=== PATIENT | female | born 1945 | race Caucasian/White ===

== ENCOUNTER → 2017-10-04 20:20 | Outpatient (REF) | payer MEDICARE, BC, SELFPAY ==
[2017-10-04 21:02] LABS: NT-proBNP 158 pg/mL
== END ==
LOC: NCHCN 20:20
PROVIDERS: PCP Family Medicine; Visit Provider Family Medicine
DX: I50.9 Heart failure, unspecified (principal); R82.99 Other abnormal findings in urine; E11.65 Type 2 diabetes mellitus with hyperglycemia; R53.83 Other fatigue
CPT/HCPCS: 83880; 84550

== ENCOUNTER → 2017-10-16 12:44 | Outpatient (REF) | payer MEDICARE, BC, SELFPAY | LOC: NCHCN 12:44 | PROVIDERS: PCP Family Medicine; Visit Provider Family Medicine | DX: R30.0 Dysuria (principal) | CPT/HCPCS: 87077; 87086; 87186 ==

== ENCOUNTER → 2017-11-21 10:39 | Outpatient (BNVA) | payer MEDICARE, BC, SELFPAY | PROVIDERS: PCP Family Medicine; Visit Provider Internal Medicine Cardiovascular Disease | DX: I42.0 Dilated cardiomyopathy (principal); E66.01 Morbid (severe) obesity due to excess calories; I48.0 Paroxysmal atrial fibrillation; E11.9 Type 2 diabetes mellitus without complications; Z79.4 Long term (current) use of insulin; Z95.0 Presence of cardiac pacemaker; G47.33 Obstructive sleep apnea (adult) (pediatric); Z79.01 Long term (current) use of anticoagulants | CPT/HCPCS: 99214 ==

== ENCOUNTER 2017-12-20 07:26 | Day surgery (SDC) | payer MEDICARE, BC, SELFPAY ==
--- NOTE | 2017-12-19 11:46 | W.PIPPEYE ---
History of Present Illness Chief Complaint: Progressive decreased vision, right eye Narrative: The patient is a 71-year-old female who presented with complaints of progressive decreased vision in her right eye. She notes halos and starbursts around lights and can no longer drives at night. On examination she was noted to have moderate nuclear cataract with visual acuity of 20/100 in the right eye. The option of cataract surgery was offered to the patient and she wished to proceed. NOTE: The Chief Complaint, HPI, Past Medical History, Past Surgical History, Family History, Social History, Medications, and complete Ophthalmic Exam with detailed Assessment and Plan have already been documented in the patient's outpatient ophthalmic record and are not covered again in detail here. 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 [employer] Smoking/Tobacco Use Status: Never Surgical History section Meds Home Medications Medication Instructions Recorded Confirmed Type fluoxetine 40 mg PO DAILY AM 04/15/13 12/17/17 History Bi Pap 12/28/14 History acetaminophen 325 mg PO PRN tab-cap 12/28/14 03/19/17 History carvedilol [Coreg] 25 mg PO BID tab-cap 12/28/14 12/17/17 History cholecalciferol (vitamin D3) 5,000 unit PO WEEKLY 12/28/14 12/17/17 History lorazepam 0.5 mg PO Q 6-8 HR PRN tab-cap 12/28/14 03/19/17 History nitroglycerin [Nitrostat] 0.4 mg SUBLINGUAL ONCE tab-cap 12/28/14 03/19/17 History omega-3 fatty acids 1,000 mg PO BID 12/28/14 12/17/17 History cyanocobalamin (vitamin B-12) 5,000 mcg PO DAILY 05/28/16 03/19/17 History [Vitamin B-12] magnesium oxide 400 mg PO BID 05/28/16 12/17/17 History insulin aspart U-100 [Novolog 0 units SUB-Q 0800,1200,1700 pen 05/31/16 03/19/17 Rx Flexpen U-100 Insulin] insulin aspart U-100 [Novolog 10 units SUB-Q 0800,1200,1700 pen 05/31/16 03/19/17 Rx Flexpen U-100 Insulin] nystatin 1 applic TOPICAL TID PRN #0 jar 05/31/16 03/19/17 Rx warfarin [Coumadin] mg PO DIRECTED 02/13/17 History insulin NPH and regular human 50 unit SUB-Q BID 03/06/17 12/17/17 History [Novolin 70/30 U-100 Insulin] buspirone 7.5 mg PO QAM tab 03/21/17 12/17/17 Rx colchicine [Colcrys] 0.6 mg PO BID tab 03/21/17 12/17/17 Rx spironolactone 25 mg PO DAILY tab-cap 05/15/17 History thiamine HCl (vitamin B1) 100 mg PO DAILY 05/15/17 12/17/17 History torsemide 40 mg PO DAILY tab-cap 05/15/17 12/17/17 History C,E,zinc,copper [id number] 1 cap PO DAILY 12/17/17 12/17/17 History [Ocuvite Adult 50 Plus] gabapentin 300 mg PO BID 12/17/17 12/17/17 History nzxikdat-acw-ccjm-FA-lutein 1 tab PO DAILY 12/17/17 12/17/17 History [Centrum Silver Women] Allergies Allergy/AdvReac Type Severity Reaction Status Date / Time No Known Allergies Allergy Unverified 12/18/17 11:37 Exam OCULAR EXAM:: Visual acuity at distance: Corrected to 20/100 OD, 20/50 OS Pupils: Pupils equal, round, and reactive without afferent pupillary defect IOP: 17 OD 15 OS Extraocular Motility: Normal Pertinent Slit Lamp Findings: Significant for pupils dilating to 6 mm OU. 2+ nuclear cataract OU. Dilated Funduscopic Examination: Disc cupping is 0.6 OU with good color. BRIGHTNESS ACUITY TESTING (BAT):: Off right eye 20/100 Low: 20/100 Medium: 20/200 High: 20/400 Assessment and Plan (1) Nuclear sclerotic cataract of right eye: Current visit: No Status: Acute Assessment: Visually significant cataract, right eye. Plan: Cataract extraction with intraocular lens implantation, right eye Note: NOTE:: The details of the planned surgery, including the risks, indications,limitations,expectations,outcome and possible complications were explained to the patient. The patient understands the complications including, but not limited to: infection, hemorrhage, posterior dislocation of the lens or nuclear fragments which may require the intervention of a vitreoretinal surgeon, possible loss of the eye, or from anesthetic complications. The patient has been made aware of the option of not having surgery, that vision following surgery may not be equal to that prior to surgery, and that the planned surgery may not achieve the intended results. Following this discussion, which the patient appeared to understand, the patient wishes to proceed with cataract surgery with lens implantation of the affected eye to improve and maximize vision.
--- NOTE | 2017-12-19 11:51 | POEE_ITS ---
History of Present Illness Chief Complaint: Progressive decreased vision, right eye Narrative: The patient is a 71-year-old female who presented with complaints of progressive decreased vision in her right eye. She notes halos and starbursts around lights and can no longer drives at night. On examination she was noted to have moderate nuclear cataract with visual acuity of 20/100 in the right eye. The option of cataract surgery was offered to the patient and she wished to proceed. NOTE: The Chief Complaint, HPI, Past Medical History, Past Surgical History, Family History, Social History, Medications, and complete Ophthalmic Exam with detailed Assessment and Plan have already been documented in the patient's outpatient ophthalmic record and are not covered again in detail here. 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[employer] Smoking/Tobacco Use Status: Never Surgical History section Meds Home Medications Medication Instructions Recorded Confirmed Type fluoxetine 40 mg PO DAILY AM 04/15/13 12/17/17 History Bi Pap 12/28/14 History acetaminophen 325 mg PO PRN tab-cap 12/28/14 03/19/17 History carvedilol [Coreg] 25 mg PO BID tab-cap 12/28/14 12/17/17 History cholecalciferol (vitamin D3) 5,000 unit PO WEEKLY 12/28/14 12/17/17 History lorazepam 0.5 mg PO Q 6-8 HR PRN tab-cap 12/28/14 03/19/17 History nitroglycerin [Nitrostat] 0.4 mg SUBLINGUAL ONCE tab-cap 12/28/14 03/19/17 History omega-3 fatty acids 1,000 mg PO BID 12/28/14 12/17/17 History cyanocobalamin (vitamin B-12) 5,000 mcg PO DAILY 05/28/16 03/19/17 History [Vitamin B-12] magnesium oxide 400 mg PO BID 05/28/16 12/17/17 History insulin aspart U-100 [Novolog 0 units SUB-Q 0800,1200,1700 pen 05/31/16 Rx Flexpen U-100 Insulin] insulin aspart U-100 [Novolog 10 units SUB-Q 0800,1200,1700 pen 05/31/16 Rx Flexpen U-100 Insulin] nystatin 1 applic TOPICAL TID PRN #0 jar 05/31/16 03/19/17 Rx warfarin [Coumadin] mg PO DIRECTED 02/13/17 History insulin NPH and regular human 50 unit SUB-Q BID 03/06/17 12/17/17 History [Novolin 70/30 U-100 Insulin] buspirone 7.5 mg PO QAM tab 03/21/17 12/17/17 Rx colchicine [Colcrys] 0.6 mg PO BID tab 03/21/17 12/17/17 Rx spironolactone 25 mg PO DAILY tab-cap 05/15/17 History thiamine HCl (vitamin B1) 100 mg PO DAILY 05/15/17 12/17/17 History torsemide 40 mg PO DAILY tab-cap 05/15/17 12/17/17 History C,E,zinc,copper [id number] 1 cap PO DAILY 12/17/17 12/17/17 History [Ocuvite Adult 50 Plus] gabapentin 300 mg PO BID 12/17/17 12/17/17 History ptwceqcj-xkj-mlwl-FA-lutein 1 tab PO DAILY 12/17/17 12/17/17 History [Centrum Silver Women] Allergies Allergy/AdvReac Type Severity Reaction Status Date / Time No Known Allergies Allergy Unverified 12/18/17 11:37 Exam OCULAR EXAM:: Visual acuity at distance: Corrected to 20/100 OD, 20/50 OS Pupils: Pupils equal, round, and reactive without afferent pupillary defect IOP: 17 OD 15 OS Extraocular Motility: Normal Pertinent Slit Lamp Findings: Significant for pupils dilating to 6 mm OU. 2+ nuclear cataract OU. Dilated Funduscopic Examination: Disc cupping is 0.6 OU with good color. BRIGHTNESS ACUITY TESTING (BAT):: Off right eye 20/100 Low: 20/100 Medium: 20/200 High: 20/400 Assessment and Plan (1) Nuclear sclerotic cataract of right eye: Current visit: No Status: Acute Assessment: Visually significant cataract, right eye. Plan: Cataract extraction with intraocular lens implantation, right eye Note: NOTE:: The details of the planned surgery, including the risks, indications, limitations,expectations,outcome and possible complications were explained to the patient. The patient understands the complications including, but not limited to: infection, hemorrhage, posterior dislocation of the lens or nuclear fragments which may require the intervention of a vitreoretinal surgeon, possible loss of the eye, or from anesthetic complications. The patient has been made aware of the option of not having surgery, that vision following surgery may not be equal to that prior to surgery, and that the planned surgery may not achieve the intended results. Following this discussion, which the patient appeared to understand, the patient wishes to proceed with cataract surgery with lens implantation of the affected eye to improve and maximize vision.
--- NOTE | 2017-12-20 07:20 | W.PM.DSUDISC ---
Discharge Plan Discharge Details Reason For Visit: CATARACT OD Attending Provider: Hunter Mathis Primary Care Provider: Alyssa Turcios Home Meds and New Rx's Prescriptions: No Action acetaminophen 325 MG tablet 325 mg PO PRN RF: 0 carvedilol [Coreg] 6.25 MG tablet 25 mg PO BID RF: 0 omega-3 fatty acids 1,000 MG capsule 1,000 mg PO BID RF: 0 lorazepam 0.5 MG tablet 0.5 mg PO Q 6-8 HR PRN RF: 0 nitroglycerin [Nitrostat] 0.4 MG tablet, sublingual 0.4 mg Sublingual ONCE RF: 0 cholecalciferol (vitamin D3) 5,000 UNIT tablet 5,000 unit PO WEEKLY RF: 0 BI PAP RF: 0 torsemide 20 MG tablet 40 mg PO DAILY RF: 0 thiamine HCl (vitamin B1) 100 MG tablet 100 mg PO DAILY RF: 0 spironolactone 25 MG tablet 25 mg PO DAILY RF: 0 fluoxetine 40 MG capsule 40 mg PO DAILY AM RF: 0 warfarin [Coumadin] 1 MG tablet PO DIRECTED RF: 0 taavykzy-tsr-ryps-FA-lutein [Centrum Silver Women] 8 mg iron-400 mcg-300 mcg Tablet 1 tab PO DAILY RF: 0 C,E,zinc,copper [id number] [Ocuvite Adult 50 Plus] 250-5-1 mg Capsule 1 cap PO DAILY RF: 0 gabapentin 300 mg Capsule 300 mg PO BID RF: 0 magnesium oxide 400 MG capsule 400 mg PO BID RF: 0 cyanocobalamin (vitamin B-12) [Vitamin B-12] 5,000 MCG tablet, sublingual 5,000 mcg PO DAILY RF: 0 nystatin 60 GM powder 1 applic Topical TID PRNQty: 0 RF: 0 insulin aspart U-100 [Novolog Flexpen U-100 Insulin] 300 UNITS/3 ML insulin pen 10 units Sub-Q 0800,1200,1700 RF: 0 insulin aspart U-100 [Novolog Flexpen U-100 Insulin] 300 UNITS/3 ML insulin pen Sub-Q 0800,1200,1700 RF: 0 insulin NPH and regular human [Novolin 70/30 U-100 Insulin] 100 UNIT/ML suspension 50 unit Sub-Q BID RF: 0 colchicine [Colcrys] 0.6 MG tablet 0.6 mg PO BID RF: 0 buspirone 15 MG tablet 7.5 mg PO QAM RF: 0 Discharge Instructions Stand Alone Forms: Post-op Topical Cataract, Corinne Velasquez (DSU) DS: Diagnosis Discharge Diagnosis (1) Nuclear sclerotic cataract of right eye: Status: Resolved (2) Status post cataract extraction and insertion of intraocular lens of right eye: Status: Chronic
--- NOTE | 2017-12-20 07:32 | W.PM.OP ---
Date of service: 12/20/17 Operative Note DATE OF PROCEDURE: 12/20/17 PRE-OP DIAGNOSIS: Cataract, right eye POST-OP DIAGNOSIS: same SURGEON: Hunter Mathis ANESTHESIA: MAC and local (sub-tenon's anesthetic infiltration) PATHOLOGY: none sent COMPLICATIONS: None Patient was transported to: same day Patient's condition: stable Implants: [employer] / [employer] Tecnis ZCB00 Indications: Progressive decreased vision due to cataract, right eye Procedure Description: CATARACT SURGERY OPERATIVE REPORT PREOPERATIVE DIAGNOSIS: Nuclear cataract, right eye POSTOPERATIVE DIAGNOSIS: Same OPERATION: Cataract extraction using phacoemulsification with posterior chamber intraocular lens implant, right eye. IOL: IOL Instructional Technology Facilitator/Model: [employer] / DANILO [employer]ecnis ZCB00 IOL Power: +16.00 diopters IOL Serial Number: [id number] Optic Diameter: 6.0mm Haptic/Overall Diameter: 13.0mm PHACO INFO: Huy Captalisurion Vision System with OZil and Active Fluidics Cumulative Dispersed Energy (CDE): 8.53 seconds SURGEON: Hunter Mathis MD, [facility] ANESTHESIA: Monitored Anesthesia Care (MAC), with local sub-tenon's anesthetic infiltration COMPLICATIONS: None SPECIMENS: None INDICATIONS FOR PROCEDURE: The patient is a 71-year-old lady who presented with complaints of progressive decreased vision in her right eye. She was noted to have moderate nuclear cataract in the right eye. The option of cataract surgery was offered to the patient and she wished to proceed. PROCEDURE: The correct surgical eye was identified and marked as the right eye and the pupil was dilated in the preoperative area using mydriatics, cycloplegics, and NSAIDS (except in aspirin allergic patients). The dilated pupil size was 7.0mm. The patient elected to proceed without oral sedation. The patient was brought to the operating room where cardiopulmonary monitoring was instituted and surgical time-out was performed, confirming the correct operative eye and IOL power. Topical anesthesia was administered and ophthalmic povidone-iodine 5% was instilled into the conjunctival fornices. Lidocaine gel was applied to the cornea and the enma-ocular area was prepped with Betadine 10% solution and draped in the usual sterile fashion for intraocular surgery. Steri-strips were used to cover the lashes and lid margins and an adhesive eye drape was placed. Care was taken to isolate the lashes and lid margins under the Steri-strips and adhesive eye drape. A lid speculum was placed between the lids of the operative eye and the Marlon-Manuel operating microscope was maneuvered into position. Janene scissors were then used to make a conjunctival buttonhole approximately 6mm posterior to the limbus in the inferonasal quadrant. Blunt dissection was carried out to expose bare sclera, and a blunt-tipped sub-tenon?s anesthesia cannula was introduced and passed posteriorly along the globe where non-preserved plain lidocaine was injected into posterior sub-Tenon?s space. A sideport knife was used to make a paracentesis port at the 7:00 postion and the anterior chamber was filled with Healon GV. A 2.4mm keratome knife was used to create a half-thickness groove at the limbus and then to construct a three-plane near-clear corneal tunnel extending 2.0mm into clear cornea at the 10:00 position. A flap was raised on the anterior capsule and capsulorhexis forceps were used to complete a continuous curvilinear capsulorhexis of 5.0 mm. Balanced salt solution was then used to perform cortical cleaving hydrodissection and nuclear hydrodelineation until the lens could be freely rotated within the capsular bag. The lens nucleus was then disassembled and removed within the capsular bag and iris plane using phacoemulsification. Residual cortical material was removed using the 45-degree angled silicone I/A tip with 0.3mm port. The posterior capsule was carefully polished to remove as much residual lens epithelial cells as safely possible. The capsular bag was then inflated and the anterior chamber deepened with viscoelastic. The lens implant described above was inserted into the capsular bag using the DANILO [employer] [place] [employer] [place] Injector. A Kuglen hook was used to dial the IOL into position. Residual viscoelastic was then removed first from posterior to the IOL, then from the anterior chamber using the I/A handpiece. The lens implant was noted to center nicely within the capsular bag. The incisions were stromally hydrated, and the anterior chamber was reformed using BSS. Then 0.4cc of moxifloxacin 1.5mg/ml were injected into the capsular bag and anterior chamber. The incisions were checked with a Weck spear and found to be secure. Several drops of ophthalmic povidone-iodine 5% were then applied to the eye followed by two drops of Imprimis combination moxifloxacin/dexamethasone solution. The drapes were removed and a clear plastic protective eye shield was placed over the eye. The patient was then returned to [facility] in stable condition.
[2017-12-20 07:42] VITALS: BP 104/59; PULSE 86; RESP 19; TEMP 36.6; O2SAT 95
[2017-12-20] MEDS: Lidocaine 2% Jelly 6 ML SYR (10:17)
[2017-12-20] MEDS: Lidocaine 1% Pres-Free 5 ML VIAL (10:23)
[2017-12-20] MEDS: Balanced Salt Soln.-PLUS 500 ML BAG (10:23)
[2017-12-20] MEDS: Povidone-Iodine Ophth 30 ML BTL (10:40)
== END 2017-12-20 11:31 | disposition home or self-care (01) ==
LOC: SUR 07:26
PROVIDERS: PCP Family Medicine; Visit Provider Ophthalmology
PROC: (CPT 66984; principal; 2017-12-20 09:00)
DX: H25.11 Age-related nuclear cataract, right eye (principal); E11.9 Type 2 diabetes mellitus without complications; Z79.4 Long term (current) use of insulin; G47.33 Obstructive sleep apnea (adult) (pediatric)
CPT/HCPCS: 66984; V2632

== ENCOUNTER 2017-12-24 01:07 | Emergency (ER) | payer MEDICARE, BC, SELFPAY ==
[2017-12-24 00:53] VITALS: PULSE 70; RESP 18; TEMP 36.7; O2SAT 97
--- NOTE | 2017-12-24 01:09 | W.ED.GENAD ---
Discharge Plan Disposition Patient Disposition: HOME Condition: Stable Discharge Details Chief Complaint: Dizzy/Sync Clinical Impression: Acute UTI, Hyperglycemia Reason For Visit: HALLE Primary Care Provider: Alyssa Turcios ED Provider: Karlos Miranda Home Meds and New Rx's Prescriptions: New levofloxacin 750 mg tablet 750 mg PO DAILY Qty: 6 RF: 0 Continue acetaminophen 325 MG tablet 325 mg PO PRN RF: 0 carvedilol [Coreg] 6.25 MG tablet 25 mg PO BID RF: 0 omega-3 fatty acids 1,000 MG capsule 1,000 mg PO BID RF: 0 lorazepam 0.5 MG tablet 0.5 mg PO Q 6-8 HR PRN RF: 0 nitroglycerin [Nitrostat] 0.4 MG tablet, sublingual 0.4 mg Sublingual ONCE RF: 0 cholecalciferol (vitamin D3) 5,000 UNIT tablet 5,000 unit PO WEEKLY RF: 0 BI PAP RF: 0 torsemide 20 MG tablet 40 mg PO DAILY RF: 0 thiamine HCl (vitamin B1) 100 MG tablet 100 mg PO DAILY RF: 0 spironolactone 25 MG tablet 25 mg PO DAILY RF: 0 fluoxetine 40 MG capsule 40 mg PO DAILY AM RF: 0 warfarin [Coumadin] 1 MG tablet PO DIRECTED RF: 0 pqyuozos-cxg-evom-FA-lutein [Centrum Silver Women] 8 mg iron-400 mcg-300 mcg Tablet 1 tab PO DAILY RF: 0 C,E,zinc,copper [id number] [Ocuvite Adult 50 Plus] 250-5-1 mg Capsule 1 cap PO DAILY RF: 0 gabapentin 300 mg Capsule 300 mg PO BID RF: 0 magnesium oxide 400 MG capsule 400 mg PO BID RF: 0 cyanocobalamin (vitamin B-12) [Vitamin B-12] 5,000 MCG tablet, sublingual 5,000 mcg PO DAILY RF: 0 insulin aspart U-100 [Novolog Flexpen U-100 Insulin] 300 UNITS/3 ML insulin pen 10 units Sub-Q 0800,1200,1700 RF: 0 insulin aspart U-100 [Novolog Flexpen U-100 Insulin] 300 UNITS/3 ML insulin pen Sub-Q 0800,1200,1700 RF: 0 insulin NPH and regular human [Novolin 70/30 U-100 Insulin] 100 UNIT/ML suspension 50 unit Sub-Q BID RF: 0 colchicine [Colcrys] 0.6 MG tablet 0.6 mg PO BID RF: 0 buspirone 15 MG tablet 7.5 mg PO QAM RF: 0 Discharge Instructions Additional Instructions: Your blood work was unremarkable other than your blood sugar being high and you also have a urinary tract infection Follow up with your primary care provider within a week to discuss further management of your diabetes IF you have have severe abdominal pain, persistent vomit or difficulty breathing return to the emergency department Medical Decision Making 72 yo female with hx of HFrEF, ischemic cardiomyopathy s/p aicd, afib, obesity, who comes in with complaints of general weakness for about 3 days. Tonight she couldn't get off the toilet so ems was called. She states she hasn't been right since having influenza last year but has had increased general weakness the past 3 days. Denies cough, sob, chest pain/pressure, abd pain, rashes. She did have right cataract surgery last week and has subconjunctival hemorrhage of the eye but denies pain or vision changes. Unclear what is causing her general weakness, will evaluate for anemia, electrolyte abnormalities and UTI. She has no shortness of breath or chest pain/pressure without hypoxia or tachycardia so doubt significant chf, acs or PE. She does have pitting edema of both legs without calf pain, and states this is swelling is chronic and unchanged. NIH of 0, nonfocal exam so doubt CVA. Has no headache or falls so doubt sdh. pt remains hd stable, tele showing nsr rates in the 60's. Lab work shows no significant abnormalities other than UTI and she has had increased urinary frequency and also hyperglycemia without evidence of dka. She feels well enough to go home and I do not feel she requires hospitalization at this time. Advised f/u with her pcp and return precautions given Differential Diagnosis uti, anemia, electrolyte abnormality Lab Data Lab results reviewed: Yes I reviewed the patient's lab results. HPI General Mode of arrival: EMS. Date/Time Provider Initiated Documentation: 12/24/17 01:44. Limitations to Documentation: no limitations. Information obtained by: patient. History of Present Illness 72 year old F presents to the emergency department with the chief complaint of general weakness, described as moderate, with intensity rated at 4. Patient reports no radiation. Patient started experiencing this day(s) (3) and it has been constant. No relieving factors improve symptom(s), No exacerbating factors reported . Patient notes no other symptoms.. Patient did receive the following treatments prior to arrival, none Related Data Home Medications Medication Instructions Recorded Confirmed fluoxetine 40 mg PO DAILY AM 04/15/13 12/24/17 Bi Pap 12/28/14 acetaminophen 325 mg PO PRN tab-cap 12/28/14 12/24/17 carvedilol [Coreg] 25 mg PO BID tab-cap 12/28/14 12/24/17 cholecalciferol (vitamin D3) 5,000 unit PO WEEKLY 12/28/14 12/24/17 lorazepam 0.5 mg PO Q 6-8 HR PRN tab-cap 12/28/14 12/24/17 nitroglycerin [Nitrostat] 0.4 mg SUBLINGUAL ONCE tab-cap 12/28/14 12/24/17 omega-3 fatty acids 1,000 mg PO BID 12/28/14 12/24/17 cyanocobalamin (vitamin B-12) 5,000 mcg PO DAILY 05/28/16 12/24/17 [Vitamin B-12] magnesium oxide 400 mg PO BID 05/28/16 12/24/17 insulin aspart U-100 [Novolog 0 units SUB-Q 0800,1200,1700 pen 05/31/16 12/24/17 Flexpen U-100 Insulin] insulin aspart U-100 [Novolog 10 units SUB-Q 0800,1200,1700 pen 05/31/16 12/24/17 Flexpen U-100 Insulin] warfarin [Coumadin] mg PO DIRECTED 02/13/17 insulin NPH and regular human 50 unit SUB-Q BID 03/06/17 12/24/17 [Novolin 70/30 U-100 Insulin] buspirone 7.5 mg PO QAM tab 03/21/17 12/24/17 colchicine [Colcrys] 0.6 mg PO BID tab 03/21/17 12/24/17 spironolactone 25 mg PO DAILY tab-cap 05/15/17 12/24/17 thiamine HCl (vitamin B1) 100 mg PO DAILY 05/15/17 12/24/17 torsemide 40 mg PO DAILY tab-cap 05/15/17 12/24/17 C,E,zinc,copper [id number]-ame 1 cap PO DAILY 12/17/17 12/24/17 [Ocuvite Adult 50 Plus] gabapentin 300 mg PO BID 12/17/17 12/24/17 aquszbpw-qcy-wdey-FA-lutein 1 tab PO DAILY 12/17/17 12/24/17 [Centrum Silver Women] levofloxacin 750 mg PO DAILY #6 tab 12/24/17 Previous Rx's Medication Instructions Recorded insulin aspart U-100 [Novolog 0 units SUB-Q 0800,1200,1700 pen 05/31/16 Flexpen U-100 Insulin] insulin aspart U-100 [Novolog 10 units SUB-Q 0800,1200,1700 pen 05/31/16 Flexpen U-100 Insulin] buspirone 7.5 mg PO QAM tab 03/21/17 colchicine [Colcrys] 0.6 mg PO BID tab 03/21/17 levofloxacin 750 mg PO DAILY #6 tab 12/24/17 Allergies Allergy/AdvReac Type Severity Reaction Status Date / Time No Known Allergies Allergy Unverified 12/24/17 01:01 General Stated Complaint: Dizzy/Sync ISABELLE: 3 Review of Systems Review of Systems All systems reviewed & are unremarkable except as noted in HPI and below Constitutional Denies chills and Denies fever(s) Eyes Denies loss of vision ENT Denies change in voice Cardiovascular Denies chest pain and Denies dyspnea Respiratory Denies dyspnea Gastrointestinal Denies abdominal pain, Denies nausea and Denies vomiting Genitourinary Denies dysuria Musculoskeletal Denies joint swelling Integumentary/Breasts Denies rash Neurologic Denies loss of vision Psychiatric Denies depression Endocrine Denies cold intolerance and Denies heat intolerance Allergic/Immunologic Denies urticaria PFS Family History Father Heart disease Medical History Dilated cardiomyopathy (Chronic) Morbid obesity due to excess calories (Chronic) Paroxysmal atrial flutter (Chronic) Nuclear sclerotic cataract of right eye (Resolved) Atrial fibrillation CHF (congestive heart failure) DM (diabetes mellitus) CALDERON (obstructive sleep apnea) Obesity Social History household members: spouse housing: house lives independently: Yes current occupational status: other 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 [employer] Smoking/Tobacco Use Status: Never Surgical History Status post cataract extraction and insertion of intraocular lens of right eye (Chronic 12/20/17) section Exam Const General: no acute distress Orientation: alert HENMT Head: normal to inspection Ears: external ears normal General nose exam: external nose normal Mouth: moist mucous membranes Eyes General: appearance normal, both eyes and all related structures Neck Neck: normal visual inspection Resp Effort & Inspection: normal respiratory effort and able to speak in complete sentences Cardio Rate: regular rate Skin General skin exam: no rashes or lesions noted Neuro General: alert and oriented x3 Extrem General: normal to inspection Psych Mental Status: mental status grossly normal Course Vital Signs Temperature 36.7 C 12/24/17 00:53 Pulse 70 12/24/17 00:53 Respiratory Rate 18 12/24/17 00:53 Pulse Oximetry 97 12/24/17 00:53 Temperature 36.7 C 12/24/17 00:53 Pulse 70 12/24/17 00:53 Respiratory Rate 18 12/24/17 00:53 Respiratory Effort 12/24/17 00:53 Blood Pressure Position Sitting 12/24/17 00:53 Pulse Oximetry 97 12/24/17 00:53 Oxygen Delivery Method Room Air 12/24/17 00:53 Oxygen Flow Rate 0 12/24/17 00:53 Pain Level 0 12/24/17 00:53
[2017-12-24 01:17] LABS: BE (Venous) 6.1 mmol/L (-3-3); HCO3 (Venous) 29 mmol/L (22-28); O2 Sat (Venous) 56 % (70-80); TCO2 (Venous) 26 mmol/L (22-29); pCO2 (Venous) 38 mm/Hg (34-47); pH (Venous) 7.49 (7.32-7.43); pO2 (Venous) 28 mm/Hg (28-44)
[2017-12-24 01:23] LABS: Abs Immature Grans 0.01 k/cumm (0.0-0.09); Absolute Basophil Count 0.01 k/cumm (0.0-0.2); Absolute Eosinophil Count 0.06 k/cumm (0.0-0.7); Absolute Lymphocyte Count 0.97 k/cumm (1.2-3.4); Absolute Monocyte Count 0.51 k/cumm (0.11-0.7); Absolute Neutrophil Count 7.38 k/cumm (1.2-6.7); Basophils % 0.1; Eosinophils % 0.7; HCT 42.8 % (36.0-46.0); HGB 14.6 g/dL (12.0-15.5); Immature Grans % 0.1; Lymphocytes % 10.9; Mean Corp. HGB Concentration 34.1 g/dL (32.0-36.0); Mean Corpuscular Hemoglobin 29.4 pg (27.0-33.0); Mean Corpuscular Volume 86.3 fL (80-95); Mean Platelet Volume 12.4 fL (8.0-11.0); Monocytes % 5.7; Neutrophils % 82.5; Platelet Count 158 x1000/uL (130-400); RBC 4.96 m/cumm (4.00-5.20); RBC Distribution Width 14.3 % (11.7-14.6); White Blood Cell Count 8.94 k/cumm (4.4-10.8)
[2017-12-24 01:27] LABS: Bilirubin Negative (Negative); Blood Trace-intact (Negative); Clarity Clear; Glucose 500 mg/dL (Negative); Ketones 15 mg/dL (Negative); Leukocyte Esterase Trace (Negative); Nitrite Positive (Negative); Urobilinogen 0.2 EU/dL (Up TO 0.2); pH 5.5 (5-8)
[2017-12-24 01:38] LABS: Bacteria Few HPF (Negative); C & S Indicated? Yes; Casts Negative LPF (Negative); Crystals Negative HPF (Negative); Epithelial Cells Rare HPF (Negative); Mucus Negative (Negative); RBC Negative (0-2)
--- NOTE | 2017-12-24 01:40 | DI.RAD_ITS ---
SYMPTOM/DIAGNOSIS: CHF AP CHEST: Comparison is made with 03/19/17. Heart size and pulmonary vasculature are within normal limits. The lungs are clear. No effusions or pneumothoraces are identified. The pacing wires are in stable position. The bones appear unremarkable. IMPRESSION: No acute pulmonary process.
--- NOTE | 2017-12-24 01:50 | DI.VRAD_ITS ---
EXAM: XR Chest, 1 View CLINICAL HISTORY: 72 years old, female; Signs and symptoms; Other: Orthostatic hypotension, HX of paf/psvt , mild lvh; Prior surgery; Surgery date: 6+ months; Surgery type: Pacemaker TECHNIQUE: Frontal view of the chest. COMPARISON: CR CHEST 2 VIEWS PA,LAT 03/19/2017 2:28 PM FINDINGS: Lungs: Unremarkable. No consolidation. Pleural space: Unremarkable. No pneumothorax. Heart: Unremarkable. No cardiomegaly. Mediastinum: Unremarkable. Bones/joints: Unremarkable. Tubes, lines and devices: Left chest wall pacing device. IMPRESSION: No acute findings. Dictated and Authenticated by: Karlos Tierney MD. Ordering:JEAN CLAUDE TEIXEIRA MD
[2017-12-24 01:55] LABS: INR 1.1 (1.0-3.5); PTT Activated 23.9 sec (21.0-31.4); Prothrombin Time 11.1 sec (9.3-10.8)
[2017-12-24] MEDS: LEVOFLOXACIN 500 MG, LEVOFLOXACIN 250 MG 750 MG PO (01:55)
[2017-12-24 02:01] LABS: ALT 39 U/L (12-78); AST 27 U/L (15-37); Albumin 3.2 g/dL (3.4-5.0); Alkaline Phosphatase 111 U/L (46-116); Anion Gap 9.7 mmol/L (3-11); BUN 34 mg/dL (7-18); Bilirubin, Direct 0.41 mg/dL (0.00-0.20); Bilirubin, Total 1.8 mg/dL (0.2-1.0); CO2 28.3 mmol/L (21.0-32.0); CREATININE 1.39 mg/dL (0.55-1.02); Calcium 9.1 mg/dL (8.5-10.1); Chloride 96 mmol/L (98-107); Estimated GFR 37.48 (mL/min/1.73m2); Glucose 424 mg/dL (70-100); Magnesium 1.6 mg/dL (1.8-2.4); NT-proBNP 188 pg/mL; Potassium 3.6 mmol/L (3.5-5.1); Sodium 134 mmol/L (136-145); Total Protein 7.1 g/dL (6.4-8.2)
[2017-12-24 04:44] VITALS: BP 129/65; PULSE 63; RESP 18; TEMP 36.6; O2SAT 98
== END 2017-12-24 05:23 | disposition home or self-care (01) ==
LOC: ER 04:30
PROVIDERS: Emergency Provider Emergency Medicine; PCP Family Medicine
DX: N39.0 Urinary tract infection, site not specified (principal); B96.20 Unspecified Escherichia coli [E. coli] as the cause of diseases classified elsewhere; E11.65 Type 2 diabetes mellitus with hyperglycemia; I48.91 Unspecified atrial fibrillation; Z79.01 Long term (current) use of anticoagulants; Z79.4 Long term (current) use of insulin
CPT/HCPCS: 36415; 80053; 80076; 82805; 87077; 87449; 99284; 71045; 81003; 81015; 83735; 83880; 85025; 85610; 85730; 87086; 87186

== ENCOUNTER 2017-12-25 12:42 | Emergency (ER) | payer MEDICARE, BC, SELFPAY ==
[2017-12-25] VITALS (26 sets, daily range): BP systolic 101–130; BP diastolic 44–78; PULSE 67–96; RESP 12–23; TEMP 36.3; O2SAT 89–98
--- NOTE | 2017-12-25 14:25 | W.ED.GENAD ---
Discharge Plan Discharge Details Chief Complaint: GenMedical Reason For Visit: mobility / UTI Primary Care Provider: lAyssa Turcios ED Provider: Margarita Low Home Meds and New Rx's Prescriptions: No Action acetaminophen 325 MG tablet 325 mg PO PRN RF: 0 carvedilol [Coreg] 6.25 MG tablet 25 mg PO BID RF: 0 omega-3 fatty acids 1,000 MG capsule 1,000 mg PO BID RF: 0 nitroglycerin [Nitrostat] 0.4 MG tablet, sublingual 0.4 mg Sublingual ONCE RF: 0 cholecalciferol (vitamin D3) 5,000 UNIT tablet 5,000 unit PO WEEKLY RF: 0 BI PAP RF: 0 torsemide 20 MG tablet 40 mg PO DAILY RF: 0 thiamine HCl (vitamin B1) 100 MG tablet 100 mg PO DAILY RF: 0 fluoxetine 40 MG capsule 40 mg PO DAILY AM RF: 0 warfarin [Coumadin] 1 MG tablet PO DIRECTED RF: 0 lyejwdya-hgt-yvli-FA-lutein [Centrum Silver Women] 8 mg iron-400 mcg-300 mcg Tablet 1 tab PO DAILY RF: 0 C,E,zinc,copper [id number]-akx [Ocuvite Adult 50 Plus] 250-5-1 mg Capsule 1 cap PO DAILY RF: 0 gabapentin 300 mg Capsule 300 mg PO HS RF: 0 magnesium oxide 400 MG capsule 400 mg PO BID RF: 0 insulin aspart U-100 [Novolog Flexpen U-100 Insulin] 300 UNITS/3 ML insulin pen 10 units Sub-Q 0800,1200,1700 RF: 0 insulin aspart U-100 [Novolog Flexpen U-100 Insulin] 300 UNITS/3 ML insulin pen Sub-Q 0800,1200,1700 RF: 0 insulin NPH and regular human [Novolin 70/30 U-100 Insulin] 100 UNIT/ML suspension 50 unit Sub-Q BID RF: 0 levofloxacin 750 mg tablet 750 mg PO DAILY Qty: 6 RF: 0 Discharge Data Discharge Date/Time-TO BE ENTERED AT DEPARTURE: 12/25/17 16:50 Medical Decision Making 72-year-old female with a history of diabetes, obstructive sleep apnea, CHF, atrial fibrillation who presents for bilateral leg swelling for 2 days, chronic abdominal rash for months which pt states is improving, and generalized weakness for the past few days. Patient was seen here yesterday for similar symptoms after too weak to get up from toilet yesterday and was diagnosed with UTI and sent home with Levaquin. Vitals within normal limits. Afebrile. Patient appears nontoxic and in no acute distress. 1415 --EKG notes a rate of 85, A. fib, PVCs. Nonspecific QRS widening and anterior fascicular block. QTc 502. QRS 124. No acute ST elevation or depression. 1530 --labs reviewed. Glucose 399. Magnesium 1.6. Normal white blood cell count, hemoglobin, anion gap, bicarb. Troponin negative. Urinalysis notes glucose but otherwise negative likely due to Levaquin. Chest x-ray negative. I was able to stand patient in room with some assistance and she was able to ambulate with me on her side but without assistance. I discussed with daughter at bedside that with an essentially negative workup for any acute process, no acute rash, no lower extremity edema, no focal deficits, and patient able to ambulate in room, I do not see an acute indication for admission. Patient lives at home with her who is limited help due to upper extremity weakness. Daughter states she cannot help patient at home because I want to sleep and I need to work . Care management evaluated at bedside and offered suggestion for services for home health but daughter began screaming and demanding to leave. Daughter told Lorena from care management that I did not evaluate her mother properly. I discussed with daughter that I did a full examination including a full neurological examination and had planned on examining her rash at a later time from her initial evaluation as there was no blanket in the room for pt privacy and I wanted to call care management in the mean time for recommendations. I discussed with daughter that I came back in room with a blanket to then evaluate her rash which is near resolved and only very faint erythema w/o acute infection. Patient had also dismissed her rash initially stating it was improving. Daughter became irritated and demanding that staff take her IV out, get her chucks and a wheelchair and demanding that the patient stand up and walk to the wheelchair. Patient was then able to walk without assistance and turn and pivot into the wheelchair. I asked daughter if she wanted to wait for her discharge instructions and she stated we did not get them yesterday, why would we get them today. HPI General Mode of arrival: wheelchair. Date/Time Provider Initiated Documentation: 12/25/17 13:30. Limitations to Documentation: no limitations. Information obtained by: patient. HPI Narrative: Patient is a 72-year-old female with a history of diabetes, CHF, atrial fibrillation who presents for multiple complaints, specifically worsening generalized weakness. Patient was seen here yesterday for the same complaint in addition to bilateral leg swelling, chronic abdominal rash. Patient was sent here by ambulance yesterday due to inability to get up from the toilet. She had workup which noted UTI and she was sent home with Levaquin of which she has been taking. Denies fever, vomiting, diarrhea, abdominal pain, chest pain, shortness of breath. States she has been eating and drinking normally. Past medical history: CALDERON, diabetes, CHF, atrial fibrillation Surgical history: Cataract surgery 1 week ago, x2, pacemaker 2014 Social history: Denies tobacco, alcohol or drugs Medications: See list, Coumadin held since December 15 for cataract surgery, to resume January 08. Allergies: None PCP: Dr. Turcios Related Data Home Medications Medication Instructions Recorded Confirmed fluoxetine 40 mg PO DAILY AM 04/15/13 12/25/17 Bi Pap 12/28/14 acetaminophen 325 mg PO PRN tab-cap 12/28/14 12/25/17 carvedilol [Coreg] 25 mg PO BID tab-cap 12/28/14 12/25/17 cholecalciferol (vitamin D3) 5,000 unit PO WEEKLY 12/28/14 12/25/17 nitroglycerin [Nitrostat] 0.4 mg SUBLINGUAL ONCE tab-cap 12/28/14 12/25/17 omega-3 fatty acids 1,000 mg PO BID 12/28/14 12/25/17 magnesium oxide 400 mg PO BID 05/28/16 12/25/17 insulin aspart U-100 [Novolog 0 units SUB-Q 0800,1200,1700 pen 05/31/16 12/25/17 Flexpen U-100 Insulin] insulin aspart U-100 [Novolog 10 units SUB-Q 0800,1200,1700 pen 05/31/16 12/25/17 Flexpen U-100 Insulin] warfarin [Coumadin] mg PO DIRECTED 02/13/17 insulin NPH and regular human 50 unit SUB-Q BID 03/06/17 12/25/17 [Novolin 70/30 U-100 Insulin] thiamine HCl (vitamin B1) 100 mg PO DAILY 05/15/17 12/25/17 torsemide 40 mg PO DAILY tab-cap 05/15/17 12/25/17 C,E,zinc,copper [id number]-mxh 1 cap PO DAILY 12/17/17 12/25/17 [Ocuvite Adult 50 Plus] gabapentin 300 mg PO HS 12/17/17 12/25/17 swuqlzie-geo-jxbp-FA-lutein 1 tab PO DAILY 12/17/17 12/25/17 [Centrum Silver Women] levofloxacin 750 mg PO DAILY #6 tab 12/24/17 12/25/17 Previous Rx's Medication Instructions Recorded insulin aspart U-100 [Novolog 0 units SUB-Q 0800,1200,1700 pen 05/31/16 Flexpen U-100 Insulin] insulin aspart U-100 [Novolog 10 units SUB-Q 0800,1200,1700 pen 05/31/16 Flexpen U-100 Insulin] levofloxacin 750 mg PO DAILY #6 tab 12/24/17 Allergies Allergy/AdvReac Type Severity Reaction Status Date / Time No Known Allergies Allergy Unverified 12/24/17 01:01 General Stated Complaint: GenMedical ISABELLE: 3 Review of Systems Review of Systems All systems reviewed & are unremarkable except as noted in HPI and below Constitutional Denies chills, Denies excessive sweating, Denies fatigue, Denies fever(s), Reports weakness and Denies weight loss Eyes Reports system reviewed and no additional complaints, except as docu and Denies blurry vision ENT Denies vertigo, Denies dizziness, Denies otalgia, Denies nasal congestion, Denies sore throat and Denies throat swelling Cardiovascular Denies chest pain, Denies syncope, Denies rapid heart rate, Reports leg edema and Denies dyspnea Respiratory Denies dyspnea Gastrointestinal Denies abdominal pain, Denies diarrhea and Denies vomiting Genitourinary Denies hematuria, Denies dysuria and Denies flank pain Musculoskeletal Denies back pain and Denies joint swelling Integumentary/Breasts Denies lesions and Reports rash Neurologic Denies behavioral changes, Denies confusion, Denies vertigo, Denies dizziness, Denies syncope and Reports weakness Psychiatric Denies behavioral changes, Denies confusion and Denies depression Endocrine Denies excessive sweating and Denies fatigue Hematologic/Lymphatic Denies easy bruising and Denies lymphadenopathy Allergic/Immunologic Denies throat swelling PFSH Family History Father Heart disease Medical History Dilated cardiomyopathy (Chronic) Morbid obesity due to excess calories (Chronic) Paroxysmal atrial flutter (Chronic) Nuclear sclerotic cataract of right eye (Resolved) Atrial fibrillation CHF (congestive heart failure) DM (diabetes mellitus) CALDERON (obstructive sleep apnea) Obesity Social History household members: spouse housing: house lives independently: Yes current occupational status: other 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[employer] Smoking/Tobacco Use Status: Never Surgical History Status post cataract extraction and insertion of intraocular lens of right eye (Chronic 12/20/17) section Exam Const General: cooperative and no acute distress Orientation: alert, awake and oriented x3 HENMT Head: normal to inspection Ears: hearing grossly normal bilaterally and external ears normal General nose exam: external nose normal Face and sinus: normal facial exam Mouth: oral mucosae normal Eyes General: appearance normal, both eyes and all related structures Eyelids: eyelids normal Sclera: scleral abnormality (Right eye subconjunctival hemorrhage, status post cataract surgery) Pupils: PERRL EOM: EOM intact bilaterally Neck Neck: normal visual inspection Lymphatic: no lymphadenopathy noted Chest Chest: normal inspection of the chest Resp Effort & Inspection: normal respiratory effort and able to speak in complete sentences Auscultation: clear to auscultation bilaterally Cardio Rate: regular rate Rhythm: regular rhythm GI Inspection: normal to inspection Palpation: soft, not firm, no guarding, no hepatosplenomegaly, no masses and nontender Auscultation: normal bowel sounds Skin Rashes: rashes noted (Very minimal faint erythema noted under pannus and in the groin bilaterally without lesions/papules/discharge/fluctuance/induration) Neuro General: alert, awake and oriented x3 Cranial Nerves: CN's II-XI intact bilaterally Cognition: normal cognition Speech: speech normal Gait: normal gait Motor: muscle tone normal throughout and strength 5/5 throughout Sensory Exam: no sensory deficits noted Extrem General: normal to inspection, full ROM, normal capillary refill and edema (no pitting edema) Psych Appearance: grossly normal Mental Status: mental status grossly normal Speech and Movement: speech and movement normal Affect: normal affect Thought Process: normal Course Laboratory Tests Range/Units 12/25/17 12/25/17 12/25/17 14:25 14:25 14:59 WBC (4.4-10.8) k/cumm 6.39 RBC (4.00-5.20) m/cumm 4.62 Hgb (12.0-15.5) g/dL 13.6 Hct (36.0-46.0) % 39.8 MCV (80-95) fL 86.1 MCH (27.0-33.0) pg 29.4 MCHC (32.0-36.0) g/dL 34.2 RDW (11.7-14.6) % 13.9 Plt Count (130-400) x1000/uL 150 MPV (8.0-11.0) fL 11.9 H Immature Gran % 0.2 Neutrophils % 69.6 Lymphocytes % 20.8 Monocytes % 7.0 Eosinophils % 2.2 Basophils % 0.2 Absolute Neutrophils (1.2-6.7) k/cumm 4.45 Absolute Lymphocytes (1.2-3.4) k/cumm 1.33 Absolute Monocytes (0.11-0.7) k/cumm 0.45 Absolute Eosinophils (0.0-0.7) k/cumm 0.14 Absolute Basophils (0.0-0.2) k/cumm 0.01 Sodium (136-145) mmol/L 136 Potassium (3.5-5.1) mmol/L 3.6 Chloride (98-107) mmol/L 97 L Carbon Dioxide (21.0-32.0) mmol/L 31.7 Anion Gap (3-11) mmol/L 7.3 BUN (7-18) mg/dL 38 H Creatinine (0.55-1.02) mg/dL 1.57 H Estimated GFR/1.73 m2 (mL/min/1.73m2) 32.57 Glucose (70-100) mg/dL 399 H Calcium (8.5-10.1) mg/dL 8.7 Magnesium (1.8-2.4) mg/dL 1.6 L Total Bilirubin (0.2-1.0) mg/dL 0.8 AST (15-37) U/L 30 ALT (12-78) U/L 33 Alkaline Phosphatase (46-116) U/L 122 H Troponin I (0.00-0.06) ng/mL < 0.02 Total Protein (6.4-8.2) g/dL 6.5 Albumin (3.4-5.0) g/dL 2.8 L Urine Color (Yellow) Yellow Urine Clarity Clear Urine pH (5-8) 5.5 Ur Specific Ava (1.005-1.025) 1.015 Urine Protein (Negative) mg/dL Negative Urine Ketones (Negative) mg/dL Negative Urine Blood (Negative) Negative Urine Nitrite (Negative) Negative Urine Bilirubin (Negative) Negative Urine Urobilinogen (Up TO 0.2) EU/dL 0.2 Ur Leukocyte Esterase (Negative) Negative Urine Glucose (Negative) mg/dL 500 H Vital Signs Temperature 97.3 F L 12/25/17 12:51 Pulse 72 12/25/17 12:51 Respiratory Rate 16 12/25/17 12:51 Blood Pressure 112/63 12/25/17 12:51 Pulse Oximetry 95 12/25/17 12:51 Temperature 97.3 F L 12/25/17 12:51 Temperature Source Temporal Artery Scan 12/25/17 12:51 Pulse 72 12/25/17 12:51 Pulse 71 12/25/17 14:03 Respiratory Rate 18 12/25/17 14:03 Blood Pressure 112/63 12/25/17 12:51 Blood Pressure Position Sitting 12/25/17 12:51 Pulse Oximetry 97 12/25/17 14:03 Oxygen Delivery Method Room Air 12/25/17 12:51 Oxygen Flow Rate 0 12/25/17 12:51
[2017-12-25 14:41] LABS: Abs Immature Grans 0.01 k/cumm (0.0-0.09); Absolute Basophil Count 0.01 k/cumm (0.0-0.2); Absolute Eosinophil Count 0.14 k/cumm (0.0-0.7); Absolute Lymphocyte Count 1.33 k/cumm (1.2-3.4); Absolute Monocyte Count 0.45 k/cumm (0.11-0.7); Absolute Neutrophil Count 4.45 k/cumm (1.2-6.7); Basophils % 0.2; Eosinophils % 2.2; HCT 39.8 % (36.0-46.0); HGB 13.6 g/dL (12.0-15.5); Immature Grans % 0.2; Lymphocytes % 20.8; Mean Corp. HGB Concentration 34.2 g/dL (32.0-36.0); Mean Corpuscular Hemoglobin 29.4 pg (27.0-33.0); Mean Corpuscular Volume 86.1 fL (80-95); Mean Platelet Volume 11.9 fL (8.0-11.0); Neutrophils % 69.6; Platelet Count 150 x1000/uL (130-400); RBC 4.62 m/cumm (4.00-5.20); RBC Distribution Width 13.9 % (11.7-14.6); White Blood Cell Count 6.39 k/cumm (4.4-10.8)
[2017-12-25 15:01] LABS: ALT 33 U/L (12-78); AST 30 U/L (15-37); Albumin 2.8 g/dL (3.4-5.0); Alkaline Phosphatase 122 U/L (46-116); Anion Gap 7.3 mmol/L (3-11); BUN 38 mg/dL (7-18); Bilirubin, Total 0.8 mg/dL (0.2-1.0); CO2 31.7 mmol/L (21.0-32.0); CREATININE 1.57 mg/dL (0.55-1.02); Calcium 8.7 mg/dL (8.5-10.1); Chloride 97 mmol/L (98-107); Estimated GFR 32.57 (mL/min/1.73m2); Glucose 399 mg/dL (70-100); Magnesium 1.6 mg/dL (1.8-2.4); Potassium 3.6 mmol/L (3.5-5.1); Sodium 136 mmol/L (136-145); Total Protein 6.5 g/dL (6.4-8.2)
[2017-12-25 15:02] LABS: Troponin I < 0.02 ng/mL (0.00-0.06)
[2017-12-25 15:09] LABS: Bilirubin Negative (Negative); Blood Negative (Negative); Clarity Clear; Glucose 500 mg/dL (Negative); Ketones Negative (Negative); Leukocyte Esterase Negative (Negative); Nitrite Negative (Negative); Specific Gravity 1.015 (1.005-1.025); Urobilinogen 0.2 EU/dL (Up TO 0.2); pH 5.5 (5-8)
--- NOTE | 2017-12-25 15:43 | DI.RAD_ITS ---
SYMPTOMS/DIAGNOSIS: WEAKNESS, ? ACUTE DISEASE PA AND LATERAL CHEST: The lungs are well expanded and free of infiltrate. There is no pleural effusion. The heart is not enlarged. The hilar structures, mediastinum and tracheal air column are intact. Pacing wires are in stable position. SUMMARY: No interval change when compared with the prior study of 12/24. No evidence of acute cardiopulmonary disease.
--- NOTE | 2017-12-25 17:04 | PDOC.ERCMPRO ---
Care Management Progress Note CM met with Brunilda's daughter Alice to discuss current needs. Alice reported her family is struggling with her mother's care needs in the home setting. Alice shared that Brunilda is non compliant with insulin, incontinent of urine, with generalized weakness. CM explained medical necessity and admission criteria. Alice became dis-regulated and shared her concerns around [facility] practices; CM encouraged Alice to share her experience with : Galina and notified Jomar Peguero and Margarita Low of the interaction. Alice did share that Brunilda has private paid caregiver's checking on her every few hours and her is home with her but unable to provide care. 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 Alice reported feeling done. She shared that Keya Abernathy; [facility] CCC was working with the family on applying for LTC Medicaid and having Brunilda attend [facility]. Alice was hoping Brunilda would meet criteria for insurance to cover a SNF. She reported speaking to [facility] and being told that rehab could be covered with a prescription referral from Brunilda's PCP-CM encouraged Alice to follow up with [facility] and Keya regarding this coordination. CM offered follow up information and support coordination; Alice exited the office using loud verbal expletives and was unwilling to further engage with this health technical writer.
--- NOTE | 2017-12-25 17:23 | CMPROGNOTE_ITS ---
Care Management Progress Note CM met with Brunilda's daughter Alice to discuss current needs. Alice reported her family is struggling with her mother's care needs in the home setting. Alice shared that Brunilda is non compliant with insulin, incontinent of urine, with generalized weakness. CM explained medical necessity and admission criteria. Alice became dis-regulated and shared her concerns around [facility] practices; CM encouraged Alice to share her experience with : Galina and notified Jomar Peguero and Margarita Low of the interaction. Alice did share that Brunilda has private paid caregiver's checking on her every few hours and her is home with her but unable to provide care. 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 Alice reported feeling done. She shared that Keya Abernathy; [facility] CCC was working with the family on applying for LTC Medicaid and having Brunilda attend [facility]. Alice was hoping Brunilda would meet criteria for insurance to cover a SNF. She reported speaking to [facility] and being told that rehab could be covered with a prescription referral from Brunilda's PCP-CM encouraged Alice to follow up with [facility] and Keya regarding this coordination. CM offered follow up information and support coordination; Alice exited the office using loud verbal expletives and was unwilling to further engage with this play writer.
== END 2017-12-25 16:50 ==
PROVIDERS: Emergency Provider Physician Assistant; PCP Family Medicine
DX: N39.0 Urinary tract infection, site not specified (principal); I50.9 Heart failure, unspecified; I48.91 Unspecified atrial fibrillation; E11.9 Type 2 diabetes mellitus without complications; Z79.4 Long term (current) use of insulin; Z79.01 Long term (current) use of anticoagulants
CPT/HCPCS: 36415; 80053; 93005; 99285; 71046; 81003; 83735; 84484; 85025; 93010

== ENCOUNTER 2018-01-03 06:10 | Day surgery (SDC) | payer MEDICARE, BC, SELFPAY ==
--- NOTE | 2018-01-02 07:36 | W.PIPPEYE ---
History of Present Illness Chief Complaint: Progressive decreased vision, left eye Narrative: The patient is a 72-year-old female with history of progressive decreased vision in both eyes at both distance and near. She noted significant difficulty with glare at night as well. On examination she was noted to have moderate bilateral nuclear cataracts. The option of cataract surgery was offered to the patient and she wished to proceed. She underwent cataract surgery in the right eye on 01-05. Postoperatively she has regained best corrected vision of 20/25 in the right eye. She now presents for cataract surgery in the left eye. NOTE: The Chief Complaint, HPI, Past Medical History, Past Surgical History, Family History, Social History, Medications, and complete Ophthalmic Exam with detailed Assessment and Plan have already been documented in the patient's outpatient ophthalmic record and are not covered again in detail here. Meds Home Medications Medication Instructions Recorded Confirmed Type fluoxetine 40 mg PO DAILY AM 04/15/13 12/25/17 History Bi Pap 12/28/14 History acetaminophen 325 mg PO PRN tab-cap 12/28/14 12/25/17 History carvedilol [Coreg] 25 mg PO BID tab-cap 12/28/14 12/25/17 History cholecalciferol (vitamin D3) 5,000 unit PO WEEKLY 12/28/14 12/25/17 History nitroglycerin [Nitrostat] 0.4 mg SUBLINGUAL ONCE tab-cap 12/28/14 12/25/17 History omega-3 fatty acids 1,000 mg PO BID 12/28/14 12/25/17 History magnesium oxide 400 mg PO BID 05/28/16 12/25/17 History insulin aspart U-100 [Novolog 0 units SUB-Q 0800,1200,1700 pen 05/31/16 12/25/17 Rx Flexpen U-100 Insulin] insulin aspart U-100 [Novolog 10 units SUB-Q 0800,1200,1700 pen 05/31/16 12/25/17 Rx Flexpen U-100 Insulin] warfarin [Coumadin] mg PO DIRECTED 02/13/17 History insulin NPH and regular human 50 unit SUB-Q BID 03/06/17 12/25/17 History [Novolin 70/30 U-100 Insulin] thiamine HCl (vitamin B1) 100 mg PO DAILY 05/15/17 12/25/17 History torsemide 40 mg PO DAILY tab-cap 05/15/17 12/25/17 History C,E,zinc,copper [id number] 1 cap PO DAILY 12/17/17 12/25/17 History [Ocuvite Adult 50 Plus] gabapentin 300 mg PO HS 12/17/17 12/25/17 History jemancnl-jjo-ccqu-FA-lutein 1 tab PO DAILY 12/17/17 12/25/17 History [Centrum Silver Women] levofloxacin 750 mg PO DAILY #6 tab 12/24/17 12/25/17 Rx Allergies Allergy/AdvReac Type Severity Reaction Status Date / Time No Known Allergies Allergy Unverified 12/24/17 01:01 Exam OCULAR EXAM:: Visual acuity at distance: Best corrected 20/25 right eye, 20/400 left eye Pupils: Pupils equal, round, and reactive without afferent pupillary defect IOP: 17 OD 15 OS Extraocular Motility: Normal Pertinent Slit Lamp Findings: Significant for pupils dilating to 6 mm OU. Well-positioned PCIOL OD with clear posterior capsule. 2+ nuclear cataract OS. Dilated Funduscopic Examination: Disc cupping is 0.6 OU with normal vessels. Both macula does show evidence of mild background diabetic retinopathy OU. Peripheral retina and vitreous is normal. BRIGHTNESS ACUITY TESTING (BAT):: Off left eye 20/400 Low: 20/50 Medium: 20/60 High: 20/80 Assessment and Plan (1) Nuclear sclerotic cataract of left eye: Current visit: No Status: Acute Assessment: Visually significant cataract, left eye. Plan: Cataract extraction with intraocular lens implantation, left eye Note: NOTE:: The details of the planned surgery, including the risks, indications,limitations,expectations,outcome and possible complications were explained to the patient. The patient understands the complications including, but not limited to: infection, hemorrhage, posterior dislocation of the lens or nuclear fragments which may require the intervention of a vitreoretinal surgeon, possible loss of the eye, or from anesthetic complications. The patient has been made aware of the option of not having surgery, that vision following surgery may not be equal to that prior to surgery, and that the planned surgery may not achieve the intended results. Following this discussion, which the patient appeared to understand, the patient wishes to proceed with cataract surgery with lens implantation of the affected eye to improve and maximize vision.
--- NOTE | 2018-01-02 07:39 | POEE_ITS ---
History of Present Illness Chief Complaint: Progressive decreased vision, left eye Narrative: The patient is a 72-year-old female with history of progressive decreased vision in both eyes at both distance and near. She noted significant difficulty with glare at night as well. On examination she was noted to have moderate bilateral nuclear cataracts. The option of cataract surgery was offered to the patient and she wished to proceed. She underwent cataract surgery in the right eye on 01-05. Postoperatively she has regained best corrected vision of 20/25 in the right eye. She now presents for cataract surgery in the left eye. NOTE: The Chief Complaint, HPI, Past Medical History, Past Surgical History, Family History, Social History, Medications, and complete Ophthalmic Exam with detailed Assessment and Plan have already been documented in the patient's outpatient ophthalmic record and are not covered again in detail here. Meds Home Medications Medication Instructions Recorded Confirmed Type fluoxetine 40 mg PO DAILY AM 04/15/13 12/25/17 History Bi Pap 12/28/14 History acetaminophen 325 mg PO PRN tab-cap 12/28/14 12/25/17 History carvedilol [Coreg] 25 mg PO BID tab-cap 12/28/14 12/25/17 History cholecalciferol (vitamin D3) 5,000 unit PO WEEKLY 12/28/14 12/25/17 History nitroglycerin [Nitrostat] 0.4 mg SUBLINGUAL ONCE tab-cap 12/28/14 12/25/17 History omega-3 fatty acids 1,000 mg PO BID 12/28/14 12/25/17 History magnesium oxide 400 mg PO BID 05/28/16 12/25/17 History insulin aspart U-100 [Novolog 0 units SUB-Q 0800,1200,1700 pen 05/31/16 Rx Flexpen U-100 Insulin] insulin aspart U-100 [Novolog 10 units SUB-Q 0800,1200,1700 pen 05/31/16 Rx Flexpen U-100 Insulin] warfarin [Coumadin] mg PO DIRECTED 02/13/17 History insulin NPH and regular human 50 unit SUB-Q BID 03/06/17 12/25/17 History [Novolin 70/30 U-100 Insulin] thiamine HCl (vitamin B1) 100 mg PO DAILY 05/15/17 12/25/17 History torsemide 40 mg PO DAILY tab-cap 05/15/17 12/25/17 History C,E,zinc,copper [id number]-[id number] 1 cap PO DAILY 12/17/17 12/25/17 History [Ocuvite Adult 50 Plus] gabapentin 300 mg PO HS 12/17/17 12/25/17 History pfovozrp-viy-vzgo-FA-lutein 1 tab PO DAILY 12/17/17 12/25/17 History [Centrum Silver Women] levofloxacin 750 mg PO DAILY #6 tab 12/24/17 12/25/17 Rx Allergies Allergy/AdvReac Type Severity Reaction Status Date / Time No Known Allergies Allergy Unverified 12/24/17 01:01 Exam OCULAR EXAM:: Visual acuity at distance: Best corrected 20/25 right eye, 20/400 left eye Pupils: Pupils equal, round, and reactive without afferent pupillary defect IOP: 17 OD 15 OS Extraocular Motility: Normal Pertinent Slit Lamp Findings: Significant for pupils dilating to 6 mm OU. Well- positioned PCIOL OD with clear posterior capsule. 2+ nuclear cataract OS. Dilated Funduscopic Examination: Disc cupping is 0.6 OU with normal vessels. Both macula does show evidence of mild background diabetic retinopathy OU. Peripheral retina and vitreous is normal. BRIGHTNESS ACUITY TESTING (BAT):: Off left eye 20/400 Low: 20/50 Medium: 20/60 High: 20/80 Assessment and Plan (1) Nuclear sclerotic cataract of left eye: Current visit: No Status: Acute Assessment: Visually significant cataract, left eye. Plan: Cataract extraction with intraocular lens implantation, left eye Note: NOTE:: The details of the planned surgery, including the risks, indications, limitations,expectations,outcome and possible complications were explained to the patient. The patient understands the complications including, but not limited to: infection, hemorrhage, posterior dislocation of the lens or nuclear fragments which may require the intervention of a vitreoretinal surgeon, possible loss of the eye, or from anesthetic complications. The patient has been made aware of the option of not having surgery, that vision following surgery may not be equal to that prior to surgery, and that the planned surgery may not achieve the intended results. Following this discussion, which the patient appeared to understand, the patient wishes to proceed with cataract surgery with lens implantation of the affected eye to improve and maximize vision.
[2018-01-03 06:26] VITALS: BP 119/59; PULSE 88; RESP 18; TEMP 36.6; O2SAT 97
[2018-01-03] MEDS: Tropicam./Phenyleph. (1/2.5%) 5 ML BTL ×3 (06:40→06:51)
[2018-01-03] MEDS: Tetracaine 0.5% 4 ML BTL ×2 (06:40→07:33)
[2018-01-03] MEDS: Lidocaine 2% Jelly 6 ML SYR (07:33)
[2018-01-03] MEDS: Balanced Salt Soln.-PLUS 500 ML BAG (07:39)
[2018-01-03] MEDS: Lidocaine 1% Pres-Free 5 ML VIAL (07:39)
[2018-01-03] MEDS: Povidone-Iodine Ophth 30 ML BTL (08:10)
--- NOTE | 2018-01-03 08:18 | W.PM.DSUDISC ---
Discharge Plan Discharge Details Reason For Visit: CATARACT OS Attending Provider: Hunter Mathis Primary Care Provider: Alyssa Turcios Home Meds and New Rx's Prescriptions: No Action acetaminophen 325 MG tablet 325 mg PO PRN RF: 0 carvedilol [Coreg] 6.25 MG tablet 25 mg PO BID RF: 0 omega-3 fatty acids 1,000 MG capsule 1,000 mg PO BID RF: 0 nitroglycerin [Nitrostat] 0.4 MG tablet, sublingual 0.4 mg Sublingual ONCE RF: 0 cholecalciferol (vitamin D3) 5,000 UNIT tablet 5,000 unit PO WEEKLY RF: 0 BI PAP RF: 0 torsemide 20 MG tablet 40 mg PO DAILY RF: 0 thiamine HCl (vitamin B1) 100 MG tablet 100 mg PO DAILY RF: 0 fluoxetine 40 MG capsule 40 mg PO DAILY AM RF: 0 warfarin [Coumadin] 1 MG tablet PO DIRECTED RF: 0 zjdvbaez-jfu-hwsf-FA-lutein [Centrum Silver Women] 8 mg iron-400 mcg-300 mcg Tablet 1 tab PO DAILY RF: 0 C,E,zinc,copper [id number] [Ocuvite Adult 50 Plus] 250-5-1 mg Capsule 1 cap PO DAILY RF: 0 gabapentin 300 mg Capsule 300 mg PO HS RF: 0 magnesium oxide 400 MG capsule 400 mg PO BID RF: 0 insulin aspart U-100 [Novolog Flexpen U-100 Insulin] 300 UNITS/3 ML insulin pen 10 units Sub-Q 0800,1200,1700 RF: 0 insulin aspart U-100 [Novolog Flexpen U-100 Insulin] 300 UNITS/3 ML insulin pen Sub-Q 0800,1200,1700 RF: 0 insulin NPH and regular human [Novolin 70/30 U-100 Insulin] 100 UNIT/ML suspension 50 unit Sub-Q BID RF: 0 levofloxacin 750 mg tablet 750 mg PO DAILY Qty: 6 RF: 0 Discharge Instructions Stand Alone Forms: Post-op Topical Cataract, Corinne Velasquez (DSU) DS: Diagnosis Discharge Diagnosis (1) Nuclear sclerotic cataract of left eye: Status: Resolved (2) Status post cataract extraction and insertion of intraocular lens of left eye: Status: Chronic
--- NOTE | 2018-01-03 08:19 | W.PM.OP ---
Date of service: 01/03/18 Time of Service: 08:19 Operative Note DATE OF PROCEDURE: 01/03/18 PRE-OP DIAGNOSIS: Cataract, left eye POST-OP DIAGNOSIS: same PROCEDURE: Cataract extraction using phacoemulsification with intraocular lens implant, left eye SURGEON: Hunter aMthis ANESTHESIA: MAC and local (sub-tenon's anesthetic infiltration) PATHOLOGY: none sent COMPLICATIONS: None Patient was transported to: same day Patient's condition: stable Implants: Teja and Teja Vision / [employer] Tecnis ZCB00 Indications: Progressive decreased vision due to cataract, left eye Procedure Description: CATARACT SURGERY OPERATIVE REPORT PREOPERATIVE DIAGNOSIS: Nuclear cataract, left eye POSTOPERATIVE DIAGNOSIS: Same OPERATION: Cataract extraction using phacoemulsification with posterior chamber intraocular lens implant, left eye. IOL: IOL Pad Making Machine Operator/Model: J&J Vision / DANILO Tecnis ZCB00 IOL Power: + 12.0 diopters IOL Serial Number: [id number] Optic Diameter: 6.0mm Haptic/Overall Diameter: 13.0mm PHACO INFO: Huy eMeteron Vision System with OZil and Active Fluidics Cumulative Dispersed Energy (CDE): 7.08 seconds SURGEON: Hunter Mathis MD, CARSON ANESTHESIA: Monitored Anesthesia Care (MAC), with local sub-tenon's anesthetic infiltration COMPLICATIONS: None SPECIMENS: None INDICATIONS FOR PROCEDURE: The patient is a 72-year old female with history of myopia who developed significant bilateral nuclear cataracts. She has already undergone cataract surgery in her right eye and is doing well postoperatively. She now presents for cataract surgery of the left eye. PROCEDURE: The correct surgical eye was identified and marked as the left eye and the pupil was dilated in the preoperative area using mydriatics, cycloplegics, and NSAIDS (except in aspirin allergic patients). The dilated pupil size was 7.0 mm. Oral sedation was administered in the form of an Imprimis MKO Melt (midazolam 3mg/ketamine 25mg/ondansetron 2mg). The patient was brought to the operating room where cardiopulmonary monitoring was instituted and surgical time-out was performed, confirming the correct operative eye and IOL power. Topical anesthesia was administered and ophthalmic povidone-iodine 5% was instilled into the conjunctival fornices. Lidocaine gel was applied to the cornea and the enma-ocular area was prepped with Betadine 10% solution and draped in the usual sterile fashion for intraocular surgery. Steri-strips were used to cover the lashes and lid margins and an adhesive eye drape was placed. Care was taken to isolate the lashes and lid margins under the Steri-strips and adhesive eye drape. A lid speculum was placed between the lids of the operative eye and the Marlon-Maneul operating microscope was maneuvered into position. Janene scissors were then used to make a conjunctival buttonhole approximately 6mm posterior to the limbus in the inferonasal quadrant. Blunt dissection was carried out to expose bare sclera, and a blunt-tipped sub-tenon?s anesthesia cannula was introduced and passed posteriorly along the globe where non-preserved plain lidocaine was injected into posterior sub-Tenon?s space. A sideport knife was used to make a paracentesis port at the 12:00 postion and the anterior chamber was filled with Healon GV. A 2.4mm keratome knife was used to create a half-thickness groove at the limbus and then to construct a three-plane near-clear corneal tunnel extending 2.0mm into clear cornea at the 3:00 position. A flap was raised on the anterior capsule and capsulorhexis forceps were used to complete a continuous curvilinear capsulorhexis of 5.0 mm. The anterior chamber was noted to be quite deep. The capsule was very thin and tended to extend peripherally, especially in the superior nasal quadrant. Balanced salt solution was then used to perform cortical cleaving hydrodissection and nuclear hydrodelineation until the lens could be freely rotated within the capsular bag. The lens nucleus was then disassembled and removed within the capsular bag and iris plane using phacoemulsification. Residual cortical material was removed using the 45-degree angled silicone I/A tip with 0.3mm port. The posterior capsule was carefully polished to remove as much residual lens epithelial cells as safely possible. The capsular bag was then inflated and the anterior chamber deepened with viscoelastic. The lens implant described above was inserted into the capsular bag using the DANILO [place] Injector. A Kuglen hook was used to dial the IOL into position. Residual viscoelastic was then removed first from posterior to the IOL, then from the anterior chamber using the I/A handpiece. The lens implant was noted to center nicely within the capsular bag. The incisions were stromally hydrated, and the anterior chamber was reformed using BSS. Then 0.4cc of moxifloxacin 1.5mg/ml were injected into the capsular bag and anterior chamber. The incisions were checked with a Weck spear and found to be secure. Several drops of ophthalmic povidone-iodine 5% were then applied to the eye followed by two drops of Imprimis combination moxifloxacin/dexamethasone solution. The drapes were removed and a clear plastic protective eye shield was placed over the eye. The patient was then returned to Same Day Surgery in stable condition.
--- NOTE | 2018-01-03 08:23 | ROE_ITS ---
Date of service: 01/03/18 Time of Service: 08:19 Operative Note DATE OF PROCEDURE: 01/03/18 PRE-OP DIAGNOSIS: Cataract, left eye POST-OP DIAGNOSIS: same PROCEDURE: Cataract extraction using phacoemulsification with intraocular lens implant, left eye SURGEON: Hunter Mathis ANESTHESIA: MAC and local (sub-tenon's anesthetic infiltration) PATHOLOGY: none sent COMPLICATIONS: None Patient was transported to: same day Patient's condition: stable Implants: Teja and Teja Vision / [employer] Tecnis ZCB00 Indications: Progressive decreased vision due to cataract, left eye Procedure Description: CATARACT SURGERY OPERATIVE REPORT PREOPERATIVE DIAGNOSIS: Nuclear cataract, left eye POSTOPERATIVE DIAGNOSIS: Same OPERATION: Cataract extraction using phacoemulsification with posterior chamber intraocular lens implant, left eye. IOL: IOL Hearing Healthcare Practitioner/Model: J&J Vision / DANILO Tecnis ZCB00 IOL Power: + 12.0 diopters IOL Serial Number: [id number] Optic Diameter: 6.0mm Haptic/Overall Diameter: 13.0mm PHACO INFO: Huy [employer] Technologyon Vision System with OZil and Active Fluidics Cumulative Dispersed Energy (CDE): 7.08 seconds SURGEON: Hunter Mathis MD, CARSON ANESTHESIA: Monitored Anesthesia Care (MAC), with local sub-tenon's anesthetic infiltration COMPLICATIONS: None SPECIMENS: None INDICATIONS FOR PROCEDURE: The patient is a 72-year old female with history of myopia who developed significant bilateral nuclear cataracts. She has already undergone cataract surgery in her right eye and is doing well postoperatively. She now presents for cataract surgery of the left eye. PROCEDURE: The correct surgical eye was identified and marked as the left eye and the pupil was dilated in the preoperative area using mydriatics, cycloplegics, and NSAIDS (except in aspirin allergic patients). The dilated pupil size was 7.0 mm. Oral sedation was administered in the form of an Imprimis MKO Melt (midazolam 3mg/ketamine 25mg/ondansetron 2mg). The patient was brought to the operating room where cardiopulmonary monitoring was instituted and surgical time-out was performed, confirming the correct operative eye and IOL power. Topical anesthesia was administered and ophthalmic povidone-iodine 5% was instilled into the conjunctival fornices. Lidocaine gel was applied to the cornea and the enma-ocular area was prepped with Betadine 10% solution and draped in the usual sterile fashion for intraocular surgery. Steri-strips were used to cover the lashes and lid margins and an adhesive eye drape was placed. Care was taken to isolate the lashes and lid margins under the Steri-strips and adhesive eye drape. A lid speculum was placed between the lids of the operative eye and the Marlon-Manuel operating microscope was maneuvered into position. Janene scissors were then used to make a conjunctival buttonhole approximately 6mm posterior to the limbus in the inferonasal quadrant. Blunt dissection was carried out to expose bare sclera, and a blunt-tipped sub-tenon? s anesthesia cannula was introduced and passed posteriorly along the globe where non-preserved plain lidocaine was injected into posterior sub-Tenon?s space. A sideport knife was used to make a paracentesis port at the 12:00 postion and the anterior chamber was filled with Healon GV. A 2.4mm keratome knife was used to create a half-thickness groove at the limbus and then to construct a three-plane near-clear corneal tunnel extending 2.0mm into clear cornea at the 3:00 position. A flap was raised on the anterior capsule and capsulorhexis forceps were used to complete a continuous curvilinear capsulorhexis of 5.0 mm. The anterior chamber was noted to be quite deep. The capsule was very thin and tended to extend peripherally, especially in the superior nasal quadrant. Balanced salt solution was then used to perform cortical cleaving hydrodissection and nuclear hydrodelineation until the lens could be freely rotated within the capsular bag. The lens nucleus was then disassembled and removed within the capsular bag and iris plane using phacoemulsification. Residual cortical material was removed using the 45-degree angled silicone I/A tip with 0.3mm port. The posterior capsule was carefully polished to remove as much residual lens epithelial cells as safely possible. The capsular bag was then inflated and the anterior chamber deepened with viscoelastic. The lens implant described above was inserted into the capsular bag using the DANILO [place] Injector. A Kuglen hook was used to dial the IOL into position. Residual viscoelastic was then removed first from posterior to the IOL, then from the anterior chamber using the I/A handpiece. The lens implant was noted to center nicely within the capsular bag. The incisions were stromally hydrated , and the anterior chamber was reformed using BSS. Then 0.4cc of moxifloxacin 1.5mg/ml were injected into the capsular bag and anterior chamber. The incisions were checked with a Weck spear and found to be secure. Several drops of ophthalmic povidone-iodine 5% were then applied to the eye followed by two drops of Imprimis combination moxifloxacin/dexamethasone solution. The drapes were removed and a clear plastic protective eye shield was placed over the eye. The patient was then returned to Same Day Surgery in stable condition.
[2018-01-03 08:45] VITALS: BP 110/61; PULSE 60; RESP 16; TEMP 36; O2SAT 94
[2018-01-03 09:15] VITALS: BP 108/60; PULSE 58; RESP 16; TEMP 36; O2SAT 94
== END 2018-01-03 09:45 | disposition home or self-care (01) ==
PROVIDERS: PCP Family Medicine; Visit Provider Ophthalmology
PROC: (CPT 66984; principal; 2018-01-03 07:30)
DX: H25.12 Age-related nuclear cataract, left eye (principal); Z98.41 Cataract extraction status, right eye; Z96.1 Presence of intraocular lens; G47.33 Obstructive sleep apnea (adult) (pediatric)
CPT/HCPCS: 66984; V2632; J3490

== ENCOUNTER → 2018-04-17 13:02 | Outpatient (BNVA) | payer MEDICARE, BC, SELFPAY | PROVIDERS: PCP Family Medicine; Visit Provider Nurse Practitioner Family | DX: Z45.02 Encounter for adjustment and management of automatic implantable cardiac defibrillator (principal); I42.0 Dilated cardiomyopathy; E11.9 Type 2 diabetes mellitus without complications; Z79.4 Long term (current) use of insulin | CPT/HCPCS: 93283; 99213 ==

== ENCOUNTER 2018-04-18 15:16 | Outpatient (REF) | payer MEDICARE, BC, SELFPAY ==
[2018-04-18 20:50] LABS: ALT 43 U/L (12-78); AST 30 U/L (15-37); Alkaline Phosphatase 130 U/L (46-116); Anion Gap 6.8 mmol/L (3-11); BUN 18 mg/dL (7-18); Bilirubin, Total 0.7 mg/dL (0.2-1.0); C-Reactive Protein 0.41 mg/dL (0.0-0.3); CO2 32.2 mmol/L (21.0-32.0); CREATININE 1.12 mg/dL (0.55-1.02); Calcium 8.8 mg/dL (8.5-10.1); Chloride 103 mmol/L (98-107); Estimated GFR 48.09 (mL/min/1.73m2); Glucose 362 mg/dL (70-100); Potassium 4.4 mmol/L (3.5-5.1); Sodium 142 mmol/L (136-145); Total Protein 6.3 g/dL (6.4-8.2)
[2018-04-18 20:54] LABS: Hemoglobin A1C 7.1 % (4.5-6.2)
[2018-04-18 22:24] LABS: ESR 15 MM/HR (0-30)
[2018-04-21 11:30] LABS: Rheumatoid Factor 18 IU/mL (<12.5)
[2018-04-21 11:33] LABS: ANA Interpretation Negative (NEGAT)
== END 2018-04-18 15:36 ==
LOC: NCHCN 15:16
PROVIDERS: PCP Family Medicine; Visit Provider Family Medicine
DX: M25.50 Pain in unspecified joint (principal); E11.9 Type 2 diabetes mellitus without complications
CPT/HCPCS: 80053; 85652; 83036; 86038; 86140; 86431

== ENCOUNTER 2018-05-01 18:55 | Outpatient (REF) | payer MEDICARE, BC, SELFPAY ==
[2018-05-01 21:58] LABS: FREE T4 1.29 ng/dL (0.76-1.46); TSH 2.08 uIU/mL (0.358-3.74)
== END 2018-05-01 19:15 ==
LOC: NCHCN 18:55
PROVIDERS: PCP Family Medicine; Visit Provider Family Medicine
DX: E11.9 Type 2 diabetes mellitus without complications (principal); E66.01 Morbid (severe) obesity due to excess calories
CPT/HCPCS: 84439; 84443

== ENCOUNTER 2018-08-19 00:44 | Outpatient (CLI) | payer MEDICARE, BC, SELFPAY ==
--- NOTE | 2018-08-19 13:27 | DI.DEXA_ITS ---
SYMPTOMS/DIAGNOSIS: SCREENING FOR OSTEOPOROSIS IN POSTMENOPAUSAL WOMAN, Z78.0 DEXA SCAN WITH IV: The IV image shows no evidence of compression fractures. The bone mineral density measurements of the lumbar spine correspond to a total T score of 1.4, in the normal range. This is a 2.8% increase when compared with 2011. The bone mineral density measurements of the left hip correspond to a total T score of 0.5 and femoral neck T score of -2.9, in the osteoporotic range. This is a 20.0 % decreased when compared with 2011. The left forearm bone mineral density measurements correspond to a T score of the distal third of 1.4, in the normal range. IMPRESSION: Osteoporosis of the left femoral neck with 20% decrease in bone density when compared with 2011. Normal bone mineral density of the left hip and left forearm.
== END 2018-08-19 01:04 ==
PROVIDERS: PCP Family Medicine; Visit Provider Family Medicine
DX: M81.0 Age-related osteoporosis without current pathological fracture (principal); Z78.0 Asymptomatic menopausal state
CPT/HCPCS: 77080

== ENCOUNTER 2018-10-27 14:12 | Inpatient (IN) | payer MEDICARE, BC, SELFPAY ==
[2018-10-27 14:13] VITALS: BP 152/50; PULSE 60; RESP 20; TEMP 36.1; O2SAT 98
--- NOTE | 2018-10-27 14:34 | DI.RAD_ITS ---
SYMPTOMS/DIAGNOSIS: DIZZINESS, WEAKNESS, ? ACUTE DISEASE PA AND LATERAL CHEST: Cardiac size is within normal limits. There is a transvenous cardiac pacemaker in position. The lungs are clear. No pleural effusions seen. CONCLUSION: No evidence of acute process.
--- NOTE | 2018-10-27 14:37 | ED.GENADUL_ITS ---
Discharge Plan Disposition Patient Disposition: [facility] INPATIENT Condition: Stable Discharge Details Chief Complaint: GenMedical Clinical Impression: Dizziness, Fatigue, Joint pain Primary Care Provider: Alyssa Turcios ED Provider: Margarita Low Home Meds and New Rx's Prescriptions: No Action colchicine 0.6 mg tablet 0.6 mg PO BID RF: 0 acetaminophen 325 MG tablet 325 mg PO PRN RF: 0 omega-3 fatty acids 1,000 MG capsule 1,000 mg PO BID RF: 0 nitroglycerin [Nitrostat] 0.4 MG tablet, sublingual 0.4 mg Sublingual ONCE RF: 0 cholecalciferol (vitamin D3) 5,000 UNIT tablet 5,000 unit PO WEEKLY RF: 0 BI PAP RF: 0 torsemide 20 MG tablet 40 mg PO DAILY RF: 0 thiamine HCl (vitamin B1) 100 MG tablet 100 mg PO DAILY RF: 0 carvedilol 25 mg tablet 25 mg PO BID Qty: 180 RF: 4 fluoxetine 40 MG capsule 40 mg PO DAILY AM RF: 0 warfarin [Coumadin] 1 mg tablet PO DIRECTED RF: 0 Centrum Silver Women 8 mg iron-400 mcg-300 mcg Tablet 1 tab PO DAILY RF: 0 Ocuvite Adult 50 Plus 250-5-1 mg Capsule 1 cap PO DAILY RF: 0 gabapentin 300 mg Capsule 300 mg PO HS RF: 0 magnesium oxide 400 MG capsule 400 mg PO BID RF: 0 Novolog Flexpen U-100 Insulin 300 UNITS/3 ML insulin pen 10 units Sub-Q 0800,1200,1700 RF: 0 Novolog Flexpen U-100 Insulin 300 UNITS/3 ML insulin pen 0 units Sub-Q 0800,1200,1700 RF: 0 Novolin 70/30 U-100 Insulin 100 UNIT/ML suspension 50 unit Sub-Q BID RF: 0 levofloxacin 750 mg tablet 750 mg PO DAILY Qty: 6 RF: 0 Medical Decision Making 1430 -- 73-year-old female with a history of CHF, atrial fibrillation, diabetes, dilated cardiomyopathy, morbid obesity, obstructive sleep apnea who presents with dizziness, weakness, urinary incontinence, fatigue and poor appetite over the past 4 days. No focal deficits on exam. Moving all extremities. Abdomen soft nontender. Lungs clear. Differential diagnosis includes UTI, electrolyte abnormality, dehydration, pneumonia, ACS, acute CHF. Will check screening labs, urinalysis, chest x-ray and give small bolus IV fluids. Labs and imaging reviewed and unremarkable. Normal white blood cell count. Normal electrolytes. Glucose 255. Troponin negative. BNP 305. Urinalysis negative. Chest x-ray negative. 1625 -- Patient is complaining of dizziness when she attempted to stand to walk to the bathroom. She states it is a spinning sensation. With her history of incontinence and vertigo, will obtain a CT head to rule out normal pressure hydrocephalus. She is also complaining of pain in her hands and bottom of her feet. This may be peripheral neuropathy. Will give a dose of meclizine and oxycodone for her pain. 1745 --patient admits to some improvement after meds when sitting up. She states she does not feel comfortable going home as she does not have help at home and her is unable to care for her as he has medical issues himself. Patient states she would rather stay overnight for help with her dizziness and joint pain when walking. CT head negative Case discussed with hospitalist to accept patient for admission. Medical Records Medical records reviewed: Yes I reviewed the patient's medical records. Imaging Data Radiologic Study: Radiologist's impression: PA AND LATERAL CHEST: Cardiac size is within normal limits. There is a transvenous cardiac pacemaker in position. The lungs are clear. No pleural effusions seen. CONCLUSION: No evidence of acute process. Lab Data Lab results reviewed: Yes I reviewed the patient's lab results. Laboratory Tests Range/Units 10/27/18 10/27/18 10/27/18 14:45 15:10 15:10 WBC (4.4-10.8) k/cumm 7.97 RBC (4.00-5.20) m/cumm 4.88 Hgb (12.0-15.5) g/dL 14.3 Hct (36.0-46.0) % 42.7 MCV (80-95) fL 87.5 MCH (27.0-33.0) pg 29.3 MCHC (32.0-36.0) g/dL 33.5 RDW (11.7-14.6) % 13.5 Plt Count (130-400) x1000/uL 164 MPV (8.0-11.0) fL 11.3 H Immature Gran % 0.3 Neutrophils % 73.7 Lymphocytes % 16.3 Monocytes % 6.6 Eosinophils % 2.8 Basophils % 0.3 Absolute Neutrophils (1.2-6.7) k/cumm 5.88 Absolute Lymphocytes (1.2-3.4) k/cumm 1.30 Absolute Monocytes (0.11-0.7) k/cumm 0.53 Absolute Eosinophils (0.0-0.7) k/cumm 0.22 Absolute Basophils (0.0-0.2) k/cumm 0.02 PT (9.3-11.0) sec INR (0.9-1.1) APTT (21.0-31.4) sec Sodium (136-145) mmol/L 140 Potassium (3.5-5.1) mmol/L 3.5 Chloride (98-107) mmol/L 101 Carbon Dioxide (21.0-32.0) mmol/L 28.7 Anion Gap (3-11) mmol/L 10.3 BUN (7-18) mg/dL 21 H Creatinine (0.55-1.02) mg/dL 1.38 H Estimated GFR/1.73 m2 (mL/min/1.73m2) 37.69 Glucose (70-100) mg/dL 255 H Calcium (8.5-10.1) mg/dL 8.8 Magnesium (1.8-2.4) mg/dL 1.6 L Total Bilirubin (0.2-1.0) mg/dL 1.2 H AST (15-37) U/L 24 ALT (14-59) U/L 28 Alkaline Phosphatase (46-116) U/L 97 Troponin I (0.00-0.06) ng/mL < 0.05 NT-Pro-B Natriuret Pep ( - 299) pg/mL 305 H Total Protein (6.4-8.2) g/dL 7.4 Albumin (3.4-5.0) g/dL 2.8 L Urine Color (Yellow) Yellow Urine Clarity (Clear) Sl cloudy Urine pH (5-8) 7.5 Ur Specific [place] (1.005-1.025) 1.020 Urine Protein (Negative) mg/dL Negative Urine Ketones (Negative) mg/dL Negative Urine Blood (Negative) Negative Urine Nitrite (Negative) Negative Urine Bilirubin (Negative) Negative Urine Urobilinogen (Up TO 0.2) EU/dL 0.2 Ur Leukocyte Esterase (Negative) Trace H Urine RBC Not Applicable Urine WBC (0-5) HPF 0-2 Ur Epithelial Cells (Negative) HPF Moderate Urine Crystals Not Applicable Urine Bacteria (Negative) HPF Many Urine Mucus (Negative) Moderate Ur Culture Indicated? No/sq. contamination Urine Glucose (Negative) mg/dL Negative Range/Units 10/27/18 15:10 WBC (4.4-10.8) k/cumm RBC (4.00-5.20) m/cumm Hgb (12.0-15.5) g/dL Hct (36.0-46.0) % MCV (80-95) fL MCH (27.0-33.0) pg MCHC (32.0-36.0) g/dL RDW (11.7-14.6) % Plt Count (130-400) x1000/uL MPV (8.0-11.0) fL Immature Gran % Neutrophils % Lymphocytes % Monocytes % Eosinophils % Basophils % Absolute Neutrophils (1.2-6.7) k/cumm Absolute Lymphocytes (1.2-3.4) k/cumm Absolute Monocytes (0.11-0.7) k/cumm Absolute Eosinophils (0.0-0.7) k/cumm Absolute Basophils (0.0-0.2) k/cumm PT (9.3-11.0) sec 19.1 H INR (0.9-1.1) 1.9 H APTT (21.0-31.4) sec 30.5 Sodium (136-145) mmol/L Potassium (3.5-5.1) mmol/L Chloride (98-107) mmol/L Carbon Dioxide (21.0-32.0) mmol/L Anion Gap (3-11) mmol/L BUN (7-18) mg/dL Creatinine (0.55-1.02) mg/dL Estimated GFR/1.73 m2 (mL/min/1.73m2) Glucose (70-100) mg/dL Calcium (8.5-10.1) mg/dL Magnesium (1.8-2.4) mg/dL Total Bilirubin (0.2-1.0) mg/dL AST (15-37) U/L ALT (14-59) U/L Alkaline Phosphatase (46-116) U/L Troponin I (0.00-0.06) ng/mL NT-Pro-B Natriuret Pep ( - 299) pg/mL Total Protein (6.4-8.2) g/dL Albumin (3.4-5.0) g/dL Urine Color (Yellow) Urine Clarity (Clear) Urine pH (5-8) Ur Specific [place] (1.005-1.025) Urine Protein (Negative) mg/dL Urine Ketones (Negative) mg/dL Urine Blood (Negative) Urine Nitrite (Negative) Urine Bilirubin (Negative) Urine Urobilinogen (Up TO 0.2) EU/dL Ur Leukocyte Esterase (Negative) Urine RBC Urine WBC (0-5) HPF Ur Epithelial Cells (Negative) HPF Urine Crystals Urine Bacteria (Negative) HPF Urine Mucus (Negative) Ur Culture Indicated? Urine Glucose (Negative) mg/dL ECG Data Attestation: I personally reviewed and interpreted this ECG (s) as follows: Interpretation: Rate of 63, sinus, left anterior fascicular block. NM 142. QTc 469. No acute change from previous EKG. HPI General Mode of arrival: ambulatory . Date/Time Provider Initiated Documentation: 10/27/18 14:19 . Limitations to Documentation: no limitations . Information obtained by: patient . HPI Narrative: Patient is a 73-year-old female with a history of CHF, atrial fibrillation, diabetes, dilated cardiomyopathy, morbid obesity, obstructive sleep apnea who presents with dizziness, weakness, urinary incontinence, fatigue and poor appetite over the past 4 days. Patient states she feels weak when she stands up to the point that she is going to fall. She denies any headache, nausea, vomiting, chest pain, shortness of breath, abdominal pain. She does admit to urinary frequency but denies any dysuria or hematuria. Related Data Home Medications Medication Instructions Recorded Confirmed fluoxetine 40 mg PO DAILY AM 04/15/13 04/17/18 Bi Pap 12/28/14 04/17/18 acetaminophen 325 mg PO PRN tab-cap 12/28/14 04/17/18 cholecalciferol (vitamin D3) 5,000 unit PO WEEKLY 12/28/14 04/17/18 nitroglycerin [Nitrostat] 0.4 mg SUBLINGUAL ONCE tab-cap 12/28/14 04/17/18 omega-3 fatty acids 1,000 mg PO BID 12/28/14 04/17/18 magnesium oxide 400 mg PO BID 05/28/16 04/17/18 Novolog Flexpen U-100 Insulin 0 units SUB-Q 0800,1200,1700 pen 05/31/16 04/17/18 Novolog Flexpen U-100 Insulin 10 units SUB-Q 0800,1200,1700 pen 05/31/16 04/17/18 Novolin 70/30 U-100 Insulin 50 unit SUB-Q BID 03/06/17 04/17/18 thiamine HCl (vitamin B1) 100 mg PO DAILY 05/15/17 04/17/18 torsemide 40 mg PO DAILY tab-cap 05/15/17 04/17/18 Centrum Silver Women 1 tab PO DAILY 12/17/17 04/17/18 Ocuvite Adult 50 Plus 1 cap PO DAILY 12/17/17 04/17/18 gabapentin 300 mg PO HS 12/17/17 04/17/18 levofloxacin 750 mg PO DAILY #6 tab 12/24/17 04/17/18 carvedilol 25 mg tablet 25 mg PO BID #180 tab 01/23/18 04/17/18 colchicine 0.6 mg tablet 0.6 mg PO BID 04/17/18 04/17/18 warfarin 1 mg tablet mg PO DIRECTED 04/17/18 04/17/18 Previous Rx's Medication Instructions Recorded Novolog Flexpen U-100 Insulin 0 units SUB-Q 0800,1200,1700 pen 05/31/16 Novolog Flexpen U-100 Insulin 10 units SUB-Q 0800,1200,1700 pen 05/31/16 levofloxacin 750 mg PO DAILY #6 tab 12/24/17 carvedilol 25 mg tablet 25 mg PO BID #180 tab 01/23/18 Allergies Allergy/AdvReac Type Severity Reaction Status Date / Time No Known Allergies Allergy Unverified 04/17/18 13:15 General Stated Complaint: GenMedical ISABELLE: 3 Review of Systems Review of Systems All systems reviewed & are unremarkable except as noted in HPI and below Constitutional Reports as per HPI, Denies chills, Reports fatigue, Denies fever(s), Reports poor appetite and Reports weakness Eyes Denies blurry vision ENT Reports dizziness, Denies sore throat and Denies throat swelling Cardiovascular Denies chest pain and Denies dyspnea Respiratory Denies cough and Denies dyspnea Gastrointestinal Denies abdominal pain, Denies diarrhea and Denies vomiting Genitourinary Denies hematuria and Denies dysuria Musculoskeletal Denies back pain and Denies numbness Integumentary/Breasts Denies lesions and Denies rash Neurologic Reports dizziness, Denies focal weakness, Denies numbness and Reports weakness Endocrine Reports fatigue Allergic/Immunologic Denies throat swelling [facility] Medical History Atrial fibrillation CHF (congestive heart failure) Dilated cardiomyopathy (Chronic) DM (diabetes mellitus) Morbid obesity due to excess calories (Chronic) Nuclear sclerotic cataract of left eye (Resolved) Nuclear sclerotic cataract of right eye (Resolved) Obesity CALDERON (obstructive sleep apnea) Paroxysmal atrial flutter (Chronic) Surgical History section Status post cataract extraction and insertion of intraocular lens of left eye (Chronic 01/03/18) Status post cataract extraction and insertion of intraocular lens of right eye (Chronic 12/20/17) Family History Father Heart disease Social History Smoking/Tobacco Use Status: Never Drug use: Never Household members: spouse Housing: house 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 [employer] Do you feel safe in your relationship?: Yes Exam Const General: cooperative, healthy appearing and no acute distress HENMT Head: normal to inspection Face and sinus: normal facial exam Eyes General: appearance normal, both eyes and all related structures EOM: EOM intact bilaterally Neck Neck: normal visual inspection and No submandibular swelling Lymphatic: no lymphadenopathy noted Chest Chest: normal inspection of the chest and no tenderness Resp Effort & Inspection: normal respiratory effort and able to speak in complete sentences Auscultation: clear to auscultation bilaterally Cardio Rate: regular rate Rhythm: regular rhythm GI Inspection: normal to inspection Palpation: soft, not firm, not rigid and nontender Auscultation: normal bowel sounds Back/Spine/Pelvis Thoracic/Lumbar Spine: thoracic and lumbar spine normal to inspection Pelvis: no pain with anterior-posterior compression Skin General skin exam: no rashes or lesions noted Neuro General: alert, awake and oriented x3 Cognition: normal cognition Speech: speech normal Motor: muscle tone normal throughout Sensory Exam: no sensory deficits noted Extrem General: normal to inspection, full ROM, normal capillary refill, no calf tenderness bilaterally and no edema Psych Appearance: grossly normal Mental Status: mental status grossly normal Speech and Movement: speech and movement normal Affect: normal affect Course Vital Signs Temperature 97.0 F L 10/27/18 14:13 Pulse 60 10/27/18 14:13 Respiratory Rate 10/27/18 14:13 Blood Pressure 152/50 H 10/27/18 14:13 Pulse Oximetry 98 10/27/18 14:13 Temperature 97.0 F L 10/27/18 14:13 Temperature Source Temporal Artery Scan 10/27/18 14:13 Pulse 60 10/27/18 14:13 Respiratory Rate 20 10/27/18 14:13 Blood Pressure 152/50 H 10/27/18 14:13 Blood Pressure Position Supine 10/27/18 14:13 Pulse Oximetry 98 10/27/18 14:13 Oxygen Delivery Method Room Air 10/27/18 14:13 Oxygen Flow Rate 0 10/27/18 14:13 Pain Level 0 10/27/18 14:13
[2018-10-27 15:03] LABS: Bilirubin Negative (Negative); Blood Negative (Negative); Clarity Sl Cloudy (Clear); Glucose Negative (Negative); Ketones Negative (Negative); Leukocyte Esterase Trace (Negative); Nitrite Negative (Negative); Urobilinogen 0.2 EU/dL (Up TO 0.2); pH 7.5 (5-8)
[2018-10-27 15:14] LABS: Abs Immature Grans 0.02 k/cumm (0.0-0.09); Absolute Basophil Count 0.02 k/cumm (0.0-0.2); Absolute Eosinophil Count 0.22 k/cumm (0.0-0.7); Absolute Monocyte Count 0.53 k/cumm (0.11-0.7); Absolute Neutrophil Count 5.88 k/cumm (1.2-6.7); Basophils % 0.3; Eosinophils % 2.8; HCT 42.7 % (36.0-46.0); HGB 14.3 g/dL (12.0-15.5); Immature Grans % 0.3; Lymphocytes % 16.3; Mean Corp. HGB Concentration 33.5 g/dL (32.0-36.0); Mean Corpuscular Hemoglobin 29.3 pg (27.0-33.0); Mean Corpuscular Volume 87.5 fL (80-95); Mean Platelet Volume 11.3 fL (8.0-11.0); Monocytes % 6.6; Neutrophils % 73.7; Platelet Count 164 x1000/uL (130-400); RBC 4.88 m/cumm (4.00-5.20); RBC Distribution Width 13.5 % (11.7-14.6); White Blood Cell Count 7.97 k/cumm (4.4-10.8)
[2018-10-27 15:24] LABS: Bacteria Many HPF (Negative); Epithelial Cells Moderate HPF (Negative); WBC 0-2 HPF (0-5)
[2018-10-27 15:25] LABS: C & S Indicated? No/Sq. Contamination; Mucus Moderate (Negative)
[2018-10-27 15:33] LABS: ALT 28 U/L (14-59); AST 24 U/L (15-37); Albumin 2.8 g/dL (3.4-5.0); Alkaline Phosphatase 97 U/L (46-116); Anion Gap 10.3 mmol/L (3-11); BUN 21 mg/dL (7-18); Bilirubin, Total 1.2 mg/dL (0.2-1.0); CO2 28.7 mmol/L (21.0-32.0); CREATININE 1.38 mg/dL (0.55-1.02); Calcium 8.8 mg/dL (8.5-10.1); Chloride 101 mmol/L (98-107); Estimated GFR 37.69 (mL/min/1.73m2); Glucose 255 mg/dL (70-100); Magnesium 1.6 mg/dL (1.8-2.4); NT-proBNP 305 pg/mL; Potassium 3.5 mmol/L (3.5-5.1); Sodium 140 mmol/L (136-145); Total Protein 7.4 g/dL (6.4-8.2)
[2018-10-27 15:34] LABS: Troponin I < 0.05 ng/mL (0.00-0.06)
[2018-10-27] MEDS: Normal Saline 250 ML IV ×2 (15:40→17:07)
[2018-10-27 16:23] VITALS: BP 118/50; PULSE 80; TEMP 36.4; O2SAT 99
--- NOTE | 2018-10-27 16:37 | DI.CT_ITS ---
SYMPTOM/DIAGNOSIS: DIZZINESS, URINARY INCONTINENCE, R/O ACUTE DISEASE CRANIAL CT: 10/[address] was performed. There is marked generalized cerebral atrophy. No evidence of acute intracranial hemorrhage, mass effect or midline shift. Orbital and temporal bone structures appear intact. Mastoid air cells and paranasal sinuses are generally clear with minimal right maxillary and ethmoid mucoperiosteal thickening. CONCLUSION: No evidence of acute intracranial process.
[2018-10-27] MEDS: oxyCODONE 5 MG TAB PO (17:06)
[2018-10-27] MEDS: Meclizine 25 MG TAB PO (17:06)
[2018-10-27 17:34] LABS: INR 1.9 (0.9-1.1); PTT Activated 30.5 sec (21.0-31.4); Prothrombin Time 19.1 sec (9.3-11.0)
--- NOTE | 2018-10-27 18:14 | DI.VRAD_ITS ---
EXAM: CT Head Without Contrast EXAM DATE/TIME: 10/27/2018 4:40 PM CLINICAL HISTORY: 73 years old, female; Patient HX: Dizziness, urinary incontinence; Additional info: R/O acute disease TECHNIQUE: Imaging protocol: Computed tomography of the head without contrast. COMPARISON: No relevant prior studies available. FINDINGS: Brain: There is no acute intracranial hemorrhage, mass effect or midline shift. No large acute territorial infarct identified. There are patchy regions of hypodensity in the periventricular and subcortical white matter, likely on the basis of chronic microvascular ischemic disease. Ventricles: The ventricles and sulci are prominent in size, which is likely related to global cerebral volume loss. Bones/joints: Unremarkable. No acute fracture. Sinuses: Visualized sinuses are grossly unremarkable. No fluid levels. Mastoid air cells: Visualized mastoid air cells are well aerated. Soft tissues: Unremarkable. IMPRESSION: No acute intracranial abnormality. Dictated and Authenticated by: Giovanna Coronel MD. Ordering:JOHNNIE Avila MD
[2018-10-27 19:28] VITALS: BP 133/84; PULSE 60; RESP 18; O2SAT 98
[2018-10-27 19:30] VITALS: PULSE 60
[2018-10-27 20:24] VITALS: BP 109/68; PULSE 60; RESP 20; TEMP 36.3; O2SAT 97
--- NOTE | 2018-10-27 20:42 | W.PM.HP.N ---
Date of service: 10/27/18 Time of Service: 20:41 Assessment and Plan (1) Weakness: Current visit: Yes Status: Acute She overall describes a vague feeling of weakness. She does not feel herself. Her daughter encouraged her to get checked out. Thus far we have little objective evidence to explain her global weakness. She is very concerned about the health of her and that he tries to do too much. Given her multiple somatic symptoms and lack of objective findings I am led to conclude that she may be somewhat volume depleted. Potassium is slightly low, magnesium is slightly low. We will have her on low-dose IV fluids overnight. We will ask physical therapy to see her. Reassess in the a.m. (2) Dilated cardiomyopathy: Current visit: No Status: Chronic She has an ICD pacer in place. She has a history of CHF. This appears to be well controlled on current medications. There is no evidence that she is at all poorly compensated at this time. Given her relative dehydration we will cut back her torsemide to 20 mg daily for now. (3) Diabetes mellitus: Current visit: No Status: Acute Blood sugar is high at 255. We will continue her on her usual basal insulin. Check fingerstick blood sugar before meals and will use moderate sliding scale correction. Ordered a diabetic diet. Qualifiers: Diabetes mellitus type: type 2 Diabetes mellitus penitentiary insulin use: with intermediate designer use Diabetes mellitus complication detail: with cataract (4) Dizziness: Current visit: Yes Status: Acute Subjective signs of dizziness. She does not appear to have symptoms of dizziness laying flat on the gurney, only when she goes to sit up or try to walk. There may be an element of benign positional vertigo. The head CT is negative. (5) CALDERON (obstructive sleep apnea): Current visit: No Status: Chronic Will continue on BiPAP therapy at at bedtime. Mimic her usual settings. (6) Gout: Current visit: No Status: Acute No areas of active gout on exam. Given her poor renal function and multiple somatic complaints we will hold on colchicine therapy for now. (7) Discharge planning issues: Current visit: Yes Status: Acute She is a full code admitted to observation status. History of Present Illness Chief Complaint: Dizziness/weakness Narrative: This is a 73-year-old woman that presents to the emergency room this evening with dizziness and weakness since 10/24/2018. She describes increased urinary incontinence, pain in her feet, joint aches, hand aches, fever of falling. She denies having any falls. She has ongoing concerns about caring for her who is not well. Her daughter encouraged her to seek medical treatment today. In the emergency room her work-up was largely negative, normal chest x-ray, normal head CT, normal labs. When they try to get her up she stated she was dizzy and weak. She was given IV fluids in 250 cc boluses x2 but still did not feel better. She is admitted for observation. Review of Systems Review of Systems As per HPI. Multiple somatic complaints. Denies any chest pain or shortness of breath. She has not had any upper respiratory symptoms. She was complaining of chills but no fevers. She does note her incontinence has been worse lately. [facility] Medical History (Updated 10/27/18 @ 20:57 by Karlos Barros MD) Atrial fibrillation CHF (congestive heart failure) Dilated cardiomyopathy (Chronic) DM (diabetes mellitus) Morbid obesity due to excess calories (Chronic) Nuclear sclerotic cataract of left eye (Resolved) Nuclear sclerotic cataract of right eye (Resolved) Obesity CALDERON (obstructive sleep apnea) (Chronic) Paroxysmal atrial flutter (Chronic) Surgical History section Status post cataract extraction and insertion of intraocular lens of left eye (Chronic 01/03/18) Status post cataract extraction and insertion of intraocular lens of right eye (Chronic 12/20/17) Family History Father Heart disease Social History Smoking/Tobacco Use Status: Never Drug use: Never Household members: spouse Housing: house 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 [employer] Do you feel safe in your relationship?: Yes Meds Home Medications Medication Instructions Recorded Confirmed Type fluoxetine 40 mg PO DAILY AM 04/15/13 04/17/18 History Bi Pap 12/28/14 04/17/18 History acetaminophen 325 mg PO PRN tab-cap 12/28/14 04/17/18 History cholecalciferol (vitamin D3) 5,000 unit PO WEEKLY 12/28/14 04/17/18 History nitroglycerin [Nitrostat] 0.4 mg SUBLINGUAL ONCE tab-cap 12/28/14 04/17/18 History omega-3 fatty acids 1,000 mg PO BID 12/28/14 04/17/18 History magnesium oxide 400 mg PO BID 05/28/16 04/17/18 History Novolog Flexpen U-100 Insulin 0 units SUB-Q 0800,1200,1700 pen 05/31/16 04/17/18 Rx Novolog Flexpen U-100 Insulin 10 units SUB-Q 0800,1200,1700 pen 05/31/16 04/17/18 Rx Novolin 70/30 U-100 Insulin 50 unit SUB-Q BID 03/06/17 04/17/18 History thiamine HCl (vitamin B1) 100 mg PO DAILY 05/15/17 04/17/18 History torsemide 40 mg PO DAILY tab-cap 05/15/17 04/17/18 History Centrum Silver Women 1 tab PO DAILY 12/17/17 04/17/18 History Ocuvite Adult 50 Plus 1 cap PO DAILY 12/17/17 04/17/18 History gabapentin 300 mg PO HS 12/17/17 04/17/18 History levofloxacin 750 mg PO DAILY #6 tab 12/24/17 04/17/18 Rx carvedilol 25 mg tablet 25 mg PO BID #180 tab 01/23/18 04/17/18 Rx colchicine 0.6 mg tablet 0.6 mg PO BID 04/17/18 04/17/18 History warfarin 1 mg tablet mg PO DIRECTED 04/17/18 04/17/18 History Allergies Allergy/AdvReac Type Severity Reaction Status Date / Time No Known Allergies Allergy Unverified 10/27/18 19:21 Exam Narrative Exam Narrative: On exam she does not appear in any distress. She is lucid and able to give a good history. She is lying nearly flat on the gurney. She displayed no respiratory difficulties. Her lung sounds by auscultation sounded clear and dry bilaterally. Her heart sounds were regular and there was no significant murmur. Her abdomen was quite markedly obese but overall soft and nontender. Her lower extremities showed some overlying adipose tissue but no edema, no pitting edema. The distal extremities appear to be well perfused. Neurologically she could move all extremities without apparent decrement of function. She had no pain in her extremities. I did not test her gait. Results Labs : 10/27/18 15:10 10/27/18 15:10 Laboratory Results - last 24 hr 10/27/18 10/27/18 10/27/18 14:45 15:10 15:10 WBC 7.97 RBC 4.88 Hgb 14.3 Hct 42.7 MCV 87.5 MCH 29.3 MCHC 33.5 RDW 13.5 Plt Count 164 MPV 11.3 H Immature Gran % 0.3 Neutrophils % 73.7 Lymphocytes % 16.3 Monocytes % 6.6 Eosinophils % 2.8 Basophils % 0.3 Absolute Neutrophils 5.88 Absolute Lymphocytes 1.30 Absolute Monocytes 0.53 Absolute Eosinophils 0.22 Absolute Basophils 0.02 PT INR APTT Sodium 140 Potassium 3.5 Chloride 101 Carbon Dioxide 28.7 Anion Gap 10.3 BUN 21 H Creatinine 1.38 H Estimated GFR/1.73 m2 37.69 Glucose 255 H Calcium 8.8 Magnesium 1.6 L Total Bilirubin 1.2 H AST 24 ALT 28 Alkaline Phosphatase 97 Troponin I < 0.05 NT-Pro-B Natriuret Pep 305 H Total Protein 7.4 Albumin 2.8 L Urine Color Yellow Urine Clarity Sl cloudy Urine pH 7.5 Ur Specific [place] 1.020 Urine Protein Negative Urine Ketones Negative Urine Blood Negative Urine Nitrite Negative Urine Bilirubin Negative Urine Urobilinogen 0.2 Ur Leukocyte Esterase Trace H Urine RBC Not Applicable Urine WBC 0-2 Ur Epithelial Cells Moderate Urine Crystals Not Applicable Urine Bacteria Many Urine Mucus Moderate Ur Culture Indicated? No/sq. contamination Urine Glucose Negative 10/27/18 15:10 WBC RBC Hgb Hct MCV MCH MCHC RDW Plt Count MPV Immature Gran % Neutrophils % Lymphocytes % Monocytes % Eosinophils % Basophils % Absolute Neutrophils Absolute Lymphocytes Absolute Monocytes Absolute Eosinophils Absolute Basophils PT 19.1 H INR 1.9 H APTT 30.5 Sodium Potassium Chloride Carbon Dioxide Anion Gap BUN Creatinine Estimated GFR/1.73 m2 Glucose Calcium Magnesium Total Bilirubin AST ALT Alkaline Phosphatase Troponin I NT-Pro-B Natriuret Pep Total Protein Albumin Urine Color Urine Clarity Urine pH Ur Specific [place] Urine Protein Urine Ketones Urine Blood Urine Nitrite Urine Bilirubin Urine Urobilinogen Ur Leukocyte Esterase Urine RBC Urine WBC Ur Epithelial Cells Urine Crystals Urine Bacteria Urine Mucus Ur Culture Indicated? Urine Glucose Last Vital Signs Temp 36.3 C L 10/27/18 20:24 Pulse 60 10/27/18 20:24 Resp 20 10/27/18 20:24 BP 109/68 10/27/18 20:24 Pulse Ox 97 10/27/18 20:24
[2018-10-27] MEDS: Gabapentin 300 MG CAP PO (21:18)
[2018-10-27] MEDS: Warfarin 5 MG TAB PO (21:18)
[2018-10-27] MEDS: Magnesium Oxide 400 MG TAB PO (21:18)
[2018-10-27 23:13] VITALS: PULSE 60
[2018-10-27] MEDS: Normal Saline 1,000 ML 75 ML IV (23:55)
[2018-10-27] MEDS: Normal Saline Flush 10 ML SYR IVP (23:56)
[2018-10-28] VITALS (7 sets, daily range): BP systolic 118–123; BP diastolic 68–76; PULSE 60–99; RESP 18; TEMP 36.5–36.7; O2SAT 95–98
[2018-10-28] MEDS: Acetaminophen 325 MG TAB PO ×2 (00:02→11:30)
[2018-10-28 07:31] LABS: Abs Immature Grans 0.01 k/cumm (0.0-0.09); Absolute Basophil Count 0.03 k/cumm (0.0-0.2); Absolute Eosinophil Count 0.25 k/cumm (0.0-0.7); Absolute Lymphocyte Count 1.71 k/cumm (1.2-3.4); Absolute Monocyte Count 0.48 k/cumm (0.11-0.7); Absolute Neutrophil Count 4.02 k/cumm (1.2-6.7); Basophils % 0.5; Eosinophils % 3.8; HCT 38.9 % (36.0-46.0); Immature Grans % 0.2; Lymphocytes % 26.3; Mean Corp. HGB Concentration 33.4 g/dL (32.0-36.0); Mean Corpuscular Hemoglobin 29.7 pg (27.0-33.0); Mean Platelet Volume 11.6 fL (8.0-11.0); Monocytes % 7.4; Neutrophils % 61.8; Platelet Count 179 x1000/uL (130-400); RBC 4.37 m/cumm (4.00-5.20); RBC Distribution Width 13.6 % (11.7-14.6)
[2018-10-28 07:37] LABS: INR 1.7 (0.9-1.1); Prothrombin Time 17.5 sec (9.3-11.0)
[2018-10-28 07:43] LABS: ALT 21 U/L (14-59); AST 22 U/L (15-37); Albumin 2.4 g/dL (3.4-5.0); Alkaline Phosphatase 86 U/L (46-116); Anion Gap 9.9 mmol/L (3-11); BUN 25 mg/dL (7-18); Bilirubin, Total 0.7 mg/dL (0.2-1.0); CO2 27.1 mmol/L (21.0-32.0); CREATININE 1.22 mg/dL (0.55-1.02); Calcium 8.3 mg/dL (8.5-10.1); Chloride 106 mmol/L (98-107); Estimated GFR 43.45 (mL/min/1.73m2); Glucose 170 mg/dL (70-100); Potassium 3.3 mmol/L (3.5-5.1); Sodium 143 mmol/L (136-145); Total Protein 6.3 g/dL (6.4-8.2)
[2018-10-28] MEDS: Carvedilol 25 MG TAB PO ×2 (08:46→19:53)
[2018-10-28] MEDS: Magnesium Oxide 400 MG TAB PO ×2 (08:46→19:52)
[2018-10-28] MEDS: Torsemide 20 MG TAB PO (08:46)
[2018-10-28] MEDS: FLUoxetine 20 MG CAP 40 MG PO (08:46)
[2018-10-28] MEDS: Insulin Aspart 300 UNITS/3 ML PEN 10 UNITS SC ×3 (08:49→16:44)
[2018-10-28] MEDS: POTASSIUM CHLORIDE 20 MEQ, POTASSIUM CHLORIDE 10 MEQ 30 MEQ PO (09:58)
--- NOTE | 2018-10-28 15:22 | CHAPLAIN ---
Brunilda was resting in bed when I visited. She was pleasant and easily engaged in a conversation. She is a lifetime member of the [facility] and gave me some history of the christianity, telling me that it was organized by an all-female committee. Her pastors knows that she is here. I left when the nurse arrived to help her to the commode.
[2018-10-28 16:35] LABS: C-Reactive Protein 3.63 mg/dL (0.0-0.3)
--- NOTE | 2018-10-28 16:44 | PGE_ITS ---
Date of Service Date of service: 10/28/18 Time of Service: 16:44 Assessment and Plan (1) Dizziness: Current visit: Yes Status: Acute Overall dizziness seems to be improved. She still gets dizzy with some ambulation. Vague and intermittent. (2) Weakness: Current visit: Yes Status: Acute Weakness at this point seems to be a somatic symptom. Per her daughter there has been more apathy and lack of motivation lately. Will check ESR/CRP looking for possible polymyalgia rheumatica. Will check KOLE and consideration of lupus. Will check Lyme panel given possible exposure to tickborne illnesses. (3) CALDERON (obstructive sleep apnea): Current visit: No Status: Chronic Continue nocturnal CPAP. (4) Dilated cardiomyopathy: Current visit: No Status: Chronic No evidence of CHF. (5) Gout: Current visit: No Status: Acute Will check uric acid level. No evidence of acute gouty flare. Hold on colchicine. (6) Diabetes mellitus: Current visit: No Status: Acute Blood sugars under improved control continue current meds. 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 Given her symptoms have not improved and more intensive work-up is in place will change from observation to acute. Subjective Interval history since last seen: Patient complains of extreme fatigue. She says all of her joints ache. The bottom of her feet hurt when she walks. She ambulated to the bathroom several times overnight using a walker with nursing assist. She says she still gets dizzy when she gets up but no dizziness when in bed. I spoke with her daughter. This has been a chronic issue. Her daughter states she has been getting worse as far as her lack of motivation, sleeping all the time, poor self-care, chronic pain complaints. Her psychologist, Narcisa Chamberlain, feels she is depressed and wants to talk to her medical team. Patient notes her mother was misdiagnosed for years and finally diagnosed with lupus. Patient's not sure about exposure to tickborne illnesses. 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 Exam Narrative Exam Narrative: Patient is lying nearly flat in bed. She does not move much spontaneously but when asked she can move upper and lower extremities without any significant decrement of function. She has no point tenderness over any of her joints though she complains that her shoulders elbows hands knees ankles and feet are all very sore and stiff. Her breathing is not at all labored. Her lungs are clear heart regular abdomen markedly obese but nontender lower extremities she has SANTOS hose in place, no edema. Objective Objective Clinical Data: Abnormal lab results 10/27/18 10/28/18 10/28/18 Range/Units 15:10 06:16 06:16 MPV 11.6 H (8.0-11.0) fL PT 19.1 H (9.3-11.0) sec INR 1.9 H (0.9-1.1) Potassium 3.3 L (3.5-5.1) mmol/L BUN 25 H (7-18) mg/dL Creatinine 1.22 H (0.55-1.02) mg/dL Glucose 170 H D (70-100) mg/dL Calcium 8.3 L (8.5-10.1) mg/dL C-Reactive Protein (0.0-0.3) mg/dL Total Protein 6.3 L (6.4-8.2) g/dL Albumin 2.4 L (3.4-5.0) g/dL 10/28/18 10/28/18 Range/Units 06:16 16:15 MPV (8.0-11.0) fL PT 17.5 H (9.3-11.0) sec INR 1.7 H (0.9-1.1) Potassium (3.5-5.1) mmol/L BUN (7-18) mg/dL Creatinine (0.55-1.02) mg/dL Glucose (70-100) mg/dL Calcium (8.5-10.1) mg/dL C-Reactive Protein 3.63 H (0.0-0.3) mg/dL Total Protein (6.4-8.2) g/dL Albumin (3.4-5.0) g/dL Vital Signs Temperature 36.5 C 10/28/18 15:37 Temperature Source Tympanic 10/28/18 15:37 Pulse 99 H 10/28/18 15:37 Pulse Rhythm Regular 10/28/18 09:26 Respiratory Rate 18 10/28/18 15:37 Respiratory Effort 10/28/18 09:26 Respiratory Depth Normal 10/28/18 09:26 Respiratory Pattern Normal 10/28/18 09:26 Blood Pressure 122/72 10/28/18 15:37 Blood Pressure Position Supine 10/27/18 14:13 Pulse Oximetry 98 10/28/18 15:37 Oxygen Delivery Method Room Air 10/28/18 15:37 Oxygen Flow Rate 0 10/28/18 15:37 Pain Level 0 10/28/18 15:37 Intake & Output 10/27/18 10/28/18 10/28/18 23:59 11:59 23:59 Intake Total 250 / 260 1420 / 1420 Output Total 300 / 300 Balance 250 / 260 1120 / 1120 Weight 131.088 kg 128.9 kg Intake: IV 250 / 260 880 / 880 Oral 540 / 540 Output: Urine 300 / 300 Other: Urine Color Yellow Straw Light Luz Elena Urine Odor Strong Voiding Methods Bedside Commode Diaper Incontinent Laboratory Results WBC 6.50 k/cumm (4.4-10.8) 10/28/18 06:16 RBC 4.37 m/cumm (4.00-5.20) 10/28/18 06:16 Hgb 13.0 g/dL (12.0-15.5) 10/28/18 06:16 Hct 38.9 % (36.0-46.0) 10/28/18 06:16 MCV 89.0 fL (80-95) 10/28/18 06:16 MCH 29.7 pg (27.0-33.0) 10/28/18 06:16 MCHC 33.4 g/dL (32.0-36.0) 10/28/18 06:16 RDW 13.6 % (11.7-14.6) 10/28/18 06:16 Plt Count 179 x1000/uL (130-400) 10/28/18 06:16 MPV 11.6 fL (8.0-11.0) H 10/28/18 06:16 Immature Gran % 0.2 10/28/18 06:16 61.8 10/28/18 06:16 26.3 10/28/18 06:16 7.4 10/28/18 06:16 3.8 10/28/18 06:16 0.5 10/28/18 06:16 Absolute Neutrophils 4.02 k/cumm (1.2-6.7) 10/28/18 06:16 Absolute Lymphocytes 1.71 k/cumm (1.2-3.4) 10/28/18 06:16 Absolute Monocytes 0.48 k/cumm (0.11-0.7) 10/28/18 06:16 Absolute Eosinophils 0.25 k/cumm (0.0-0.7) 10/28/18 06:16 Absolute Basophils 0.03 k/cumm (0.0-0.2) 10/28/18 06:16 PT 17.5 sec (9.3-11.0) H 10/28/18 06:16 INR 1.7 (0.9-1.1) H 10/28/18 06:16 APTT 30.5 sec (21.0-31.4) 10/27/18 15:10 Sodium 143 mmol/L (136-145) 10/28/18 06:16 Potassium 3.3 mmol/L (3.5-5.1) L 10/28/18 06:16 Chloride 106 mmol/L (98-107) 10/28/18 06:16 Carbon Dioxide 27.1 mmol/L (21.0-32.0) 10/28/18 06:16 9.9 mmol/L (3-11) 10/28/18 06:16 BUN 25 mg/dL (7-18) H 10/28/18 06:16 1.22 mg/dL (0.55-1.02) H 10/28/18 06:16 43.45 (mL/min/1.73m2) 10/28/18 06:16 Glucose 170 mg/dL (70-100) H D 10/28/18 06:16 Calcium 8.3 mg/dL (8.5-10.1) L 10/28/18 06:16 Magnesium 1.6 mg/dL (1.8-2.4) L 10/27/18 15:10 0.7 mg/dL (0.2-1.0) 10/28/18 06:16 AST 22 U/L (15-37) 10/28/18 06:16 ALT 21 U/L (14-59) 10/28/18 06:16 86 U/L (46-116) 10/28/18 06:16 < 0.05 ng/mL (0.00-0.06) 10/27/18 15:10 3.63 mg/dL (0.0-0.3) H 10/28/18 16:15 NT-Pro-B Natriuret Pep 305 pg/mL (-299) H 10/27/18 15:10 6.3 g/dL (6.4-8.2) L 10/28/18 06:16 2.4 g/dL (3.4-5.0) L 10/28/18 06:16 Yellow (Yellow) 10/27/18 14:45 Sl cloudy (Clear) 10/27/18 14:45 7.5 (5-8) 10/27/18 14:45 Ur Specific [place] 1.020 (1.005-1.025) 10/27/18 14:45 Negative mg/dL (Negative) 10/27/18 14:45 Negative mg/dL (Negative) 10/27/18 14:45 Negative (Negative) 10/27/18 14:45 Negative (Negative) 10/27/18 14:45 Negative (Negative) 10/27/18 14:45 0.2 EU/dL (Up TO 0.2) 10/27/18 14:45 Ur Leukocyte Esterase Trace (Negative) H 10/27/18 14:45 Not Applicable 10/27/18 14:45 0-2 HPF (0-5) 10/27/18 14:45 Ur Epithelial Cells Moderate HPF (Negative) 10/27/18 14:45 Not Applicable 10/27/18 14:45 Many HPF (Negative) 10/27/18 14:45 Moderate (Negative) 10/27/18 14:45 Ur Culture Indicated? No/sq. contamination 10/27/18 14:45 Negative mg/dL (Negative) 10/27/18 14:45
--- NOTE | 2018-10-28 17:00 | IN_ITS ---
Date of service: 10/28/18 Time of Service: 14:00 PT Notes Inpatient Physical Therapy Evaluation Date: 10/28/18 Referring Doctor: Karlos Barros MD PT Orders: PT CONSULT: Weakness, joint ache, joints lock Precautions: Fall. Standard. Activity as tolerated. Patient Profile/Admitting Diagnosis: Patient is a 73-year-old female with past medical history significant for atrial fibrillation and congestive heart failure who presented to the ED on 10/27/2018 with chief complaints of dizziness, fatigue, joint pain, weakness, urinary incontinence, and pain on both hands and feet. CT of the head revealed no acute intracranial abnormality. Patient is diagnosed with dilated cardiomyopathy, weakness, diet mellitus, dizziness, and gout. PMHX: Medical History (Updated 10/27/18 @ 20:57 by Karlos Barros MD) Atrial fibrillation CHF (congestive heart failure) Dilated cardiomyopathy (Chronic) DM (diabetes mellitus) Morbid obesity due to excess calories (Chronic) Nuclear sclerotic cataract of left eye (Resolved) Nuclear sclerotic cataract of right eye (Resolved) Obesity CALDERON (obstructive sleep apnea) (Chronic) Paroxysmal atrial flutter (Chronic) Surgical History section Status post cataract extraction and insertion of intraocular lens of left eye (Chronic 01/03/18) Status post cataract extraction and insertion of intraocular lens of right eye (Chronic 12/20/17) Social History/Home Situation: Patient lives with in a 2 floor house with 3 steps to enter with rails on both sides. Another set of 14 steps with bilateral railings lead to the second floor of the house where patient's bedroom is. Patient has a private caregiver who comes daily for assistance with meal preparation, bathing, and dressing. Caregiver however needed to go away for a week and patient is unable to manage on her own as her is not doing physically well himself. Patient has been independent with all indoor ambulation using a front wheeled walker and has been able to negotiate steps to the second floor while holding onto bilateral railings. Equipment Owned/DME: [employer], F[employer], SC Subjective: Patient is agreeable to a PT consult and treatment today. She reports prickly sensation on the left index finger. She complains of pain and bothering her in the neck and back area. She states that weight bearing hurts the soles of her feet. She reports her longtime caregiver needing to do a week long respite out of state and her being handicapped himself is not able to provide assistance for her for her daily activities. Objective: General Observation: Patient seen resting in bed upon arrival of student PT and PT. IV in the right UE. Mental Status: Alert and oriented as to person, place, time, and purpose Pain: Reported mild to moderate pain on bilateral feet with weight bearing. Also tolerable reported pain on neck and back. ROM: Right Upper Extremity: Shoulder Flexion WFL. Shoulder abduction WFL. Elbow flexion WFL. Wrist flexion WFL. Functional opening and closing of hand WFL. Left Upper Extremity: Shoulder Flexion WFL. Shoulder abduction WFL. Elbow flexion WFL. Wrist flexion WFL. Functional opening and closing of hand WFL. Right Lower Extremity: Hip flexion WFL. Hip abduction WFL. Knee flexion WFL. Ankle dorsiflexion WFL. Ankle plantarflexion WFL. Left Lower Extremity: Hip flexion WFL. Hip abduction WFL. Knee flexion WFL. Ankle dorsiflexion WFL. Ankle plantarflexion WFL. Strength: Right Upper Extremity: Shoulder flexors 5/5. Shoulder abductors 5/5. Elbow flexors 5/5. Elbow extensors 4/5. Director Of Community Services strong. Left Upper Extremity: Shoulder flexors 5/5. Shoulder abductors 5/5. Elbow flexors 5/5. Elbow extensors 4/5. Director Of Community Services strong. Right Lower Extremity: Hip flexors 3+/5. Hip abductors 5/5. Knee flexors 4-/5. Knee extensors 5/5. Ankle dorsiflexors 5/5. Ankle plantarflexors 5/5. Left Lower Extremity:Hip flexors 3+/5. Hip abductors 5/5. Knee flexors 4-/5. Knee extensors 5/5. Ankle dorsiflexors 5/5. Ankle plantarflexors 5/5. Sensation: Intact as to pain and pressure on bilateral lower extremities. Reported prickling sensation on the L index finger. Bed Mobility/Transfers: Rolling minimal assist Supine to sit minimal assist Sit to supine minimal assist Sit to stand minimal assist Stand to sit minimal assist Bed to chair minimal assist Chair to bed minimal assist Gait: Patient was able to tolerate level surface ambulation of up to 50 feet with CGA of student PT and wheelchair follow/IV pole management of PT. Patient demonstrated decreased step height and length and a wide-based gait. Verbal cues provided for correct gait pattern, increased step height, and overall safety. Balance: Static Sitting: Normal Dynamic Sitting: Good Static Standing: Fair Dynamic Standing: Fair Special Tests: Mobility Limitations Standardized Measure [facility] AM-PAC 6 clicks Basic Mobility Inpatient Short Form: Raw Score: 16 CMS Score: 54% deficit Testing for Vertigo: Patient tested negative for spontaneous nystagmus. Smooth pursuit to the left produced direction changing nystagmus which may be suggestive of a central nervous system affectation. Near point convergence is at [address] beyond the normal limits of 5 cm with patient wearing bifocals. Sharp Amaya test and Alar Ligament Test are both negative. VOR and Head Shaking test negative. No nystagmus noted with the Kay-Hallpike in the supine head roll test administration. Informed Consent/Education: Patient instructed in purpose of PT consult and plan of care. Assessment: Patient is a 73-year-old female diagnosed with new onset weakness related relatable to dilated cardiomyopathy diabetes mellitus dizziness and gout. She is pleasant and cooperative to suggest and physical therapy plan of care. Patient presents with clinical signs and symptoms consistent with current/admitting diagnoses that have resulted to mobility limitations, gait instability, generalized weakness, and impairment of motor control as demons trated by the following impairment level findings: 1. Decreased strength to B LE major muscle groups 2. Impaired sitting/standing balance 3. Impaired activity tolerance Impairments are contributing to the following functional limitations: 1. Dependent bed mobility skills 2. Increased dependence with transfers 3. Inability to safely ambulate without assistive device and physical assistance 4. Increase completion time for mobility ADL performance 5. Increased fall risk 6. Inability to negotiate steps alone safely Patient is assessed as a 31093 moderate complexity based on the following: History: Patient is a 73-year-old female diagnosed with new onset weakness related relatable to dilated cardiomyopathy diabetes mellitus dizziness and gout. Examination: Demonstrable impairment in strength, balance, and range of motion with underlying impairments and functional limitations as documented above Presentation:Evolving Decision Makin moderate complexity Goals: Goals X1 week 1. Supine-Sit independent 2. Sit-Supine independent 3. Sit-Stand independent 4. Stand-Sit independent 5. Bed-Chair independent 6. Chair-Bed independent 7. Independent gait on level surface with use of least restrictive device for at least 200 feet without report of pain nor dyspnea 8. Independent stair negotiation while holding onto bilateral rails for at least 14 steps without report of pain nor dyspnea 9. Independent with home exercise program 10. Good static and dynamic standing balance/tolerance Plan of Care/Treatment Plan: 1-2x/day, 7 days/week x 1 week. Plan of care has been reviewed with the [employer] providing the service under Physical Therapy direction. Initiate Physical Therapy intervention for strengthening, bed mobility, transfers, gait, stairs, balance training, use of assistive device. DISCHARGE RECOMMENDATIONS: Patient will benefit from home health PT services in order to progress mobility level using least restrictive assistive ambulatory device, assess home safety, identify additional equipment needs, and establish a functional maintenance program that will increase ability of patient to remain at home. TREATMENT CODE/TIME: 45835 x 30 minutes, 79581 x 11 minutes beginning at 14:00 PM. Thank you very much for this referral. America Bey PT, DPT, CLT [facility]
[2018-10-28 17:19] LABS: ESR 35 mm/hr (0-30)
--- NOTE | 2018-10-28 17:34 | PDOC.CMIN ---
- If Service Date Differs Date of service: 10/28/18 Time of Service: 17:34 Care Management Initial Assess REASON FOR HOSPITALIZATION:: Dizziness PAST MEDICAL HISTORY/PAST SURGICAL HISTORY:: AST MEDICAL HISTORY: 1. Paroxysmal atrial fibrillation on anticoagulation with warfarin. . 2. Ischemic cardiomyopathy, status post AICD/PPM. LVEF 20-25%. . 3. CALDERON. . 4. Diabetes mellitus. . 5. Depression/anxiety. . 6. History of cellulitis. . 7. History of C. difficile. . 8. Gout. . 9. Obesity. PREVIOUS FUNCTIONAL STATUS/SOCIAL/FAMILY SUPPORTS:: Brunilda lives in a single family home in [place]. with her . They have one son and one daughter and several grandchildren who are very supportive. 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 Brunilda helps out on occasion but has become too debilitated to work regularly. Brunilda staes she has a walker, cane, wheelchair and commode but does not use them. She describes her ability to get around as very slow, as she is chronically in pain from an undiagnosed source. CURRENT FUNCTIONAL STATUS:: Brunilda was sitting on the side of the bed when CM met with her. She was pleasant and readily engaged in conversation. Although she stated she was in pain, Brunilda managed to smile and joke and revealed that she has a good sense of humor. Brunilda indicated that she is getting discouraged because she has been in pain for years and they are unable to figure out what is causing the pain. She did state that her mother was diagnosed with lupus. Has patient been provided with information about the portal?: No Did the patient sign up for the portal?: No CODE STATUS:: Full Code INSURANCE COVERAGE / FINANCIAL ISSUES:: Medicare. BS CURRENT HOME/COMMUNITY SERVICES/EQUIPMENT:: owns a wheelchair, walker, cane and commode but does not need to use them. PRIMARY CARE PHYSICIAN:: Alyssa Turcios PATIENT/FAMILY EDUCATION NEEDS:: discharge plan, limitations, follow up care, Ask Me Three. TRANSPORTATION:: via private vehicle with family when ready PLAN:: Brunilda will likely go home with no services when ready. She will follow up with her PCP and discharge plan of care. CM will continue to support patient, family and discharge planning needs.
[2018-10-28] MEDS: Warfarin 5 MG TAB PO (19:52)
[2018-10-28] MEDS: Normal Saline Flush 10 ML SYR IVP (19:52)
[2018-10-28] MEDS: Gabapentin 300 MG CAP PO (21:20)
[2018-10-29] VITALS (9 sets, daily range): BP systolic 103–131; BP diastolic 57–86; PULSE 60–84; RESP 16–25; TEMP 36.4–37.6; O2SAT 95–99
[2018-10-29 07:25] LABS: Abs Immature Grans 0.01 k/cumm (0.0-0.09); Absolute Basophil Count 0.01 k/cumm (0.0-0.2); Absolute Eosinophil Count 0.28 k/cumm (0.0-0.7); Absolute Lymphocyte Count 1.52 k/cumm (1.2-3.4); Absolute Monocyte Count 0.39 k/cumm (0.11-0.7); Absolute Neutrophil Count 3.69 k/cumm (1.2-6.7); Basophils % 0.2; Eosinophils % 4.7; HCT 38.5 % (36.0-46.0); HGB 12.6 g/dL (12.0-15.5); Immature Grans % 0.2; Lymphocytes % 25.8; Mean Corp. HGB Concentration 32.7 g/dL (32.0-36.0); Mean Corpuscular Hemoglobin 29.2 pg (27.0-33.0); Mean Corpuscular Volume 89.1 fL (80-95); Mean Platelet Volume 11.6 fL (8.0-11.0); Monocytes % 6.6; Neutrophils % 62.5; Platelet Count 181 x1000/uL (130-400); RBC 4.32 m/cumm (4.00-5.20); RBC Distribution Width 13.5 % (11.7-14.6)
[2018-10-29 07:27] LABS: INR 2.2 (0.9-1.1); Prothrombin Time 21.7 sec (9.3-11.0)
[2018-10-29 07:31] LABS: Anion Gap 6.8 mmol/L (3-11); BUN 30 mg/dL (7-18); CO2 28.2 mmol/L (21.0-32.0); CREATININE 1.17 mg/dL (0.55-1.02); Calcium 8.4 mg/dL (8.5-10.1); Chloride 107 mmol/L (98-107); Glucose 187 mg/dL (70-100); Sodium 142 mmol/L (136-145)
[2018-10-29] MEDS: Carvedilol 25 MG TAB PO ×2 (08:22→20:48)
[2018-10-29] MEDS: FLUoxetine 20 MG CAP 40 MG PO (08:22)
[2018-10-29] MEDS: Torsemide 20 MG TAB PO (08:22)
[2018-10-29] MEDS: Magnesium Oxide 400 MG TAB PO ×2 (08:22→20:48)
[2018-10-29] MEDS: Insulin Aspart 300 UNITS/3 ML PEN 10 UNITS SC ×3 (08:23→17:12)
--- NOTE | 2018-10-29 09:23 | CMPROGNOTE_ITS ---
- If Service Date Differs Date of service: 10/29/18 Time of Service: 09:23 Care Management Progress Note S/O:Brunilda was sitting up in the chair when CM came to see her. She shared that she had a low blood sugar this morning and isn't sure why. Brunilda talked a lot about how difficult things have become at home. She states that her daughter and think that she is just choosing not to get out of her chair and do things. She states she feels they don't understand how much pain she is in and how hard it is for her to do things. CM raised the possibility of Brunilda going to rehab to focus on strengthening and mobility and she stated she would be open to that idea. She has been to [facility] before and although it wasn't a totally good experience, she would consider going back. She is anxiously awaiting test results that may be able to shed some light on her condition. A: Brunilda is a 73 year old woman admitted to [facility] on 10/27/18 with weakness and dizziness. P: Brunilda is undergoing testing to determine the cause of her weakness and inability to ambulate easily.She will likely need rehab or new home health services when discharged. CM will continue to provide support to patient, family and discharge planning needs.
--- NOTE | 2018-10-29 12:17 | PHARADMIT ---
Addendum entered by Zahra Castro 11/05/18 13:21: Pharmacy Note Subjective Md waiting for xray results, ? gout, ? bone spur Objective INR 2.8, BP 162/95, FS 167, diabetes consult done Assessment warfarin continue on hold, per psych eval continue buproprion, colchicine started(home med) , oscar acetaminophen Plan expect warfarin to restart per provider: Working on placement for rehab with psychiatry at the center. If unable to get into rehab consider possible swing with PT/OT and psych until bed available. Addendum entered by Gina Herrera 11/03/18 16:37: Pharmacy Note Subjective refusing to wear Bipap, needs outpt workup Objective Temp 37.8 @ 3pm, pain 8/10, K+ 3.8, Mag 1.9, INR 3.7 BG 137 Assessment Completed 3 days of Keflex for UTI Warfarin on hold Magox 400mg x1 today, K-dur 20meq po x1 Prednisone 60mg x1 followed by 20mg po BID lower leg ultrasound to rule out DVT-negative Wellbutrin XL started s/p Psych evaluation for depression No insulin adjustments today....is on oral steroids Plan CM searching for placement, swingbed was mentioned if that isn't successful Addendum entered by Luis Marcus III 11/02/18 10:11: Pharmacy Note Subjective Urine: E.coli sensitive to Cephalosporins Objective No VS, Labs - OK, Mag-1.9 INR-2.8 FSBS-338 Assessment Continue Keflex, Additional Insulin 70/30 dose at 1630 daily ordered. Plan Decision as to placement tomorrow SNF or Swing Bed Addendum entered by Luis Marcus III 11/01/18 11:16: Pharmacy Note Subjective Panels came back negative. Awaiting urine culture results, Keflex continues. Using C-PAP from home. Patient is a two person assist. Objective VS-OK pain:5/10 INR-2.5 SCr-1.04 Lytes-OK FSBS-227 BG-229 Last BM 10/30 Assessment May need Warfarin adjustment (decrease). Insulins no change Plan Decesion [place] on SNF vs Swing Bed here. Addendum entered by Luis Marcus III 10/31/18 12:43: Pharmacy Note Subjective PROVIDER NOTES THAT PATIENTS WEAKNESS APPEARS TO BE PSYCHO-SOMATIC, NEUROLOGICAL PANELS PENDING. CM have set up family meeting for later today to discuss possible SNF placement. Objective VS-OK Lytes,SCr,H&H,Plts,WBC-WNL, INR-2.3 Assessment Urine culture pending, Keflex started todaay. Plan Patient is deconndition from prolonged inactivity, gettng PT here, and will require a rehab stay in a SNF Original Note: Admission Pharmacy Clinical Review Code Status Full Code Current Weight 126.9 kg Renally Cleared and Narrow Therapeutic Index Meds CrCl ~61.1 using adjusted body wt QTc Value / Action Taken QTc 460 BP Control, Fever BP 130/72, AFEBRILE Electrolytes reviewed Na 142, K+ 4.0 (up from 3.3), Mg 1.6 (on 10/27) DVT Prophylaxis Warfarin 5mg PM Opiate Usage / Scheduled Bowel Regimen Ordered Plt/SCr for Heparin / Enoxaparin Scr 1.17, Plt 181 INR for Warfarin INR 2.2 H/H stable, WBC/Bands H/H 12.6/38.5, WBC 5.9 Antibiotic appropriateness Cultures and Sensitivities Serology labs pending Surgical ABX d/c within 24 hr DM control / Insulin Dosing Aspart and Humulin 70/20 ordered; BS 57 overnight - 187 this AM Heart Failure (Check EF%) (NANDO's, B-Block, Diuretics) Torsemide, Carvedilol IV to PO Switch Home Meds Reviewed Yes Home Meds Not Ordered Colchicine has been dc'd Comments Allopurinol has been started in place of colchicine for hisotry of gout; studies for lupus and lyme are pending
[2018-10-29] MEDS: Allopurinol 100 MG TAB PO (12:44)
[2018-10-29] MEDS: Acetaminophen 325 MG TAB PO ×2 (13:37→22:18)
--- NOTE | 2018-10-29 18:00 | PT.INTREAT ---
Date of service: 10/29/18 Time of Service: 13:14 PT Notes Inpatient Physical Therapy Treatment Note [facility] Date: 10/29/2018 PRECAUTIONS: Standard. Falls. SUBJECTIVE: Patient complains of pain (5/10) on bilateral lower extremities with activity. OBJECTIVE: Patient is seen sitting in her chair with an IV in her R UE and bilateral delores stockings. PAIN: 5/10 BED MOBILITY/TRANSFERS Rolling L/R: I Supine-sit: SBA Sit-supine: SBA Sit-stand: Minimal assist Stand-sit: Minimal assist Bed-Chair: CGA Chair-bed: CGA GAIT Assistive Device: FWW Weight bearing: FWB Assist: CGA Distance: 80? Deviation: Patient exhibits reciprocal gait but with significantly decreased step length and tomas and overall gait speed. THEREX Long arc quads x 10 Seated marches x 10 Seated heel raises ASSESSMENT: Patient is a 73 year old female admitted due to generalized weakness, global joint pain, and joint locking. She is a motivated individual and desires to return home. She receives help in the home three days per week. She continues to be limited due to pain on the plantar surface of her feet, and occasional dizziness. Patient presents with clinical signs and symptoms consistent with current/admitting diagnoses that have resulted to mobility limitations, gait instability, generalized weakness, and impairment of motor control as demonstrated by the following impairment level findings: 1. Decreased strength to B LE major muscle groups 2. Impaired standing balance 3. Impaired activity tolerance 4. Limitation of joint range of motion in R knee flexion, R knee extension. Impairments are contributing to the following functional limitations: 1. Dependent bed mobility skills 2. Increased dependence with transfers 3. Inability to safely ambulate without assistive device and physical assistance 4. Increase completion time for mobility ADL performance 5. Increased fall risk 6. Inability to negotiate steps alone safely PLAN: Continue with PT POC as initially established TREATMENT CODE/TIME: 06620 x 40 minutes beginning at 13:14 p.m.
--- NOTE | 2018-10-29 18:35 | PGE_ITS ---
Date of Service Date of service: 10/29/18 Time of Service: 18:35 Assessment and Plan (1) Weakness: Current visit: Yes Status: Acute Patient continues to display weakness to the point that she has loss of functional abilities. Family is getting increasingly frustrated. Thus far metabolic work-up has been largely negative. Sed rate equals 35, CRP equals 3.63. I do not think these are high enough to consider polymyalgia rheumatica. Tickborne illness panel is pending, KOLE is pending. No physical explanation for extreme fatigue at this point. Chronic fatigue syndrome may enter the differential. (2) CALDERON (obstructive sleep apnea): Current visit: No Status: Chronic Interestingly she has been diagnosed with obstructive sleep apnea but has not been wearing her CPAP device. This raises the question whether her disrupted sleep pattern is causing her daytime fatigue and weakness. Respiratory therapy has arranged for her home machine and she is going to try it tonight. We will see if that helps with her overall fatigue. (3) Gout: Current visit: No Status: Acute Her uric acid came back at 11.0, markedly elevated her colchicine has been held. Start allopurinol 100 mg daily. With improvement in her renal function I think she could go up on this to 300 mg daily to help control hyperuricemia. (4) Dilated cardiomyopathy: Current visit: No Status: Chronic No evidence of congestive heart failure. Respiratory status has been stable. (5) Diabetes mellitus: Current visit: No Status: Acute Blood sugars are coming under better control on current regimen. Blood sugar 187. Continue current meds. 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 Studies are pending. She is working with physical therapy. Were adjusting her meds and getting her back on her CPAP. I discussed her case with her counselor Narcisa Chamberlain. It does seem there could be a psychosomatic component to some of her symptoms. Discussed trying to set up a family meeting for 10/31/2018 at around 1 PM. Will convey to care management to see if this can happen. Subjective Interval history since last seen: Patient is a little more active today. She worked with physical therapy. She was up to chair for lunch. She still complains of extreme fatigue and difficulty with ADLs. Physical therapy concurred that she was weak and needed assistance. Patient gave some detail about family dynamics. Apparently they feel that she is faking it, the family feels fed up. Patient feels worthless. We discussed setting up a family meeting for later this week. Exam Narrative Exam Narrative: On exam the patient looked considerably brighter and more alert today. She was eating her lunch and appears to be able to do that independently and with some vigor. She had no respiratory difficulty. She had no evidence of painful joints or active gout. Objective Objective Clinical Data: Abnormal lab results 10/29/18 10/29/18 10/29/18 Range/Units 06:45 06:45 06:45 MPV 11.6 H (8.0-11.0) fL PT (9.3-11.0) sec INR (0.9-1.1) BUN 30 H (7-18) mg/dL Creatinine 1.17 H (0.55-1.02) mg/dL Glucose 187 H (70-100) mg/dL Uric Acid 11.0 H (2.6-6.0) mg/dL Calcium 8.4 L (8.5-10.1) mg/dL 10/29/18 Range/Units 06:45 MPV (8.0-11.0) fL PT 21.7 H (9.3-11.0) sec INR 2.2 H (0.9-1.1) BUN (7-18) mg/dL Creatinine (0.55-1.02) mg/dL Glucose (70-100) mg/dL Uric Acid (2.6-6.0) mg/dL Calcium (8.5-10.1) mg/dL Vital Signs Temperature 36.5 C 10/29/18 16:04 Temperature Source Tympanic 10/29/18 16:04 Pulse 60 10/29/18 16:04 Pulse Rhythm Regular 10/29/18 14:50 Respiratory Rate 17 10/29/18 16:04 Respiratory Effort Non-Labored 10/29/18 14:50 Respiratory Depth Normal 10/29/18 14:50 Respiratory Pattern Normal 10/29/18 14:50 Blood Pressure 106/57 L 10/29/18 16:04 Blood Pressure Position Supine 10/27/18 14:13 Pulse Oximetry 99 10/29/18 16:04 Oxygen Delivery Method Room Air 10/29/18 16:04 Oxygen Flow Rate 0 10/29/18 16:04 Pain Level 0 10/29/18 16:04 Comment 10/29/18 11:25 Intake & Output 10/28/18 10/29/18 10/29/18 23:59 11:59 23:59 Intake Total 650 / 2070 850 / 1240 390 / 1240 Output Total 200 / 500 300 / 900 600 / 900 Balance 450 / 1570 550 / 340 -210 / 340 Weight 126.9 kg Intake: IV Oral 640 / 1180 840 / 1230 390 / 1230 Output: Urine 200 / 500 300 / 900 600 / 900 Other: Urine Color Yellow Yellow Yellow Urine Appearance Clear Clear Clear Urine Odor Normal Normal None Stool Size Small Copious Stool Characteristics Liquid Liquid Brown Brown Voiding Methods Bedside Commode Bedside Commode Bedside Commode Laboratory Results WBC 5.90 k/cumm (4.4-10.8) 10/29/18 06:45 RBC 4.32 m/cumm (4.00-5.20) 10/29/18 06:45 Hgb 12.6 g/dL (12.0-15.5) 10/29/18 06:45 Hct 38.5 % (36.0-46.0) 10/29/18 06:45 MCV 89.1 fL (80-95) 10/29/18 06:45 MCH 29.2 pg (27.0-33.0) 10/29/18 06:45 MCHC 32.7 g/dL (32.0-36.0) 10/29/18 06:45 RDW 13.5 % (11.7-14.6) 10/29/18 06:45 Plt Count 181 x1000/uL (130-400) 10/29/18 06:45 MPV 11.6 fL (8.0-11.0) H 10/29/18 06:45 Immature Gran % 0.2 10/29/18 06:45 62.5 10/29/18 06:45 25.8 10/29/18 06:45 6.6 10/29/18 06:45 4.7 10/29/18 06:45 0.2 10/29/18 06:45 Absolute Neutrophils 3.69 k/cumm (1.2-6.7) 10/29/18 06:45 Absolute Lymphocytes 1.52 k/cumm (1.2-3.4) 10/29/18 06:45 Absolute Monocytes 0.39 k/cumm (0.11-0.7) 10/29/18 06:45 Absolute Eosinophils 0.28 k/cumm (0.0-0.7) 10/29/18 06:45 Absolute Basophils 0.01 k/cumm (0.0-0.2) 10/29/18 06:45 ESR 35 mm/hr (0-30) H 10/28/18 16:15 PT 21.7 sec (9.3-11.0) H 10/29/18 06:45 INR 2.2 (0.9-1.1) H 10/29/18 06:45 APTT 30.5 sec (21.0-31.4) 10/27/18 15:10 Sodium 142 mmol/L (136-145) 10/29/18 06:45 Potassium 4.0 mmol/L (3.5-5.1) D 10/29/18 06:45 Chloride 107 mmol/L (98-107) 10/29/18 06:45 Carbon Dioxide 28.2 mmol/L (21.0-32.0) 10/29/18 06:45 6.8 mmol/L (3-11) 10/29/18 06:45 BUN 30 mg/dL (7-18) H 10/29/18 06:45 1.17 mg/dL (0.55-1.02) H 10/29/18 06:45 45.60 (mL/min/1.73m2) 10/29/18 06:45 Glucose 187 mg/dL (70-100) H 10/29/18 06:45 11.0 mg/dL (2.6-6.0) H 10/29/18 06:45 Calcium 8.4 mg/dL (8.5-10.1) L 10/29/18 06:45 Magnesium 1.6 mg/dL (1.8-2.4) L 10/27/18 15:10 0.7 mg/dL (0.2-1.0) 10/28/18 06:16 AST 22 U/L (15-37) 10/28/18 06:16 ALT 21 U/L (14-59) 10/28/18 06:16 86 U/L (46-116) 10/28/18 06:16 < 0.05 ng/mL (0.00-0.06) 10/27/18 15:10 3.63 mg/dL (0.0-0.3) H 10/28/18 16:15 NT-Pro-B Natriuret Pep 305 pg/mL (-299) H 10/27/18 15:10 6.3 g/dL (6.4-8.2) L 10/28/18 06:16 2.4 g/dL (3.4-5.0) L 10/28/18 06:16 Yellow (Yellow) 10/27/18 14:45 Sl cloudy (Clear) 10/27/18 14:45 7.5 (5-8) 10/27/18 14:45 Ur Specific [place] 1.020 (1.005-1.025) 10/27/18 14:45 Negative mg/dL (Negative) 10/27/18 14:45 Negative mg/dL (Negative) 10/27/18 14:45 Negative (Negative) 10/27/18 14:45 Negative (Negative) 10/27/18 14:45 Negative (Negative) 10/27/18 14:45 0.2 EU/dL (Up TO 0.2) 10/27/18 14:45 Ur Leukocyte Esterase Trace (Negative) H 10/27/18 14:45 Not Applicable 10/27/18 14:45 0-2 HPF (0-5) 10/27/18 14:45 Ur Epithelial Cells Moderate HPF (Negative) 10/27/18 14:45 Not Applicable 10/27/18 14:45 Many HPF (Negative) 10/27/18 14:45 Moderate (Negative) 10/27/18 14:45 Ur Culture Indicated? No/sq. contamination 10/27/18 14:45 Negative mg/dL (Negative) 10/27/18 14:45
[2018-10-29] MEDS: Warfarin 5 MG TAB PO (20:48)
[2018-10-29] MEDS: Gabapentin 300 MG CAP PO (22:18)
--- NOTE | 2018-10-29 23:33 | NUR.NOTE ---
Pt rang stating she is starting to feel lightheaded, as she did the night before. Finger stick: 60mg/DL. She was given snacks and high protein shake to help with her glucose level at this time. Charge nurse informed.
[2018-10-30 01:49] VITALS: RESP 25
[2018-10-30 07:19] LABS: Abs Immature Grans 0.02 k/cumm (0.0-0.09); Absolute Basophil Count 0.02 k/cumm (0.0-0.2); Absolute Eosinophil Count 0.27 k/cumm (0.0-0.7); Absolute Lymphocyte Count 1.56 k/cumm (1.2-3.4); Absolute Monocyte Count 0.38 k/cumm (0.11-0.7); Absolute Neutrophil Count 3.62 k/cumm (1.2-6.7); Basophils % 0.3; Eosinophils % 4.6; HCT 37.7 % (36.0-46.0); HGB 12.7 g/dL (12.0-15.5); Immature Grans % 0.3; Lymphocytes % 26.6; Mean Corp. HGB Concentration 33.7 g/dL (32.0-36.0); Mean Corpuscular Hemoglobin 30.1 pg (27.0-33.0); Mean Corpuscular Volume 89.3 fL (80-95); Mean Platelet Volume 11.6 fL (8.0-11.0); Monocytes % 6.5; Neutrophils % 61.7; Platelet Count 183 x1000/uL (130-400); RBC 4.22 m/cumm (4.00-5.20); RBC Distribution Width 13.5 % (11.7-14.6); White Blood Cell Count 5.87 k/cumm (4.4-10.8)
[2018-10-30 07:21] VITALS: BP 111/76; PULSE 82; RESP 19; TEMP 36.8; O2SAT 94
[2018-10-30 07:22] LABS: Anion Gap 7.4 mmol/L (3-11); BUN 29 mg/dL (7-18); CO2 26.6 mmol/L (21.0-32.0); Calcium 8.2 mg/dL (8.5-10.1); Chloride 105 mmol/L (98-107); Estimated GFR 44.29 (mL/min/1.73m2); Glucose 281 mg/dL (70-100); Potassium 4.1 mmol/L (3.5-5.1); Sodium 139 mmol/L (136-145)
[2018-10-30 07:38] LABS: INR 2.2 (0.9-1.1); Prothrombin Time 22.2 sec (9.3-11.0)
[2018-10-30] MEDS: Allopurinol 100 MG TAB PO (08:03)
[2018-10-30] MEDS: Carvedilol 25 MG TAB PO ×2 (08:03→20:13)
[2018-10-30] MEDS: Torsemide 20 MG TAB PO (08:03)
[2018-10-30] MEDS: Magnesium Oxide 400 MG TAB PO ×2 (08:03→20:13)
[2018-10-30] MEDS: FLUoxetine 20 MG CAP 40 MG PO (08:03)
[2018-10-30] MEDS: Insulin Aspart 300 UNITS/3 ML PEN 10 UNITS SC ×3 (08:04→16:56)
--- NOTE | 2018-10-30 09:40 | CMPROGNOTE_ITS ---
- If Service Date Differs Date of service: 10/30/18 Time of Service: 09:40 Care Management Progress Note S/O:Brunilda was sitting up in a chair when CM came to see her. She was pleasant and cooperative and readily engaged in conversation. Her blood sugar was low again early this morning but was over 300 before lunch. Brunilda shared some more details about family life and described the strained relationship between her 2 children and how sad it makes her. A family meeting was requested and has been scheduled for 1 pm tomorrow. Her Fouzia will participate in person and her daughter Juana will conference in by phone. A message was left for Brunilda's therapist, Narcisa Chamberlain, inviting her as well. A: Brunilda is a 73 year old woman admitted to [facility] on 10/27/18 with weakness and dizziness. P: Brunilda is undergoing testing to determine the cause of her weakness and inability to ambulate easily.She will likely need rehab or new home health services when discharged. CM will continue to provide support to patient, family and discharge planning needs.
[2018-10-30 09:55] LABS: Magnesium 1.7 mg/dL (1.8-2.4)
[2018-10-30 11:39] LABS: Lyme Ab w Rflx to Lyme Confirm Negative
--- NOTE | 2018-10-30 12:56 | PGE_ITS ---
Date of Service Date of service: 10/30/18 Time of Service: 12:56 Assessment and Plan Assessment and plan (1) Weakness: Start date: 10/30/18 Start time: 13:41 Status: Acute Assessment and plan: Patient continues to display weakness to the point that she has loss of functional abilities. Continue to work with PT. Does not feel any stronger today, however did walk past door in to hallway and back with PT, patient did endorse weakness to legs when walking. Results still pending for inflammatory work up. (2) CALDERON (obstructive sleep apnea): Start date: 10/30/18 Start time: 13:44 Status: Chronic Assessment and plan: She did use bipap overnight. It was felt that the pressures were too strong on the settings. Recommend she have another sleep study for more accurate settings. Also c/o dry mouth from the machine, biotene ordered to help with dry mouth. (3) Gout: Start date: 10/30/18 Start time: 13:46 Status: Acute Assessment and plan: Her uric acid came back at 11.0, markedly elevated her colchicine has been held. Start allopurinol 100 mg daily. With improvement in her renal function I think she could go up on this to 300 mg daily to help control hyperuricemia. (4) Dilated cardiomyopathy: Start date: 10/30/18 Start time: 13:46 Status: Chronic Assessment and plan: No evidence of congestive heart failure. Respiratory status has been stable. (5) Diabetes mellitus: Start date: 10/30/18 Start time: 13:46 Status: Acute Assessment and plan: Continues to have hypoglycemic events at hs. Evening dose of 70/30 held. Monitor glucose and change as needed. 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 Will convey to care management to see if this can happen. Subjective Subjective Interval history since last seen: Mrs. Herrera is feeling the same. She did use BIPAP last night but feels the pressure is too much. I spoke to her about a repeat sleep study in the future for more accurate settings. Serology is pending. Family meeting for tomorrow at 1 to discuss Mrs. Gallegos care and health, as her family is feeling fed up. Exam Const General: cooperative, healthy appearing, comfortable and no acute distress Neck Neck: normal visual inspection Lymphatic: no lymphadenopathy noted and no lymphedema noted Resp Effort & Inspection: normal respiratory effort Auscultation: clear to auscultation bilaterally Cardio Jugular venous pressure: no JVD Rate: regular rate Rhythm: regular rhythm Heart Sounds: S1 normal and S2 normal GI Inspection: normal to inspection Auscultation: normal bowel sounds Skin General skin exam: no rashes or lesions noted Lesions: no lesions Rashes: no rashes Wounds: no wounds Neuro General: alert, awake and oriented x3 Objective Objective Clinical Data: Abnormal lab results 10/30/18 10/30/18 10/30/18 Range/Units 06:30 06:30 06:30 MPV 11.6 H (8.0-11.0) fL PT 22.2 H (9.3-11.0) sec INR 2.2 H (0.9-1.1) BUN 29 H (7-18) mg/dL Creatinine 1.20 H (0.55-1.02) mg/dL Glucose 281 H (70-100) mg/dL Calcium 8.2 L (8.5-10.1) mg/dL Magnesium 1.7 L (1.8-2.4) mg/dL Vital Signs Temperature 36.8 C 10/30/18 07:21 Temperature Source Tympanic 10/30/18 07:21 Pulse 82 10/30/18 07:21 Pulse Rhythm Regular 10/30/18 08:00 Respiratory Rate 19 10/30/18 07:21 Respiratory Effort Non-Labored 10/30/18 08:00 Respiratory Depth Normal 10/30/18 08:00 Respiratory Pattern Normal 10/30/18 08:00 Blood Pressure 111/76 10/30/18 07:21 Blood Pressure Position Supine 10/27/18 14:13 Pulse Oximetry 94 L 10/30/18 07:21 Oxygen Delivery Method Room Air 10/30/18 07:21 Oxygen Flow Rate 0 10/30/18 07:21 Pain Level 0 10/30/18 07:21 Comment 10/29/18 11:25 Intake & Output 10/29/18 10/30/18 10/30/18 23:59 11:59 23:59 Intake Total 630 / 1480 250 / 250 Output Total 600 / 1200 300 / 300 Balance 30 / 280 -50 / -50 Weight 127.6 kg Intake: Oral 630 / 1470 250 / 250 Output: Urine 600 / 1200 300 / 300 Other: Urine Color Yellow Yellow Yellow Urine Appearance Clear Clear Clear Urine Odor Strong None Comment unsure of amount, 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 patient voided mixed with stool. pt voided with stool Stool Size Moderate Moderate Stool Characteristics Formed Formed Voiding Methods Bedside Commode Bedside Commode Laboratory Results WBC 5.87 k/cumm (4.4-10.8) 10/30/18 06:30 RBC 4.22 m/cumm (4.00-5.20) 10/30/18 06:30 Hgb 12.7 g/dL (12.0-15.5) 10/30/18 06:30 Hct 37.7 % (36.0-46.0) 10/30/18 06:30 MCV 89.3 fL (80-95) 10/30/18 06:30 MCH 30.1 pg (27.0-33.0) 10/30/18 06:30 MCHC 33.7 g/dL (32.0-36.0) 10/30/18 06:30 RDW 13.5 % (11.7-14.6) 10/30/18 06:30 Plt Count 183 x1000/uL (130-400) 10/30/18 06:30 MPV 11.6 fL (8.0-11.0) H 10/30/18 06:30 Immature Gran % 0.3 10/30/18 06:30 Neutrophils % 61.7 10/30/18 06:30 Lymphocytes % 26.6 10/30/18 06:30 Monocytes % 6.5 10/30/18 06:30 Eosinophils % 4.6 10/30/18 06:30 Basophils % 0.3 10/30/18 06:30 Absolute Neutrophils 3.62 k/cumm (1.2-6.7) 10/30/18 06:30 Absolute Lymphocytes 1.56 k/cumm (1.2-3.4) 10/30/18 06:30 Absolute Monocytes 0.38 k/cumm (0.11-0.7) 10/30/18 06:30 Absolute Eosinophils 0.27 k/cumm (0.0-0.7) 10/30/18 06:30 Absolute Basophils 0.02 k/cumm (0.0-0.2) 10/30/18 06:30 ESR 35 mm/hr (0-30) H 10/28/18 16:15 PT 22.2 sec (9.3-11.0) H 10/30/18 06:30 INR 2.2 (0.9-1.1) H 10/30/18 06:30 APTT 30.5 sec (21.0-31.4) 10/27/18 15:10 Sodium 139 mmol/L (136-145) 10/30/18 06:30 Potassium 4.1 mmol/L (3.5-5.1) 10/30/18 06:30 Chloride 105 mmol/L (98-107) 10/30/18 06:30 Carbon Dioxide 26.6 mmol/L (21.0-32.0) 10/30/18 06:30 Anion Gap 7.4 mmol/L (3-11) 10/30/18 06:30 BUN 29 mg/dL (7-18) H 10/30/18 06:30 Creatinine 1.20 mg/dL (0.55-1.02) H 10/30/18 06:30 Estimated GFR/1.73 m2 44.29 (mL/min/1.73m2) 10/30/18 06:30 Glucose 281 mg/dL (70-100) H 10/30/18 06:30 Uric Acid 11.0 mg/dL (2.6-6.0) H 10/29/18 06:45 Calcium 8.2 mg/dL (8.5-10.1) L 10/30/18 06:30 Magnesium 1.7 mg/dL (1.8-2.4) L 10/30/18 06:30 Total Bilirubin 0.7 mg/dL (0.2-1.0) 10/28/18 06:16 AST 22 U/L (15-37) 10/28/18 06:16 ALT 21 U/L (14-59) 10/28/18 06:16 Alkaline Phosphatase 86 U/L (46-116) 10/28/18 06:16 Troponin I < 0.05 ng/mL (0.00-0.06) 10/27/18 15:10 C-Reactive Protein 3.63 mg/dL (0.0-0.3) H 10/28/18 16:15 NT-Pro-B Natriuret Pep 305 pg/mL (-299) H 10/27/18 15:10 Total Protein 6.3 g/dL (6.4-8.2) L 10/28/18 06:16 Albumin 2.4 g/dL (3.4-5.0) L 10/28/18 06:16 Urine Color Yellow (Yellow) 10/27/18 14:45 Urine Clarity Sl cloudy (Clear) 10/27/18 14:45 Urine pH 7.5 (5-8) 10/27/18 14:45 Ur Specific [place] 1.020 (1.005-1.025) 10/27/18 14:45 Urine Protein Negative mg/dL (Negative) 10/27/18 14:45 Urine Ketones Negative mg/dL (Negative) 10/27/18 14:45 Urine Blood Negative (Negative) 10/27/18 14:45 Urine Nitrite Negative (Negative) 10/27/18 14:45 Urine Bilirubin Negative (Negative) 10/27/18 14:45 Urine Urobilinogen 0.2 EU/dL (Up TO 0.2) 10/27/18 14:45 Ur Leukocyte Esterase Trace (Negative) H 10/27/18 14:45 Urine RBC Not Applicable 10/27/18 14:45 Urine WBC 0-2 HPF (0-5) 10/27/18 14:45 Ur Epithelial Cells Moderate HPF (Negative) 10/27/18 14:45 Urine Crystals Not Applicable 10/27/18 14:45 Urine Bacteria Many HPF (Negative) 10/27/18 14:45 Urine Mucus Moderate (Negative) 10/27/18 14:45 Ur Culture Indicated? No/sq. contamination 10/27/18 14:45 Urine Glucose Negative mg/dL (Negative) 10/27/18 14:45
[2018-10-30 14:56] LABS: ANA Interpretation Negative (NEGAT)
--- NOTE | 2018-10-30 15:25 | CHAPLAIN ---
Brunilda said she was feeling frustrated as tests results weren't revealing anything she and she is still not feeling well. She is a member of the [employer] and a very active member there. The congregational is aware she is here.
[2018-10-30 16:08] VITALS: BP 119/74; PULSE 89; RESP 18; TEMP 36.7; O2SAT 95
--- NOTE | 2018-10-30 20:05 | PT.INTREAT ---
Date of service: 10/30/18 Time of Service: 20:05 PT Notes Inpatient Physical Therapy Treatment Note [facility] Date: 10/30/18 PRECAUTIONS: Fall SUBJECTIVE: Brunilda states that she still has pain everywhere, however, she is agreeable to participating in PT. OBJECTIVE: PAIN: Patient c/o pain everywhere BED MOBILITY/TRANSFERS Sit-stand: Min A Stand-sit: CGA GAIT Assistive Device: FWW Weight bearing: Full Assist: CGA-SBA Distance: 5' x2 + 100' STAIRS:Up/down 6x4 and 4x6 using B rails and a step-to pattern with CGA-SBA ASSESSMENT: Patient tolerated session with c/o increased pain and fatigue with activity. She was able to tolerate a progression in gait distance with FWW support and CGA-SBA. She requires significant rest between activities due to increased fatigue. She would benefit from continued gait and transfer training, as well as global strengthening and conditioning for improved ability to perform daily functional tasks as well as for improved activity tolerance. PLAN: Continue with PT's POC TREATMENT CODE/TIME: 35 minutes; 81137 x2
[2018-10-30] MEDS: Warfarin 5 MG TAB PO (20:13)
[2018-10-30] MEDS: Gabapentin 300 MG CAP PO (21:45)
[2018-10-30 23:35] VITALS: BP 93/59; PULSE 88; RESP 20; TEMP 36.8; O2SAT 95
[2018-10-31] VITALS (7 sets, daily range): BP systolic 88–147; BP diastolic 60–90; PULSE 77–82; RESP 15–25; TEMP 36.6–37; O2SAT 96–98
[2018-10-31 07:50] LABS: INR 2.3 (0.9-1.1); Prothrombin Time 23.2 sec (9.3-11.0)
[2018-10-31 08:02] LABS: Abs Immature Grans 0.03 k/cumm (0.0-0.09); Absolute Basophil Count 0.02 k/cumm (0.0-0.2); Absolute Eosinophil Count 0.28 k/cumm (0.0-0.7); Absolute Lymphocyte Count 1.72 k/cumm (1.2-3.4); Basophils % 0.3; Eosinophils % 4.1; Immature Grans % 0.4; Lymphocytes % 25.1; Mean Corp. HGB Concentration 33.3 g/dL (32.0-36.0); Mean Corpuscular Hemoglobin 29.5 pg (27.0-33.0); Mean Corpuscular Volume 88.6 fL (80-95); Mean Platelet Volume 11.6 fL (8.0-11.0); Monocytes % 7.3; Neutrophils % 62.8; Platelet Count 180 x1000/uL (130-400); RBC Distribution Width 13.5 % (11.7-14.6); White Blood Cell Count 6.85 k/cumm (4.4-10.8)
[2018-10-31] MEDS: Magnesium Oxide 400 MG TAB PO ×2 (08:14→19:16)
[2018-10-31] MEDS: Torsemide 20 MG TAB PO (08:14)
[2018-10-31] MEDS: FLUoxetine 20 MG CAP 40 MG PO (08:14)
[2018-10-31] MEDS: Insulin Aspart 300 UNITS/3 ML PEN 10 UNITS SC ×3 (08:14→17:17)
[2018-10-31] MEDS: Allopurinol 100 MG TAB PO (08:14)
[2018-10-31 08:28] LABS: Anion Gap 7.5 mmol/L (3-11); BUN 29 mg/dL (7-18); CO2 27.5 mmol/L (21.0-32.0); CREATININE 1.02 mg/dL (0.55-1.02); Calcium 8.5 mg/dL (8.5-10.1); Chloride 104 mmol/L (98-107); Estimated GFR 53.42 (mL/min/1.73m2); Glucose 236 mg/dL (70-100); Magnesium 1.8 mg/dL (1.8-2.4); Potassium 4.3 mmol/L (3.5-5.1); Sodium 139 mmol/L (136-145)
[2018-10-31] MEDS: Carvedilol 25 MG TAB PO ×2 (09:36→19:20)
[2018-10-31 10:41] LABS: Bilirubin Negative (Negative); Blood Trace-intact (Negative); Clarity Clear (Clear); Glucose Negative (Negative); Ketones Negative (Negative); Leukocyte Esterase Small (Negative); Nitrite Positive (Negative); Specific Gravity 1.015 (1.005-1.025); Urobilinogen 0.2 EU/dL (Up TO 0.2); pH 6.5 (5-8)
[2018-10-31 10:52] LABS: Bacteria Many HPF (Negative); C & S Indicated? Yes; Casts Negative LPF (Negative); Crystals Negative HPF (Negative); Epithelial Cells Few HPF (Negative); Mucus Trace (Negative); RBC 0-2 (0-2)
--- NOTE | 2018-10-31 11:15 | PT.INTREAT ---
Date of service: 10/31/18 Time of Service: 11:15 PT Notes Inpatient Physical Therapy Treatment Note [facility] Date: 10/31/18 PRECAUTIONS: Fall SUBJECTIVE: Brunilda is agreeable to participating in PT. She reports that she has a family meeting this afternoon which will include PARIS Moseley and SHANTA Asencio. OBJECTIVE: PAIN: Patient c/o pain, however was nonspecific about its location. BED MOBILITY/TRANSFERS Sit-stand: CGA in a.m.; SBA in p.m. Stand-sit: SBA GAIT Assistive Device: FWW Weight bearing: Full Assist: SBA Distance: 120' in a.m.; 10' + 100' in p.m. THER EX: Patient completed a lower extremity and upper extremity strengthening program, in a seated position, as per flow sheet. STAIRS: Up/down 9x4 and 6x6 using B rails and a step-to pattern with SBA. She did not require rests. TOILETING: Patient toileted with Max A ASSESSMENT: Patient tolerated session with c/o increased fatigue with activity. She was able to tolerate a progression in gait distance with FWW support and SBA. She required decreased time for rests between activities for recovery versus yesterday. She would benefit from continued gait and transfer training, as well as global strengthening and conditioning for improved ability to perform daily functional tasks as well as for improved activity tolerance. PLAN: Continue with PT's POC TREATMENT CODE/TIME: Session 1: 40 minutes; 30432 x2, 17542 Session 2: 30 minutes; [id number] x2
[2018-10-31] MEDS: Insulin Aspart 300 UNITS/3 ML PEN SC ×2 (11:53→17:16)
[2018-10-31] MEDS: Cephalexin 500 MG CAP PO ×2 (14:17→19:16)
--- NOTE | 2018-10-31 14:41 | W.PM.PROGNOT ---
Date of Service Date of service: 10/31/18 Time of Service: 15:15 Assessment and Plan Assessment and plan (1) UTI (urinary tract infection): Start date: 10/31/18 Status: Acute Assessment and plan: Having worsening urinary incontience and frequency, u/s resulted in positive nitrate and leukocytes. Culture pending. Started on keflex bid (2) Weakness: Start date: 10/31/18 Start time: 14:42 Status: Acute Assessment and plan: Lyme panel negative. KOLE negative. More discussion with the patient revealed she is no longer interested in the things that use to give her pleasure. She just sits in a chair and stares. She feels that the more things pile up the more overwhelmed she becomes. She has been on prozac for years. At this point it appears her weakness and pain to joints is more psychosomatic from depression. Psychiatry to see her for eval and medication management of depression. (3) Depression: Start date: 10/31/18 Start time: 14:47 Status: Chronic Assessment and plan: Progressively getting worse to the point sits in a chair all day at home with no desire to move or take part in activities. (4) CALDERON (obstructive sleep apnea): Start date: 10/31/18 Start time: 14:55 Status: Chronic Assessment and plan: Bipap settings have been changed to lower setting, trial overnight for patient comfort. (5) Gout: Start date: 10/31/18 Start time: 15:02 Status: Acute Assessment and plan: Renal function improved. Increased Allopurinol to 200 mg daily (6) Dilated cardiomyopathy: Start date: 10/31/18 Start time: 15:04 Status: Chronic Assessment and plan: No evidence of congestive heart failure. Respiratory status has been stable. (7) Diabetes mellitus: Start date: 10/31/18 Start time: 15:04 Status: Acute Assessment and plan: Evening dose 70/70 dcd and patient started on sliding scale, no hypoglycemic events last night. Qualifiers: Diabetes mellitus type: type 2 Diabetes mellitus custodial insulin use: with pharmacy service associate use Diabetes mellitus complication detail: with cataract (8) Discharge planning issues: Start date: 10/31/18 Start time: 15:06 Status: Acute Assessment and plan: Family meeting today resulted in agreement of patient going to rehab. CM to work on placement. May need to swing interim while we find placement. The above plan has been reviewed with Dr. Ramos and he is in agreement. Exam Const General: cooperative, healthy appearing, comfortable and no acute distress Neck Neck: normal visual inspection Lymphatic: no lymphadenopathy noted and no lymphedema noted Resp Effort & Inspection: normal respiratory effort Auscultation: clear to auscultation bilaterally Cardio Jugular venous pressure: no JVD Rate: regular rate Rhythm: regular rhythm Heart Sounds: S1 normal and S2 normal GI Inspection: normal to inspection Auscultation: normal bowel sounds Skin General skin exam: no rashes or lesions noted Lesions: no lesions Rashes: no rashes Wounds: no wounds Neuro General: alert, awake and oriented x3 Objective Objective Clinical Data: Abnormal lab results 10/31/18 10/31/18 10/31/18 Range/Units 06:35 06:35 06:35 MPV 11.6 H (8.0-11.0) fL PT 23.2 H (9.3-11.0) sec INR 2.3 H (0.9-1.1) BUN 29 H (7-18) mg/dL Glucose 236 H (70-100) mg/dL Urine Blood (Negative) Urine Nitrite (Negative) Ur Leukocyte Esterase (Negative) 10/31/18 Range/Units 10:30 MPV (8.0-11.0) fL PT (9.3-11.0) sec INR (0.9-1.1) BUN (7-18) mg/dL Glucose (70-100) mg/dL Urine Blood Trace-intact H (Negative) Urine Nitrite Positive H (Negative) Ur Leukocyte Esterase Small H (Negative) Vital Signs Temperature 36.6 C 10/31/18 07:12 Temperature Source Tympanic 10/31/18 07:12 Pulse 82 10/31/18 07:12 Pulse Rhythm Regular 10/31/18 08:00 Respiratory Rate 18 10/31/18 07:12 Respiratory Effort Non-Labored 10/31/18 08:00 Respiratory Depth Normal 10/31/18 08:00 Respiratory Pattern Normal 10/31/18 08:00 Blood Pressure 115/61 10/31/18 07:12 Blood Pressure Position Supine 10/27/18 14:13 Pulse Oximetry 98 10/31/18 07:12 Oxygen Delivery Method Room Air 10/31/18 07:12 Oxygen Flow Rate 0 10/31/18 07:12 Pain Level 2 10/31/18 07:12 Comment 10/30/18 23:35 Intake & Output 10/30/18 10/31/18 10/31/18 23:59 11:59 23:59 Intake Total 250 / 500 250 / 490 240 / 490 Output Total 650 / 950 Balance -400 / -450 250 / 490 240 / 490 Weight 127.6 kg Intake: IV Oral 240 / 490 240 / 480 240 / 480 Output: Urine 650 / 950 Other: Urine Color Yellow Urine Appearance Cloudy Cloudy Urine Odor Normal Comment pt voided with stool Stool Size Moderate Stool Characteristics Formed Voiding Methods Toilet Laboratory Results WBC 6.85 k/cumm (4.4-10.8) 10/31/18 06:35 RBC 4.40 m/cumm (4.00-5.20) 10/31/18 06:35 Hgb 13.0 g/dL (12.0-15.5) 10/31/18 06:35 Hct 39.0 % (36.0-46.0) 10/31/18 06:35 MCV 88.6 fL (80-95) 10/31/18 06:35 MCH 29.5 pg (27.0-33.0) 10/31/18 06:35 MCHC 33.3 g/dL (32.0-36.0) 10/31/18 06:35 RDW 13.5 % (11.7-14.6) 10/31/18 06:35 Plt Count 180 x1000/uL (130-400) 10/31/18 06:35 MPV 11.6 fL (8.0-11.0) H 10/31/18 06:35 Immature Gran % 0.4 10/31/18 06:35 Neutrophils % 62.8 10/31/18 06:35 Lymphocytes % 25.1 10/31/18 06:35 Monocytes % 7.3 10/31/18 06:35 Eosinophils % 4.1 10/31/18 06:35 Basophils % 0.3 10/31/18 06:35 Absolute Neutrophils 4.30 k/cumm (1.2-6.7) 10/31/18 06:35 Absolute Lymphocytes 1.72 k/cumm (1.2-3.4) 10/31/18 06:35 Absolute Monocytes 0.50 k/cumm (0.11-0.7) 10/31/18 06:35 Absolute Eosinophils 0.28 k/cumm (0.0-0.7) 10/31/18 06:35 Absolute Basophils 0.02 k/cumm (0.0-0.2) 10/31/18 06:35 ESR 35 mm/hr (0-30) H 10/28/18 16:15 PT 23.2 sec (9.3-11.0) H 10/31/18 06:35 INR 2.3 (0.9-1.1) H 10/31/18 06:35 APTT 30.5 sec (21.0-31.4) 10/27/18 15:10 Sodium 139 mmol/L (136-145) 10/31/18 06:35 Potassium 4.3 mmol/L (3.5-5.1) 10/31/18 06:35 Chloride 104 mmol/L (98-107) 10/31/18 06:35 Carbon Dioxide 27.5 mmol/L (21.0-32.0) 10/31/18 06:35 Anion Gap 7.5 mmol/L (3-11) 10/31/18 06:35 BUN 29 mg/dL (7-18) H 10/31/18 06:35 Creatinine 1.02 mg/dL (0.55-1.02) 10/31/18 06:35 Estimated GFR/1.73 m2 53.42 (mL/min/1.73m2) 10/31/18 06:35 Glucose 236 mg/dL (70-100) H 10/31/18 06:35 Uric Acid 11.0 mg/dL (2.6-6.0) H 10/29/18 06:45 Calcium 8.5 mg/dL (8.5-10.1) 10/31/18 06:35 Magnesium 1.8 mg/dL (1.8-2.4) 10/31/18 06:35 Total Bilirubin 0.7 mg/dL (0.2-1.0) 10/28/18 06:16 AST 22 U/L (15-37) 10/28/18 06:16 ALT 21 U/L (14-59) 10/28/18 06:16 Alkaline Phosphatase 86 U/L (46-116) 10/28/18 06:16 Troponin I < 0.05 ng/mL (0.00-0.06) 10/27/18 15:10 C-Reactive Protein 3.63 mg/dL (0.0-0.3) H 10/28/18 16:15 NT-Pro-B Natriuret Pep 305 pg/mL (-299) H 10/27/18 15:10 Total Protein 6.3 g/dL (6.4-8.2) L 10/28/18 06:16 Albumin 2.4 g/dL (3.4-5.0) L 10/28/18 06:16 Urine Color Yellow (Yellow) 10/31/18 10:30 Urine Clarity Clear (Clear) 10/31/18 10:30 Urine pH 6.5 (5-8) 10/31/18 10:30 Ur Specific [place] 1.015 (1.005-1.025) 10/31/18 10:30 Urine Protein Negative mg/dL (Negative) 10/31/18 10:30 Urine Ketones Negative mg/dL (Negative) 10/31/18 10:30 Urine Blood Trace-intact (Negative) H 10/31/18 10:30 Urine Nitrite Positive (Negative) H 10/31/18 10:30 Urine Bilirubin Negative (Negative) 10/31/18 10:30 Urine Urobilinogen 0.2 EU/dL (Up TO 0.2) 10/31/18 10:30 Ur Leukocyte Esterase Small (Negative) H 10/31/18 10:30 Urine RBC 0-2 (0-2) 10/31/18 10:30 Urine WBC 10-20 HPF (0-5) 10/31/18 10:30 Ur Epithelial Cells Few HPF (Negative) 10/31/18 10:30 Urine Crystals Negative HPF (Negative) 10/31/18 10:30 Urine Bacteria Many HPF (Negative) 10/31/18 10:30 Urine Casts Negative LPF (Negative) 10/31/18 10:30 Urine Mucus Trace (Negative) 10/31/18 10:30 Ur Culture Indicated? Yes 10/31/18 10:30 Urine Glucose Negative mg/dL (Negative) 10/31/18 10:30 KOLE Titer Not Applicable 10/29/18 06:45 KOLE Titer 2 Not Applicable 10/29/18 06:45 KOLE Titer 3 Not Applicable 10/29/18 06:45 KOLE Interpretation Negative (NEGAT) 10/29/18 06:45 Lyme Disease Antibody Negative 10/29/18 06:45
[2018-10-31 16:43] LABS: Anaplasma phagocytophilum Negative (Negative); B. miyamotoi PCR Negative (Negative); Babesia divergens/MO-1 Negative (Negative); Babesia duncani Negative (Negative); Babesia microti Negative (Negative); Ehrlichia chaffeensis Negative (Negative); Ehrlichia ewingii/canis Negative (Negative); Ehrlichia muris eauclairensis Negative (Negative)
--- NOTE | 2018-10-31 17:11 | CMPROGNOTE_ITS ---
- If Service Date Differs Date of service: 10/31/18 Time of Service: 17:11 Care Management Progress Note S/O:A family meeting was held today with Brunilda, her family and her therapist. Attending were:Brunilda's Fouzia, her daughter Juana via conference call, Narcisa Chamberlain, Brunilda's therapist, Netta Das APRN and SHANTA. After much discussion, a decision was made to refer Brunilda to SNFs that can offer counseling as well as physical rehab. Referrals were sent to [facility] and Rehab in [facility]. A consult with Dr. Calixto will be requested for Saturday for possible medication adjustment. If unable to obtain a bed offer for one of the preferred SNFs by Saturday, consideration will be given to changing Brunilda to SB1 status for a few days until acceptable placement can be achieved. A: Brunilda is a 73 year old woman admitted to [facility] on 10/27/18 with weakness and dizziness. P: Brunilda is undergoing testing to determine the cause of her weakness and inability to ambulate easily.She will need rehab upon discharge. Referrals have been sent to [facility] and [facility]. CM will continue to provide support to patient, family and discharge planning needs.
[2018-10-31] MEDS: Bacitracin 1 PACKET TP (19:15)
[2018-10-31] MEDS: Warfarin 5 MG TAB PO (19:16)
[2018-10-31] MEDS: Gabapentin 300 MG CAP PO (21:07)
[2018-11-01] MEDS: Acetaminophen 325 MG TAB PO ×4 (01:24→21:56)
[2018-11-01 01:30] VITALS: BP 126/84; PULSE 84; RESP 20; TEMP 36.3; O2SAT 96
[2018-11-01 07:48] LABS: Anion Gap 7.6 mmol/L (3-11); BUN 31 mg/dL (7-18); CO2 26.4 mmol/L (21.0-32.0); CREATININE 1.04 mg/dL (0.55-1.02); Calcium 8.7 mg/dL (8.5-10.1); Chloride 105 mmol/L (98-107); Estimated GFR 52.24 (mL/min/1.73m2); Glucose 229 mg/dL (70-100); INR 2.5 (0.9-1.1); Magnesium 1.7 mg/dL (1.8-2.4); Potassium 4.2 mmol/L (3.5-5.1); Prothrombin Time 25.3 sec (9.3-11.0); Sodium 139 mmol/L (136-145)
[2018-11-01 07:50] VITALS: RESP 15
[2018-11-01 08:10] VITALS: BP 134/77; PULSE 58; RESP 18; TEMP 36.7; O2SAT 95
[2018-11-01] MEDS: Bacitracin 1 PACKET TP ×3 (08:13→19:16)
[2018-11-01] MEDS: Allopurinol 100 MG TAB 200 MG PO (08:13)
[2018-11-01] MEDS: FLUoxetine 20 MG CAP 40 MG PO (08:14)
[2018-11-01] MEDS: Carvedilol 25 MG TAB PO ×2 (08:14→19:16)
[2018-11-01] MEDS: Torsemide 20 MG TAB PO (08:14)
[2018-11-01] MEDS: Cephalexin 500 MG CAP PO ×2 (08:14→19:16)
[2018-11-01] MEDS: Magnesium Oxide 400 MG TAB PO ×2 (08:14→19:16)
[2018-11-01] MEDS: Insulin Aspart 300 UNITS/3 ML PEN 10 UNITS SC ×3 (08:15→16:55)
[2018-11-01] MEDS: Insulin Aspart 300 UNITS/3 ML PEN SC ×3 (08:15→16:55)
[2018-11-01] MEDS: Magnesium Oxide 400 MG TAB 800 MG PO ×2 (08:38→08:39)
--- NOTE | 2018-11-01 11:28 | PGE_ITS ---
Date of Service Date of service: 11/01/18 Time of Service: 11:28 Assessment and Plan Assessment and plan (1) UTI (urinary tract infection): Start date: 11/01/18 Start time: 11:33 Status: Acute Assessment and plan: Culture growing E. Coli at this time. History of e. coli in urine from previous urine culture. Started on keflex yesterday while sensitivities grow out. Continue to monitor. (2) Weakness: Start date: 11/01/18 Start time: 11:35 Status: Acute Assessment and plan: Waiting on Rheum panel to result. Appears better. Working with PT and ambulating further and up stairs. Lyme negative KOLE negative. Continue to monitor. Underlying depression most likely contributing factor to weakness. Psych consult ordered. (3) Depression: Start date: 11/01/18 Start time: 11:51 Status: Chronic Assessment and plan: Progressively getting worse to the point sits in a chair all day at home with no desire to move or take part in activities. Consult for psychiatry. (4) CALDERON (obstructive sleep apnea): Start date: 11/01/18 Start time: 11:51 Status: Chronic Assessment and plan: Continue on bipap and monitor, settings seem to improved sleep. (5) Gout: Start date: 11/01/18 Start time: 11:52 Status: Acute Assessment and plan: Renal function improved. Increased Allopurinol to 200 mg daily, continue to monitor. (6) Dilated cardiomyopathy: Start date: 11/01/18 Start time: 11:52 Status: Chronic Assessment and plan: No evidence of congestive heart failure. Respiratory status has been stable. 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 Compound zinc, clotrimazole a/d ordered. (9) Discharge planning issues: Start date: 11/01/18 Start time: 11:55 Status: Acute Assessment and plan: Family meeting today resulted in agreement of patient going to rehab. CM to work on placement. May need to swing interim while we find placement. The above plan has been reviewed with Dr. Ramos and he is in agreement. Subjective Subjective Interval history since last seen: Feeling the same. Pain to left ankle and foot lidocaine ordered. Compound for groin rash added. Urine cx growing E.Coli at this time. History of e.coli in urine and kelbsiella pneumoniae. Keflex started yesterday will continue to treat while sensitivities result. Exam Const General: cooperative, healthy appearing, comfortable and no acute distress Neck Neck: normal visual inspection Lymphatic: no lymphadenopathy noted and no lymphedema noted Resp Effort & Inspection: normal respiratory effort Auscultation: clear to auscultation bilaterally Cardio Jugular venous pressure: no JVD Rate: regular rate Rhythm: regular rhythm Heart Sounds: S1 normal and S2 normal GI Inspection: normal to inspection Auscultation: normal bowel sounds Skin General skin exam: no rashes or lesions noted Lesions: no lesions Rashes: no rashes Wounds: no wounds Neuro General: alert, awake and oriented x3 Objective Objective Clinical Data: Abnormal lab results 11/01/18 11/01/18 Range/Units 06:55 06:55 PT 25.3 H (9.3-11.0) sec INR 2.5 H (0.9-1.1) BUN 31 H (7-18) mg/dL Creatinine 1.04 H (0.55-1.02) mg/dL Glucose 229 H (70-100) mg/dL Magnesium 1.7 L (1.8-2.4) mg/dL Vital Signs Temperature 36.7 C 11/01/18 08:10 Temperature Source Tympanic 11/01/18 08:10 Pulse 58 L 11/01/18 08:10 Pulse Rhythm Regular 11/01/18 09:08 Respiratory Rate 18 11/01/18 08:10 Respiratory Effort Non-Labored 11/01/18 09:08 Respiratory Depth Normal 11/01/18 09:08 Respiratory Pattern Normal 11/01/18 09:08 Blood Pressure 134/77 11/01/18 08:10 Blood Pressure Position Supine 10/27/18 14:13 Pulse Oximetry 95 11/01/18 08:10 Oxygen Delivery Method Room Air 11/01/18 08:10 Oxygen Flow Rate 0 11/01/18 08:10 Fraction of Inspired Oxygen (FIO2) 21 10/31/18 17:06 Pain Level 5 11/01/18 09:41 Comment 10/30/18 23:35 Intake & Output 10/31/18 10/31/18 11/01/18 11:59 23:59 11:59 Intake Total 250 / 730 480 / 730 250 / 250 Output Total 510 / 1010 500 / 1010 Balance -260 / -280 -20 / -280 250 / 250 Weight 127.6 kg 127.6 kg Intake: IV Oral 240 / 720 480 / 720 250 / 250 Output: Urine 510 / 1010 500 / 1010 Other: Urine Color Yellow Yellow Pale Yellow Straw Urine Appearance Clear Clear Clear Urine Odor Foul Strong Normal Voiding Methods Toilet Bedside Commode Bedside Commode Laboratory Results WBC 6.85 k/cumm (4.4-10.8) 10/31/18 06:35 RBC 4.40 m/cumm (4.00-5.20) 10/31/18 06:35 Hgb 13.0 g/dL (12.0-15.5) 10/31/18 06:35 Hct 39.0 % (36.0-46.0) 10/31/18 06:35 MCV 88.6 fL (80-95) 10/31/18 06:35 MCH 29.5 pg (27.0-33.0) 10/31/18 06:35 MCHC 33.3 g/dL (32.0-36.0) 10/31/18 06:35 RDW 13.5 % (11.7-14.6) 10/31/18 06:35 Plt Count 180 x1000/uL (130-400) 10/31/18 06:35 MPV 11.6 fL (8.0-11.0) H 10/31/18 06:35 Immature Gran % 0.4 10/31/18 06:35 Neutrophils % 62.8 10/31/18 06:35 Lymphocytes % 25.1 10/31/18 06:35 Monocytes % 7.3 10/31/18 06:35 Eosinophils % 4.1 10/31/18 06:35 Basophils % 0.3 10/31/18 06:35 Absolute Neutrophils 4.30 k/cumm (1.2-6.7) 10/31/18 06:35 Absolute Lymphocytes 1.72 k/cumm (1.2-3.4) 10/31/18 06:35 Absolute Monocytes 0.50 k/cumm (0.11-0.7) 10/31/18 06:35 Absolute Eosinophils 0.28 k/cumm (0.0-0.7) 10/31/18 06:35 Absolute Basophils 0.02 k/cumm (0.0-0.2) 10/31/18 06:35 ESR 35 mm/hr (0-30) H 10/28/18 16:15 PT 25.3 sec (9.3-11.0) H 11/01/18 06:55 INR 2.5 (0.9-1.1) H 11/01/18 06:55 APTT 30.5 sec (21.0-31.4) 10/27/18 15:10 Sodium 139 mmol/L (136-145) 11/01/18 06:55 Potassium 4.2 mmol/L (3.5-5.1) 11/01/18 06:55 Chloride 105 mmol/L (98-107) 11/01/18 06:55 Carbon Dioxide 26.4 mmol/L (21.0-32.0) 11/01/18 06:55 Anion Gap 7.6 mmol/L (3-11) 11/01/18 06:55 BUN 31 mg/dL (7-18) H 11/01/18 06:55 Creatinine 1.04 mg/dL (0.55-1.02) H 11/01/18 06:55 Estimated GFR/1.73 m2 52.24 (mL/min/1.73m2) 11/01/18 06:55 Glucose 229 mg/dL (70-100) H 11/01/18 06:55 Uric Acid 11.0 mg/dL (2.6-6.0) H 10/29/18 06:45 Calcium 8.7 mg/dL (8.5-10.1) 11/01/18 06:55 Magnesium 1.7 mg/dL (1.8-2.4) L 11/01/18 06:55 Total Bilirubin 0.7 mg/dL (0.2-1.0) 10/28/18 06:16 AST 22 U/L (15-37) 10/28/18 06:16 ALT 21 U/L (14-59) 10/28/18 06:16 Alkaline Phosphatase 86 U/L (46-116) 10/28/18 06:16 Troponin I < 0.05 ng/mL (0.00-0.06) 10/27/18 15:10 C-Reactive Protein 3.63 mg/dL (0.0-0.3) H 10/28/18 16:15 NT-Pro-B Natriuret Pep 305 pg/mL (-299) H 10/27/18 15:10 Total Protein 6.3 g/dL (6.4-8.2) L 10/28/18 06:16 Albumin 2.4 g/dL (3.4-5.0) L 10/28/18 06:16 Urine Color Yellow (Yellow) 10/31/18 10:30 Urine Clarity Clear (Clear) 10/31/18 10:30 Urine pH 6.5 (5-8) 10/31/18 10:30 Ur Specific [place] 1.015 (1.005-1.025) 10/31/18 10:30 Urine Protein Negative mg/dL (Negative) 10/31/18 10:30 Urine Ketones Negative mg/dL (Negative) 10/31/18 10:30 Urine Blood Trace-intact (Negative) H 10/31/18 10:30 Urine Nitrite Positive (Negative) H 10/31/18 10:30 Urine Bilirubin Negative (Negative) 10/31/18 10:30 Urine Urobilinogen 0.2 EU/dL (Up TO 0.2) 10/31/18 10:30 Ur Leukocyte Esterase Small (Negative) H 10/31/18 10:30 Urine RBC 0-2 (0-2) 10/31/18 10:30 Urine WBC 10-20 HPF (0-5) 10/31/18 10:30 Ur Epithelial Cells Few HPF (Negative) 10/31/18 10:30 Urine Crystals Negative HPF (Negative) 10/31/18 10:30 Urine Bacteria Many HPF (Negative) 10/31/18 10:30 Urine Casts Negative LPF (Negative) 10/31/18 10:30 Urine Mucus Trace (Negative) 10/31/18 10:30 Ur Culture Indicated? Yes 10/31/18 10:30 Urine Glucose Negative mg/dL (Negative) 10/31/18 10:30 KOLE Titer Not Applicable 10/29/18 06:45 KOLE Titer 2 Not Applicable 10/29/18 06:45 KOLE Titer 3 Not Applicable 10/29/18 06:45 KOLE Interpretation Negative (NEGAT) 10/29/18 06:45 Lyme Disease Antibody Negative 10/29/18 06:45
[2018-11-01] MEDS: Lidocaine 5% Patch 2 PATCH TP (11:56)
--- NOTE | 2018-11-01 12:46 | PT.INTREAT ---
Date of service: 11/01/18 Time of Service: 10:05 PT Notes Inpatient Physical Therapy Treatment Note [facility] Date: 11/01/18 PRECAUTIONS:Fall, Standard, Activity as tolerated SUBJECTIVE: Indicated she is doing badly today. Left ankle has hurt all day. Feels she did too much yesterday. Unable to place much pressure on left LE. Requested not to do a lot of walking and definitely is unable to do stairs today. OBJECTIVE: PAIN: Extreme pain in left ankle today. Nursing staff is aware of this. BED MOBILITY/TRANSFERS Supine-sit: Mod assist of 1 Sit-stand: Mod assist of 2, due to ankle Stand-sit: Mod assist of 2 GAIT Assistive Device: FWW Weight bearing: Partial WB on left due to ankle pain Assist: CGA Distance: 5ft to commode from bed and 5ft commode to chair Following ambulation commode to chair patient rested for 20 minutes prior to performing ther ex. THEREX: Performed UE/ LE chair exercise today, this included heel walking, quad/ glut sets, SAQs, seated hip abd/add and hip flexion. Also, performed bilateral UE horizontal arm abd/ add, rows, bicep curls and shoulder flexion. See flow sheet for details. STAIRS: Held on stairs today due to ankle pain. ASSESSMENT: Poor tolerance to ambulation due to new left ankle irritation. Denies twisting or bumping ankle. PLAN: Tolerated exercises well, but difficulty getting patient to ambulate today due to left ankle pain. TREATMENT CODE/TIME: TAx1 and TPx1, 10:05 to 10:20 ( 15' ) ambulation to commode, 10:30 to 10:40 (10') ambulation commode to chair and 11:00 to 11:10 (10') Ther exercises = Total Treatment Time 35 minutes
[2018-11-01 15:37] VITALS: BP 149/87; PULSE 78; RESP 18; TEMP 36.6; O2SAT 96
--- NOTE | 2018-11-01 16:23 | CMPROGNOTE_ITS ---
Care Management Progress Note S/O:A family meeting was held on . Agreement reached for SNF placement. At the request of Brunilda and family, placement will be considered only at SNFs that can offer counseling as well as physical rehab. Referrals were sent to [facility] and Rehab in [facility]. A consult with Dr. Calixto will be requested for Saturday for possible medication adjustment. If unable to obtain a bed offer for one of the preferred SNFs by Saturday, consideration will be given to changing Brunilda to SB1 status for a few days until acceptable placement can be achieved. A: Brunilda is a 73 year old woman admitted to [facility] on 10/27/18 with weakness and dizziness. P: Brunilda is undergoing testing to determine the cause of her weakness and inability to ambulate easily.She will need rehab upon discharge. Referrals have been sent to [facility] and [place].
[2018-11-01] MEDS: predniSONE 20 MG TAB 40 MG PO (18:54)
[2018-11-01 19:10] VITALS: BP 127/73; PULSE 87; RESP 20; TEMP 37.5; O2SAT 97
[2018-11-01] MEDS: Warfarin 5 MG TAB PO (19:16)
[2018-11-01] MEDS: Gabapentin 300 MG CAP PO (21:56)
[2018-11-01] MEDS: Patch Removal 2 EACH TP (23:26)
[2018-11-01 23:51] VITALS: BP 119/64; PULSE 65; RESP 20; TEMP 37; O2SAT 95
[2018-11-02 07:14] LABS: INR 2.8 (0.9-1.1); Prothrombin Time 28.6 sec (9.3-11.0)
[2018-11-02 07:21] LABS: BUN 32 mg/dL (7-18); CREATININE 1.06 mg/dL (0.55-1.02); Calcium 8.8 mg/dL (8.5-10.1); Chloride 103 mmol/L (98-107); Glucose 336 mg/dL (70-100); Magnesium 1.9 mg/dL (1.8-2.4); Potassium 4.5 mmol/L (3.5-5.1); Sodium 139 mmol/L (136-145)
[2018-11-02] MEDS: FLUoxetine 20 MG CAP 40 MG PO (07:59)
[2018-11-02] MEDS: Torsemide 20 MG TAB PO (07:59)
[2018-11-02] MEDS: Carvedilol 25 MG TAB PO ×2 (07:59→19:27)
[2018-11-02] MEDS: Cephalexin 500 MG CAP PO ×2 (07:59→19:27)
[2018-11-02] MEDS: Magnesium Oxide 400 MG TAB PO ×3 (07:59→19:28)
[2018-11-02] MEDS: Allopurinol 100 MG TAB 200 MG PO (07:59)
[2018-11-02] MEDS: Acetaminophen 325 MG TAB PO ×3 (07:59→18:40)
[2018-11-02] MEDS: Bacitracin 1 PACKET TP ×3 (07:59→19:28)
[2018-11-02 08:00] VITALS: BP 127/66; PULSE 82; RESP 18; TEMP 36.4; O2SAT 96
[2018-11-02] MEDS: Insulin Aspart 300 UNITS/3 ML PEN 10 UNITS SC ×3 (08:05→17:02)
[2018-11-02] MEDS: Insulin Aspart 300 UNITS/3 ML PEN SC ×3 (08:05→17:02)
[2018-11-02] MEDS: traMADol 50 MG TAB PO ×4 (08:39→22:30)
--- NOTE | 2018-11-02 09:15 | PGE_ITS ---
Date of Service Date of service: 11/02/18 Time of Service: 09:16 Assessment and Plan Assessment and plan (1) UTI (urinary tract infection): Start date: 11/02/18 Start time: 09:21 Status: Acute Assessment and plan: Culutre resulted pansensitive E. Coli with greater than 100,000. Keflex 500 mg bid continued with a 5-7 day course. History of e.coli in previous cultures. (2) Weakness: Start date: 11/02/18 Start time: 09:22 Status: Acute Assessment and plan: Waiting on Rheum panel to result. Appears better. Working with PT and ambulating further and up stairs. Lyme negative KOLE negative. Continue to monitor. Underlying depression most likely contributing factor to weakness. Psych consult ordered. (3) Depression: Start date: 11/02/18 Start time: :22 Status: Chronic Assessment and plan: Progressively getting worse to the point sits in a chair all day at home with no desire to move or take part in activities. Consult for psychiatry. (4) CALDERON (obstructive sleep apnea): Start date: 11/02/18 Start time: :22 Status: Chronic Assessment and plan: Refusing to wear bipap even with adjusted settings. Would benefit from repeat outpatient sleep study. (5) Gout: Start date: 11/02/18 Start time: 09:23 Status: Acute Assessment and plan: Increased Allopurinol to 200 mg daily, continue to monitor renal function. Unlikely gout exacerbation to foot or ankle as it does not appear Red Warm or to be in the joints. (6) Diabetes mellitus: Start date: 11/02/18 Start time: 09:24 Status: Acute Assessment and plan: Glucose this am was 326. 70/30 added to evening dose at 25 units. Hypoglycemic events when receiving 50 units. Will monitor and adjust as necessary. 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 Compound zinc, clotrimazole a/d ordered. (8) Discharge planning issues: Start date: 11/02/18 Start time: 09:25 Status: Acute Assessment and plan: Working on placement for rehab with psychiatry at the center. If unable to get into rehab consider possible swing with PT/OT and psych until bed available. The above plan has been reviewed with Dr. Ramos and he is in agreement. Subjective Subjective Patient reports: still having pain Interval history since last seen: C/o pain to left foot marinelli surface when standing and dorsum of the foot at all times. Pain with flexing of phalanges unlikely gout given that it is not localized to joints. Not red or swollen. Parallels with PT, started to feel it on saturday but worsening over the weekend. Likely muscular pain. She did not injure foot in anyway. Foot xray not warranted at this time. Consider DVT in differential, however theraputic on coumadin at 2.8, tramadol for pain and reassess through out the day. If pain continues or worsens consider U/S r/o DVT. Glucose in 200's to 300's. 70/30 at half dose in the evening. She was having hypoglycemic events on the 50 units, so restarted insulin at half dose and monitor bgl. She denies CP, SOB, N/v/d. Exam Const General: cooperative, healthy appearing, comfortable and no acute distress Neck Neck: normal visual inspection Lymphatic: no lymphadenopathy noted and no lymphedema noted Resp Effort & Inspection: normal respiratory effort Auscultation: clear to auscultation bilaterally Cardio Jugular venous pressure: no JVD Rate: regular rate Rhythm: regular rhythm Heart Sounds: S1 normal and S2 normal GI Inspection: normal to inspection Auscultation: normal bowel sounds Skin General skin exam: no rashes or lesions noted Lesions: no lesions Rashes: no rashes Wounds: no wounds Neuro General: alert, awake and oriented x3 Extrem General: full ROM Right upper extremity: full ROM Left upper extremity: full ROM Right lower extremity: full ROM Left lower extremity: full ROM Other: c/o pain to left foot and ankle. Objective Objective Clinical Data: Abnormal lab results 11/02/18 11/02/18 Range/Units 06:28 06:28 PT 28.6 H (9.3-11.0) sec INR 2.8 H (0.9-1.1) BUN 32 H (7-18) mg/dL Creatinine 1.06 H (0.55-1.02) mg/dL Glucose 336 H D (70-100) mg/dL Vital Signs Temperature 37 C 11/01/18 23:51 Temperature Source Tympanic 11/01/18 23:51 Pulse 65 11/01/18 23:51 Pulse Rhythm Regular 11/01/18 23:30 Respiratory Rate 20 11/01/18 23:51 Respiratory Effort Non-Labored 11/01/18 23:30 Respiratory Depth Normal 11/01/18 23:30 Respiratory Pattern Normal 11/01/18 23:30 Blood Pressure 119/64 11/01/18 23:51 Blood Pressure Position Supine 10/27/18 14:13 Pulse Oximetry 95 11/01/18 23:51 Oxygen Delivery Method Room Air 11/01/18 23:51 Oxygen Flow Rate 0 11/01/18 23:51 Fraction of Inspired Oxygen (FIO2) 21 11/01/18 07:50 Pain Level 5 11/02/18 08:39 Comment 10/30/18 23:35 Intake & Output 11/01/18 11/01/18 11/02/18 11:59 23:59 11:59 Intake Total 250 / 1450 1200 / 1450 600 / 600 Balance 250 / 1450 1200 / 1450 600 / 600 Weight 127.6 kg 126.6 kg Intake: Oral 250 / 1450 1200 / 1450 600 / 600 Other: Urine Color Pale Yellow Yellow Straw Urine Appearance Clear Clear Urine Odor Normal Stool Size Moderate Stool Characteristics Soft Voiding Methods Bedside Commode Diaper Incontinent Laboratory Results WBC 6.85 k/cumm (4.4-10.8) 10/31/18 06:35 RBC 4.40 m/cumm (4.00-5.20) 10/31/18 06:35 Hgb 13.0 g/dL (12.0-15.5) 10/31/18 06:35 Hct 39.0 % (36.0-46.0) 10/31/18 06:35 MCV 88.6 fL (80-95) 10/31/18 06:35 MCH 29.5 pg (27.0-33.0) 10/31/18 06:35 MCHC 33.3 g/dL (32.0-36.0) 10/31/18 06:35 RDW 13.5 % (11.7-14.6) 10/31/18 06:35 Plt Count 180 x1000/uL (130-400) 10/31/18 06:35 MPV 11.6 fL (8.0-11.0) H 10/31/18 06:35 Immature Gran % 0.4 10/31/18 06:35 Neutrophils % 62.8 10/31/18 06:35 Lymphocytes % 25.1 10/31/18 06:35 Monocytes % 7.3 10/31/18 06:35 Eosinophils % 4.1 10/31/18 06:35 Basophils % 0.3 10/31/18 06:35 Absolute Neutrophils 4.30 k/cumm (1.2-6.7) 10/31/18 06:35 Absolute Lymphocytes 1.72 k/cumm (1.2-3.4) 10/31/18 06:35 Absolute Monocytes 0.50 k/cumm (0.11-0.7) 10/31/18 06:35 Absolute Eosinophils 0.28 k/cumm (0.0-0.7) 10/31/18 06:35 Absolute Basophils 0.02 k/cumm (0.0-0.2) 10/31/18 06:35 ESR 35 mm/hr (0-30) H 10/28/18 16:15 PT 28.6 sec (9.3-11.0) H 11/02/18 06:28 INR 2.8 (0.9-1.1) H 11/02/18 06:28 APTT 30.5 sec (21.0-31.4) 10/27/18 15:10 Sodium 139 mmol/L (136-145) 11/02/18 06:28 Potassium 4.5 mmol/L (3.5-5.1) 11/02/18 06:28 Chloride 103 mmol/L (98-107) 11/02/18 06:28 Carbon Dioxide 25.0 mmol/L (21.0-32.0) 11/02/18 06:28 Anion Gap 11.0 mmol/L (3-11) 11/02/18 06:28 BUN 32 mg/dL (7-18) H 11/02/18 06:28 Creatinine 1.06 mg/dL (0.55-1.02) H 11/02/18 06:28 Estimated GFR/1.73 m2 51.10 (mL/min/1.73m2) 11/02/18 06:28 Glucose 336 mg/dL (70-100) H D 11/02/18 06:28 Uric Acid 11.0 mg/dL (2.6-6.0) H 10/29/18 06:45 Calcium 8.8 mg/dL (8.5-10.1) 11/02/18 06:28 Magnesium 1.9 mg/dL (1.8-2.4) 11/02/18 06:28 Total Bilirubin 0.7 mg/dL (0.2-1.0) 10/28/18 06:16 AST 22 U/L (15-37) 10/28/18 06:16 ALT 21 U/L (14-59) 10/28/18 06:16 Alkaline Phosphatase 86 U/L (46-116) 10/28/18 06:16 Troponin I < 0.05 ng/mL (0.00-0.06) 10/27/18 15:10 C-Reactive Protein 3.63 mg/dL (0.0-0.3) H 10/28/18 16:15 NT-Pro-B Natriuret Pep 305 pg/mL (-299) H 10/27/18 15:10 Total Protein 6.3 g/dL (6.4-8.2) L 10/28/18 06:16 Albumin 2.4 g/dL (3.4-5.0) L 10/28/18 06:16 Urine Color Yellow (Yellow) 10/31/18 10:30 Urine Clarity Clear (Clear) 10/31/18 10:30 Urine pH 6.5 (5-8) 10/31/18 10:30 Ur Specific Vendor 1.015 (1.005-1.025) 10/31/18 10:30 Urine Protein Negative mg/dL (Negative) 10/31/18 10:30 Urine Ketones Negative mg/dL (Negative) 10/31/18 10:30 Urine Blood Trace-intact (Negative) H 10/31/18 10:30 Urine Nitrite Positive (Negative) H 10/31/18 10:30 Urine Bilirubin Negative (Negative) 10/31/18 10:30 Urine Urobilinogen 0.2 EU/dL (Up TO 0.2) 10/31/18 10:30 Ur Leukocyte Esterase Small (Negative) H 10/31/18 10:30 Urine RBC 0-2 (0-2) 10/31/18 10:30 Urine WBC 10-20 HPF (0-5) 10/31/18 10:30 Ur Epithelial Cells Few HPF (Negative) 10/31/18 10:30 Urine Crystals Negative HPF (Negative) 10/31/18 10:30 Urine Bacteria Many HPF (Negative) 10/31/18 10:30 Urine Casts Negative LPF (Negative) 10/31/18 10:30 Urine Mucus Trace (Negative) 10/31/18 10:30 Ur Culture Indicated? Yes 10/31/18 10:30 Urine Glucose Negative mg/dL (Negative) 10/31/18 10:30 KOLE Titer Not Applicable 10/29/18 06:45 KOLE Titer 2 Not Applicable 10/29/18 06:45 KOLE Titer 3 Not Applicable 10/29/18 06:45 KOLE Interpretation Negative (NEGAT) 10/29/18 06:45 Lyme Disease Antibody Negative 10/29/18 06:45
--- NOTE | 2018-11-02 11:21 | CMPROGNOTE_ITS ---
Care Management Progress Note S/O: Met with Brunilda this morning. She had just finished a telephone conversation with a friend and was smiling and cheerful closing the conversation with you have just made my day. Brunilda admits she has been depessed and has been thinking a lot about where does life go from here? 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 Makes her anxious when asked what she would like to do because nothing comes to mind. States she actually does not know how to focus on herself and what she might actually want to do. Has always done whatever others told her to do. States she is in agreement wit short term SNF placement and, as her family stated, she needs access to counseling as well as PT. A: Brunilda is a 73 year old woman admitted to [facility] on 10/27/18 with weakness and dizziness.MMShe could not participate in PT today due to increased pain in her left foot. P: At the request of Brunilda and family, placement will be considered only at SNFs that can offer counseling as well as physical rehab. Referrals were sent to [facility] in [facility]. A anamika gordont with Dr. Calixto has been requested for Saturday11/03/18 for possible medication adjustment. If unable to obtain a bed offer for one of the preferred SNFs on Saturday, consideration will be given to changing Brunilda to SB1 status for a few days until acceptable placement can be achieved.
[2018-11-02] MEDS: Lidocaine 5% Patch 2 PATCH TP (11:42)
[2018-11-02 12:28] VITALS: RESP 15
--- NOTE | 2018-11-02 12:34 | PT.INTREAT ---
Date of service: 11/02/18 Time of Service: 11:05 PT Notes Inpatient Physical Therapy Treatment Note [facility] Date: 11/02/18 PRECAUTIONS:Fall, standard and activities as tolerated. SUBJECTIVE: Left foot is still hurting a lot and patient refused to try to take a walk despite indicating we would keep w/c behind her incase she needed to sit. Indicated the foot pain is on the bottom of her foot and that this has been a problem for sometime now, but has definitely gotten worse in the last few days. Warm soak and cold pack does help a little with the pain. OBJECTIVE: PAIN: Significant pain in left foot that prevents patient from even trying to walk. BED MOBILITY/TRANSFERS Up to commode and chair with nursing staff prior to my arrival. Stated she was comfortable sitting up and did not need to go to commode while I was in room. Did not ambulate with patient today, but was willing to do chair exercises. We discussed doing arm and leg movements several times per day to keep her moving. THEREX: See flow sheet for chair exercise details. Activities did include heel / toe raises, quad/ glut sets, seated marching and hip abd/adduction, UE shoulder horizontal abd/ add, rows, shoulder flexion to 100 degrees elevation and punchouts. Also, performed chair push ups for 10 reps. ASSESSMENT: Tolerated chair exercises well. Did indicate to nursing staff to let me know if patient needed to transfer to commode if I am available later this morning. PLAN: Continue with strengthening and ambulation activity when left foot pain is better under control. Focus on improved functional mobility. TREATMENT CODE/TIME: TPx1, 11:05 to 11:25 (20')
[2018-11-02 12:45] LABS: Glucose 419 mg/dL (70-100)
[2018-11-02 15:32] VITALS: BP 123/81; PULSE 60; RESP 18; TEMP 36; O2SAT 98
[2018-11-02 19:20] VITALS: BP 131/78; PULSE 79; RESP 18; TEMP 36.6; O2SAT 97
[2018-11-02] MEDS: Warfarin 5 MG TAB PO (19:27)
[2018-11-02 19:30] VITALS: BP 131/78; PULSE 79; RESP 18; TEMP 36.6; O2SAT 97
[2018-11-02] MEDS: Gabapentin 300 MG CAP PO (22:31)
[2018-11-02 23:28] VITALS: BP 121/65; PULSE 76; RESP 18; TEMP 36.6; O2SAT 96
[2018-11-03] MEDS: Patch Removal 2 EACH TP (00:17)
[2018-11-03 07:01] VITALS: BP 127/68; PULSE 81; RESP 18; TEMP 36.6; O2SAT 97
[2018-11-03 07:26] LABS: Anion Gap 7.9 mmol/L (3-11); BUN 34 mg/dL (7-18); CO2 27.1 mmol/L (21.0-32.0); CREATININE 1.04 mg/dL (0.55-1.02); Calcium 8.6 mg/dL (8.5-10.1); Chloride 106 mmol/L (98-107); Estimated GFR 52.24 (mL/min/1.73m2); Glucose 137 mg/dL (70-100); Magnesium 1.9 mg/dL (1.8-2.4); Potassium 3.8 mmol/L (3.5-5.1); Sodium 141 mmol/L (136-145)
[2018-11-03 07:27] LABS: INR 3.7 (0.9-1.1)
[2018-11-03] MEDS: traMADol 50 MG TAB PO (07:46)
[2018-11-03] MEDS: Acetaminophen 325 MG TAB PO ×2 (07:46→16:54)
--- NOTE | 2018-11-03 08:00 | DI.US_ITS ---
SYMPTOM/DIAGNOSIS: ACUTE PAIN LLE DUPLEX VENOUS ULTRASOUND LEFT LOWER EXTREMITY: There is no evidence of DVT, superficial thrombophlebitis or a Cleveland's cyst. Note is made of edema involving the calf and left foot.
[2018-11-03] MEDS: Allopurinol 100 MG TAB 200 MG PO (08:26)
[2018-11-03] MEDS: Torsemide 20 MG TAB PO (08:26)
[2018-11-03] MEDS: Carvedilol 25 MG TAB PO ×2 (08:26→19:59)
[2018-11-03] MEDS: Magnesium Oxide 400 MG TAB PO ×3 (08:26→19:59)
[2018-11-03] MEDS: Cephalexin 500 MG CAP PO (08:26)
[2018-11-03] MEDS: Bacitracin 1 PACKET TP ×2 (08:26→19:58)
[2018-11-03] MEDS: FLUoxetine 20 MG CAP 40 MG PO (08:26)
[2018-11-03] MEDS: Insulin Aspart 300 UNITS/3 ML PEN 10 UNITS SC ×3 (08:27→16:53)
[2018-11-03] MEDS: Insulin Aspart 300 UNITS/3 ML PEN SC ×3 (08:27→16:53)
[2018-11-03] MEDS: Potassium Chloride 20 MEQ TABCR PO (09:14)
--- NOTE | 2018-11-03 12:09 | W.PSYCHCONSU ---
Date of service: 11/03/18 Time of Service: 11:30 History of Present Illness Narrative: Primary Care Provider: Alyssa Turcios MD [facility] Information source: Patient, chart, medical team Identifying information / Chief Complaint: Netta Das NP requested psychiatric consultation for Brunilda Herrera to evaluate for depressive symptoms and possible antidepressant medication change. History Of Present Illness: Per H&P by Dr. Barros: This is a 73-year-old woman that presents to the emergency room this evening with dizziness and weakness since 10/24/2018. She describes increased urinary incontinence, pain in her feet, joint aches, hand aches, fever of falling. She denies having any falls. She has ongoing concerns about caring for her who is not well. Her daughter encouraged her to seek medical treatment today. In the emergency room her work-up was largely negative, normal chest x-ray, normal head CT, normal labs. When they try to get her up she stated she was dizzy and weak. She was given IV fluids in 250 cc boluses x2 but still did not feel better. She is admitted for observation. Since admission Mrs Herrera has continued to have pain, particularly in her foot of unclear etiology such that she has refused PT. Medical team thinks that the general aches and pains may be depression related. Per Mrs Herrera: Mood: not real high, not real low, just middle. Has thoughts of hopelessness, helplessness, worthlessness at times and has for a long time. has felt low mood and anhedonia worsening with decreasing engagement in activities. Can feel william and pleasure around her grandchildren, but has less energy to do activities with them than she used to. She is not sure fluoxetine helped when Dr. Turcios started it a number of years ago I'm not sure how long ago... my daughter manages my medications. Mrs. Herrera focused the conversation on the family stressors both past and current which she has endured. She agreed that she takes the martyr role. I've always done what was expected of me. She described numerous times that she just stayed quiet; I didn't say anything when she had thoughts or feelings about what was asked of her or of a decision a family member was making that wasn't to her liking. Denies now or ever in the past having suicidal ideation associated with depression or other mental health symptoms. Most of the session she focused on the stressors of family dynamics around her and what people expect of her. Diet: she endorses having difficulty dieting but denies binge eating. No I just have one serving in the evenings when describing her nighttime snacking. Also describes having trouble refusing that croissant in the morning at the store with her coffee. Substances: not reviewed at this visit Safety: - current suicidal/homicidal/violent ideations: denies - guns in home or access to weapons: yes. PAST PSYCHIATRIC HISTORY: Hospitalizations: never Suicide attempts: never Prescribers: PCP Medications: - fluoxetine up to current 40mg daily dose Therapist: Narcisa Chamberlain for several years, finds her very helpful Family history: - no known mental health conditions in her parents or major mental illness in relatives. Social history: - BA in art education from [employer]. 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 REVIEW OF SYSTEMS: Constitutional: +fatigue Cardiovascular: No chest pains or dizziness Respiratory: no cough or shortness of breath Musculoskeletal: +weakness generalized from deconditioning, +foot pain that interferes with walking GI: No constipation, diarrhea, nausea, vomiting; appetite is fine Genitourinary: No dysuria, frequency of urination, hematuria Neurological: No weakness, seizures, numbness, tics, ataxia Psych: see above Endocrine: No cold or heat intolerance, polyuria, excessive thirst Hem/Lymph: No bruising, bleeding Allergies: see chart MENTAL STATUS EXAM: Constitutional: obese female lying awake and alert in bed. Good eye contact and social graces intact. Attitude: cooperative, eager to chat Psychomotor: no retardation or agitation Speech: nonpressured, normal volume and prosody. No articulation problems noted. Associations: no looseness Thought process: linear, logical, goal directed Thought content without psychosis, delusions, obsessions No suicidal or homicidal ideations Hallucinations denied Mood: midline Affect: full, jokes, some isolation of affect when discussion difficult subjects. Attention/Concentration: intact Judgment/insight: fair/poor-fair Oriented x 4 Language appropriate to age and education Fund of knowledge appropriate to age and education Memory intact to recent and remote events Other cognitive testing: none Assessment and Plan Assessment and plan (1) Depression: Status: Chronic Assessment and plan: Brunilda Herrera is a 73 year old female with past psychiatric history of depression who was brought to [facility] on 10/25/2018 by her daughter concerned for her increasing pain and weakness, and admitted for observation. The medical team, finding no acute medical condition but significant psychosocial stressors, requested psychiatric consultation to evaluate for depression and medication management. History and clinical exam are consistent with a diagnosed of depression unspecified. Whether a major depressive disorder or a long-standing adjustment disorder with depressive features is uncertain to me. Mrs Herrera referred consistently to the relationship stressors and disappointments with her of 49 years as an etiology for her mood and inactivity. I am glad she has a therapist to address these issues with as that will be a long-term endeavor. I agree that rehab to improve strength and conditioning will help with her re-engaging in enjoyable activities. 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 Recommendations: - continue fluoxetine 40mg daily - trial bupropion XL 150mg by mouth every morning. I reviewed with Mrs. Herrera potential side effects and benefits of adding this medication. - her outpatient providers might consider switching her fluoxetine to an SNRI to address chronic pain if patient wishes. I will continue to be involved in Mrs Herrera's care while she is here at [facility]. I have verbally discussed my recommendations with Netta Das NP. Safety: no elevated risk for intentional harm to self or others while in the hospital given no reported history of harm to self or others, and no ideations or plans of harm. Visit Statistics Total Visit Minutes: 55 Visit Time Allocation >50% of face to face visit spent in counseling (Extensive teaching, explanation and instructions. Counseling as appropriate. Review of plans, and discussion concerning medical problems dealt with at this visit. Discussion of benefits/risks of treatment, anticipated course of events, potential medication side effects, options, alternatives, and follow up plans. Questions were solicited and answered, and the patient verbalized understanding.), and/or coordination of care. [facility] Medical History (Updated 11/01/18 @ 11:55 by Netta Das NP) Atrial fibrillation CHF (congestive heart failure) Dilated cardiomyopathy (Chronic) DM (diabetes mellitus) Morbid obesity due to excess calories (Chronic) Nuclear sclerotic cataract of left eye (Resolved) Nuclear sclerotic cataract of right eye (Resolved) Obesity CALDERON (obstructive sleep apnea) (Chronic) Paroxysmal atrial flutter (Chronic) Surgical History section Status post cataract extraction and insertion of intraocular lens of left eye (Chronic 01/03/18) Status post cataract extraction and insertion of intraocular lens of right eye (Chronic 12/20/17) Family History Father Heart disease Social History Smoking/Tobacco Use Status: Never Drug use: Never Household members: spouse Housing: house 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 divergens/MO-1 PCR Negative Babesia duncani (PCR) Negative Babesia microti DNA PCR Negative Borrelia (PCR) Negative E.chaffeensis DNA (PCR) Negative E.ewingii/canis DNA PCR Negative E. muris-like DNA (PCR) Negative 11/03/18 06:35 PT 38.0 H D INR 3.7 H D Sodium Potassium Chloride Carbon Dioxide Anion Gap BUN Creatinine Estimated GFR/1.73 m2 Glucose Calcium Magnesium A.phagocytophil DNA PCR B. divergens/MO-1 PCR Babesia duncani (PCR) Babesia microti DNA PCR Borrelia (PCR) E.chaffeensis DNA (PCR) E.ewingii/canis DNA PCR E. muris-like DNA (PCR)
[2018-11-03] MEDS: predniSONE 20 MG TAB 60 MG PO (12:14)
[2018-11-03] MEDS: Lidocaine 5% Patch 2 PATCH TP (12:14)
--- NOTE | 2018-11-03 13:16 | PT.INNT ---
Date of service: 11/03/18 Time of Service: 10:00 PT Notes 11/03/18 Patient refused participating in PT this morning, stating that her left leg is very painful today, and that she does not feel that she will be able to stand this morning. Will attempt to resume PT services this afternoon.
--- NOTE | 2018-11-03 13:35 | W.PM.PROGNOT ---
Date of Service Date of service: 11/03/18 Time of Service: 13:36 Assessment and Plan Assessment and plan (1) UTI (urinary tract infection): Start date: 11/03/18 Start time: 13:41 Status: Acute Assessment and plan: Symptoms resolved. Keflex finished. (2) Weakness: Start date: 11/03/18 Start time: 13:42 Status: Acute Assessment and plan: Rheumotology panel negative. (3) Depression: Start date: 11/03/18 Start time: 13:42 Status: Chronic Assessment and plan: Dr. Shipley evaluated patient started on buproprion XL 150 mg po q am starting tomorrow. (4) CALDERON (obstructive sleep apnea): Start date: 11/03/18 Start time: 13:43 Status: Chronic Assessment and plan: Refusing to wear bipap even with adjusted settings. Would benefit from repeat outpatient sleep study. (5) Gout: Start date: 11/03/18 Start time: 13:43 Status: Acute Assessment and plan: Increased Allopurinol to 200 mg daily, continue to monitor renal function. see above (6) Diabetes mellitus: Start date: 11/03/18 Start time: 13:43 Status: Acute Assessment and plan: Improved today with addition of 70/30. Glucose by am labs 156. Started on steroid may need to increase 70/30 to baseline dose 50 units if becomes hyperglycemic. Qualifiers: Diabetes mellitus type: type 2 Diabetes mellitus manager long term care insulin use: with manager long term care use Diabetes mellitus complication detail: with cataract (7) Rash: Start date: 11/03/18 Start time: 13:44 Status: Acute Assessment and plan: Improved (8) Discharge planning issues: Start date: 11/03/18 Start time: 13:44 Status: Acute Assessment and plan: Working on placement for rehab with psychiatry at the center. If unable to get into rehab consider possible swing with PT/OT and psych until bed available. The above plan has been reviewed with Dr. Ramos and he is in agreement. Subjective Subjective Patient reports: still having pain Interval history since last seen: Patient continues to have pain worsening to left leg. Rheum panel negative. U/S to r/o dvt no dvt seen. There is edema to LLE. She c/o a burning sensation. Could be start of gout flare, started on prednisone for gout flare. Left ankle is warm and pink today, though pain is on top of foot, ankle and toes. CM to work on placement continue to monitor pain status. Denies CP, SOB, N/V/D. Exam Const General: cooperative, healthy appearing, comfortable and no acute distress Neck Neck: normal visual inspection Lymphatic: no lymphadenopathy noted and no lymphedema noted Resp Effort & Inspection: normal respiratory effort Auscultation: clear to auscultation bilaterally Cardio Jugular venous pressure: no JVD Rate: regular rate Rhythm: regular rhythm Heart Sounds: S1 normal and S2 normal GI Inspection: normal to inspection Auscultation: normal bowel sounds Skin General skin exam: no rashes or lesions noted Lesions: no lesions Rashes: no rashes Wounds: no wounds Neuro General: alert, awake and oriented x3 Extrem General: full ROM Right upper extremity: full ROM Left upper extremity: full ROM Right lower extremity: full ROM Left lower extremity: full ROM Other: LLE is swollen to ankle toes and foot. Objective Objective Clinical Data: Abnormal lab results 11/03/18 11/03/18 Range/Units 06:35 06:35 PT 38.0 H D (9.3-11.0) sec INR 3.7 H D (0.9-1.1) BUN 34 H (7-18) mg/dL Creatinine 1.04 H (0.55-1.02) mg/dL Glucose 137 H D (70-100) mg/dL Vital Signs Temperature 36.6 C 11/03/18 07:01 Temperature Source Skin 11/03/18 07:01 Pulse 81 11/03/18 07:01 Pulse Rhythm Regular 11/03/18 09:57 Respiratory Rate 18 11/03/18 07:01 Respiratory Effort Non-Labored 11/03/18 09:57 Respiratory Depth Normal 11/03/18 09:57 Respiratory Pattern Normal 11/03/18 09:57 Blood Pressure 127/68 11/03/18 07:01 Blood Pressure Position Supine 10/27/18 14:13 Pulse Oximetry 97 11/03/18 07:01 Oxygen Delivery Method Room Air 11/03/18 07:01 Oxygen Flow Rate 0 11/03/18 07:01 Fraction of Inspired Oxygen (FIO2) 21 11/01/18 07:50 Pain Level 5 11/03/18 08:46 Comment 11/03/18 07:01 Intake & Output 11/02/18 11/03/18 11/03/18 23:59 11:59 23:59 Intake Total 480 / 1080 450 / 850 400 / 850 Output Total 700 / 700 Balance -220 / 380 450 / 850 400 / 850 Weight 123.9 kg Intake: Oral 480 / 1080 450 / 850 400 / 850 Output: Urine 700 / 700 Other: Urine Color Yellow Urine Appearance Cloudy Comment also had was very incontinent Voiding Methods Toilet Diaper Incontinent Laboratory Results WBC 6.85 k/cumm (4.4-10.8) 10/31/18 06:35 RBC 4.40 m/cumm (4.00-5.20) 10/31/18 06:35 Hgb 13.0 g/dL (12.0-15.5) 10/31/18 06:35 Hct 39.0 % (36.0-46.0) 10/31/18 06:35 MCV 88.6 fL (80-95) 10/31/18 06:35 MCH 29.5 pg (27.0-33.0) 10/31/18 06:35 MCHC 33.3 g/dL (32.0-36.0) 10/31/18 06:35 RDW 13.5 % (11.7-14.6) 10/31/18 06:35 Plt Count 180 x1000/uL (130-400) 10/31/18 06:35 MPV 11.6 fL (8.0-11.0) H 10/31/18 06:35 Immature Gran % 0.4 10/31/18 06:35 Neutrophils % 62.8 10/31/18 06:35 Lymphocytes % 25.1 10/31/18 06:35 Monocytes % 7.3 10/31/18 06:35 Eosinophils % 4.1 10/31/18 06:35 Basophils % 0.3 10/31/18 06:35 Absolute Neutrophils 4.30 k/cumm (1.2-6.7) 10/31/18 06:35 Absolute Lymphocytes 1.72 k/cumm (1.2-3.4) 10/31/18 06:35 Absolute Monocytes 0.50 k/cumm (0.11-0.7) 10/31/18 06:35 Absolute Eosinophils 0.28 k/cumm (0.0-0.7) 10/31/18 06:35 Absolute Basophils 0.02 k/cumm (0.0-0.2) 10/31/18 06:35 ESR 35 mm/hr (0-30) H 10/28/18 16:15 PT 38.0 sec (9.3-11.0) H D 11/03/18 06:35 INR 3.7 (0.9-1.1) H D 11/03/18 06:35 APTT 30.5 sec (21.0-31.4) 10/27/18 15:10 Sodium 141 mmol/L (136-145) 11/03/18 06:35 Potassium 3.8 mmol/L (3.5-5.1) 11/03/18 06:35 Chloride 106 mmol/L (98-107) 11/03/18 06:35 Carbon Dioxide 27.1 mmol/L (21.0-32.0) 11/03/18 06:35 Anion Gap 7.9 mmol/L (3-11) 11/03/18 06:35 BUN 34 mg/dL (7-18) H 11/03/18 06:35 Creatinine 1.04 mg/dL (0.55-1.02) H 11/03/18 06:35 Estimated GFR/1.73 m2 52.24 (mL/min/1.73m2) 11/03/18 06:35 Glucose 137 mg/dL (70-100) H D 11/03/18 06:35 Uric Acid 11.0 mg/dL (2.6-6.0) H 10/29/18 06:45 Calcium 8.6 mg/dL (8.5-10.1) 11/03/18 06:35 Magnesium 1.9 mg/dL (1.8-2.4) 11/03/18 06:35 Total Bilirubin 0.7 mg/dL (0.2-1.0) 10/28/18 06:16 AST 22 U/L (15-37) 10/28/18 06:16 ALT 21 U/L (14-59) 10/28/18 06:16 Alkaline Phosphatase 86 U/L (46-116) 10/28/18 06:16 Troponin I < 0.05 ng/mL (0.00-0.06) 10/27/18 15:10 C-Reactive Protein 3.63 mg/dL (0.0-0.3) H 10/28/18 16:15 NT-Pro-B Natriuret Pep 305 pg/mL (-299) H 10/27/18 15:10 Total Protein 6.3 g/dL (6.4-8.2) L 10/28/18 06:16 Albumin 2.4 g/dL (3.4-5.0) L 10/28/18 06:16 Urine Color Yellow (Yellow) 10/31/18 10:30 Urine Clarity Clear (Clear) 10/31/18 10:30 Urine pH 6.5 (5-8) 10/31/18 10:30 Ur Specific [place] 1.015 (1.005-1.025) 10/31/18 10:30 Urine Protein Negative mg/dL (Negative) 10/31/18 10:30 Urine Ketones Negative mg/dL (Negative) 10/31/18 10:30 Urine Blood Trace-intact (Negative) H 10/31/18 10:30 Urine Nitrite Positive (Negative) H 10/31/18 10:30 Urine Bilirubin Negative (Negative) 10/31/18 10:30 Urine Urobilinogen 0.2 EU/dL (Up TO 0.2) 10/31/18 10:30 Ur Leukocyte Esterase Small (Negative) H 10/31/18 10:30 Urine RBC 0-2 (0-2) 10/31/18 10:30 Urine WBC 10-20 HPF (0-5) 10/31/18 10:30 Ur Epithelial Cells Few HPF (Negative) 10/31/18 10:30 Urine Crystals Negative HPF (Negative) 10/31/18 10:30 Urine Bacteria Many HPF (Negative) 10/31/18 10:30 Urine Casts Negative LPF (Negative) 10/31/18 10:30 Urine Mucus Trace (Negative) 10/31/18 10:30 Ur Culture Indicated? Yes 10/31/18 10:30 Urine Glucose Negative mg/dL (Negative) 10/31/18 10:30 KOLE Titer Not Applicable 10/29/18 06:45 KOLE Titer 2 Not Applicable 10/29/18 06:45 KOLE Titer 3 Not Applicable 10/29/18 06:45 KOLE Interpretation Negative (NEGAT) 10/29/18 06:45 A.phagocytophil DNA PCR Negative (Negative) 10/29/18 06:45 B. divergens/MO-1 PCR Negative (Negative) 10/29/18 06:45 Babesia duncani (PCR) Negative (Negative) 10/29/18 06:45 Babesia microti DNA PCR Negative (Negative) 10/29/18 06:45 Borrelia (PCR) Negative (Negative) 10/29/18 06:45 Lyme Disease Antibody Negative 10/29/18 06:45 E.chaffeensis DNA (PCR) Negative (Negative) 10/29/18 06:45 E.ewingii/canis DNA PCR Negative (Negative) 10/29/18 06:45 E. muris-like DNA (PCR) Negative (Negative) 10/29/18 06:45
--- NOTE | 2018-11-03 15:25 | PT.INNT ---
Date of service: 11/03/18 Time of Service: 15:25 PT Notes 11/03/18 Patient refused afternoon PT session stating that her L LE is still extremely painful and that she is not willing to try to stand on it. She reports that her medications have been adjusted, and she is hopeful that this will help her feel better. Will attempt to resume PT services tomorrow morning.
[2018-11-03 15:45] VITALS: BP 152/73; PULSE 86; RESP 22; TEMP 37.8; O2SAT 95
--- NOTE | 2018-11-03 15:51 | PDOC.CMPRO ---
- If Service Date Differs Date of service: 11/03/18 Time of Service: 15:51 Care Management Progress Note S/O:Brunilda was sitting up in bed when CM met with her. Dr. Calixto had just completed a psychiatric evaluation and Brunilda stated that she feels it went well. She shared some of the details of the session and what she hopes to be able to change in her relationship with her . Brunilda also discussed her future plans with rehab and how that may positively impact her life. A: Brunilda is a 73 year old woman admitted to [facility] on 10/27/18 with weakness and dizziness. P: Brunilda will need rehab upon discharge. Referrals have been sent to [facility] and [facility]. [facility] has declined her because of bed availability but [facility] is considering her for admission. CM will continue to provide support to patient, family and discharge planning needs.
[2018-11-03] MEDS: predniSONE 20 MG TAB PO (19:59)
[2018-11-03] MEDS: Gabapentin 300 MG CAP PO (21:40)
[2018-11-04] VITALS (8 sets, daily range): BP systolic 123–154; BP diastolic 68–87; PULSE 73–83; RESP 15–19; TEMP 35.9–37.1; O2SAT 93–97
[2018-11-04] MEDS: Patch Removal 2 EACH TP (00:30)
[2018-11-04 06:58] LABS: INR 3.5 (0.9-1.1); Prothrombin Time 35.5 sec (9.3-11.0)
[2018-11-04] MEDS: Carvedilol 25 MG TAB PO ×2 (07:59→20:24)
[2018-11-04] MEDS: buPROPion-XL 150 MG TABCR PO (07:59)
[2018-11-04] MEDS: Torsemide 20 MG TAB PO (07:59)
[2018-11-04] MEDS: Magnesium Oxide 400 MG TAB PO ×2 (07:59→20:24)
[2018-11-04] MEDS: traMADol 50 MG TAB PO (07:59)
[2018-11-04] MEDS: predniSONE 20 MG TAB PO ×2 (07:59→20:24)
[2018-11-04] MEDS: FLUoxetine 20 MG CAP 40 MG PO (07:59)
[2018-11-04] MEDS: Acetaminophen 325 MG TAB PO (08:00)
[2018-11-04] MEDS: Bacitracin 1 PACKET TP ×3 (08:00→20:24)
[2018-11-04] MEDS: Allopurinol 100 MG TAB 200 MG PO (08:00)
[2018-11-04] MEDS: Insulin Aspart 300 UNITS/3 ML PEN 10 UNITS SC ×3 (08:01→16:54)
[2018-11-04] MEDS: Insulin Aspart 300 UNITS/3 ML PEN SC ×3 (08:02→16:54)
[2018-11-04] MEDS: Lidocaine 5% Patch 2 PATCH TP (11:54)
--- NOTE | 2018-11-04 13:20 | DI.RAD_ITS ---
INDICATION: pain and swelling COMPARISON: TECHNIQUE: 2D digital imaging was performed. FINDINGS: There is generalized soft tissue swelling about the ankle. There is no evidence of an acute fractur e or dislocation. Note is made of degenerative changes involving the tibial talar joint. There is a p rominent calcaneal spur. Degenerative changes involving the proximal foot are identified. IMPRESSION:
--- NOTE | 2018-11-04 14:51 | CHAPLAIN ---
Brunilda was visiting with a neighbor when I stopped in. She told me the story behind some roses she received from her brother who is actually a life long friend, they attended first grade together and were the only students, in a small class, that didn't have siblings so have continued to refer to each other a brother and sister. Brunilda was very pleasant and easily engaged in a conversation with me and her visitor. She is a member of the [employer] and her it instructor knows she is here.
--- NOTE | 2018-11-04 15:09 | PT.INTREAT ---
Date of service: 11/04/18 Time of Service: 15:09 PT Notes Inpatient Physical Therapy Treatment Note [facility] Date: 11/04/2018 PRECAUTIONS: Fall, WBAT L SUBJECTIVE: Barrera reports that her left ankle pain has not gotten any better since yesterday. She reports that it is still limiting her functional ability. OBJECTIVE: PAIN: Patient complained of significant left ankle pain with weight bearing BED MOBILITY/TRANSFERS Sit-supine: Min A Sit-stand: Mod A x2 Stand-sit: Mod A x2 GAIT Assistive Device: FWW Weight bearing: WBAT L Assist: CGA in a.m.; CGA x2 in p.m. Distance: 0' in a.m.; 6 sidesteps to right in p.m. Deviation: Complaint of increased left ankle pain THEREX: Patient completed an upper and lower extremity strengthening program, in a seated position, as per flow sheet. ASSESSMENT: Patient tolerated sessions with complaints of increased left ankle pain with weight bearing activities. Patient would benefit from continued strengthening as well as gait and transfer training for improved mobility and improved activity tolerance. PLAN: Continue with PTs POC, as pain allows TREATMENT CODE/TIME: Session 1: 15 minutes; 14587 Session 2: 10 minutes; [id number]
--- NOTE | 2018-11-04 15:19 | PGE_ITS ---
Date of Service Date of service: 11/04/18 Time of Service: 10:00 Assessment and Plan Assessment and plan (1) UTI (urinary tract infection): Start date: 11/04/18 Start time: 10:30 Status: Acute Assessment and plan: Symptoms resolved. Course of Keflex finished. (2) Weakness: Start date: 11/04/18 Start time: 10:30 Status: Acute Assessment and plan: DVT ruled out via U/S. 2 view Left ankle XR obtained to rule osseous process. Rheumotology panel negative. Encourage to work with PT. (3) Depression: Start date: 11/04/18 Start time: 10:30 Status: Chronic Assessment and plan: Started on Wellbutrin 150mg po daily per Dr. Shipley. (4) Gout: Start date: 11/04/18 Start time: 10:30 Status: Acute Assessment and plan: Continue with allopurinol. Started on prednisone BID 11/03/18 for presumed flare. (5) CALDERON (obstructive sleep apnea): Start date: 11/04/18 Start time: 10:30 Status: Chronic Assessment and plan: Continues to refuse to wear bipap at night. Would be beneficial to persue an outpatient sleep study. (6) Diabetes mellitus: Start date: 11/04/18 Start time: 15:00 Status: Acute Assessment and plan: Blood Glucose elevated today 302 - 392. Most likely related to steroid dosing. Continue with resistant sliding scale and 70/30 insulins. Qualifiers: Diabetes mellitus type: type 2 Diabetes mellitus intermission coordinator insulin use: with intermission coordinator use Diabetes mellitus complication detail: with cataract (7) Rash: Start date: 11/04/18 Start time: 15:15 Status: Acute Assessment and plan: Improved (8) Discharge planning issues: Start date: 11/04/18 Start time: 15:15 Status: Acute Assessment and plan: Working on placement for rehab with psychiatry at the center. If unable to get into rehab consider possible swing with PT/OT and psych until bed available. Subjective Subjective Patient reports: still having pain Interval history since last seen: Continues to c/o Left ankle pain with movement and ambulation. Left medial malleolus tender with palpation, +2edema. No erythema or warmth noted. U/S negative for DVT. Is on prednisone for presumed gout flare. Obtaining 2 view Left ankle XR to r/o osseous process. Exam Const General: cooperative and no acute distress Nutritional Appearance: obese Orientation: alert, awake and oriented x3 HENMT Head: normal to inspection Eyes Pupils: PERRL EOM: EOM intact bilaterally Resp Effort & Inspection: normal respiratory effort Auscultation: clear to auscultation bilaterally Cardio Jugular venous pressure: no JVD Rate: regular rate Rhythm: regular rhythm Heart Sounds: S1 normal and S2 normal Pulses: normal peripheral pulses Other: +2 LLE edema GI Inspection: obesity Palpation: soft Auscultation: normal bowel sounds General: deferred Skin General skin exam: no rashes or lesions noted Neuro General: alert, awake and oriented x3 Cognition: normal cognition Speech: speech normal Sensory Exam: no sensory deficits noted Psych Mental Status: mental status grossly normal Speech and Movement: speech and movement normal Mood: congruent mood Affect: normal affect Attitude: cooperative Thought Process: normal Thought Content: normal Objective Objective Clinical Data: Abnormal lab results 11/04/18 Range/Units 06:30 PT 35.5 H (9.3-11.0) sec INR 3.5 H (0.9-1.1) Vital Signs Temperature 36.4 C L 11/04/18 07:58 Temperature Source Tympanic 11/04/18 07:58 Pulse 81 11/04/18 07:58 Pulse Rhythm Regular 11/03/18 09:57 Respiratory Rate 18 11/04/18 07:58 Respiratory Effort Non-Labored 11/04/18 09:16 Respiratory Depth Normal 11/04/18 09:16 Respiratory Pattern Normal 11/04/18 09:16 Blood Pressure 136/78 11/04/18 07:58 Blood Pressure Position Supine 10/27/18 14:13 Pulse Oximetry 93 L 11/04/18 07:58 Oxygen Delivery Method Room Air 11/04/18 07:58 Oxygen Flow Rate 0 11/04/18 07:58 Fraction of Inspired Oxygen (FIO2) 21 11/04/18 11:02 Pain Level 5 11/04/18 09:00 Comment 11/03/18 07:01 Intake & Output 11/03/18 11/04/18 11/04/18 23:59 11:59 23:59 Intake Total 1130 / 1580 840 / 840 Balance 1130 / 1580 840 / 840 Weight 126.6 kg Intake: Oral 1130 / 1580 840 / 840 Other: Urine Color Pale Yellow Urine Appearance Clear Clear Comment Unknown amount urine mixed with stool. Stool Size Large Stool Characteristics Soft Formed Brown Voiding Methods Diaper Incontinent Laboratory Results WBC 6.85 k/cumm (4.4-10.8) 10/31/18 06:35 RBC 4.40 m/cumm (4.00-5.20) 10/31/18 06:35 Hgb 13.0 g/dL (12.0-15.5) 10/31/18 06:35 Hct 39.0 % (36.0-46.0) 10/31/18 06:35 MCV 88.6 fL (80-95) 10/31/18 06:35 MCH 29.5 pg (27.0-33.0) 10/31/18 06:35 MCHC 33.3 g/dL (32.0-36.0) 10/31/18 06:35 RDW 13.5 % (11.7-14.6) 10/31/18 06:35 Plt Count 180 x1000/uL (130-400) 10/31/18 06:35 MPV 11.6 fL (8.0-11.0) H 10/31/18 06:35 Immature Gran % 0.4 10/31/18 06:35 Neutrophils % 62.8 10/31/18 06:35 Lymphocytes % 25.1 10/31/18 06:35 Monocytes % 7.3 10/31/18 06:35 Eosinophils % 4.1 10/31/18 06:35 Basophils % 0.3 10/31/18 06:35 Absolute Neutrophils 4.30 k/cumm (1.2-6.7) 10/31/18 06:35 Absolute Lymphocytes 1.72 k/cumm (1.2-3.4) 10/31/18 06:35 Absolute Monocytes 0.50 k/cumm (0.11-0.7) 10/31/18 06:35 Absolute Eosinophils 0.28 k/cumm (0.0-0.7) 10/31/18 06:35 Absolute Basophils 0.02 k/cumm (0.0-0.2) 10/31/18 06:35 ESR 35 mm/hr (0-30) H 10/28/18 16:15 PT 35.5 sec (9.3-11.0) H 11/04/18 06:30 INR 3.5 (0.9-1.1) H 11/04/18 06:30 APTT 30.5 sec (21.0-31.4) 10/27/18 15:10 Sodium 141 mmol/L (136-145) 11/03/18 06:35 Potassium 3.8 mmol/L (3.5-5.1) 11/03/18 06:35 Chloride 106 mmol/L (98-107) 11/03/18 06:35 Carbon Dioxide 27.1 mmol/L (21.0-32.0) 11/03/18 06:35 Anion Gap 7.9 mmol/L (3-11) 11/03/18 06:35 BUN 34 mg/dL (7-18) H 11/03/18 06:35 Creatinine 1.04 mg/dL (0.55-1.02) H 11/03/18 06:35 Estimated GFR/1.73 m2 52.24 (mL/min/1.73m2) 11/03/18 06:35 Glucose 137 mg/dL (70-100) H D 11/03/18 06:35 Uric Acid 11.0 mg/dL (2.6-6.0) H 10/29/18 06:45 Calcium 8.6 mg/dL (8.5-10.1) 11/03/18 06:35 Magnesium 1.9 mg/dL (1.8-2.4) 11/03/18 06:35 Total Bilirubin 0.7 mg/dL (0.2-1.0) 10/28/18 06:16 AST 22 U/L (15-37) 10/28/18 06:16 ALT 21 U/L (14-59) 10/28/18 06:16 Alkaline Phosphatase 86 U/L (46-116) 10/28/18 06:16 Troponin I < 0.05 ng/mL (0.00-0.06) 10/27/18 15:10 C-Reactive Protein 3.63 mg/dL (0.0-0.3) H 10/28/18 16:15 NT-Pro-B Natriuret Pep 305 pg/mL (-299) H 10/27/18 15:10 Total Protein 6.3 g/dL (6.4-8.2) L 10/28/18 06:16 Albumin 2.4 g/dL (3.4-5.0) L 10/28/18 06:16 Urine Color Yellow (Yellow) 10/31/18 10:30 Urine Clarity Clear (Clear) 10/31/18 10:30 Urine pH 6.5 (5-8) 10/31/18 10:30 Ur Specific [place] 1.015 (1.005-1.025) 10/31/18 10:30 Urine Protein Negative mg/dL (Negative) 10/31/18 10:30 Urine Ketones Negative mg/dL (Negative) 10/31/18 10:30 Urine Blood Trace-intact (Negative) H 10/31/18 10:30 Urine Nitrite Positive (Negative) H 10/31/18 10:30 Urine Bilirubin Negative (Negative) 10/31/18 10:30 Urine Urobilinogen 0.2 EU/dL (Up TO 0.2) 10/31/18 10:30 Ur Leukocyte Esterase Small (Negative) H 10/31/18 10:30 Urine RBC 0-2 (0-2) 10/31/18 10:30 Urine WBC 10-20 HPF (0-5) 10/31/18 10:30 Ur Epithelial Cells Few HPF (Negative) 10/31/18 10:30 Urine Crystals Negative HPF (Negative) 10/31/18 10:30 Urine Bacteria Many HPF (Negative) 10/31/18 10:30 Urine Casts Negative LPF (Negative) 10/31/18 10:30 Urine Mucus Trace (Negative) 10/31/18 10:30 Ur Culture Indicated? Yes 10/31/18 10:30 Urine Glucose Negative mg/dL (Negative) 10/31/18 10:30 KOLE Titer Not Applicable 10/29/18 06:45 KOLE Titer 2 Not Applicable 10/29/18 06:45 KOLE Titer 3 Not Applicable 10/29/18 06:45 KOLE Interpretation Negative (NEGAT) 10/29/18 06:45 A.phagocytophil DNA PCR Negative (Negative) 10/29/18 06:45 B. divergens/MO-1 PCR Negative (Negative) 10/29/18 06:45 Babesia duncani (PCR) Negative (Negative) 10/29/18 06:45 Babesia microti DNA PCR Negative (Negative) 10/29/18 06:45 Borrelia (PCR) Negative (Negative) 10/29/18 06:45 Lyme Disease Antibody Negative 10/29/18 06:45 E.chaffeensis DNA (PCR) Negative (Negative) 10/29/18 06:45 E.ewingii/canis DNA PCR Negative (Negative) 10/29/18 06:45 E. muris-like DNA (PCR) Negative (Negative) 10/29/18 06:45
--- NOTE | 2018-11-04 17:14 | CMPROGNOTE_ITS ---
- If Service Date Differs Date of service: 11/04/18 Time of Service: 17:14 Care Management Progress Note S/O:Brunilda has not been as successful working with PT in the last couple of days. She has been having increased ppain in her left foot, making ambulation nearly impossible. She has only been able to ambulate to transfer to chair or commode. Additional studies of her left foot are pending. [facility]. Additional refer rals were sent by CM to [facility] and [facility] Swingbed program, as requested by Chelita, patient's daughter. A: Brunilda is a 73 year old woman admitted to [facility] on 10/27/18 with weakness and dizziness. P: Brunilda will need rehab upon discharge. New referrals have been sent to [facility] and [facility]'s swing bed program. CM will continue to provide support to patient, family and discharge planning needs.
--- NOTE | 2018-11-04 17:19 | PSYCO_ITS ---
Date of service: 11/04/18 Time of Service: 16:00 History of Present Illness Narrative: Events since initial consultation/last note: none Overnight events: incontinence Medications: bupropion XL 150mg daily started this morning Subjective: My foot hurts. Still feels unable to walk and is concerned that maybe she has a fracture. Wants to know the xray results. Mood: fine Can't tell any positive or negative effects of the bupropion. Feels a bit more energy today. Anxiety: not overwhelming anxiety but feeling disheartened about finding an appropriate rehab facility. She is letting her daughter make the choices around placement. REVIEW OF SYSTEMS: Constitutional: good energy today, +foot pain Musculoskeletal/neuro: as noted above Psych: see above MENTAL STATUS EXAM: Constitutional: awake and alert sitting up in the chair. Eager to engage, good eye contact. Attitude: cooperative Psychomotor: no retardation or agitation Speech: non-pressured, normal volume and prosody. No articulation problems noted. Associations: no looseness Thought process: linear, logical, goal directed Thought content without psychosis, delusions, obsessions No suicidal or homicidal ideations Hallucinations denied Mood: okay Affect: full, euthymic, calm Attention/Concentration: intact Judgment/insight: fair/poor-fair Oriented x 4 Language appropriate to age and education Fund of knowledge appropriate to age and education Memory intact to recent and remote events Other cognitive testing: none Assessment and Plan Assessment and plan (1) Depression: Status: Chronic Assessment and plan: Brunilda Herrera is a 73 year old female with past psychiatric history of depression who was brought to [facility] on 10/25/2018 by her [place] concerned for her increasing pain and weakness, and admitted for observation. The medical team, finding no acute medical condition but significant psychosocial stressors, requested psychiatric consultation to evaluate for depression and medication management. History and clinical exam are consistent with a diagnosed of depression unspecified. Whether a major depressive disorder or a long-standing adjustment disorder with depressive features is uncertain to me. She is tolerating the bu propion fine without adverse effects. Current dose should be continued for several weeks before deciding to increase, although an increase to 300mg daily will likely be helpful for her. Her energy appears a bit better today and foot pain seems to be her barrier to being more mobile and active. Recommendations: - continue fluoxetine 40mg daily - continue bupropion XL 150mg daily - continue to find rehab placement acceptable to patient and family. I will continue to be involved in her care and monitor response to medication while she is here at [facility]. [facility] Medical History Atrial fibrillation CHF (congestive heart failure) Dilated cardiomyopathy (Chronic) DM (diabetes mellitus) Morbid obesity due to excess calories (Chronic) Nuclear sclerotic cataract of left eye (Resolved) Nuclear sclerotic cataract of right eye (Resolved) Obesity CALDERON (obstructive sleep apnea) (Chronic) Paroxysmal atrial flutter (Chronic) Surgical History section Status post cataract extraction and insertion of intraocular lens of left eye (Chronic 01/03/18) Status post cataract extraction and insertion of intraocular lens of right eye (Chronic 12/20/17) Family History Father Heart disease Social History Smoking/Tobacco Use Status: Never Drug use: Never Household members: spouse Housing: house 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
[2018-11-04] MEDS: Gabapentin 300 MG CAP PO (21:46)
[2018-11-05] MEDS: Patch Removal 2 EACH TP (00:55)
[2018-11-05 07:44] LABS: INR 2.8 (0.9-1.1); Prothrombin Time 28.3 sec (9.3-11.0)
[2018-11-05 08:27] VITALS: BP 162/95; PULSE 81; RESP 14; TEMP 36.9; O2SAT 95
[2018-11-05] MEDS: Insulin Aspart 300 UNITS/3 ML PEN 10 UNITS SC ×3 (08:29→17:25)
[2018-11-05] MEDS: Insulin Aspart 300 UNITS/3 ML PEN SC ×3 (08:30→17:25)
[2018-11-05] MEDS: Magnesium Oxide 400 MG TAB PO ×2 (08:33→20:27)
[2018-11-05] MEDS: Bacitracin 1 PACKET TP ×3 (08:33→20:27)
[2018-11-05] MEDS: buPROPion-XL 150 MG TABCR PO (08:33)
[2018-11-05] MEDS: Carvedilol 25 MG TAB PO ×2 (08:33→20:27)
[2018-11-05] MEDS: Torsemide 20 MG TAB PO (08:33)
[2018-11-05] MEDS: FLUoxetine 20 MG CAP 40 MG PO (08:33)
[2018-11-05] MEDS: Allopurinol 100 MG TAB 200 MG PO (08:33)
[2018-11-05] MEDS: predniSONE 20 MG TAB PO ×2 (08:33→20:27)
[2018-11-05 10:09] VITALS: RESP 15
--- NOTE | 2018-11-05 11:43 | W.PM.PROGNOT ---
Date of Service Date of service: 11/05/18 Time of Service: 11:43 Assessment and Plan Assessment and plan (1) UTI (urinary tract infection): Start date: 11/05/18 Start time: 12:02 Status: Acute Assessment and plan: Symptoms resolved. Course of Keflex finished. (2) Weakness: Start date: 11/05/18 Start time: 12:03 Status: Acute Assessment and plan: -DVT ruled out via U/S. -2 view Left ankle XR obtained : Impression: There is generalized soft tissue swelling about the ankle. There is no evidence of an acute fracture or dislocation. Note is made of degenerative changes involving the tibial talar joint. There is a prominent calcaneal spur. Degenerative changes involving the proximal foot are identified. The left ankle XR is evident for arthritic changes without note of fracture or dislocation. Plan to schedule tylenol every 6 hours and restart home colchicine. -Rheumotology panel negative. -Encourage to work with PT. (3) Depression: Start date: 11/05/18 Start time: 12:17 Status: Chronic Assessment and plan: Started on Wellbutrin 150mg po daily per Dr. Shipley. Tolerating well. (4) Gout: Start date: 11/05/18 Start time: 12:17 Status: Acute Assessment and plan: Continue with allopurinol. Started on prednisone BID 11/03/18 for presumed flare. Left ankle XR was negative for fracture or dislocation. There is evidence of arthritic changes within the joint. Her home dose colchicine was stopped upon admission plan to restart today in hopes this will improve left ankle pain for presumed gout flare. (5) CALDERON (obstructive sleep apnea): Start date: 11/05/18 Start time: 12:24 Status: Chronic Assessment and plan: Compliant with bipap last night. Continue to encourage use. Would be beneficial to persue an outpatient sleep study. (6) Diabetes mellitus: Start date: 11/05/18 Start time: 12:25 Status: Acute Assessment and plan: Blood Glucose this morning 167. Steriods likely contributing to increased blood glucose levels. Continue with resistant sliding scale and 70/30 insulins. 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 If unable to get into rehab consider possible swing with PT/OT and psych until bed available. Subjective Subjective Patient reports: still having pain Interval history since last seen: Continues to complain of increased left ankle pain with standing 8/10. Unable to participate with physical therapy related to pain. Left medial malleolus tender with palpation, +2 edema, no erythema or warmth noted. Was compliant with her bipap use last night. Exam Const General: cooperative and no acute distress Nutritional Appearance: obese Orientation: alert, awake and oriented x3 HENMT Head: normal to inspection Eyes Pupils: PERRL EOM: EOM intact bilaterally Resp Effort & Inspection: normal respiratory effort and able to speak in complete sentences Auscultation: clear to auscultation bilaterally Cardio Jugular venous pressure: no JVD Rate: regular rate Rhythm: regular rhythm Heart Sounds: S1 normal and S2 normal Pulses: normal peripheral pulses GI Inspection: normal to inspection and obesity Palpation: soft Auscultation: normal bowel sounds General: deferred Skin General skin exam: no rashes or lesions noted Other: yeast like rash to left pannis area resolving Neuro General: alert, awake and oriented x3 Cognition: normal cognition Speech: speech normal Sensory Exam: no sensory deficits noted Extrem Left lower extremity: ankle (+2 edema medial aspect of malleolus, +tenderness, no erythema/warmth) Psych Appearance: grossly normal Mental Status: mental status grossly normal Speech and Movement: speech and movement normal Mood: congruent mood Affect: normal affect Attitude: cooperative Thought Process: normal Thought Content: normal Objective Objective Clinical Data: Abnormal lab results 11/05/18 Range/Units 07:10 PT 28.3 H (9.3-11.0) sec INR 2.8 H D (0.9-1.1) Vital Signs Temperature 36.9 C 11/05/18 08:27 Temperature Source Tympanic 11/05/18 08:27 Pulse 81 11/05/18 08:27 Pulse Rhythm Regular 11/04/18 19:55 Respiratory Rate 14 11/05/18 08:27 Respiratory Effort Non-Labored 11/04/18 19:55 Respiratory Depth Normal 11/04/18 19:55 Respiratory Pattern Normal 11/04/18 19:55 Blood Pressure 162/95 H 11/05/18 08:27 Blood Pressure Position Supine 10/27/18 14:13 Pulse Oximetry 95 11/05/18 08:27 Oxygen Delivery Method Room Air 11/05/18 08:27 Oxygen Flow Rate 0 11/05/18 08:27 Fraction of Inspired Oxygen (FIO2) 21 11/05/18 10:09 Pain Level 0 11/05/18 08:27 Comment 11/05/18 08:27 Intake & Output 11/04/18 11/04/18 11/05/18 11:59 23:59 11:59 Intake Total 840 / 1320 480 / 1320 560 / 560 Output Total 500 / 500 Balance 840 / 1320 480 / 1320 60 / 60 Weight 126.6 kg 127.1 kg Intake: Oral 840 / 1320 480 / 1320 560 / 560 Output: Urine 500 / 500 Other: Urine Color Pale Yellow Yellow Yellow Urine Appearance Clear Clear Urine Odor None Comment Unknown amount urine mixed with stool. Lg amount of urine on floor. Stool Size Large Stool Characteristics Soft Formed Brown Voiding Methods Diaper Bedside Commode Bedside Commode Incontinent Diaper Diaper Incontinent Laboratory Results WBC 6.85 k/cumm (4.4-10.8) 10/31/18 06:35 RBC 4.40 m/cumm (4.00-5.20) 10/31/18 06:35 Hgb 13.0 g/dL (12.0-15.5) 10/31/18 06:35 Hct 39.0 % (36.0-46.0) 10/31/18 06:35 MCV 88.6 fL (80-95) 10/31/18 06:35 MCH 29.5 pg (27.0-33.0) 10/31/18 06:35 MCHC 33.3 g/dL (32.0-36.0) 10/31/18 06:35 RDW 13.5 % (11.7-14.6) 10/31/18 06:35 Plt Count 180 x1000/uL (130-400) 10/31/18 06:35 MPV 11.6 fL (8.0-11.0) H 10/31/18 06:35 Immature Gran % 0.4 10/31/18 06:35 Neutrophils % 62.8 10/31/18 06:35 Lymphocytes % 25.1 10/31/18 06:35 Monocytes % 7.3 10/31/18 06:35 Eosinophils % 4.1 10/31/18 06:35 Basophils % 0.3 10/31/18 06:35 Absolute Neutrophils 4.30 k/cumm (1.2-6.7) 10/31/18 06:35 Absolute Lymphocytes 1.72 k/cumm (1.2-3.4) 10/31/18 06:35 Absolute Monocytes 0.50 k/cumm (0.11-0.7) 10/31/18 06:35 Absolute Eosinophils 0.28 k/cumm (0.0-0.7) 10/31/18 06:35 Absolute Basophils 0.02 k/cumm (0.0-0.2) 10/31/18 06:35 ESR 35 mm/hr (0-30) H 10/28/18 16:15 PT 28.3 sec (9.3-11.0) H 11/05/18 07:10 INR 2.8 (0.9-1.1) H D 11/05/18 07:10 APTT 30.5 sec (21.0-31.4) 10/27/18 15:10 Sodium 141 mmol/L (136-145) 11/03/18 06:35 Potassium 3.8 mmol/L (3.5-5.1) 11/03/18 06:35 Chloride 106 mmol/L (98-107) 11/03/18 06:35 Carbon Dioxide 27.1 mmol/L (21.0-32.0) 11/03/18 06:35 Anion Gap 7.9 mmol/L (3-11) 11/03/18 06:35 BUN 34 mg/dL (7-18) H 11/03/18 06:35 Creatinine 1.04 mg/dL (0.55-1.02) H 11/03/18 06:35 Estimated GFR/1.73 m2 52.24 (mL/min/1.73m2) 11/03/18 06:35 Glucose 137 mg/dL (70-100) H D 11/03/18 06:35 Uric Acid 11.0 mg/dL (2.6-6.0) H 10/29/18 06:45 Calcium 8.6 mg/dL (8.5-10.1) 11/03/18 06:35 Magnesium 1.9 mg/dL (1.8-2.4) 11/03/18 06:35 Total Bilirubin 0.7 mg/dL (0.2-1.0) 10/28/18 06:16 AST 22 U/L (15-37) 10/28/18 06:16 ALT 21 U/L (14-59) 10/28/18 06:16 Alkaline Phosphatase 86 U/L (46-116) 10/28/18 06:16 Troponin I < 0.05 ng/mL (0.00-0.06) 10/27/18 15:10 C-Reactive Protein 3.63 mg/dL (0.0-0.3) H 10/28/18 16:15 NT-Pro-B Natriuret Pep 305 pg/mL (-299) H 10/27/18 15:10 Total Protein 6.3 g/dL (6.4-8.2) L 10/28/18 06:16 Albumin 2.4 g/dL (3.4-5.0) L 10/28/18 06:16 Urine Color Yellow (Yellow) 10/31/18 10:30 Urine Clarity Clear (Clear) 10/31/18 10:30 Urine pH 6.5 (5-8) 10/31/18 10:30 Ur Specific Greenleaf 1.015 (1.005-1.025) 10/31/18 10:30 Urine Protein Negative mg/dL (Negative) 10/31/18 10:30 Urine Ketones Negative mg/dL (Negative) 10/31/18 10:30 Urine Blood Trace-intact (Negative) H 10/31/18 10:30 Urine Nitrite Positive (Negative) H 10/31/18 10:30 Urine Bilirubin Negative (Negative) 10/31/18 10:30 Urine Urobilinogen 0.2 EU/dL (Up TO 0.2) 10/31/18 10:30 Ur Leukocyte Esterase Small (Negative) H 10/31/18 10:30 Urine RBC 0-2 (0-2) 10/31/18 10:30 Urine WBC 10-20 HPF (0-5) 10/31/18 10:30 Ur Epithelial Cells Few HPF (Negative) 10/31/18 10:30 Urine Crystals Negative HPF (Negative) 10/31/18 10:30 Urine Bacteria Many HPF (Negative) 10/31/18 10:30 Urine Casts Negative LPF (Negative) 10/31/18 10:30 Urine Mucus Trace (Negative) 10/31/18 10:30 Ur Culture Indicated? Yes 10/31/18 10:30 Urine Glucose Negative mg/dL (Negative) 10/31/18 10:30 KOLE Titer Not Applicable 10/29/18 06:45 KOLE Titer 2 Not Applicable 10/29/18 06:45 KOLE Titer 3 Not Applicable 10/29/18 06:45 KOLE Interpretation Negative (NEGAT) 10/29/18 06:45 A.phagocytophil DNA PCR Negative (Negative) 10/29/18 06:45 B. divergens/MO-1 PCR Negative (Negative) 10/29/18 06:45 Babesia duncani (PCR) Negative (Negative) 10/29/18 06:45 Babesia microti DNA PCR Negative (Negative) 10/29/18 06:45 Borrelia (PCR) Negative (Negative) 10/29/18 06:45 Lyme Disease Antibody Negative 10/29/18 06:45 E.chaffeensis DNA (PCR) Negative (Negative) 10/29/18 06:45 E.ewingii/canis DNA PCR Negative (Negative) 10/29/18 06:45 E. muris-like DNA (PCR) Negative (Negative) 10/29/18 06:45 11/04/18 Left 2V ankle XR - FINDINGS: There is generalized soft tissue swelling about the ankle. There is no evidence of an acute fracture or dislocation. Note is made of degenerative changes involving the tibial talar joint. There is a prominent calcaneal spur. Degenerative changes involving the proximal foot are identified. 11/03/18 a US:US lower extremity venous LT SYMPTOM/DIAGNOSIS: ACUTE PAIN LLE DUPLEX VENOUS ULTRASOUND LEFT LOWER EXTREMITY: There is no evidence of DVT, superficial thrombophlebitis or a Cleveland's cyst. Note is made of edema involving the calf and left foot.
--- NOTE | 2018-11-05 11:45 | W.INDIABCONS ---
Date of service: 11/05/18 Time of Service: 11:45 Diabetes Inpatient Consult DESCRIPTION/ASSESSMENT: Appreciate diabetes consult for Brunilda Herrera who is hospitalized with weakness and how difficulty with her foot making ambulation impossible at this time. Brunilda is well known from outpatient diabetes program. A1c 7.1 BMI 43 Blood sugars here 153 fasting prior to initiation of Prednisone 20mg, as high as 444 at noon. She is prescribed Upxkseu54/30 AM 50u and PM 25u in addition to 10u Novolog with meals and resistant insulin correction yesterday totaling 78 extra units. At home she receives Novolin 70/30 50units with breakfast and supper. Visited with Brunilda regarding self management at home. She is well informed regarding food choices. She attempts to walk at home but stairs have been difficult. She is frustrated that there is no explanation for what is wrong with her foot. A1c at goal. She is scheduled to go to Rehab tomorrow. INTERVENTION: Blood sugars have been elevated secondary to lower evening Novolin 70/30 dose as well as prednisone administration despite additional Novolog. Discussed increase in Novolin 70/30 in morning to further address steroid induced hyperglycemia by 10% suggesting Lngmniq23/30 at 55units. Fasting blood sugar is not at goal of 140mg/dl and suggest increase in Eoibkhw22/30 to 30units at supper. PLAN: Suggest increase by 5 units of Novolin 70/30 AM and PM Brunilda will follow up as outpatient as desired. Time Spent in Nutritional Counseling and Treatment: 25 minutes face to face in 2 visits
[2018-11-05] MEDS: Colchicine 0.6 MG TAB 1.2 MG PO (11:57)
--- NOTE | 2018-11-05 12:21 | PT.INTREAT ---
Date of service: 11/05/18 Time of Service: 08:34 PT Notes Inpatient Physical Therapy Treatment Note [facility] Date: 11/05/2018 PRECAUTIONS: Standard. Falls. SUBJECTIVE: Patient reports 0/10 pain at rest, but unbearable, 9.5/10 pain when standing and during ambulation. She expresses frustration due to not knowing what is causing her pain. She states she is losing her voice, and points out bruising from where her IV was. 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 She reports she is content in her chair, but agrees to physical therapy treatment regardless. OBJECTIVE: Patient is seen seated in chair with slipper socks on bilateral LE. PAIN: 0/10 at rest. 9.5/10 when standing and during ambulation. BED MOBILITY/TRANSFERS Rolling L/R: Minimal assist Supine-sit: Minimal assist Sit-supine: Minimal assist Sit-stand: Minimal assist of 2 Stand-sit: Minimal assist of 2 Bed-Chair: Minimal assist of 2 Chair-bed: Minimal assist of 2 GAIT Assistive Device: FWW Weight bearing: WBAT Assist: Moderate assist of 2 Distance: two steps Deviation: decreased step length and tomas and gait speed ASSESSMENT: Patient is a 73 year old female who is admitted with ischemic cardiomyopathy and dizziness. She has been unable to ambulate in the last six days, but did take two steps forwards and backwards today. While she has a and daughter to support her at home, she still seems severely stressed, and appears to have some psychosocial factors contributing to pain. Her prognosis is poor. She is lacking motivation significantly. She is also severely deconditioned. She is no longer showing signs and symptoms consistent with her current admitting diagnoses. PLAN: Discharge to SNF for continued PT for strengthening and ambulation training. TREATMENT CODE/TIME: 16660 x 31 minutes beginning at 8:34 AM. Jorge Morales [facility]
[2018-11-05] MEDS: Lidocaine 5% Patch 2 PATCH TP (13:03)
--- NOTE | 2018-11-05 13:17 | PT.INTREAT ---
Date of service: 11/05/18 Time of Service: 13:17 PT Notes Inpatient Physical Therapy Treatment Note [facility] Date: 11/05/18 PRECAUTIONS:Fall, WBAT L SUBJECTIVE: Brunilda states that she is discouraged that she does not have a diagnosis for her problems yet, stating that she has been here for 10 days. She reports that she has continued significant pain in her L ankle with weight bearing, and that she feels dizzy when she stands up. OBJECTIVE: Patient does not display any outward symptoms of significant pain while performing weight bearing activities PAIN: Patient c/o significant L ankle pain with weight bearing activities BED MOBILITY/TRANSFERS Sit-stand: Mod A Stand-sit: Min A GAIT Assistive Device: FWW Weight bearing: WBAT L Assist: CGA x2 Distance: 3 side steps to R + 3 sides backward Deviation: C/o increased ankle pain THEREX: Patient completed a resisted LE strengthening program, in a seated position, using 2.5# ankle weights, as per flow sheet. ASSESSMENT: Patient tolerated session with complaints of increased left ankle pain with weight bearing activities. She was able to tolerate the addition of 2.5#ankle weights to her strengthening program today, without a problem. She would benefit from continued gait and transfer training as well as strengthening for improved mobility and improved activity tolerance. PLAN: Continue with PTs POC TREATMENT CODE/TIME: 15 minutes; [id number]
[2018-11-05 15:05] VITALS: BP 113/71; PULSE 60; RESP 18; TEMP 36.5; O2SAT 95
--- NOTE | 2018-11-05 15:16 | PDOC.CMPRO ---
- If Service Date Differs Date of service: 11/05/18 Time of Service: 15:16 Care Management Progress Note S/O:Brunilda was sitting up in a chair when CM visited with her. She stated that she is discouraged that she still has pain in her left ankle and that no cause has been identified. She was minimally participative with PT, taking only a couple of steps. She did not appear to be very pleased with the news that she has been accepted for placement at [facility] and will most likely leave tomorrow. The planned transfer was discussed with Chelita, her daughter. A: Brunilda is a 73 year old woman admitted to [facility] on 10/27/18 with weakness and dizziness. P: Brunilda has been accepted at [facility] and will likely be transferred there tomorrow. She will transport via [facility] wheelchair van, arranged by CM. CM will continue to provide support to patient, family and discharge planning needs.
[2018-11-05 20:20] VITALS: O2SAT 97
[2018-11-05] MEDS: Colchicine 0.6 MG TAB PO (20:27)
[2018-11-05] MEDS: Gabapentin 300 MG CAP PO (22:48)
[2018-11-06] VITALS: BP 149/77; PULSE 60; RESP 19; TEMP 36.6; O2SAT 96
[2018-11-06] MEDS: Patch Removal 2 EACH TP (00:15)
--- NOTE | 2018-11-06 04:00 | PT.INPN ---
Date of service: 11/05/18 PT Notes Inpatient Physical Therapy Progress Note Date: 11/05/2018 Dates of Service: 10/29/2018 through 11/05/2018 Date: 11/05/18 Referring Doctor: Karlos Barros MD PT Orders: PT CONSULT: Weakness, joint ache, joints lock Precautions: Fall. Standard. Activity as tolerated. Patient Profile/Admitting Diagnosis: Patient is a 73-year-old female with past medical history significant for atrial fibrillation and congestive heart failure who presented to the ED on 10/27/2018 with chief complaints of dizziness, fatigue, joint pain, weakness, urinary incontinence, and pain on both hands and feet. CT of the head revealed no acute intracranial abnormality. Patient is diagnosed with dilated cardiomyopathy, weakness, diet mellitus, dizziness, and gout. Subjective:Patient reports 0/10 pain at rest, but unbearable 9.5/10 pain when standing and during ambulation. She expresses frustration due to not knowing what is causing her pain. She states she is losing her voice, and points out bruising from where her IV was. 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 She reports she is content in her chair, but agrees to physical therapy treatment regardless. Objective: General Observation: Patient seen sitting on chaor upon arrival of student PT and PT. Patient is seen seated in chair with slipper socks on bilateral LE. UPon inspection, swelling on L ankle more pronounced than on the R ankle but with no increased in warmth. Small circumscribed area of erythema seen on medial arch of foot. Rash seen on R elbow and distal arm/proximal forearm. here is also a patchy area of redness and irritation on her right distal forearm which appears to have been previously scratched. Mental Status: Alert and oriented as to person, place, time, and purpose Pain: 0/10 at rest. 9.5/10 when standing and during ambulation. ROM: Right Upper Extremity: Shoulder Flexion WFL. Shoulder abduction WFL. Elbow flexion WFL. Wrist flexion WFL. Functional opening and closing of hand WFL. Left Upper Extremity: Shoulder Flexion WFL. Shoulder abduction WFL. Elbow flexion WFL. Wrist flexion WFL. Functional opening and closing of hand WFL. Right Lower Extremity: Hip flexion WFL. Hip abduction WFL. Knee flexion WFL. Ankle dorsiflexion WFL. Ankle plantarflexion WFL. Left Lower Extremity: Hip flexion WFL. Hip abduction WFL. Knee flexion WFL. Ankle dorsiflexion WFL. Ankle plantarflexion WFL. Strength: Right Upper Extremity: Shoulder flexors 4/5. Shoulder abductors 4/5. Elbow flexors 4/5. Elbow extensors 4/5. Health Care Facilities Inspector strong. Left Upper Extremity: Shoulder flexors 4/5. Shoulder abductors 4/5. Elbow flexors 4/5. Elbow extensors 4/5. Health Care Facilities Inspector strong. Right Lower Extremity: Hip flexors 3+/5. Hip abductors 3/5. Knee flexors 4-/5. Knee extensors 4/5. Ankle dorsiflexors 4-/5. Ankle plantarflexors 4-/5. Left Lower Extremity:Hip flexors 3+/5. Hip abductors 3/5. Knee flexors 4-/5. Knee extensors 4/5. Ankle dorsiflexors 3/5. Ankle plantarflexors 3/5. Sensation: Intact as to pain and pressure on bilateral lower extremities. BED MOBILITY/TRANSFERS Rolling L/R: Minimal assist Supine-sit: Minimal assist Sit-supine: Minimal assist Sit-stand: Minimal assist of 2 Stand-sit: Minimal assist of 2 Bed-Chair: Minimal assist of 2 Chair-bed: Minimal assist of 2 GAIT Assistive Device: FWW Weight bearing: WBAT Assist: Moderate assist of 2 Distance: two steps Deviation: decreased step length and tomas and gait speed Balance: Static Sitting: Normal Dynamic Sitting: Good Static Standing: Poor Dynamic Standing: Poor Assessment: X-ray of the left ankle and foot is negative for fracture/dislocation. It did reveal a calcaneal spur as well as degenerative changes to the tibiotalar joint. Swelling and tenderness of ankle joint increased with lateral malleolar area more swollen/tender than medial. Joint and feet normothermic. A small circumscribed area of erythema is noted on the medial aspect of left foot. Patient is a 73-year-old female diagnosed with new onset weakness related to dilated cardiomyopathy diabetes mellitus dizziness and gout. She has been unable to ambulate in the last six days, but did take two steps forwards and backwards today. While she has a and daughter to support her at home, she still seems severely stressed, and appears to have some psychosocial factors contributing to pain. Her prognosis is poor. She is lacking motivation significantly. She is also severely deconditioned. She is no longer showing signs and symptoms consistent with her current admitting diagnoses. Patient cotinues to present with clinical signs and symptoms consistent with current/admitting diagnoses that have resulted to mobility limitations, gait instability, generalized weakness, and impairment of motor control as demonstrated by the following impairment level findings: 1. Decreased strength to B LE major muscle groups 2. Impaired sitting/standing balance 3. Impaired activity tolerance Impairments are contributing to the following functional limitations: 1. Dependent bed mobility skills 2. Increased dependence with transfers 3. Inability to safely ambulate without assistive device and physical assistance 4. Increase completion time for mobility ADL performance 5. Increased fall risk 6. Inability to negotiate steps alone safely Patient is assessed as a 54583 moderate complexity based on the following: History: Patient diagnosed with exacerbation of depression. Patient is a 73-year-old female diagnosed with new onset weakness related relatable to dilated cardiomyopathy diabetes mellitus dizziness and gout. Examination: Demonstrable impairment in strength, balance, and range of motion with underlying impairments and functional limitations as documented above Presentation:Evolving Decision Makin moderate complexity Goals: Goals X1 week 1. Supine-Sit independent NOT MET. Downgrade goal to minimal assist 2. Sit-Supine independent NOT MET. Downgrade goal to minimal assist 3. Sit-Stand independent NOT MET. Downgrade goal to minimal assist 4. Stand-Sit independent NOT MET. Downgrade goal to minimal assist 5. Bed-Chair independent NOT MET. Downgrade goal to minimal assist 6. Chair-Bed independent NOT MET. Downgrade goal to minimal assist 7. Independent gait on level surface with use of least restrictive device for at least 200 feet without report of pain nor dyspnea NOT MET. Downgrade goal to minimal assist 8. Independent stair negotiation while holding onto bilateral rails for at least 14 steps without report of pain nor dyspnea NOT MET. Downgrade goal to minimal assist 9. Independent with home exercise program NOT MET. Downgrade goal to minimal assist 10. Good static and dynamic standing balance/tolerance NOT MET. Downgrade goal to minimal assist Plan of Care/Treatment Plan: 1-2x/day, 7 days/week x 1 week. Plan of care has been reviewed with the CANOE INSPECTOR FINAL providing the service under Physical Therapy direction. Initiate Physical Therapy intervention for strengthening, bed mobility, transfers, gait, stairs, balance training, use of assistive device. DISCHARGE RECOMMENDATIONS: Patient will benefit from [facility] facility placement in order to progress mobility level, strength, and balance in preparation for a safe discharge to home potentially. TREATMENT CODE/TIME: 81321 x 31 minutes beginning at 8:34 AM. America Bey, PT, DPT, CLT [facility]
[2018-11-06 06:57] LABS: Abs Immature Grans 0.02 k/cumm (0.0-0.09); Absolute Basophil Count 0.01 k/cumm (0.0-0.2); Absolute Eosinophil Count 0.01 k/cumm (0.0-0.7); Absolute Lymphocyte Count 1.15 k/cumm (1.2-3.4); Absolute Monocyte Count 0.49 k/cumm (0.11-0.7); Absolute Neutrophil Count 9.12 k/cumm (1.2-6.7); Basophils % 0.1; Eosinophils % 0.1; HGB 12.7 g/dL (12.0-15.5); Immature Grans % 0.2; Lymphocytes % 10.6; Mean Corp. HGB Concentration 33.4 g/dL (32.0-36.0); Mean Corpuscular Hemoglobin 29.3 pg (27.0-33.0); Mean Corpuscular Volume 87.6 fL (80-95); Mean Platelet Volume 11.3 fL (8.0-11.0); Monocytes % 4.5; Neutrophils % 84.5; Platelet Count 236 x1000/uL (130-400); RBC 4.34 m/cumm (4.00-5.20); RBC Distribution Width 13.2 % (11.7-14.6)
[2018-11-06 07:04] LABS: Prothrombin Time 20.2 sec (9.3-11.0)
[2018-11-06 07:09] LABS: Anion Gap 9.1 mmol/L (3-11); BUN 38 mg/dL (7-18); CO2 25.9 mmol/L (21.0-32.0); CREATININE 1.02 mg/dL (0.55-1.02); Calcium 8.7 mg/dL (8.5-10.1); Chloride 105 mmol/L (98-107); Estimated GFR 53.42 (mL/min/1.73m2); Glucose 241 mg/dL (70-100); Potassium 4.4 mmol/L (3.5-5.1); Sodium 140 mmol/L (136-145)
[2018-11-06 07:37] VITALS: BP 114/78; PULSE 60; RESP 19; TEMP 36.6; O2SAT 97
[2018-11-06] MEDS: Insulin Aspart 300 UNITS/3 ML PEN 10 UNITS SC ×2 (07:50→10:56)
[2018-11-06] MEDS: Insulin Aspart 300 UNITS/3 ML PEN SC ×2 (07:51→10:57)
[2018-11-06 08:00] VITALS: RESP 15
--- NOTE | 2018-11-06 09:09 | W.PM.DS.N ---
Date of service: 11/06/18 Time of Service: 09: DS: Diagnosis Discharge Diagnosis (1) UTI (urinary tract infection): Start date: 11/06/18 Start time: 09:09 Status: Acute Asessment and Plan: Resolved (2) Weakness: Start date: 11/06/18 Start time: 09:09 Status: Acute Asessment and Plan: Psychosomatic rheum panel negative. Psych evaluated and started on buproprion 150 mg daily. Will be transferred to [place] facility (3) Depression: Start date: 11/06/18 Start time: 09:10 Status: Chronic Asessment and Plan: See above. (4) Gout: Start date: 11/06/18 Start time: 09:10 Status: Acute Asessment and Plan: Short course prednisone to taper over the week. Colchicine restarted, initially held for poor renal function. (5) CALDERON (obstructive sleep apnea): Status: Chronic (6) Diabetes mellitus: Start date: 11/06/18 Start time: 09:11 Status: Acute Asessment and Plan: Multiple hypoglycemic events upon admission. Changed to 40 BID, monitor as outpatient and change as needed. (7) Rash: Status: Acute (8) Discharge planning issues: Status: Acute Discharge Plan Disposition Patient Disposition: SKILLED NSG. FAC.(LEVEL 1) Condition: Good Discharge Details Chief Complaint: GenMedical Clinical Impression: Dizziness, Fatigue, Joint pain Reason For Visit: DIZZINESS,WEAKNESS Admit Date/Time: 10/28/18 17:07 Admit Provider: Karlos Barros Attending Provider: Karlos Barros Primary Care Provider: Alsysa Turcios ED Provider: Margarita Low Hospital Course Hospital Course: Mrs. Herrera is a 73 y.o female with PMH Gout, Diabetes insulin dependent, CALDERON with Bipap, ICD placement and Afib; admitted from [facility] on 10/27 with weakness. Rheum panel during admission was negative. Lyme panel negative. Urine was negative for nitrates and leukocyte estrase on admission. Heat CT and CXR no acute abnormality. NGA found on admission resolved. On 10/31 c/o increased urination and frequency repeat U/A found positive nitrates and leukocyte esterase, culture grew E. coli greater than 100,00, finished a 3 day course of keflex with symptom resolution. There was a psychosomatic component to patients physical limitations. Psych evaluated her and started her on buproprion. Also c/o left ankle pain x several days while admitted causing her to not participate in activities with PT. Xrays revealed no fracture or dislocation. Soft tissue swelling. With history of gout started on steroid taper and colchicine. Hypoglycemic events occurred in the evening upon admission, causing a decrease in insulin to 50 units in the am and slowly increased to 25 units in am. Will start 40 units insulin BID with outpatient monitoring. She is being discharged to [facility] for rehabilitation and psychiatric evaluation. She denies CP, N/V/D, SOB. Ankle pain is resolving. INR will need to be followed. Repeat INR in 3 days. Psych to follow up with buproprion dosing and effectiveness. Manage insulin and increase to 50 units BID as needed. Home Meds and New Rx's Prescriptions: New prednisone 20 mg Tablet 20 mg PO BID Qty: 5 RF: 0 allopurinol 100 mg Tablet 200 mg PO DAILY 60 Days Qty: 120 RF: 0 bupropion HCl 150 mg Tablet Extended Release 24 Hr 150 mg PO QAM Qty: 30 RF: 0 Humulin 70/30 U-100 KwikPen 100 unit/mL (70-30) Insulin Pen 50 unit subcut BID Qty: 40 RF: 0 Continued colchicine 0.6 mg tablet 0.6 mg PO BID RF: 0 omega-3 fatty acids 1,000 MG capsule 1,000 mg PO BID RF: 0 nitroglycerin [Nitrostat] 0.4 MG tablet, sublingual 0.4 mg Sublingual ONCE PRNRF: 0 BI PAP RF: 0 torsemide 20 MG tablet 40 mg PO DAILY RF: 0 carvedilol 25 mg tablet 25 mg PO BID Qty: 180 RF: 4 fluoxetine 40 MG capsule 40 mg PO DAILY AM RF: 0 Ocuvite Adult 50 Plus 250-5-1 mg Capsule 1 cap PO HS RF: 0 gabapentin 300 mg Capsule 600 mg PO HS RF: 0 magnesium oxide 400 MG capsule 400 mg PO BID RF: 0 Novolog Flexpen U-100 Insulin 300 UNITS/3 ML insulin pen 10 units Sub-Q 0800,1200,1700 RF: 0 losartan 25 mg Tablet 25 mg PO HS RF: 0 celecoxib 100 mg Capsule 100 mg PO BID RF: 0 warfarin 5 mg Tablet 5 mg PO DAILY RF: 0 cholecalciferol (vitamin D3) 50,000 unit Capsule 50,000 unit PO QWEEK RF: 0 Discontinued Novolog Flexpen U-100 Insulin 300 UNITS/3 ML insulin pen 0 units Sub-Q 0800,1200,1700 RF: 0 Novolin 70/30 U-100 Insulin 100 UNIT/ML suspension 50 unit Sub-Q BID RF: 0 Discharge Instructions Instructions: Urinary Incontinence (GEN), Urinary Tract Infection in Women (GEN), Weakness (GEN) Additional Instructions: Follow up with psychiatry. Repeat blood work in 3 days. Monitor blood glucose levels. Continue ADA diet with low carb count Continue PT. Stand Alone Forms: Nursing Discharge Form Referrals: Alyssa Turcios [Primary Care Provider] - 11/05/18 9:50 am Activity:: Activity as Tolerated Equipment/Supplies:: No Equipment Needed Diet:: Carb Counting Discharge Orders Discharge Orders: Discharge Order (Routine); Ordered 11/06/18 Ordered By: Netta Das Other Ambulatory Orders: Prothrombin Time (Routine) Location: None Selected Ordered By: Netta Das DS: Summary Status at Discharge Functional status at discharge: uses cane/walker Overall status at discharge: patient is not back to baseline Mental Status: mental status grossly normal Speech and Movement: speech and movement normal Mood: congruent mood Affect: normal affect Exam Const General: cooperative, healthy appearing, comfortable and no acute distress Neck Neck: normal visual inspection Lymphatic: no lymphadenopathy noted and no lymphedema noted Resp Effort & Inspection: normal respiratory effort Auscultation: clear to auscultation bilaterally Cardio Jugular venous pressure: no JVD Rate: regular rate Rhythm: regular rhythm Heart Sounds: S1 normal and S2 normal GI Inspection: normal to inspection Auscultation: normal bowel sounds Skin General skin exam: no rashes or lesions noted Lesions: no lesions Rashes: no rashes Wounds: no wounds Neuro General: alert, awake and oriented x3 Extrem General: full ROM Right upper extremity: full ROM Left upper extremity: full ROM Right lower extremity: full ROM Left lower extremity: full ROM Psych Mental Status: mental status grossly normal Speech and Movement: speech and movement normal Mood: congruent mood Affect: normal affect DS: Data Vitals/I&O Vitals and I&O: Vital Signs Temperature 36.6 C 11/06/18 07:37 Temperature Source Tympanic 11/06/18 07:37 Pulse 60 11/06/18 07:37 Pulse Rhythm Regular 11/06/18 02:25 Respiratory Rate 19 11/06/18 07:37 Respiratory Effort Non-Labored 11/06/18 02:25 Respiratory Depth Normal 11/06/18 02:25 Respiratory Pattern Normal 11/06/18 02:25 Blood Pressure 114/78 11/06/18 07:37 Blood Pressure Position Supine 10/27/18 14:13 Pulse Oximetry 97 11/06/18 07:37 Oxygen Delivery Method Room Air 11/06/18 07:37 Oxygen Flow Rate 0 11/06/18 07:37 Fraction of Inspired Oxygen (FIO2) 21 11/05/18 10:09 Pain Level 5 11/06/18 07:37 Comment 11/05/18 08:27 Intake & Output 11/05/18 11/05/18 11/06/18 11:59 23:59 11:59 Intake Total 560 / 1280 720 / 1280 Output Total 500 / 1300 800 / 1300 Balance 60 / -20 -80 / -20 Weight 127.1 kg 127.8 kg Intake: Oral 560 / 1280 720 / 1280 Output: Urine 500 / 1300 800 / 1300 Other: Urine Color Yellow Yellow Yellow Urine Appearance Clear Clear Urine Odor Strong Comment Lg amount of urine on floor. Voiding Methods Bedside Commode Diaper Diaper Diaper Incontinent Incontinent Incontinent Data Completed and Pending Completed studies during hospitalization [Text1]: a RAD:XR chest 2V PA & lateral SYMPTOMS/DIAGNOSIS: DIZZINESS, WEAKNESS, ? ACUTE DISEASE PA AND LATERAL CHEST: Cardiac size is within normal limits. There is a transvenous cardiac pacemaker in position. The lungs are clear. No pleural effusions seen. CONCLUSION: No evidence of acute process. Exam(s) a CT:CT head wo SYMPTOM/DIAGNOSIS: DIZZINESS, URINARY INCONTINENCE, R/O ACUTE DISEASE CRANIAL CT: 10/[address] was performed. There is marked generalized cerebral atrophy. No evidence of acute intracranial hemorrhage, mass effect or midline shift. Orbital and temporal bone structures appear intact. Mastoid air cells and paranasal sinuses are generally clear with minimal right maxillary and ethmoid mucoperiosteal thickening. CONCLUSION: No evidence of acute intracranial process. Exam(s) EXAM: CT Head Without Contrast EXAM DATE/TIME: 10/27/2018 4:40 PM CLINICAL HISTORY: 73 years old, female; Patient HX: Dizziness, urinary incontinence; Additional info: R/O acute disease TECHNIQUE: Imaging protocol: Computed tomography of the head without contrast. COMPARISON: No relevant prior studies available. FINDINGS: Brain: There is no acute intracranial hemorrhage, mass effect or midline shift. No large acute territorial infarct identified. There are patchy regions of hypodensity in the periventricular and subcortical white matter, likely on the basis of chronic microvascular ischemic disease. Ventricles: The ventricles and sulci are prominent in size, which is likely related to global cerebral volume loss. Bones/joints: Unremarkable. No acute fracture. Sinuses: Visualized sinuses are grossly unremarkable. No fluid levels. Mastoid air cells: Visualized mastoid air cells are well aerated. Soft tissues: Unremarkable. IMPRESSION: No acute intracranial abnormality. Exam(s) a US:US lower extremity venous LT SYMPTOM/DIAGNOSIS: ACUTE PAIN LLE DUPLEX VENOUS ULTRASOUND LEFT LOWER EXTREMITY: There is no evidence of DVT, superficial thrombophlebitis or a Cleveland's cyst. Note is made of edema involving the calf and left foot. Exam(s) a RAD:XR ankle LT 2V INDICATION: pain and swelling COMPARISON: TECHNIQUE: 2D digital imaging was performed. FINDINGS: There is generalized soft tissue swelling about the ankle. There is no evidence of an acute fracture or dislocation. Note is made of degenerative changes involving the tibial talar joint. There is a prominent calcaneal spur. Degenerative changes involving the proximal foot are identified. IMPRESSION: Labs on day of discharge: Labs from last 24 hours 11/06/18 11/06/18 11/06/18 06:20 06:20 06:20 WBC 10.80 RBC 4.34 Hgb 12.7 Hct 38.0 MCV 87.6 MCH 29.3 MCHC 33.4 RDW 13.2 Plt Count 236 MPV 11.3 H Immature Gran % 0.2 Neutrophils % 84.5 Lymphocytes % 10.6 Monocytes % 4.5 Eosinophils % 0.1 Basophils % 0.1 Absolute Neutrophils 9.12 H Absolute Lymphocytes 1.15 L Absolute Monocytes 0.49 Absolute Eosinophils 0.01 Absolute Basophils 0.01 PT 20.2 H D INR 2.0 H D Sodium 140 Potassium 4.4 Chloride 105 Carbon Dioxide 25.9 Anion Gap 9.1 BUN 38 H Creatinine 1.02 Estimated GFR/1.73 m2 53.42 Glucose 241 H D Calcium 8.7 Magnesium 2.0 PFSH Medical History Atrial fibrillation CHF (congestive heart failure) Dilated cardiomyopathy (Chronic) DM (diabetes mellitus) Morbid obesity due to excess calories (Chronic) Nuclear sclerotic cataract of left eye (Resolved) Nuclear sclerotic cataract of right eye (Resolved) Obesity CALDERON (obstructive sleep apnea) (Chronic) Paroxysmal atrial flutter (Chronic) Surgical History section Status post cataract extraction and insertion of intraocular lens of left eye (Chronic 01/03/18) Status post cataract extraction and insertion of intraocular lens of right eye (Chronic 12/20/17) Family History Father Heart disease Social History Smoking/Tobacco Use Status: Never Drug use: Never Household members: spouse Housing: house 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
[2018-11-06] MEDS: Magnesium Oxide 400 MG TAB PO (09:16)
[2018-11-06] MEDS: Allopurinol 100 MG TAB 200 MG PO (09:16)
[2018-11-06] MEDS: Carvedilol 25 MG TAB PO (09:16)
[2018-11-06] MEDS: FLUoxetine 20 MG CAP 40 MG PO (09:16)
[2018-11-06] MEDS: buPROPion-XL 150 MG TABCR PO (09:16)
[2018-11-06] MEDS: Colchicine 0.6 MG TAB PO (09:16)
[2018-11-06] MEDS: Bacitracin 1 PACKET TP (09:16)
[2018-11-06] MEDS: Torsemide 20 MG TAB PO (09:16)
[2018-11-06] MEDS: predniSONE 20 MG TAB PO (09:18)
--- NOTE | 2018-11-06 12:57 | CMDISCH_ITS ---
- If Service Date Differs Date of service: 11/06/18 Time of Service: 12:57 LACE Index Scoring Tool - Questions: Length of Stay (in days): 7 - 13 Acuity (Admit via E.D.?): Yes Comorbidities: Diabetes w/o Complication E.D. Visits: 3 - Answers: Total Score: 12 Risk of Readmission: High Risk Care Management Discharge Reason for Hospitalization: Dizziness Discharge Plan: Brunilda is being discharged to [facility]. CM reviewed discharged plan with the patient and the admission nurse at facility. CM arranged transportation through [facility] for 1120 to [place]. Brunilda states she is ready for discharge to the facility and that she ready to start focusing on herself. Patient/Family Education Needs: Discharge instructions, limitations and follow up plan of care. Services Needed at Discharge: Group Home Facility, Transportation
--- NOTE | 2018-11-07 11:11 | INDS_ITS ---
Date of service: 11/07/18 PT Notes Inpatient Physical Therapy Discharge Summary Dates: 11/07/2018 Dates of Service: 10/28/2018 through 11/05/2018 This is a clinical summary of care provided on the duration of dates listed above. No charge was made in the completion of this documentation. Referring Doctor: Karlos Barros MD PT Orders: PT CONSULT: Weakness, joint ache, joints lock Precautions: Fall. Standard. Activity as tolerated. Patient Profile/Admitting Diagnosis: Patient is a 73-year-old female with past medical history significant for atrial fibrillation and congestive heart failure who presented to the ED on 10/27/2018 with chief complaints of dizziness, fatigue, joint pain, weakness, urinary incontinence, and pain on both hands and feet. CT of the head revealed no acute intracranial abnormality. Patient is diagnosed with dilated cardiomyopathy, weakness, diet mellitus, dizziness, and gout. PMHX: Medical History (Updated 10/27/18 @ 20:57 by Karlos Barros MD) Atrial fibrillation CHF (congestive heart failure) Dilated cardiomyopathy (Chronic) DM (diabetes mellitus) Morbid obesity due to excess calories (Chronic) Nuclear sclerotic cataract of left eye (Resolved) Nuclear sclerotic cataract of right eye (Resolved) Obesity CALDERON (obstructive sleep apnea) (Chronic) Paroxysmal atrial flutter (Chronic) Surgical History section Status post cataract extraction and insertion of intraocular lens of left eye (Chronic 01/03/18) Status post cataract extraction and insertion of intraocular lens of right eye (Chronic 12/20/17) Social History/Home Situation: Patient lives with in a 2 floor house with 3 steps to enter with rails on both sides. Another set of 14 steps with bilateral railings lead to the second floor of the house where patient's bedroom is. Patient has a private caregiver who comes daily for assistance with meal preparation, bathing, and dressing. Caregiver however needed to go away for a week and patient is unable to manage on her own as her is not doing physically well himself. Patient has been independent with all indoor ambulation using a front wheeled walker and has been able to negotiate steps to the second floor while holding onto bilateral railings. Equipment Owned/DME: [employer], [employer], [facility] Subjective: NT. Please refer to EMERGENCY TECHNICIAN notes on 11/05/2018. Objective: General Observation: NT. Please refer to EMERGENCY TECHNICIAN notes on 11/05/2018. Mental Status: NT. Please refer to EMERGENCY TECHNICIAN notes on 11/05/2018. Pain: NT. Please refer to EMERGENCY TECHNICIAN notes on 11/05/2018. ROM: Right Upper Extremity: Shoulder Flexion WFL. Shoulder abduction WFL. Elbow flexion WFL. Wrist flexion WFL. Functional opening and closing of hand WFL. Left Upper Extremity: Shoulder Flexion WFL. Shoulder abduction WFL. Elbow flexion WFL. Wrist flexion WFL. Functional opening and closing of hand WFL. Right Lower Extremity: Hip flexion WFL. Hip abduction WFL. Knee flexion WFL. Ankle dorsiflexion WFL. Ankle plantarflexion WFL. Left Lower Extremity: Hip flexion WFL. Hip abduction WFL. Knee flexion WFL. Ankle dorsiflexion WFL. Ankle plantarflexion WFL. Strength: Right Upper Extremity: Shoulder flexors 4/5. Shoulder abductors 4/5. Elbow flexors 4/5. Elbow extensors 4/5. Salicylic Acid Blender strong. Left Upper Extremity: Shoulder flexors 4/5. Shoulder abductors 4/5. Elbow flexors 4/5. Elbow extensors 4/5. Salicylic Acid Blender strong. Right Lower Extremity: Hip flexors 3+/5. Hip abductors 3/5. Knee flexors 4-/5. Knee extensors 4/5. Ankle dorsiflexors 4-/5. Ankle plantarflexors 4-/5. Left Lower Extremity:Hip flexors 3+/5. Hip abductors 3/5. Knee flexors 4-/5. Knee extensors 4/5. Ankle dorsiflexors 3/5. Ankle plantarflexors 3/5. Sensation: Intact as to pain and pressure on bilateral lower extremities. BED MOBILITY/TRANSFERS Rolling L/R: Minimal assist Supine-sit: Minimal assist Sit-supine: Minimal assist Sit-stand: Minimal assist of 2 Stand-sit: Minimal assist of 2 Bed-Chair: Minimal assist of 2 Chair-bed: Minimal assist of 2 GAIT: Patient only able to tolerate 2-3 steps during transfers and has been non- ambulatory since 10/30/2018 due to pain from L ankle and foot resulting from gout flare. Balance: Static Sitting: Normal Dynamic Sitting: Good Static Standing: Fair Dynamic Standing: Poor Assessment: Patient is a 73-year-old female diagnosed with new onset weakness related relatable to dilated cardiomyopathy diabetes mellitus dizziness and gout. Over the last week, she has exhibited signs of depression, and experienced a significant loss of motivation. She is severely deconditioned, and lacks strength in her lower extremities. Her prognosis is poor. Patient continues to present with clinical signs and symptoms consistent with current/admitting diagnoses that have resulted to mobility limitations, gait instability, generalized weakness, and impairment of motor control as demonstrated by the following impairment level findings: 1. Decreased strength to B LE major muscle groups 2. Impaired sitting/standing balance 3. Impaired activity tolerance Impairments are contributing to the following functional limitations: 1. Dependent bed mobility skills 2. Increased dependence with transfers 3. Inability to safely ambulate without assistive device and physical assistance 4. Increase completion time for mobility ADL performance 5. Increased fall risk 6. Inability to negotiate steps alone safely Patient is assessed as a [id number] moderate complexity based on the following: History: Patient is a 73-year-old female diagnosed with new onset weakness related relatable to dilated cardiomyopathy diabetes mellitus dizziness and gout. Examination: Demonstrable impairment in strength, balance, and range of motion with underlying impairments and functional limitations as documented above Presentation:Evolving Decision Makin moderate complexity Goals: Goals X1 week 1. Supine-Sit independent 2. Sit-Supine independent 3. Sit-Stand independent 4. Stand-Sit independent 5. Bed-Chair independent 6. Chair-Bed independent 7. Independent gait on level surface with use of least restrictive device for at least 200 feet without report of pain nor dyspnea 8. Independent stair negotiation while holding onto bilateral rails for at least 14 steps without report of pain nor dyspnea 9. Independent with home exercise program 10. Good static and dynamic standing balance/tolerance DISCHARGE RECOMMENDATIONS: Patient will benefit from detention facility placement in order to progress mobility level, strength, and balance in preparation for a safe discharge to home. TREATMENT CODE/TIME: NC. Thank you very much for this referral. America Bey PT, DPT, CLT [facility]
== END 2018-11-06 11:19 | disposition skilled nursing facility (03) | DRG 945 ==
LOC: ER 18:12 → MS 19:21
PROVIDERS: Internal Medicine; Nurse Practitioner Family; Admitting Provider Family Medicine; Emergency Provider Physician Assistant; PCP Family Medicine; Visit Provider Internal Medicine
DX: R53.1 Weakness (principal); Z68.41 Body mass index [BMI] 40.0-44.9, adult; N17.9 Acute kidney failure, unspecified; N39.0 Urinary tract infection, site not specified; I25.5 Ischemic cardiomyopathy; R42 Dizziness and giddiness; Z95.810 Presence of automatic (implantable) cardiac defibrillator; E86.0 Dehydration; E11.65 Type 2 diabetes mellitus with hyperglycemia; B96.20 Unspecified Escherichia coli [E. coli] as the cause of diseases classified elsewhere; F45.9 Somatoform disorder, unspecified; F32.9 Major depressive disorder, single episode, unspecified; Z79.4 Long term (current) use of insulin; M10.9 Gout, unspecified; E66.01 Morbid (severe) obesity due to excess calories; B36.9 Superficial mycosis, unspecified; I48.91 Unspecified atrial fibrillation; Z79.01 Long term (current) use of anticoagulants; M25.571 Pain in right ankle and joints of right foot; M25.471 Effusion, right ankle; G47.33 Obstructive sleep apnea (adult) (pediatric); Z71.3 Dietary counseling and surveillance
CPT/HCPCS: 36415; 80048; 80053; 82947; 85652; 87077; 87798; 97110; 97162; 97530; 99219; 99225; 99232; 99233; 99239; 99253; 99254; 70450; 71046; 73600; 81003; 81015; 83735; 83880; 84484; 84550; 85025; 85610; 85730; 86038; 86140; 86618; 87086; 87186; 93971; G0378; J3490; J7512

== ENCOUNTER 2018-12-02 14:24 | Outpatient (REF) | payer MEDICARE, BC, SELFPAY ==
[2018-12-02 22:54] LABS: Anion Gap 12.5 mmol/L (3-11); BUN 27 mg/dL (7-18); CO2 26.5 mmol/L (21.0-32.0); CREATININE 1.51 mg/dL (0.55-1.02); Calcium 8.7 mg/dL (8.5-10.1); Chloride 104 mmol/L (98-107); Estimated GFR 33.97 (mL/min/1.73m2); Glucose 288 mg/dL (70-100); NT-proBNP 72 pg/mL; Potassium 3.8 mmol/L (3.5-5.1); Sodium 143 mmol/L (136-145); Uric Acid 9.8 mg/dL (2.6-6.0)
[2018-12-02 23:07] LABS: Hemoglobin A1C 7.8 % (4.5-6.2)
== END 2018-12-02 14:44 ==
LOC: NCHCN 14:24
PROVIDERS: PCP Family Medicine; Visit Provider Nurse Practitioner Family
DX: M10.9 Gout, unspecified (principal); E11.9 Type 2 diabetes mellitus without complications; I42.0 Dilated cardiomyopathy; I50.9 Heart failure, unspecified; N17.9 Acute kidney failure, unspecified; I48.20 Chronic atrial fibrillation, unspecified; R60.0 Localized edema; E66.01 Morbid (severe) obesity due to excess calories
CPT/HCPCS: 80048; 83036; 83880; 84550

== ENCOUNTER 2018-12-25 21:47 | Outpatient (REF) | payer MEDICARE, BC, SELFPAY ==
[2018-12-25 21:48] LABS: Bilirubin Negative (Negative); Blood Negative (Negative); Clarity Cloudy (Clear); Glucose Negative (Negative); Ketones Negative (Negative); Leukocyte Esterase Small (Negative); Nitrite Negative (Negative); Urobilinogen 0.2 EU/dL (Up TO 0.2); pH 5.5 (5-8)
[2018-12-25 23:20] LABS: Bacteria Many HPF (Negative); C & S Indicated? Yes; Casts Negative LPF (Negative); Crystals Rare Calcium Oxalate HPF (Negative); Epithelial Cells Few HPF (Negative); Mucus Negative (Negative); Other Cells Negative (Negative); RBC Negative (0-2)
== END 2018-12-25 22:07 ==
LOC: NCHCN 21:47
PROVIDERS: PCP Family Medicine; Visit Provider Family Medicine
DX: R30.0 Dysuria (principal)
CPT/HCPCS: 87077; 81003; 81015; 87086; 87186

== ENCOUNTER 2018-12-26 01:12 | Emergency (ER) | payer MEDICARE, BC, SELFPAY ==
[2018-12-26 01:25] VITALS: BP 104/47; PULSE 88; RESP 18; TEMP 36.6; O2SAT 91
--- NOTE | 2018-12-26 01:28 | W.ED.GENAD ---
Discharge Plan Disposition Patient Disposition: HOME Condition: Good Discharge Details Chief Complaint: GenMedical Clinical Impression: Acute dehydration, Weakness, Acute kidney injury, Acute UTI, Gastritis Primary Care Provider: Alyssa Turcios ED Provider: Wilfred Meade Home Meds and New Rx's Prescriptions: New cephalexin [Keflex] 500 mg capsule 500 mg PO QID 10 Days Qty: 40 RF: 0 sucralfate [Carafate] 1 gram tablet 1 gm PO QACHS Qty: 60 RF: 0 pantoprazole [Protonix] 40 mg tablet,delayed release (DR/EC) 40 mg PO DAILY Qty: 60 RF: 0 famotidine 40 mg tablet 40 mg PO BID Qty: 60 RF: 0 No Action colchicine 0.6 mg tablet 0.6 mg PO BID RF: 0 omega-3 fatty acids 1,000 MG capsule 1,000 mg PO BID RF: 0 nitroglycerin [Nitrostat] 0.4 MG tablet, sublingual 0.4 mg Sublingual ONCE PRNRF: 0 BI PAP RF: 0 torsemide 20 MG tablet 40 mg PO DAILY RF: 0 carvedilol 25 mg tablet 25 mg PO BID Qty: 180 RF: 4 fluoxetine 40 MG capsule 40 mg PO DAILY AM RF: 0 Ocuvite Adult 50 Plus 250-5-1 mg Capsule 1 cap PO HS RF: 0 gabapentin 300 mg Capsule 600 mg PO HS RF: 0 magnesium oxide 400 MG capsule 400 mg PO BID RF: 0 Novolog Flexpen U-100 Insulin 300 UNITS/3 ML insulin pen 10 units Sub-Q 0800,1200,1700 RF: 0 losartan 25 mg Tablet 25 mg PO HS RF: 0 celecoxib 100 mg Capsule 100 mg PO BID RF: 0 warfarin 5 mg Tablet 5 mg PO DAILY RF: 0 cholecalciferol (vitamin D3) 50,000 unit Capsule 50,000 unit PO QWEEK RF: 0 prednisone 20 mg Tablet 20 mg PO BID Qty: 5 RF: 0 allopurinol 100 mg Tablet 200 mg PO DAILY 60 Days Qty: 120 RF: 0 bupropion HCl 150 mg Tablet Extended Release 24 Hr 150 mg PO QAM Qty: 30 RF: 0 Humulin 70/30 U-100 KwikPen 100 unit/mL (70-30) Insulin Pen 50 unit subcut BID Qty: 40 RF: 0 Discharge Instructions Instructions: Dehydration (ED), Urinary Tract Infection in Women (ED), Weakness (ED) Additional Instructions: You have evidence of a mild acute kidney injury. I am concerned that this is likely from mild dehydration from your multiple diuretics. It is likely not being improved by the medications that you are taking for the gout. I would recommend stopping these gout medications for the time being. Please stop taking the Bactrim that was prescribed as it can worsen your kidney function. Please take the Keflex that has been described instead. Please drink the recommended 64 ounces at your primary care provider recommended. Additionally I am concerned that you may have mild gastric ulcer or mild gastritis. Please avoid any spicy foods, tomato-based products, or citrus products. As you and I discussed it is my recommendation that we transfer you to an outlying facility, however respecting her wishes we we will let you go home. It is absolutely imperative that you follow-up in the next 24 to 48 hours with your primary care provider for reassessment. If you notice any worsening of your symptoms, or any new symptoms such as vomiting, diarrhea, fever, chills, shortness of breath, chest pain, numbness, weakness, or fainting , please return immediately to the emergency department for reevaluation. As always, it was a pleasure participating in your medical care today. Referrals: Alyssa Turcios [Primary Care Provider] - Medical Decision Making This is a 73-year-old female with past medical history of diabetes, hypertension, gout, ICD, atrial fib on Eliquis, who presents today for evaluation of mild continued weakness. She was recently admitted slightly over a month ago for weakness, she had a relatively unremarkable work-up. She was discharged to rehab facility. Unfortunately she states that she has never had improvement of her weakness, and she still remains dizzy. She has had no acute improvement or changes. Tonight she presents after taking a gentle fall at the top of her stairs. She did not hit her head, she had no trauma to any part of her body, she gently rested to the ground. They typically after this she had 3-4 episodes of vomiting. No blood. She was brought by EMS at her 's recommendation for further evaluation. Physical exam demonstrates a normal neurologic exam, no abdominal tenderness whatsoever. No evidence of cranial trauma. No midline cervical thoracic or lumbar spine tenderness. She is mildly weak when we do try to get her up to ambulate but she shows no focal neurologic deficits. We will gently rehydrate the patient, perform laboratory evaluation. Evaluate for acute atypical etiologies for fatigue. 1:53 AM Patient's laboratory work-up still pending, however Gastroccult of her vomitus here demonstrates Gastroccult positive. We will give Carafate, famotidine and omeprazole. There is no evidence of significant blood, large amounts of coffee grounds, or bright red blood. However out of an abundance of precaution we will get these medications will cover potential gastric ulcers. 3:57 AM Patient's laboratory work-up has returned, white count is normal, hemoglobin 13.6, platelets normal. Electrolytes normal, BUN/creatinine demonstrates an elevated BUN of 42 and a creatinine of 2.31, concerning for mild acute kidney injury versus dehydration. Upper GI bleed is possible however this seems less likely with her normal hemoglobin, and lack of dark tarry stools, or any evidence of rectal bleeding. The patient was placed on Bactrim by her PCP yesterday for urinary tract infection. Although this would normally be very appropriate, with her lisinopril prescription, and her evidence of acute kidney injury I feel that this would be potentially harmful. On reassessment at this time the patient feels much better, she states that she feels well. We have given a dose of Keflex here. The patient's acute kidney injury, the mild Gastroccult positive emesis, I do feel that the patient would benefit from observation, aggressive peptic ulcer management, and continued evaluation for her mild acute kidney injury. I feel this is likely secondary to mild dehydration, potentially in combination with her Bactrim. Unfortunately we have no beds available here at the hospital at this time. I did discuss this with the patient and recommended transfer to 1 of our our other local facilities/hospitals. Patient made it extremely clear that she will not be transferred, that she feels well and would like to go home. I discussed with her my recommendations against this plan, and my recommendations for overnight hospitalization. She clearly understands these, but states that she would like to go home. Discussed the risks and benefits of this, including , and lifelong disability and the patient understands. Although she is certainly not septic appearing, and she currently does not show evidence of an acute life-threatening pathology clinically, and she has had no additional vomiting, shows no hemodynamic instability, and shows no evidence of a significant upper GI bleed, I feel that she may be stable for discharge but this is still certainly not my recommendation. I did contact the patient's family discussed the case with the patient's daughter who is her main medical caregiver. She to states that the mother has been struggling with weakness, but states that the patient is notably picky in regards to her management, and refuses going back to a facility for assistance both long-term or short-term. They do have occasional home health that stops by, but the daughter feels that this is not enough at this time. She agrees that there is only so much that we can do that the patient will allow. However she does request that we have her protective services case worker contact her. It is the hope that potentially we could get more help or assistance at home for the patient and her . Additionally since the patient is going home, and respecting her wishes made it exquisitely clear that she requires prompt follow-up in the next 24 to 48 hours with her primary care provider for reassessment, and repeat labs. Additionally we will be placing a surgical referral for her for her suspected mild gastric ulcers. We will aggressively manage with outpatient antacid medications. I also discussed the imperative nature of returning promptly if she has any return worsening of her symptoms. We will prescribe Keflex for her urinary tract infection. I have extensively reviewed the treatment plan and discharge instructions with the patient and their family. I have addressed all patient concerns at this time. The patient and family was made aware of what symptoms to monitor for that would warrant a return to the emergency department. Discussed the plan with the patient and family, they demonstrate verbal understanding and agreement with our assessment and plan at this time. Of note prior to discharge we did get the patient up and she ambulated well in the ED, she showed no signs of significant instability. She was mildly weak but she was able to ambulate well without signs of concerning weakness or disability or dizziness. She states that she feels much better. EKG 1: 36 Rate 89, QTc 49, QRS 132, sinus rhythm, EKG does appear concerning for left bundle branch block. Nonspecific QRS widening is present, no significant ST elevations or depressions except for minimal less than 1 mm elevation in V1 with no reciprocal depression or other changes. No significant Q waves. No evidence of STEMI. Previous EKG from 03/19/2017 demonstrate equivalent findings. HPI General Date/Time Provider Initiated Documentation: 12/26/18 01:26. HPI Narrative: This is a 73-year-old female with a past medical history of atrial fibrillation on elequis, diabetes, hypertension, ICD, gout, and an admission 1 month ago for weakness mild dizziness, and eventual discharge to rehab facility. She presents today for evaluation of weakness. Patient states that since she was discharged she has no change in her weakness, mild dizziness for the last month. She states that this evening she was walking up her stairs, when she got to the top step her foot caught, and caused her to trip forward. She did not hit her head, she landed gently on the ground. She denies any traumatic event. However she is still does remain weak. EMS was contacted by her . Her recommended she come to the ER for further evaluation. Interestingly after she fell she had 3-4 episodes of small amount of vomit. She denies any abdominal pain though. She denies any hematemesis. She denies any melena. She has no other complaints at this time. She denies chest pain, shortness of breath, headache, vision changes, numbness, tingling. She denies any other complaints or modifying factors. Related Data Home Medications Medication Instructions Recorded Confirmed fluoxetine 40 mg PO DAILY AM 04/15/13 12/26/18 Bi Pap 12/28/14 04/17/18 nitroglycerin [Nitrostat] 0.4 mg SUBLINGUAL ONCE PRN tab-cap 12/28/14 12/26/18 omega-3 fatty acids 1,000 mg PO BID 12/28/14 12/26/18 magnesium oxide 400 mg PO BID 05/28/16 12/26/18 Novolog Flexpen U-100 Insulin 10 units SUB-Q 0800,1200,1700 pen 05/31/16 12/26/18 torsemide 40 mg PO DAILY tab-cap 05/15/17 12/26/18 Ocuvite Adult 50 Plus 1 cap PO HS 12/17/17 12/26/18 gabapentin 600 mg PO HS 12/17/17 12/26/18 carvedilol 25 mg tablet 25 mg PO BID #180 tab 01/23/18 12/26/18 colchicine 0.6 mg tablet 0.6 mg PO BID 04/17/18 12/26/18 celecoxib 100 mg PO BID 10/29/18 12/26/18 cholecalciferol (vitamin D3) 50,000 unit PO QWEEK 10/29/18 12/26/18 losartan 25 mg PO HS 10/29/18 12/26/18 warfarin 5 mg PO DAILY 10/29/18 12/26/18 allopurinol 200 mg PO DAILY 60 Days #120 tab 11/06/18 12/26/18 bupropion HCl 150 mg PO QAM #30 tab 11/06/18 12/26/18 insulin NPH and regular human 50 unit SUBCUT BID #40 ml 11/06/18 12/26/18 [Humulin 70/30 U-100 KwikPen] prednisone 20 mg PO BID #5 tab 11/06/18 12/26/18 cephalexin [Keflex] 500 mg PO QID 10 Days #40 cap 12/26/18 famotidine 40 mg PO BID #60 tab 12/26/18 pantoprazole [Protonix] 40 mg PO DAILY #60 tab 12/26/18 sucralfate [Carafate] 1 gm PO QACHS #60 tab 12/26/18 Previous Rx's Medication Instructions Recorded Novolog Flexpen U-100 Insulin 10 units SUB-Q 0800,1200,1700 pen 05/31/16 carvedilol 25 mg tablet 25 mg PO BID #180 tab 01/23/18 allopurinol 200 mg PO DAILY 60 Days #120 tab 11/06/18 bupropion HCl 150 mg PO QAM #30 tab 11/06/18 insulin NPH and regular human 50 unit SUBCUT BID #40 ml 11/06/18 [Humulin 70/30 U-100 KwikPen] prednisone 20 mg PO BID #5 tab 11/06/18 cephalexin [Keflex] 500 mg PO QID 10 Days #40 cap 12/26/18 famotidine 40 mg PO BID #60 tab 12/26/18 pantoprazole [Protonix] 40 mg PO DAILY #60 tab 12/26/18 sucralfate [Carafate] 1 gm PO QACHS #60 tab 12/26/18 Allergies Allergy/AdvReac Type Severity Reaction Status Date / Time No Known Allergies Allergy Unverified 12/26/18 02:16 General Stated Complaint: GenMedical ISABELLE: 3 Review of Systems All systems reviewed & are unremarkable except as noted in HPI and below PFSH Social History Smoking/Tobacco Use Status: Never Alcohol Intake: never Drug use: Never Substance use type: does not use Household members: spouse Housing: house 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 2.Eyes: PERRL, no conjunctival injection, and symmetrical lids. 3.ENT: Atraumatic external nose and ears. Moist MM. Neck: Symmetric, trachea midline, No thyromegaly. 4.CVS: +S1/S2, No murmurs or gallops. Peripheral pulses 2+ and equal in all extremities. Brisk capillary refill in all extremities. 5.RESP: Unlabored respiratory effort. Clear to auscultation bilaterally. No wheezes rales or rhonchi 6.GI: Soft, Nontender/Nondistended, No hepatosplenomegaly. No guarding or rebound. 7.MSK: Normocephalic/Atraumatic, Extremities w/o deformity or ttp No cyanosis or clubbing, Normal movement of all extremities 8.Skin: Warm, Dry. No rashes or lesions. 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 Sensation grossly intact, no focal neurologic deficits. All 6 cardinal planes of vision are fully intact. No evidence of rotatory or vertical nystagmus. The patient demonstrated a normal [id number], good dexterity. There was no evidence of dysdiadochokinesia. Patient was able to ambulate without difficulty. There was no wide-based gait. Romberg, and [id number] are both normal on testing. Sensation was intact bilaterally as well as muscle strength bilaterally for all extremities. Patient was able to verbalize butter cup with no slurring, or miss pronunciation. Cerebellar function testing is normal. The patient demonstrates a normal hints exam with no findings concerning for a central event. No vertical nystagmus. The head impulse test is negative for any significant central abnormality. Normal test of skew. No suggestion of a central cerebellar event. 10.Psych: (AAO) x3. Appropriate mood and affect Course Vital Signs Vital signs: Vital Signs Temperature 36.6 C 12/26/18 01:25 Pulse 88 12/26/18 01:25 Respiratory Rate 18 12/26/18 01:25 Blood Pressure 104/47 L 12/26/18 01:25 Pulse Oximetry 91 L 12/26/18 01:25 Temperature 36.6 C 12/26/18 01:25 Temperature Source Skin 12/26/18 01:25 Pulse 88 12/26/18 01:25 Respiratory Rate 18 12/26/18 01:25 Blood Pressure 104/47 L 12/26/18 01:25 Blood Pressure Position Supine 12/26/18 01:25 Pulse Oximetry 91 L 12/26/18 01:25 Oxygen Delivery Method Room Air 12/26/18 01:25 Oxygen Flow Rate 0 12/26/18 01:25 Pain Level 1 12/26/18 01:25
[2018-12-26] MEDS: Normal Saline 1,000 ML 1000 ML IV (01:45)
[2018-12-26] MEDS: Ondansetron 4 MG/2 ML VIAL IVP (01:45)
[2018-12-26 01:46] VITALS: RESP 18
[2018-12-26] MEDS: Pantoprazole 40 MG VIAL 80 MG IVP (02:10)
[2018-12-26] MEDS: FAMOTIDINE 20 MG/50 ML BAG 100 MG IVPB (02:11)
[2018-12-26] MEDS: Meclizine 25 MG TAB PO (02:15)
[2018-12-26] MEDS: Sucralfate 1 GM TAB PO (02:15)
[2018-12-26 02:16] LABS: Abs Immature Grans 0.01 k/cumm (0.0-0.09); Absolute Basophil Count 0.04 k/cumm (0.0-0.2); Absolute Eosinophil Count 0.27 k/cumm (0.0-0.7); Absolute Lymphocyte Count 1.41 k/cumm (1.2-3.4); Absolute Monocyte Count 0.45 k/cumm (0.11-0.7); Absolute Neutrophil Count 4.06 k/cumm (1.2-6.7); Basophils % 0.6; Eosinophils % 4.3; HCT 40.4 % (36.0-46.0); HGB 13.6 g/dL (12.0-15.5); Immature Grans % 0.2; Lymphocytes % 22.6; Mean Corp. HGB Concentration 33.7 g/dL (32.0-36.0); Mean Corpuscular Hemoglobin 30.2 pg (27.0-33.0); Mean Corpuscular Volume 89.8 fL (80-95); Mean Platelet Volume 12.6 fL (8.0-11.0); Monocytes % 7.2; Neutrophils % 65.1; Platelet Count 178 x1000/uL (130-400); RBC Distribution Width 15.1 % (11.7-14.6); White Blood Cell Count 6.24 k/cumm (4.4-10.8)
[2018-12-26 02:35] LABS: ALT 55 U/L (14-59); AST 52 U/L (15-37); Albumin 3.2 g/dL (3.4-5.0); Alkaline Phosphatase 137 U/L (46-116); Anion Gap 8.3 mmol/L (3-11); BUN 42 mg/dL (7-18); Bilirubin, Total 0.8 mg/dL (0.2-1.0); CO2 28.7 mmol/L (21.0-32.0); CREATININE 2.31 mg/dL (0.55-1.02); Calcium 9.1 mg/dL (8.5-10.1); Chloride 102 mmol/L (98-107); Glucose 107 mg/dL (70-100); INR 1.3 (0.9-1.1); Lipase 62 U/L (73-393); Potassium 3.5 mmol/L (3.5-5.1); Prothrombin Time 12.6 sec (9.3-11.0); Sodium 139 mmol/L (136-145); TSH (W/Ref FT4) 4.24 uIU/mL (0.36-3.74); Total Protein 6.9 g/dL (6.4-8.2)
[2018-12-26 02:38] LABS: Troponin I < 0.05 ng/mL (0.00-0.06)
[2018-12-26 03:03] VITALS: BP 103/44; PULSE 79; RESP 15; O2SAT 98
[2018-12-26 03:07] LABS: FREE T4 1.29 ng/dL (0.76-1.46)
--- NOTE | 2018-12-26 03:47 | NUR.NOTE ---
Nursing Note:referal to pcp and surgery 12/26/18
== END 2018-12-26 04:35 | disposition home or self-care (01) ==
LOC: ER 04:00
PROVIDERS: Emergency Provider Student in an Organized Health Care Education/Training Program; PCP Family Medicine
DX: E86.0 Dehydration (principal); R53.1 Weakness; N17.9 Acute kidney failure, unspecified; N39.0 Urinary tract infection, site not specified; K29.00 Acute gastritis without bleeding; E11.9 Type 2 diabetes mellitus without complications; I10 Essential (primary) hypertension; Z79.4 Long term (current) use of insulin; I48.91 Unspecified atrial fibrillation; Z79.01 Long term (current) use of anticoagulants
CPT/HCPCS: 36415; 80053; 83690; 93005; 96361; 96374; 96375; 99284; 84439; 84443; 84484; 85025; 85610; 85730; 93010; J2405

== ENCOUNTER 2018-12-30 16:09 | Inpatient (IN) | payer MEDICARE, BC, SELFPAY ==
[2018-12-30] VITALS (23 sets, daily range): BP systolic 101–144; BP diastolic 52–84; PULSE 59–87; RESP 10–21; TEMP 36.4–36.6; O2SAT 93–98
--- NOTE | 2018-12-30 16:17 | ED.GENADUL_ITS ---
Discharge Plan Disposition Condition: Improving Discharge Details Chief Complaint: Nausea/Vomit/Diar Admit Date/Time: 12/30/18 19:40 Admit Provider: Jorge Ortega Attending Provider: Simone Stokes Primary Care Provider: Alyssa Turcios ED Provider: Francheska Love Discharge Instructions Activity:: Activity as Tolerated Equipment/Supplies:: No Equipment Needed Diet:: Carb Counting Discharge Orders Discharge Orders: Discharge Order (Routine); Ordered 01/01/19 Ordered By: Aide Garza Discharge Data Discharge Date/Time-TO BE ENTERED AT DEPARTURE: 12/30/18 20:20 Medical Decision Making Patient is a 73 year old female, brougth in via EMS, with c/c of weakness, nausea/vomiting and fatigue. States that he has had progressive weakness. Was admitted a few months ago and reports that she felt improved after inpatient physical therapy but has had more weakness and difficulty with ambulation she is a of the past 4 days. Endorses nausea and vomiting for the past 48 hours, is currently endorsing nausea and did vomit in the ambulance while here. I so patient was seen here 4 days ago at which time she was diagnosed with acute kidney injury thought to be associated with recent use and Bactrim for UTI. Patient is currently denying any dysuria, fever/chills. Is feeling fatigued. States that her daughter, who lives quite close, has been helping her with her medications. Daughter does report that she stopped the allopurinol as was advised by Dr. Meade on her recent visit. On exam, patient appears nontoxic. She is holding an emesis bag but is not actively vomiting. Abdomen is benign. No CVA tenderness. Patient feeling improved after antiemetic. Labs reviewed. No leukocytosis. Creatinine is 2.02, this is down from 2.314 days ago but is elevated compared to her typical baseline of 1-1.2. Alk phos elevated at 130 but this is not unusual for the patient. Urinalysis concerning for trace leukocyte esterase but negative for bacteria. I did review patient's recent urine culture and note that sensitivity is appropriate for Keflex. Discussed these findings with the patient. The patient has not been able to get out of bed, continues to have generalized weakness and fatigue, I feel that inpatient admission is appropriate for continued hydration, physical therapy assessment continued monitoring. Discussed this plan with the patient and family were in agreement. Consulted with Dr. Ortega who agrees to admission. HPI General Mode of arrival: EMS . Date/Time Provider Initiated Documentation: 12/30/18 16:17 . Limitations to Documentation: no limitations . Information obtained by: patient, family (spoke with daughter over the phone) and RN notes reviewed . HPI Narrative: Patient is 73-year-old female presented today with chief complaint of 2 days of nausea and vomiting. Past medical history significant for gout, diabetes, CALDERON, ICD placement, A. fib. Reports that she is vomited x2 today. Has not been able to tolerate any p.o. intake. States that currently she is feeling seasick. Feeling fatigued. Denies any chest pain, shortness of breath, abdominal pain. Psych the patient has been slowly declining over the past year. Is been incontinent of urine for the past year. Is not been able to get out of bed in the past 4 days. She was seen here 4 days ago which time she was diagnosed with dehydration, UTI, weakness and acute kidney injury. He had been recommended at that time the patient be admitted the patient declined as it would have required transfer with no in hospital beds available. She has not been evaluated by primary care since then. Please continue on her diuretics but did stop her allopurinol. Also stop the Bactrim and start on Keflex for UTI. Patient was admitted here 2 months ago at which time she is having very similar symptoms. Related Data Home Medications Medication Instructions Recorded Confirmed fluoxetine 40 mg PO DAILY AM 04/15/13 12/30/18 Bi Pap 12/28/14 04/17/18 nitroglycerin [Nitrostat] 0.4 mg SUBLINGUAL ONCE PRN tab-cap 12/28/14 12/30/18 omega-3 fatty acids 1,000 mg PO BID 12/28/14 12/30/18 magnesium oxide 400 mg PO BID 05/28/16 12/30/18 Novolog Flexpen U-100 Insulin 10 units SUB-Q 0800,1200,1700 pen 05/31/16 12/30/18 Ocuvite Adult 50 Plus 1 cap PO HS 12/17/17 12/30/18 gabapentin 600 mg PO HS 12/17/17 12/30/18 carvedilol 25 mg tablet 25 mg PO BID #180 tab 01/23/18 12/30/18 colchicine 0.6 mg tablet 0.6 mg PO BID 04/17/18 12/30/18 cholecalciferol (vitamin D3) 50,000 unit PO QWEEK 10/29/18 12/30/18 losartan 25 mg PO HS 10/29/18 12/30/18 Humulin 70/30 U-100 KwikPen 50 unit SUBCUT BID #40 ml 11/06/18 12/30/18 sucralfate [Carafate] 1 gm PO QACHS #60 tab 12/26/18 12/30/18 Eliquis 5 mg PO BID 12/30/18 12/30/18 bupropion HCl 300 mg PO QAM 12/30/18 12/30/18 acetaminophen [Tylenol] 650 mg PO Q6H PRN PRN #0 tab 01/01/19 ciprofloxacin HCl 500 mg PO BID #5 tab 01/01/19 omeprazole 20 mg PO BID@ #60 cap 01/01/19 torsemide 20 mg PO DAILY #0 tab-cap 01/01/19 12/30/18 Previous Rx's Medication Instructions Recorded Novolog Flexpen U-100 Insulin 10 units SUB-Q 0800,1200,1700 pen 05/31/16 carvedilol 25 mg tablet 25 mg PO BID #180 tab 01/23/18 Humulin 70/30 U-100 KwikPen 50 unit SUBCUT BID #40 ml 11/06/18 sucralfate [Carafate] 1 gm PO QACHS #60 tab 12/26/18 acetaminophen [Tylenol] 650 mg PO Q6H PRN PRN #0 tab 01/01/19 ciprofloxacin HCl 500 mg PO BID #5 tab 01/01/19 omeprazole 20 mg PO BID@ #60 cap 01/01/19 torsemide 20 mg PO DAILY #0 tab-cap 01/01/19 Allergies Allergy/AdvReac Type Severity Reaction Status Date / Time No Known Allergies Allergy Unverified 12/26/18 02:16 General ISABELLE: 3 Review of Systems Constitutional Constitutional: Reports as per HPI, Denies chills, Reports fatigue, Denies fever(s), Reports frequent falls and Denies headache(s) ENT Ears, Nose, Mouth, and Throat: Denies headache(s) Cardiovascular Cardiovascular: Reports as per HPI, Denies chest pain and Denies dyspnea Respiratory Respiratory: Reports as per HPI, Denies cough and Denies dyspnea Gastrointestinal Gastrointestinal: Reports as per HPI Genitourinary Genitourinary: Reports as per HPI Musculoskeletal Musculoskeletal: Reports as per HPI and Denies back pain Integumentary/Breasts Skin/Breast: Reports as per HPI and Denies rash Neurologic Neurologic: Reports as per HPI, Reports frequent falls and Denies headache(s) Endocrine Endocrine: Reports fatigue [facility] Medical History Atrial fibrillation CHF (congestive heart failure) Dilated cardiomyopathy (Chronic) DM (diabetes mellitus) Morbid obesity due to excess calories (Chronic) Nuclear sclerotic cataract of left eye (Resolved) Nuclear sclerotic cataract of right eye (Resolved) Obesity CALDERON (obstructive sleep apnea) (Chronic) Paroxysmal atrial flutter (Chronic) Surgical History section Status post cataract extraction and insertion of intraocular lens of left eye (Chronic 01/03/18) Status post cataract extraction and insertion of intraocular lens of right eye (Chronic 12/20/17) Family History Father Heart disease Social History Smoking/Tobacco Use Status: Never Alcohol Intake: never Drug use: Never Substance use type: does not use Household members: spouse Housing: house 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 [employer] Do you feel safe at home: Yes Do you feel safe in your relationship?: Yes Exam Const General: cooperative, healthy appearing, comfortable, no acute distress and well developed Nutritional Appearance: well nourished and overweight Orientation: alert and awake [facility] Head: normal to inspection Mouth: mucous membranes dry (patient appears dry) Resp Effort & Inspection: normal respiratory effort, able to speak in complete sentences and no respiratory distress Auscultation: clear to auscultation bilaterally, no rales, no rhonchi and no wheezes Cardio Rate: regular rate Rhythm: abnormal rhythm irregularly irregular Heart Sounds: S1 normal and S2 normal GI Inspection: normal to inspection, no edema, non-distended and obesity Palpation: soft, no hepatosplenomegaly, not firm, no guarding, no masses, not rigid and nontender Percussion: normal to percussion Auscultation: normal bowel sounds Back/Spine/Pelvis Back: no CVA tenderness Skin General skin exam: no rashes or lesions noted Trauma: no lacerations or abrasions Neuro General: alert, awake, oriented x3, tone normal, moves all extremities, no meningeal signs, no focal motor deficits and CN's II-XI intact bilaterally Cognition: normal cognition Speech: speech normal Gait: normal gait Motor: muscle tone normal throughout, strength 5/5 throughout, no pronator drift, no movement abnormalities noted and no fasciculations Sensory Exam: no sensory deficits noted Extrem General: no pedal edema, no calf tenderness and normal gait Psych Appearance: grossly normal and well kempt Mental Status: mental status grossly normal Speech and Movement: speech and movement normal
[2018-12-30] MEDS: Normal Saline 1,000 ML 250 ML IV (17:02)
[2018-12-30 17:15] LABS: Abs Immature Grans 0.01 k/cumm (0.0-0.09); Absolute Basophil Count 0.03 k/cumm (0.0-0.2); Absolute Eosinophil Count 0.27 k/cumm (0.0-0.7); Absolute Lymphocyte Count 1.27 k/cumm (1.2-3.4); Absolute Monocyte Count 0.57 k/cumm (0.11-0.7); Absolute Neutrophil Count 3.67 k/cumm (1.2-6.7); Basophils % 0.5; Eosinophils % 4.6; HCT 44.5 % (36.0-46.0); HGB 14.6 g/dL (12.0-15.5); Immature Grans % 0.2; Lymphocytes % 21.8; Mean Corp. HGB Concentration 32.8 g/dL (32.0-36.0); Mean Corpuscular Hemoglobin 29.9 pg (27.0-33.0); Mean Corpuscular Volume 91.2 fL (80-95); Mean Platelet Volume 12.3 fL (8.0-11.0); Monocytes % 9.8; Neutrophils % 63.1; Platelet Count 174 x1000/uL (130-400); RBC 4.88 m/cumm (4.00-5.20); RBC Distribution Width 15.3 % (11.7-14.6); White Blood Cell Count 5.82 k/cumm (4.4-10.8)
[2018-12-30 17:20] LABS: INR 1.2 (0.9-1.1); Prothrombin Time 12.1 sec (9.3-11.0)
[2018-12-30 17:25] LABS: Bilirubin Negative (Negative); Blood Trace-intact (Negative); Clarity Clear (Clear); Glucose Negative (Negative); Ketones Negative (Negative); Leukocyte Esterase Trace (Negative); Nitrite Negative (Negative); Specific Gravity 1.015 (1.005-1.025); Urobilinogen 0.2 EU/dL (Up TO 0.2)
[2018-12-30 17:26] LABS: ALT 71 U/L (14-59); Albumin 3.3 g/dL (3.4-5.0); Alkaline Phosphatase 130 U/L (46-116); Anion Gap 6.6 mmol/L (3-11); BUN 29 mg/dL (7-18); Bilirubin, Total 0.8 mg/dL (0.2-1.0); CO2 31.4 mmol/L (21.0-32.0); CREATININE 2.02 mg/dL (0.55-1.02); Calcium 9.3 mg/dL (8.5-10.1); Chloride 104 mmol/L (98-107); Estimated GFR 24.28 (mL/min/1.73m2); Glucose 133 mg/dL (70-100); Magnesium 1.8 mg/dL (1.8-2.4); Potassium 3.4 mmol/L (3.5-5.1); Sodium 142 mmol/L (136-145); TSH (W/Ref FT4) 2.54 uIU/mL (0.36-3.74); Total Protein 7.2 g/dL (6.4-8.2)
[2018-12-30 17:28] LABS: Troponin I < 0.05 ng/mL (0.00-0.06)
[2018-12-30 17:35] LABS: Bacteria Negative HPF (Negative); C & S Indicated? Yes; Casts Negative LPF (Negative); Crystals Negative HPF (Negative); Epithelial Cells Few HPF (Negative); Mucus Negative (Negative); Other Cells Negative (Negative); WBC 0-2 HPF (0-5)
[2018-12-30 17:42] LABS: AST 60 U/L (15-37)
[2018-12-30] MEDS: Ondansetron 4 MG/2 ML VIAL IVP (17:51)
--- NOTE | 2018-12-30 19:26 | HPE_ITS ---
Date of service: 12/30/18 Time of Service: 19:26 Assessment and Plan Assessment and plan (1) Weakness: Status: Acute Assessment and plan: Subacute to chronic weakness of unknown etiology, punctuated by recent UTI. The vomiting may be no-specific, reaction to the keflex or some other factor. I also note very slight elevation in transaminsases, unclear if this has any bearing but will track along and work up as indicated. For now I would advise we stop the keflex (the timing correlates with the nausea?), switch to Cipro (family tells me she has tolerated this in past) to complete course. As I am concluding my evaluation the daughter indicates that there are a variety of family and psychosocial issues at play here as well, will see if these can be addressed as well. History of Present Illness History of Present Illness Chief Complaint: weakness and vomiting Narrative: 73 female who has beeen dealing with non-specific issues of weakness over the past few montths, no diagnosis, has stay at Rehab and continues to improve with PT. Five days ago started on bactrim for UTI (no details, outpatient Tx). Seen here 3 days [facility] and antibiotics changed to keflex due to azotemia. Here tonight with few days of vomiting, though family reports this is not in fact entirely new. in any case persistent azotemia noted. Patient given saline and single dose of Zofran. Denies abddominal pain, melena, back pain. Says she feels more or less how she has been feeling recently. Admitted for further management. Review of Systems All systems reviewed & are unremarkable except as noted in HPI and below PFSH Medical History Atrial fibrillation CHF (congestive heart failure) Dilated cardiomyopathy (Chronic) DM (diabetes mellitus) Morbid obesity due to excess calories (Chronic) Nuclear sclerotic cataract of left eye (Resolved) Nuclear sclerotic cataract of right eye (Resolved) Obesity CALDERON (obstructive sleep apnea) (Chronic) Paroxysmal atrial flutter (Chronic) Surgical History section Status post cataract extraction and insertion of intraocular lens of left eye (Chronic 01/03/18) Status post cataract extraction and insertion of intraocular lens of right eye (Chronic 12/20/17) Family History Father Heart disease Social History Smoking/Tobacco Use Status: Never Alcohol Intake: never Drug use: Never Substance use type: does not use Household members: spouse Housing: house 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 [employer] Do you feel safe at home: Yes Do you feel safe in your relationship?: Yes Meds Home Medications and Allergies Home Medications Medication Instructions Recorded Confirmed Type fluoxetine 40 mg PO DAILY AM 04/15/13 12/30/18 History Bi Pap 12/28/14 04/17/18 History nitroglycerin [Nitrostat] 0.4 mg SUBLINGUAL ONCE PRN tab-cap 12/28/14 12/30/18 History omega-3 fatty acids 1,000 mg PO BID 12/28/14 12/30/18 History magnesium oxide 400 mg PO BID 05/28/16 12/30/18 History Novolog Flexpen U-100 Insulin 10 units SUB-Q 0800,1200,1700 pen 05/31/16 12/30/18 Rx torsemide 40 mg PO DAILY tab-cap 05/15/17 12/30/18 History Ocuvite Adult 50 Plus 1 cap PO HS 12/17/17 12/30/18 History gabapentin 600 mg PO HS 12/17/17 12/30/18 History carvedilol 25 mg tablet 25 mg PO BID #180 tab 01/23/18 12/30/18 Rx colchicine 0.6 mg tablet 0.6 mg PO BID 04/17/18 12/30/18 History celecoxib 100 mg PO BID 10/29/18 12/30/18 History cholecalciferol (vitamin D3) 50,000 unit PO QWEEK 10/29/18 12/30/18 History losartan 25 mg PO HS 10/29/18 12/30/18 History insulin NPH and regular human 50 unit SUBCUT BID #40 ml 11/06/18 12/30/18 Rx [Humulin 70/30 U-100 KwikPen] cephalexin [Keflex] 500 mg PO QID 10 Days #40 cap 12/26/18 12/30/18 Rx famotidine 40 mg PO BID #60 tab 12/26/18 12/30/18 Rx sucralfate [Carafate] 1 gm PO QACHS #60 tab 12/26/18 12/30/18 Rx apixaban [Eliquis] 5 mg PO BID 12/30/18 12/30/18 History bupropion HCl 300 mg PO QAM 12/30/18 12/30/18 History Allergies Allergy/AdvReac Type Severity Reaction Status Date / Time No Known Allergies Allergy Unverified 12/26/18 02:16 Exam Narrative Exam Narrative: 36.7, 119/56,60,11, 94%. HEENT AT/NC; neck supple; lungs clearr; heeart irr/irr; abdomen soft and NT; extremities trace pedal edema; neuro Ox3, able to stand and take a few steps on her own but is quite tentative Results Labs Result diagrams: 12/30/18 16:20 12/30/18 16:20 Labs: Laboratory Results - last 24 hr 12/30/18 12/30/18 12/30/18 16:20 16:20 16:20 WBC 5.82 RBC 4.88 Hgb 14.6 Hct 44.5 MCV 91.2 MCH 29.9 MCHC 32.8 RDW 15.3 H Plt Count 174 MPV 12.3 H Immature Gran % 0.2 Neutrophils % 63.1 Lymphocytes % 21.8 Monocytes % 9.8 Eosinophils % 4.6 Basophils % 0.5 Absolute Neutrophils 3.67 Absolute Lymphocytes 1.27 Absolute Monocytes 0.57 Absolute Eosinophils 0.27 Absolute Basophils 0.03 PT 12.1 H INR 1.2 H APTT 26.0 Sodium 142 Potassium 3.4 L Chloride 104 Carbon Dioxide 31.4 Anion Gap 6.6 BUN 29 H Creatinine 2.02 H Estimated GFR/1.73 m2 24.28 Glucose 133 H Calcium 9.3 Magnesium 1.8 Total Bilirubin 0.8 AST 60 H ALT 71 H Alkaline Phosphatase 130 H Troponin I < 0.05 Total Protein 7.2 Albumin 3.3 L TSH 2.54 Urine Color Urine Clarity Urine pH Ur Specific [place] Urine Protein Urine Ketones Urine Blood Urine Nitrite Urine Bilirubin Urine Urobilinogen Ur Leukocyte Esterase Urine RBC Urine WBC Ur Epithelial Cells Urine Crystals Urine Bacteria Urine Casts Urine Mucus Urine Other Ur Culture Indicated? Urine Glucose 12/30/18 17:00 WBC RBC Hgb Hct MCV MCH MCHC RDW Plt Count MPV Immature Gran % Neutrophils % Lymphocytes % Monocytes % Eosinophils % Basophils % Absolute Neutrophils Absolute Lymphocytes Absolute Monocytes Absolute Eosinophils Absolute Basophils PT INR APTT Sodium Potassium Chloride Carbon Dioxide Anion Gap BUN Creatinine Estimated GFR/1.73 m2 Glucose Calcium Magnesium Total Bilirubin AST ALT Alkaline Phosphatase Troponin I Total Protein Albumin TSH Urine Color Yellow Urine Clarity Clear Urine pH 7.0 Ur Specific [place] 1.015 Urine Protein Negative Urine Ketones Negative Urine Blood Trace-intact H Urine Nitrite Negative Urine Bilirubin Negative Urine Urobilinogen 0.2 Ur Leukocyte Esterase Trace H Urine RBC 3-5 H Urine WBC 0-2 Ur Epithelial Cells Few Urine Crystals Negative Urine Bacteria Negative Urine Casts Negative Urine Mucus Negative Urine Other Negative Ur Culture Indicated? Yes Urine Glucose Negative Last Vital Signs Temp 36.6 C 12/30/18 16:13 Pulse 60 12/30/18 18:01 Resp 11 L 12/30/18 18:01 BP 119/56 L 12/30/18 18:01 Pulse Ox 94 L 12/30/18 18:01
[2018-12-30] MEDS: Omega-3 Fatty Acids 1000 MG CAP PO (21:29)
[2018-12-30] MEDS: Famotidine 20 MG TAB 40 MG PO (21:29)
[2018-12-30] MEDS: Gabapentin 300 MG CAP 600 MG PO (21:29)
[2018-12-30] MEDS: Magnesium Oxide 400 MG TAB PO (21:29)
[2018-12-30] MEDS: Beta-Carotene(A) w/C,E, & Minerals TAB 1 TAB PO (21:29)
[2018-12-30] MEDS: Apixaban 5 MG TAB PO (21:29)
[2018-12-30] MEDS: Sucralfate 1 GM TAB PO (21:30)
[2018-12-30] MEDS: Carvedilol 25 MG TAB PO (21:31)
[2018-12-30] MEDS: Celecoxib 100 MG CAP PO (21:31)
[2018-12-30] MEDS: POTASSIUM CHLORIDE/0.9% NACL 1,000 ML 80 MEQ IV (21:33)
[2018-12-30] MEDS: Colchicine 0.6 MG TAB PO (23:28)
[2018-12-30] MEDS: Ciprofloxacin 500 MG TAB PO (23:28)
[2018-12-31 07:32] LABS: ALT 57 U/L (14-59); AST 52 U/L (15-37); Anion Gap 5.4 mmol/L (3-11); BUN 24 mg/dL (7-18); CO2 30.6 mmol/L (21.0-32.0); CREATININE 1.65 mg/dL (0.55-1.02); Calcium 8.8 mg/dL (8.5-10.1); Chloride 109 mmol/L (98-107); Estimated GFR 30.67 (mL/min/1.73m2); Glucose 105 mg/dL (70-100); Potassium 3.7 mmol/L (3.5-5.1); Sodium 145 mmol/L (136-145)
[2018-12-31 07:55] VITALS: BP 135/75; PULSE 78; RESP 19; TEMP 36.9; O2SAT 93
[2018-12-31] MEDS: Sucralfate 1 GM TAB PO ×3 (08:34→16:51)
[2018-12-31] MEDS: Apixaban 5 MG TAB PO ×2 (08:34→20:24)
[2018-12-31] MEDS: buPROPion-XL 150 MG TABCR 300 MG PO (08:34)
[2018-12-31] MEDS: Omega-3 Fatty Acids 1000 MG CAP PO ×2 (08:34→20:23)
[2018-12-31] MEDS: Famotidine 20 MG TAB 40 MG PO ×2 (08:35→20:23)
[2018-12-31] MEDS: FLUoxetine 20 MG CAP 40 MG PO (08:35)
[2018-12-31] MEDS: Carvedilol 25 MG TAB PO ×2 (08:35→20:23)
[2018-12-31] MEDS: Colchicine 0.6 MG TAB PO ×2 (08:36→20:23)
[2018-12-31] MEDS: Magnesium Oxide 400 MG TAB PO ×3 (08:36→20:23)
[2018-12-31] MEDS: Ciprofloxacin 500 MG TAB PO ×2 (08:36→20:24)
[2018-12-31] MEDS: POTASSIUM CHLORIDE/0.9% NACL 1,000 ML 80 MEQ IV (09:43)
--- NOTE | 2018-12-31 10:13 | PDOC.CMIN ---
- If Service Date Differs Date of service: 12/31/18 Time of Service: 10:13 Care Management Initial Assess REASON FOR HOSPITALIZATION:: weakness PAST MEDICAL HISTORY/PAST SURGICAL HISTORY:: Medical History . Atrial fibrillation. CHF (congestive heart failure). Dilated cardiomyopathy (Chronic). DM (diabetes mellitus). Morbid obesity due to excess calories (Chronic). Nuclear sclerotic cataract of left eye (Resolved). Nuclear sclerotic cataract of right eye (Resolved). Obesity. CALDERON (obstructive sleep apnea) (Chronic). Paroxysmal atrial flutter (Chronic). Surgical History . section. Status post cataract extraction and insertion of intraocular lens of left eye (Chronic 01/03/18). Status post cataract extraction and insertion of intraocular lens of right eye (Chronic 12/20/17) PREVIOUS FUNCTIONAL STATUS/SOCIAL/FAMILY SUPPORTS:: Brunilda lives in a single family home in [facility]. with her . They have one son and one daughter and several grandchildren who are very supportive. 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 Brunilda helps out on occasion but has become too debilitated to work regularly. Brunilda states she has a walker, cane, wheelchair and commode but does not use them. She describes her ability to get around as very slow, as she is chronically in pain from an undiagnosed source. CURRENT FUNCTIONAL STATUS:: Brunilda was sitting up in bed when CM met with her. She was pleasant and engaged readily in conversation. Brunilda stated that she has been doing OK at home. She feels she has made gains in terms of mobility but she feels that after 2 months she should have progressed more than she has. She also shared that she has not seen her therapist for a couple of months and knows that she needs to. She stated that she will call and make an appointment today. ADVANCE DIRECTIVES:: None on file Has patient been provided with information about the portal?: No Did the patient sign up for the portal?: No CODE STATUS:: Full Code INSURANCE COVERAGE / FINANCIAL ISSUES:: Medicare. BS CURRENT HOME/COMMUNITY SERVICES/EQUIPMENT:: Brunilda currently has HH nursing and uses a walker PRIMARY CARE PHYSICIAN:: Alyssa Turcios POTENTIAL DISCHARGE NEEDS:: HH RN and new PT PATIENT/FAMILY EDUCATION NEEDS:: Discharge plan, limitations, follow up plan, Ask Me [employer]. TRANSPORTATION:: vis private vehicle when ready PLAN:: Brunilda will return home with a resumption of HH services including RN, PT, OT. 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 She will transport via private vehicle with family. CM will continue to support patient, family and discharge planning needs.
[2018-12-31] MEDS: POTASSIUM CHLORIDE 20 MEQ, POTASSIUM CHLORIDE 10 MEQ 30 MEQ PO (10:25)
[2018-12-31] MEDS: Insulin Aspart 300 UNITS/3 ML PEN SC ×2 (11:47→16:52)
--- NOTE | 2018-12-31 13:48 | PGE_ITS ---
Date of Service Date of service: 12/31/18 Time of Service: 13:49 Assessment and Plan Assessment and plan (1) Weakness: Status: Acute Assessment and plan: She reports mild improvement in her weakness. In the setting of UTI with dehydration and overall physical decline. Antibiotics changed to Cipro on admission. PT consulted. (2) UTI (urinary tract infection): Status: Acute Assessment and plan: Notes some improvement in weakness. She was on Keflex at the time of admission for UTI, she presented with nausea and vomiting which coincided with the start of the Keflex. Antibiotics changed to cipro. Repeat urine culture pending. (3) Atrial fibrillation: Status: None Assessment and plan: Nontachycardic. Continue apixiban and carvedilol. (4) DM (diabetes mellitus): Status: None Assessment and plan: Blood sugar increasing. Resume 70/30 insulin at lower dose. Continue to monitor blood glucose at AC with short acting sliding scale coverage. (5) Dilated cardiomyopathy: Status: Chronic Assessment and plan: With low LVEF, reportedly 20%. Continue gentle IV fluids. Reassess renal function in the morning. (6) Acute kidney injury: Status: Acute Assessment and plan: Creatinine improved overnight to 1.65 today. Baseline appears to be 1.1-1.3. Continue gentle IV fluid hydration. Repeat BMP tomorrow morning. (7) DVT prophylaxis: Status: Acute Assessment and plan: Therapeutic on apixiban. (8) Discharge planning issues: Status: Acute Assessment and plan: She is a FULL CODE. This case was discussed with Dr. Stokes who is in agreement. Subjective Subjective Interval history since last seen: Brunilda Herrera reports feeling better today. She denies nausea, vomiting or diarrhea. She continues to have weakness and difficulty ambulating. She denies headache, dizziness, shortness of breath, coughing, wheezing, chest pain/pressure, palpitations. She reports improvement in her lower extremity edema. She is eating and drinking and tolerating her diet. Her renal function has improved, but remains above baseline, she is on IV fluids. Exam Narrative Exam Narrative: General: well appearing, elderly female sitting up on the edge of the bed, eating lunch, in NAD. Pleasant and cooperative, alert and oriented. HEENT: normocephalic, atraumatic, pupils equal and round, EOMI, mucous membranes slightly dry. Neck: supple. Cardiovascular: heart sounds irregularly irregular, nontacycardic, no murmur appreciated. Respiratory: respirations even and unlabored, lung sounds clear throughout. GI: normoactive bowel sounds, abdomen soft, nontender on palpation, nondistended. Extremities: trace to +1 nonpitting edema, left greater than right. Pedal pulses palpable. Objective Objective Clinical Data: Abnormal lab results 12/30/18 12/30/18 12/30/18 Range/Units 16:20 16:20 16:20 RDW 15.3 H (11.7-14.6) % MPV 12.3 H (8.0-11.0) fL PT 12.1 H (9.3-11.0) sec INR 1.2 H (0.9-1.1) Potassium 3.4 L (3.5-5.1) mmol/L Chloride (98-107) mmol/L BUN 29 H (7-18) mg/dL Creatinine 2.02 H (0.55-1.02) mg/dL Glucose 133 H (70-100) mg/dL AST 60 H (15-37) U/L ALT 71 H (14-59) U/L Alkaline Phosphatase 130 H (46-116) U/L Albumin 3.3 L (3.4-5.0) g/dL Urine Blood (Negative) Ur Leukocyte Esterase (Negative) Urine RBC (0-2) HPF 12/30/18 12/31/18 Range/Units 17:00 07:05 RDW (11.7-14.6) % MPV (8.0-11.0) fL PT (9.3-11.0) sec INR (0.9-1.1) Potassium (3.5-5.1) mmol/L Chloride 109 H (98-107) mmol/L BUN 24 H (7-18) mg/dL Creatinine 1.65 H (0.55-1.02) mg/dL Glucose 105 H (70-100) mg/dL AST 52 H (15-37) U/L ALT (14-59) U/L Alkaline Phosphatase (46-116) U/L Albumin (3.4-5.0) g/dL Urine Blood Trace-intact H (Negative) Ur Leukocyte Esterase Trace H (Negative) Urine RBC 3-5 H (0-2) HPF Vital Signs Temperature 36.9 C 12/31/18 07:55 Temperature Source Tympanic 12/31/18 07:55 Pulse 78 12/31/18 07:55 Pulse Rhythm Irregular 12/31/18 08:35 Pulse 70 12/30/18 19:10 Respiratory Rate 19 12/31/18 07:55 Respiratory Effort Non-Labored 12/31/18 08:35 Respiratory Depth Normal 12/31/18 08:35 Respiratory Pattern Normal 12/31/18 08:35 Blood Pressure 135/75 12/31/18 07:55 Blood Pressure Mean 72 12/30/18 19:01 Blood Pressure Position Supine 12/30/18 16:13 Pulse Oximetry 93 L 12/31/18 07:55 Oxygen Delivery Method Room Air 12/31/18 07:55 Oxygen Flow Rate 0 12/31/18 07:55 Pain Level 0 12/31/18 07:55 Intake & Output 12/30/18 12/31/18 12/31/18 23:59 11:59 23:59 Intake Total 1000 / 1000 1453.333 / 1693.333 240 / 1693.333 Output Total 200 / 200 600 / 600 Balance 800 / 800 853.333 / 1093.333 240 / 1093.333 Weight 123.8 kg Intake: IV 1000 / 1000 973.333 / 973.333 Oral 480 / 720 240 / 720 Output: Urine 200 / 200 600 / 600 Other: Urine Color Yellow Yellow Urine Appearance Clear Clear Urine Odor None Strong Emesis Description Undigested Food Voiding Methods Bedside Commode Laboratory Results WBC 5.82 k/cumm (4.4-10.8) 12/30/18 16:20 RBC 4.88 m/cumm (4.00-5.20) 12/30/18 16:20 Hgb 14.6 g/dL (12.0-15.5) 12/30/18 16:20 Hct 44.5 % (36.0-46.0) 12/30/18 16:20 MCV 91.2 fL (80-95) 12/30/18 16:20 MCH 29.9 pg (27.0-33.0) 12/30/18 16:20 MCHC 32.8 g/dL (32.0-36.0) 12/30/18 16:20 RDW 15.3 % (11.7-14.6) H 12/30/18 16:20 Plt Count 174 x1000/uL (130-400) 12/30/18 16:20 MPV 12.3 fL (8.0-11.0) H 12/30/18 16:20 Immature Gran % 0.2 12/30/18 16:20 Neutrophils % 63.1 12/30/18 16:20 Lymphocytes % 21.8 12/30/18 16:20 Monocytes % 9.8 12/30/18 16:20 Eosinophils % 4.6 12/30/18 16:20 Basophils % 0.5 12/30/18 16:20 Absolute Neutrophils 3.67 k/cumm (1.2-6.7) 12/30/18 16:20 Absolute Lymphocytes 1.27 k/cumm (1.2-3.4) 12/30/18 16:20 Absolute Monocytes 0.57 k/cumm (0.11-0.7) 12/30/18 16:20 Absolute Eosinophils 0.27 k/cumm (0.0-0.7) 12/30/18 16:20 Absolute Basophils 0.03 k/cumm (0.0-0.2) 12/30/18 16:20 PT 12.1 sec (9.3-11.0) H 12/30/18 16:20 INR 1.2 (0.9-1.1) H 12/30/18 16:20 APTT 26.0 sec (21.0-31.4) 12/30/18 16:20 Sodium 145 mmol/L (136-145) 12/31/18 07:05 Potassium 3.7 mmol/L (3.5-5.1) 12/31/18 07:05 Chloride 109 mmol/L (98-107) H 12/31/18 07:05 Carbon Dioxide 30.6 mmol/L (21.0-32.0) 12/31/18 07:05 Anion Gap 5.4 mmol/L (3-11) 12/31/18 07:05 BUN 24 mg/dL (7-18) H 12/31/18 07:05 Creatinine 1.65 mg/dL (0.55-1.02) H 12/31/18 07:05 Estimated GFR/1.73 m2 30.67 (mL/min/1.73m2) 12/31/18 07:05 Glucose 105 mg/dL (70-100) H 12/31/18 07:05 Calcium 8.8 mg/dL (8.5-10.1) 12/31/18 07:05 Magnesium 1.8 mg/dL (1.8-2.4) 12/30/18 16:20 Total Bilirubin 0.8 mg/dL (0.2-1.0) 12/30/18 16:20 AST 52 U/L (15-37) H 12/31/18 07:05 ALT 57 U/L (14-59) 12/31/18 07:05 Alkaline Phosphatase 130 U/L (46-116) H 12/30/18 16:20 Troponin I < 0.05 ng/mL (0.00-0.06) 12/30/18 16:20 Total Protein 7.2 g/dL (6.4-8.2) 12/30/18 16:20 Albumin 3.3 g/dL (3.4-5.0) L 12/30/18 16:20 TSH 2.54 uIU/mL (0.36-3.74) 12/30/18 16:20 Urine Color Yellow (Yellow) 12/30/18 17:00 Urine Clarity Clear (Clear) 12/30/18 17:00 Urine pH 7.0 (5-8) 12/30/18 17:00 Ur Specific [employer] [place] 1.015 (1.005-1.025) 12/30/18 17:00 Urine Protein Negative mg/dL (Negative) 12/30/18 17:00 Urine Ketones Negative mg/dL (Negative) 12/30/18 17:00 Urine Blood Trace-intact (Negative) H 12/30/18 17:00 Urine Nitrite Negative (Negative) 12/30/18 17:00 Urine Bilirubin Negative (Negative) 12/30/18 17:00 Urine Urobilinogen 0.2 EU/dL (Up TO 0.2) 12/30/18 17:00 Ur Leukocyte Esterase Trace (Negative) H 12/30/18 17:00 Urine RBC 3-5 HPF (0-2) H 12/30/18 17:00 Urine WBC 0-2 HPF (0-5) 12/30/18 17:00 Ur Epithelial Cells Few HPF (Negative) 12/30/18 17:00 Urine Crystals Negative HPF (Negative) 12/30/18 17:00 Urine Bacteria Negative HPF (Negative) 12/30/18 17:00 Urine Casts Negative LPF (Negative) 12/30/18 17:00 Urine Mucus Negative (Negative) 12/30/18 17:00 Urine Other Negative (Negative) 12/30/18 17:00 Ur Culture Indicated? Yes 12/30/18 17:00 Urine Glucose Negative mg/dL (Negative) 12/30/18 17:00
--- NOTE | 2018-12-31 14:20 | PT.INIE ---
Date of service: 12/31/18 Time of Service: 13:51 PT Notes Physical Therapy Inpatient Initial Evaluation Date: 12/31/18 Referring Doctor: Jorge Ortega MD PT Orders: PT CONSULT: Eval/treat Precautions: Fall. Standard. Activity as tolerated. Patient Profile/Admitting Diagnosis: Patient is a 73-year-old female with past medical history significant for dilated cardiomyopathy, atrial fibrillation and congestive heart failure who presented to the ED on 12/31/2018 with chief complaints of nausea, vomiting, feeling of being seasick, and fatigued. Patient is diagnosed with urinary tract infection and generalized weakness. PMHX: Medical History Atrial fibrillation CHF (congestive heart failure) Dilated cardiomyopathy (Chronic) DM (diabetes mellitus) Morbid obesity due to excess calories (Chronic) Nuclear sclerotic cataract of left eye (Resolved) Nuclear sclerotic cataract of right eye (Resolved) Obesity CALDERON (obstructive sleep apnea) (Chronic) Paroxysmal atrial flutter (Chronic) Surgical History section Status post cataract extraction and insertion of intraocular lens of left eye (Chronic 01/03/18) Status post cataract extraction and insertion of intraocular lens of right eye (Chronic 12/20/17) Social History/Home Situation: Patient lives with in a 2 floor house with 3 steps to enter with rails on both sides. Another set of 14 steps with bilateral railings lead to the second floor of the house where patient's bedroom is. Patient has a private caregiver who comes daily for assistance with meal preparation, bathing, and dressing. Patient has been independent with all indoor ambulation using a front wheeled walker and has been able to negotiate steps to the second floor while holding onto bilateral railings. Patient states that she has had one fall since discharge from this hospital in October 2018. Equipment Owned/DME: [employer], [employer], [facility] Subjective: Patient is agreeable to a PT consult and treatment today. She states that the sole of her right foot is tender while ambulating with PT. Patient states that her is not fully able to physically assist as he is not well himself. Objective: General Observation: Patient seen resting in bed upon arrival of PT. IV in the left UE. Mental Status: Alert and oriented as to person, place, time, and purpose Pain: / pain on the sole of right foot. ROM: Right Upper Extremity: Shoulder Flexion WFL. Shoulder abduction WFL. Elbow flexion WFL. Wrist flexion WFL. Functional opening and closing of hand WFL. Left Upper Extremity: Shoulder Flexion WFL. Shoulder abduction WFL. Elbow flexion WFL. Wrist flexion WFL. Functional opening and closing of hand WFL. Right Lower Extremity: Hip flexion WFL. Hip abduction WFL. Knee flexion WFL. Ankle dorsiflexion WFL. Ankle plantarflexion WFL. Left Lower Extremity: Hip flexion WFL. Hip abduction WFL. Knee flexion WFL. Ankle dorsiflexion WFL. Ankle plantarflexion WFL. Strength: Right Upper Extremity: The and says that you Left Upper Extremity: Shoulder flexors 4/5. Shoulder abductors 4/5. Elbow flexors 4 to /5. Elbow extensors 4/5. 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 Right Lower Extremity: Hip flexors 4-/5. Hip abductors 4-/5. Knee flexors 4-/5. Knee extensors 4-/5. Ankle dorsiflexors 4-/5. Ankle plantarflexors 4-/5. Left Lower Extremity:Hip flexors 4-/5. Hip abductors 4-/5. Knee flexors 4-/5. Knee extensors 4-/5. Ankle dorsiflexors 4-/5. Ankle plantarflexors 4-/5. Sensation: Intact as to pain and pressure on bilateral lower extremities. Reported prickling sensation on the L index finger. Bed Mobility/Transfers: Rolling minimal assist Supine to sit minimal assist Sit to supine minimal assist Sit to stand CGA Stand to sit CGA Bed to chair CGA Chair to bed CGA Gait: Patient was able to tolerate level surface ambulation of up to 120 feet with CGA, wheelchair follow and IV pole management of PT. Patient demonstrated decreased step height and length and a wide-based gait. Verbal cues provided for correct gait pattern, increased step height, and overall safety. Balance: Static Sitting: Normal Dynamic Sitting: Normal Static Standing: Fair Dynamic Standing: Fair Special Tests: Mobility Limitations Standardized Measure [facility] AM-PAC 6 clicks Basic Mobility Inpatient Short Form: Raw Score: 18 CMS Score: 47% deficit Informed Consent/Education: Patient instructed in purpose of PT consult and plan of care. Assessment: Patient is a 73-year-old female diagnosed with urinary tract infection and generalized body weakness. She is motivated to return to home at prior level of function utilizing front wheeled walker for all mobility ADL performance. Patient presents with clinical signs and symptoms consistent with current/admitting diagnoses that have resulted to mobility limitations, gait instability, generalized weakness, and impairment of motor control as demonstrated by the following impairment level findings: 1. Decreased strength to B LE major muscle groups 2. Impaired sitting/standing balance 3. Impaired activity tolerance Impairments are contributing to the following functional limitations: 1. Dependent bed mobility skills 2. Increased dependence with transfers 3. Inability to safely ambulate without assistive device and physical assistance 4. Increase completion time for mobility ADL performance 5. Increased fall risk 6. Inability to negotiate steps alone safely Patient is [place] a 56580 moderate complexity based on the following: History: Patient is a 73-year-old female diagnosed with urinary tract infection and generalized body weakness. Examination: Demonstrable impairment in strength, balance, and range of motion with underlying impairments and functional limitations as documented above Presentation:Evolving Decision Makin moderate complexity Goals: Goals X1 week 1. Supine-Sit independent 2. Sit-Supine independent 3. Sit-Stand independent 4. Stand-Sit independent 5. Bed-Chair independent 6. Chair-Bed independent 7. Independent gait on level surface with use of least restrictive device for at least 200 feet without report of pain nor dyspnea 8. Independent stair negotiation while holding onto bilateral rails for at least 14 steps without report of pain nor dyspnea 9. Independent with home exercise program 10. Good static and dynamic standing balance/tolerance Plan of Care/Treatment Plan: 1-2x/day, 7 days/week x 1 week. Plan of care has been reviewed with the COMPANY DOCTOR providing the service under Physical Therapy direction. Initiate Physical Therapy intervention for strengthening, bed mobility, transfers, gait, stairs, balance training, use of assistive device. DISCHARGE RECOMMENDATIONS: Patient will benefit from home health PT services in order to progress mobility level using least restrictive assistive ambulatory device, assess home safety, identify additional equipment needs, and establish a functional maintenance program that will increase ability of patient to remain at home. TREATMENT CODE/TIME: 86494 x 24 minutes beginning at 13:51 PM. Thank you very much for this referral. America Bey PT, DPT, CLT [facility]
--- NOTE | 2018-12-31 15:06 | CHAPLAIN ---
Brunilda was sitting up in bed when I visited. She told me about throwing up for two days, and then her daughter suggesting she come to the hospital. She is starting to feel better, she said. 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 Brunilda said it is likely that people from [employer] know she is here since neighbors saw the ambulance arrive to bring her here.
[2018-12-31 15:47] VITALS: BP 146/78; PULSE 60; RESP 17; TEMP 36.6; O2SAT 97
[2019-01-01 00:12] VITALS: BP 153/71; PULSE 81; RESP 17; TEMP 36.1; O2SAT 95
[2019-01-01 04:39] VITALS: BP 116/72; PULSE 72; RESP 18; TEMP 36.6; O2SAT 95
[2019-01-01 07:15] VITALS: BP 120/73; PULSE 74; RESP 16; TEMP 36.6; O2SAT 97
[2019-01-01 07:28] LABS: Absolute Basophil Count 0.04 k/cumm (0.0-0.2); Absolute Eosinophil Count 0.38 k/cumm (0.0-0.7); Absolute Lymphocyte Count 1.87 k/cumm (1.2-3.4); Absolute Monocyte Count 0.52 k/cumm (0.11-0.7); Absolute Neutrophil Count 2.96 k/cumm (1.2-6.7); Basophils % 0.7; Eosinophils % 6.6; HCT 38.5 % (36.0-46.0); HGB 12.8 g/dL (12.0-15.5); Lymphocytes % 32.4; Mean Corp. HGB Concentration 33.2 g/dL (32.0-36.0); Mean Corpuscular Hemoglobin 30.4 pg (27.0-33.0); Mean Corpuscular Volume 91.4 fL (80-95); Mean Platelet Volume 12.2 fL (8.0-11.0); Neutrophils % 51.3; Platelet Count 159 x1000/uL (130-400); RBC 4.21 m/cumm (4.00-5.20); RBC Distribution Width 14.9 % (11.7-14.6); White Blood Cell Count 5.77 k/cumm (4.4-10.8)
[2019-01-01 07:41] LABS: ALT 56 U/L (14-59); AST 42 U/L (15-37); Albumin 2.7 g/dL (3.4-5.0); Alkaline Phosphatase 99 U/L (46-116); Anion Gap 6.9 mmol/L (3-11); BUN 18 mg/dL (7-18); Bilirubin, Total 0.7 mg/dL (0.2-1.0); CO2 28.1 mmol/L (21.0-32.0); CREATININE 1.33 mg/dL (0.55-1.02); Calcium 8.7 mg/dL (8.5-10.1); Chloride 109 mmol/L (98-107); Estimated GFR 39.33 (mL/min/1.73m2); Glucose 121 mg/dL (70-100); Magnesium 1.9 mg/dL (1.8-2.4); Potassium 3.6 mmol/L (3.5-5.1); Sodium 144 mmol/L (136-145); Total Protein 5.9 g/dL (6.4-8.2)
[2019-01-01] MEDS: Sucralfate 1 GM TAB PO ×2 (08:47→12:23)
[2019-01-01] MEDS: Famotidine 20 MG TAB 40 MG PO (08:47)
[2019-01-01] MEDS: Colchicine 0.6 MG TAB PO (08:47)
[2019-01-01] MEDS: Ciprofloxacin 500 MG TAB PO (08:47)
[2019-01-01] MEDS: FLUoxetine 20 MG CAP 40 MG PO (08:47)
[2019-01-01] MEDS: Apixaban 5 MG TAB PO (08:47)
[2019-01-01] MEDS: buPROPion-XL 150 MG TABCR 300 MG PO (08:47)
[2019-01-01] MEDS: Magnesium Oxide 400 MG TAB PO (08:47)
[2019-01-01] MEDS: Carvedilol 25 MG TAB PO (08:47)
[2019-01-01] MEDS: Omega-3 Fatty Acids 1000 MG CAP PO (08:48)
[2019-01-01] MEDS: Potassium Chloride 20 MEQ TABCR 40 MEQ PO (10:57)
--- NOTE | 2019-01-01 11:54 | W.PM.DS.N ---
Date of service: 01/01/19 Time of Service: 11:55 DS: Diagnosis Discharge Diagnosis (1) Weakness: Status: Acute (2) UTI (urinary tract infection): Status: Acute (3) Atrial fibrillation: Status: None (4) DM (diabetes mellitus): Status: None (5) Dilated cardiomyopathy: Status: Chronic (6) Acute kidney injury: Status: Acute (7) DVT prophylaxis: Status: Acute (8) Discharge planning issues: Status: Acute Discharge Plan Disposition Patient Disposition: HOME W/HOME HEALTH SERVICE Condition: Improving Discharge Details Chief Complaint: Nausea/Vomit/Diar Reason For Visit: WEAKNESS, VOMITING Admit Date/Time: 12/30/18 19:40 Admit Provider: Jorge Ortega Attending Provider: Jorge Ortega Primary Care Provider: Alyssa Turcios ED Provider: IvanFrancheska [facility] Course Hospital Course: Brunilda Herrera is a very pleasant 73 year old female with a past medical history significant for insulin dependent diabetes, obstructive sleep apnea, cardiomyopathy with pacemaker and AICD, atrial fibrillation on anticoagulation with apixaban, gout presented to the emergency department on 12/30/2018 with reports of generalized weakness, vomiting, and feeling fatigued. She reported having difficulty getting out of bed for 4 days prior to her presentation. She had recently been treated for urinary tract infection with Bactrim, was subsequently transitioned to Keflex. At the time of her presentation, she was noted to have dehydration with an acute kidney injury. Her creatinine was elevated at 2.02, she was mildly hypokalemic, her urinalysis was notable for trace leukocyte esterase, no nitrites, 0-2 white blood cells. Her antibiotics were transitioned to Cipro. She was admitted to the [facility] floor for further observation management. Physical therapy was consulted. She was able to ambulate in the halls with her walker. PT recommended home health PT services in order to progress mobility level using least restrictive assistive ambulatory device, assess home safety, identify additional equipment needs, and establish a functional maintenance program that will increase ability of patient to remain at home. She will have resumption of home PT and OT upon discharge home. Of note, she also presented with vomiting. She was initiated on PPI therapy in addition to her carafate. She denies nausea or vomiting today. She will be discharged on omeprazole. Her renal function returned to baseline with gentle IV fluid therapy. Celebrex was discontinued due to renal dysfunction. She is advised to use acetaminophen for pain. Her torsemide dose was decreased, this may need to be adjusted at follow up. She remains on her lostartan at discharge. Her potassium was repleted and she was no longer hypokalemic at the time of discharge. She will remain on Cipro for 2 more days. Urine culture pending. She will follow up with her PCP as scheduled. She will have resumption of home health PT/OT and nursing. Home Meds and New Rx's Prescriptions: New acetaminophen [Tylenol] 325 mg Tablet 650 mg PO Q6H PRN PRNQty: 0 RF: 0 ciprofloxacin HCl 500 mg Tablet 500 mg PO BID Qty: 5 RF: 0 omeprazole 20 mg Capsule,Delayed Release(Dr/Ec) 20 mg PO BID@729,1999 Qty: 60 RF: 0 Continued colchicine 0.6 mg tablet 0.6 mg PO BID RF: 0 omega-3 fatty acids 1,000 MG capsule 1,000 mg PO BID RF: 0 nitroglycerin [Nitrostat] 0.4 MG tablet, sublingual 0.4 mg Sublingual ONCE PRNRF: 0 BI PAP RF: 0 carvedilol 25 mg tablet 25 mg PO BID Qty: 180 RF: 4 fluoxetine 40 MG capsule 40 mg PO DAILY AM RF: 0 Ocuvite Adult 50 Plus 250-5-1 mg Capsule 1 cap PO HS RF: 0 gabapentin 300 mg Capsule 600 mg PO HS RF: 0 sucralfate [Carafate] 1 gram tablet 1 gm PO QACHS Qty: 60 RF: 0 Eliquis 5 mg Tablet 5 mg PO BID RF: 0 bupropion HCl 150 mg tablet extended release 24 hr 300 mg PO QAM RF: 0 magnesium oxide 400 MG capsule 400 mg PO BID RF: 0 Novolog Flexpen U-100 Insulin 300 UNITS/3 ML insulin pen 10 units Sub-Q 0800,1200,1700 RF: 0 losartan 25 mg Tablet 25 mg PO HS RF: 0 cholecalciferol (vitamin D3) 50,000 unit Capsule 50,000 unit PO QWEEK RF: 0 Humulin 70/30 U-100 KwikPen 100 unit/mL (70-30) Insulin Pen 50 unit subcut BID Qty: 40 RF: 0 Changed torsemide 20 MG tablet 20 mg PO DAILY Qty: 0 RF: 0 Discontinued cephalexin [Keflex] 500 mg capsule 500 mg PO QID 10 Days Qty: 40 RF: 0 famotidine 40 mg tablet 40 mg PO BID Qty: 60 RF: 0 celecoxib 100 mg Capsule 100 mg PO BID RF: 0 Discharge Instructions Instructions: Dehydration (DC), Urinary Tract Infection in Women (DC) Additional Instructions: Monitor your blood sugar at home, you may need insulin adjustment. Monitor your blood pressure. Bring blood pressure and blood sugar readings to you PCP appointment. Be sure to drink plenty of fluids. Stop taking celebrex as this can be hard on your kidneys. Resume home health services. Take care! Stand Alone Forms: Nursing Discharge Form Referrals: Alyssa Turcios [Primary Care Provider] - 01/05/19 8:55 am Activity:: Activity as Tolerated Equipment/Supplies:: No Equipment Needed Diet:: Carb Counting Discharge Orders Discharge Orders: Discharge Order (Routine); Ordered 01/01/19 Ordered By: Aide Garza DS: Summary Status at Discharge Functional status at discharge: uses cane/walker Overall status at discharge: patient is progressing back to baseline Mental Status: mental status grossly normal Speech and Movement: speech and movement normal Mood: congruent mood Affect: normal affect Exam Narrative Exam Narrative: General: well appearing, elderly female sitting up in the chair, in NAD. Pleasant and cooperative, alert and oriented. HEENT: normocephalic, atraumatic, pupils equal and round, EOMI, mucous membranes moist. Neck: supple. Cardiovascular: heart sounds irregularly irregular, nontacycardic, no murmur appreciated. Respiratory: respirations even and unlabored, lung sounds clear throughout. GI: normoactive bowel sounds, abdomen soft, nontender on palpation, nondistended. Extremities: trace to +1 nonpitting edema, left greater than right. Pedal pulses palpable. Psych Mental Status: mental status grossly normal Speech and Movement: speech and movement normal Mood: congruent mood Affect: normal affect DS: Data Vitals/I&O Vitals and I&O: Vital Signs Temperature 36.6 C 01/01/19 07:15 Temperature Source Tympanic 01/01/19 07:15 Pulse 74 01/01/19 07:15 Pulse Rhythm Irregular 01/01/19 03:45 Pulse 70 12/30/18 19:10 Respiratory Rate 16 01/01/19 07:15 Respiratory Effort Non-Labored 01/01/19 03:45 Respiratory Depth Normal 01/01/19 03:45 Respiratory Pattern Normal 01/01/19 03:45 Blood Pressure 120/73 01/01/19 07:15 Blood Pressure Mean 72 12/30/18 19:01 Blood Pressure Position Supine 12/30/18 16:13 Pulse Oximetry 97 01/01/19 07:15 Oxygen Delivery Method Room Air 01/01/19 07:15 Oxygen Flow Rate 0 01/01/19 07:15 Pain Level 0 01/01/19 07:15 Intake & Output 12/31/18 12/31/18 01/01/19 11:59 23:59 11:59 Intake Total 1453.333 / 2689.333 1236 / 2689.333 60.5 / 60.5 Output Total 600 / 950 350 / 950 200 / 200 Balance 853.333 / 1739.333 886 / 1739.333 -139.5 / -139.5 Intake: IV 973.333 / 1669.333 696 / 1669.333 60.5 / 60.5 Oral 480 / 1020 540 / 1020 Output: Urine 600 / 950 350 / 950 200 / 200 Other: Urine Color Yellow Yellow Yellow Urine Appearance Clear Clear Clear Urine Odor Strong Normal Stool Size Small Stool Characteristics Formed Voiding Methods Bedside Commode Toilet Toilet Data Completed and Pending Labs on day of discharge: Labs from last 24 hours 01/01/19 01/01/19 07:00 07:00 WBC 5.77 RBC 4.21 Hgb 12.8 Hct 38.5 MCV 91.4 MCH 30.4 MCHC 33.2 RDW 14.9 H Plt Count 159 MPV 12.2 H Immature Gran % 0.0 Neutrophils % 51.3 Lymphocytes % 32.4 Monocytes % 9.0 Eosinophils % 6.6 Basophils % 0.7 Absolute Neutrophils 2.96 Absolute Lymphocytes 1.87 Absolute Monocytes 0.52 Absolute Eosinophils 0.38 Absolute Basophils 0.04 Sodium 144 Potassium 3.6 Chloride 109 H Carbon Dioxide 28.1 Anion Gap 6.9 BUN 18 D Creatinine 1.33 H Estimated GFR/1.73 m2 39.33 Glucose 121 H Calcium 8.7 Magnesium 1.9 Total Bilirubin 0.7 AST 42 H ALT 56 Alkaline Phosphatase 99 Total Protein 5.9 L Albumin 2.7 L [facility] Medical History Atrial fibrillation CHF (congestive heart failure) Dilated cardiomyopathy (Chronic) DM (diabetes mellitus) Morbid obesity due to excess calories (Chronic) Nuclear sclerotic cataract of left eye (Resolved) Nuclear sclerotic cataract of right eye (Resolved) Obesity CALDERON (obstructive sleep apnea) (Chronic) Paroxysmal atrial flutter (Chronic) Surgical History section Status post cataract extraction and insertion of intraocular lens of left eye (Chronic 01/03/18) Status post cataract extraction and insertion of intraocular lens of right eye (Chronic 12/20/17) Family History Father Heart disease Social History Smoking/Tobacco Use Status: Never Alcohol Intake: never Drug use: Never Substance use type: does not use Household members: spouse Housing: house 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
--- NOTE | 2019-01-01 11:56 | W.INDIABCONS ---
Date of service: 01/01/19 Time of Service: 11:56 Diabetes Inpatient Consult DESCRIPTION/ASSESSMENT: Appreciate nutrition consult for Brunilda Herrera who is well known to me from outpatient diabetes and inpatient visits. She is here with weakness. BMI 44 A1c 7.8 four months ago. Here blood sugars are 89-226 taking 25u 70/30 insulin twice daily in addition to sensitive insulin correction. Met with Brunilda. She states she was taking some kind of insulin 30 units with each meal plus 1 unit of another insulin with each meal. States she has had so many doctors over the past year and they have all had input on her insulin dosing. She is confused about what she is taking and why. States her blood sugars were 54-330mg/dl. States her PCP is Dr. Turcios. INTERVENTION: Blood sugars reasonably controlled given insulin regimen. She is satisfied at this time. PLAN: Will follow blood sugars while here Will do telephone follow up with Brunilda after discharge to obtain her insulin dosing regimen. Time Spent in Nutritional Counseling and Treatment: 10 minutes face to face
[2019-01-01] MEDS: Insulin Aspart 300 UNITS/3 ML PEN SC (12:23)
[2019-01-01] MEDS: Omeprazole 20 MG CAPCR PO (12:28)
--- NOTE | 2019-01-01 13:18 | PT.INTREAT ---
Date of service: 01/01/19 Time of Service: 13:18 PT Notes Inpatient Physical Therapy Treatment Note [facility] Date: 01/01/19 SUBJECTIVE: Brunilda states that she is extremely fatigued this morning, however, is agreeable to participating in PT. OBJECTIVE: PAIN: No c/o pain BED MOBILITY/TRANSFERS Sit-stand: S Stand-sit: S GAIT Assistive Device: FWW Weight bearing: Full Assist: SBA Distance: 50' + 100' Deviation: Seated rest x1 THEREX: Patient completed a LE strengthening program, in a seated position, as per flow sheet. STAIRS: Up/down 3x4 and 2x6 using B rails and a step-to pattern with supervision ASSESSMENT: Patient tolerated session with complaint of increased fatigue. She would benefit from general strengthening and conditioning for improved activity tolerance. PLAN: Continue with PT's POC TREATMENT CODE/TIME: 30 minutes; 09153, [id number]
--- NOTE | 2019-01-01 13:56 | NUR.NOTE ---
Nursing Note: Patient sat and visited with at discharge in lobby.Patient refused help from product development carpenter to get in car.
--- NOTE | 2019-01-01 13:57 | CMDISCH_ITS ---
- If Service Date Differs Date of service: 01/01/19 Time of Service: 13:57 LACE Index Scoring Tool - Questions: Length of Stay (in days): 2 Acuity (Admit via E.D.?): Yes Comorbidities: Diabetes w/o Complication, Congestive Heart Failure E.D. Visits: 4 - Answers: Total Score: 12 Risk of Readmission: High Risk Care Management Discharge Reason for Hospitalization: weakness Discharge Plan: Brunilda is being discharged home with resumption of Home Health [facility], PT and OT services. Brunilda will follow-up with her PCP as directed. Brunilda's , Km, is transporting her home. Patient/Family Education Needs: Nursing will review discharge instructions with Brunilda re medications and activity level. Brunilda is able to verbalize reason for hospitalization and how to manage care at home. Services Needed at Discharge: Home Health Care Services (Resumption of Home Health nursing, PT and OT.)
--- NOTE | 2019-01-02 14:53 | PT.INDS ---
Date of service: 01/02/19 Time of Service: 14:53 PT Notes Inpatient Physical Therapy Discharge Summary Dates: 01/02/2019 Dates of Service: 12/31/2018 and 01/01/2019 This is a clinical summary of care provided on the duration of dates listed above. No charge was made in the completion of this documentation. Referring Doctor: Jorge Ortega MD PT Orders: PT CONSULT: Eval/treat Precautions: Fall. Standard. Activity as tolerated. Patient Profile/Admitting Diagnosis: Patient is a 73-year-old female with past medical history significant for dilated cardiomyopathy, atrial fibrillation and congestive heart failure who presented to the ED on 12/31/2018 with chief complaints of nausea, vomiting, feeling of being seasick, and fatigued. Patient is diagnosed with urinary tract infection and generalized weakness. PMHX: Medical History Atrial fibrillation CHF (congestive heart failure) Dilated cardiomyopathy (Chronic) DM (diabetes mellitus) Morbid obesity due to excess calories (Chronic) Nuclear sclerotic cataract of left eye (Resolved) Nuclear sclerotic cataract of right eye (Resolved) Obesity CALDERON (obstructive sleep apnea) (Chronic) Paroxysmal atrial flutter (Chronic) Surgical History section Status post cataract extraction and insertion of intraocular lens of left eye (Chronic 01/03/18) Status post cataract extraction and insertion of intraocular lens of right eye (Chronic 12/20/17) Social History/Home Situation: Patient lives with in a 2 floor house with 3 steps to enter with rails on both sides. Another set of 14 steps with bilateral railings lead to the second floor of the house where patient's bedroom is. Patient has a private caregiver who comes daily for assistance with meal preparation, bathing, and dressing. Patient has been independent with all indoor ambulation using a front wheeled walker and has been able to negotiate steps to the second floor while holding onto bilateral railings. Patient states that she has had one fall since discharge from this hospital in October 2018. Equipment Owned/DME: BSC, FWW, SC Subjective: NT Objective: General Observation: NT Mental Status: NT Pain: NT ROM: Right Upper Extremity: Shoulder Flexion WFL. Shoulder abduction WFL. Elbow flexion WFL. Wrist flexion WFL. Functional opening and closing of hand WFL. Left Upper Extremity: Shoulder Flexion WFL. Shoulder abduction WFL. Elbow flexion WFL. Wrist flexion WFL. Functional opening and closing of hand WFL. Right Lower Extremity: Hip flexion WFL. Hip abduction WFL. Knee flexion WFL. Ankle dorsiflexion WFL. Ankle plantarflexion WFL. Left Lower Extremity: Hip flexion WFL. Hip abduction WFL. Knee flexion WFL. Ankle dorsiflexion WFL. Ankle plantarflexion WFL. Strength: Right Upper Extremity: The and says that you Left Upper Extremity: Shoulder flexors 4/5. Shoulder abductors 4/5. Elbow flexors 4 to /5. Elbow extensors 4/5. Greens Or Grounds Superintendent strong. Right Lower Extremity: Hip flexors 4-/5. Hip abductors 4-/5. Knee flexors 4-/5. Knee extensors 4-/5. Ankle dorsiflexors 4-/5. Ankle plantarflexors 4-/5. Left Lower Extremity:Hip flexors 4-/5. Hip abductors 4-/5. Knee flexors 4-/5. Knee extensors 4-/5. Ankle dorsiflexors 4-/5. Ankle plantarflexors 4-/5. Sensation: Intact as to pain and pressure on bilateral lower extremities. Reported prickling sensation on the L index finger. Bed Mobility/Transfers: Rolling supervision Supine to sit supervision Sit to supine supervision Sit to stand supervision Stand to sit supervision Bed to chair supervision Chair to bed supervision Gait: Patient was able to tolerate level surface ambulation of up to 120 feet with SBA. Patient demonstrated decreased step height and length and a wide-based gait. Verbal cues provided for correct gait pattern, increased step height, and overall safety. Patient was also able to manage up-and-down three 4 inch steps and two 6 inch steps while holding onto bilateral rails with step to gait pattern requiring supervision. Balance: Static Sitting: Normal Dynamic Sitting: Normal Static Standing: Fair Dynamic Standing: Fair Assessment: Patient is a 73-year-old female diagnosed with urinary tract infection and generalized body weakness. She is motivated to return to home at prior level of function utilizing front wheeled walker for all mobility ADL performance. Patient continues to present with clinical signs and symptoms consistent with current/admitting diagnoses that have resulted to mobility limitations, gait instability, generalized weakness, and impairment of motor control as demonstrated by the following impairment level findings: 1. Decreased strength to B LE major muscle groups 2. Impaired standing balance 3. Impaired activity tolerance Impairments continue to contribute to the following functional limitations: 1. Inability to safely ambulate without assistive device and physical assistance 2. Increase completion time for mobility ADL performance 3. Increased fall risk 4. Inability to negotiate steps alone safely Goals: Goals X1 week 1. Supine-Sit independent MET 2. Sit-Supine independent MET 3. Sit-Stand independent MET 4. Stand-Sit independent NOT MET 5. Bed-Chair independent NOT MET 6. Chair-Bed independent NOT MET 7. Independent gait on level surface with use of least restrictive device for at least 200 feet without report of pain nor dyspnea NOT MET 8. Independent stair negotiation while holding onto bilateral rails for at least 14 steps without report of pain nor dyspnea NOT MET 9. Independent with home exercise program NOT MET 10. Good static and dynamic standing balance/tolerance NOT MET DISCHARGE RECOMMENDATIONS: Patient will benefit from home health PT services in order to progress mobility level using least restrictive assistive ambulatory device, assess home safety, identify additional equipment needs, and establish a functional maintenance program that will increase ability of patient to remain at home. TREATMENT CODE/TIME: NC. Thank you very much for this referral. America Bey PT, DPT, CLT [facility]
== END 2019-01-01 13:37 | disposition home health service (06) | DRG 683 ==
LOC: ER 20:08 → MS 20:19
PROVIDERS: Admitting Provider General Practice; Emergency Provider Physician Assistant; PCP Family Medicine; Visit Provider Internal Medicine
DX: N17.9 Acute kidney failure, unspecified (principal); N39.0 Urinary tract infection, site not specified; I42.0 Dilated cardiomyopathy; Z68.41 Body mass index [BMI] 40.0-44.9, adult; R53.1 Weakness; E86.0 Dehydration; I48.91 Unspecified atrial fibrillation; E11.9 Type 2 diabetes mellitus without complications; Z79.4 Long term (current) use of insulin; G47.33 Obstructive sleep apnea (adult) (pediatric); Z95.810 Presence of automatic (implantable) cardiac defibrillator; Z79.01 Long term (current) use of anticoagulants; E87.6 Hypokalemia; E66.9 Obesity, unspecified; Z71.3 Dietary counseling and surveillance
CPT/HCPCS: 36415; 80048; 80053; 87449; 96361; 96374; 97110; 97162; 97530; 99222; 99232; 99239; 99285; 81003; 81015; 83735; 84443; 84450; 84460; 84484; 85025; 85610; 85730; 87086; 99284; J2405

== ENCOUNTER 2019-01-26 23:05 | Outpatient (REF) | payer MEDICARE, BC, SELFPAY | END 2019-01-26 23:25 | LOC: NCHCN 23:05 | PROVIDERS: PCP Family Medicine; Visit Provider Family Medicine | DX: R30.0 Dysuria (principal) | CPT/HCPCS: 87077; 87086; 87186 ==

== ENCOUNTER 2019-01-28 09:48 | Observation (INO) | payer MEDICARE, BC, SELFPAY ==
[2019-01-28] VITALS (13 sets, daily range): BP systolic 99–133; BP diastolic 45–74; PULSE 66–94; RESP 14–20; TEMP 36.6–37.4; O2SAT 93–99
--- NOTE | 2019-01-28 10:01 | ED.GENADUL_ITS ---
Discharge Plan Disposition Condition: Improving Discharge Details Chief Complaint: Dizzy/Sync Admit Date/Time: 01/28/19 12:34 Admit Provider: Karlos Barros Attending Provider: Anna Elizabeth Primary Care Provider: Alyssa Turcios ED Provider: Kellie Peguero Discharge Instructions Activity:: Activity as Tolerated Equipment/Supplies:: No Equipment Needed Diet:: Carb Counting Discharge Orders Discharge Orders: Discharge Order (Routine); Ordered 01/30/19 Ordered By: Aide Garza Discharge Data Discharge Date/Time-TO BE ENTERED AT DEPARTURE: 01/28/19 13:50 Medical Decision Making Brunilda Reyes is a 73-year-old woman with a history of atrial fibrillation on Eliquis, obstructive sleep apnea, gout, insulin-dependent diabetes who presented to the emergency department with generalized weakness and possible syncopal episode this morning. On exam patient appears somewhat chronically ill but acutely nontoxic. Lungs clear to auscultation, abdomen soft and nontender, 1-2+ pitting edema bilateral lower legs that patient reports is chronic and unchanged, no posterior calf tenderness to palpation. Call from patient's PCP office notes that patient had UA as outpatient several days ago that was negative, culture now returned positive. Concern for metabolic/electrolyte derangement, UTI, ar rhythmia, ACS, dehydration, other. Exam/history is not consistent with pulmonary embolism, acute aortic pathology, meningitis, CVA, significant trauma. Plan for EKG, UA, screening labs, IV fluid. We will plan to treat with ceftriaxone based on urine culture positive for Proteus 50,000-100,000. Labs reviewed, no leukocytosis, INR 1.2, anion gap 7.8, creatinine 1.52, lactate 2.0, troponin negative. Plan for admission. Clinical impression: Syncope, UTI Disposition: [facility] inpatient Medical Records Medical records reviewed: Yes I reviewed the patient's medical records. Lab Data Lab results reviewed: Yes I reviewed the patient's lab results. Labs: 01/28/19 11:05 Urine - Reflex from Ua Urine Culture - Pending 01/28/19 11:00 Blood Blood Culture - Pending 01/28/19 11:00 Blood Blood Culture - Pending Laboratory Tests Range/Units 01/28/19 01/28/19 01/28/19 10:13 10:29 10:29 WBC (4.4-10.8) k/cumm 6.50 RBC (4.00-5.20) m/cumm 4.64 Hgb (12.0-15.5) g/dL 14.0 Hct (36.0-46.0) % 42.0 MCV (80-95) fL 90.5 MCH (27.0-33.0) pg 30.2 MCHC (32.0-36.0) g/dL 33.3 RDW (11.7-14.6) % 14.5 Plt Count (130-400) x1000/uL 166 MPV (8.0-11.0) fL 12.8 H Immature Gran % 0.2 Neutrophils % 69.6 Lymphocytes % 16.5 Monocytes % 8.6 Eosinophils % 4.6 Basophils % 0.5 Absolute Neutrophils (1.2-6.7) k/cumm 4.53 Absolute Lymphocytes (1.2-3.4) k/cumm 1.07 L Absolute Monocytes (0.11-0.7) k/cumm 0.56 Absolute Eosinophils (0.0-0.7) k/cumm 0.30 Absolute Basophils (0.0-0.2) k/cumm 0.03 PT (9.3-11.0) sec 11.6 H INR (0.9-1.1) 1.2 H APTT (21.0-31.4) sec 27.4 Sodium (136-145) mmol/L 142 Potassium (3.5-5.1) mmol/L 3.6 Chloride (98-107) mmol/L 103 Carbon Dioxide (21.0-32.0) mmol/L 31.2 Anion Gap (3-11) mmol/L 7.8 BUN (7-18) mg/dL 27 H Creatinine (0.55-1.02) mg/dL 1.52 H Estimated GFR/1.73 m2 (mL/min/1.73m2) 33.71 Glucose (74-106) mg/dL 228 H Lactate (0.6-1.4) mmol/L Calcium (8.5-10.1) mg/dL 9.1 Magnesium (1.8-2.4) mg/dL 1.9 Total Bilirubin (0.2-1.0) mg/dL 0.9 AST (15-37) U/L 28 ALT (14-59) U/L 36 Alkaline Phosphatase (46-116) U/L 134 H Troponin I (<0.06) ng/Ml < 0.05 NT-Pro-B Natriuret Pep (<300) pg/mL 221 Total Protein (6.4-8.2) g/dL 6.6 Albumin (3.4-5.0) g/dL 3.0 L TSH (0.36-3.74) uIU/mL 3.51 Urine Color (Yellow) Urine Clarity (Clear) Urine pH (5-8) Ur Specific Sumner (1.005-1.025) Urine Protein (Negative) mg/dL Urine Ketones (Negative) mg/dL Urine Blood (Negative) Urine Nitrite (Negative) Urine Bilirubin (Negative) Urine Urobilinogen (Up TO 0.2) EU/dL Ur Leukocyte Esterase (Negative) Urine RBC (0-2) HPF Urine WBC (0-5) HPF Ur Epithelial Cells (Negative) HPF Urine Crystals (Negative) HPF Urine Bacteria (Negative) HPF Urine Casts (Negative) LPF Urine Mucus (Negative) Ur Culture Indicated? Urine Glucose (Negative) mg/dL Range/Units 01/28/19 01/28/19 01/28/19 11:00 11:05 13:20 WBC (4.4-10.8) k/cumm RBC (4.00-5.20) m/cumm Hgb (12.0-15.5) g/dL Hct (36.0-46.0) % MCV (80-95) fL MCH (27.0-33.0) pg MCHC (32.0-36.0) g/dL RDW (11.7-14.6) % Plt Count (130-400) x1000/uL MPV (8.0-11.0) fL Immature Gran % Neutrophils % Lymphocytes % Monocytes % Eosinophils % Basophils % Absolute Neutrophils (1.2-6.7) k/cumm Absolute Lymphocytes (1.2-3.4) k/cumm Absolute Monocytes (0.11-0.7) k/cumm Absolute Eosinophils (0.0-0.7) k/cumm Absolute Basophils (0.0-0.2) k/cumm PT (9.3-11.0) sec INR (0.9-1.1) APTT (21.0-31.4) sec Sodium (136-145) mmol/L Potassium (3.5-5.1) mmol/L Chloride (98-107) mmol/L Carbon Dioxide (21.0-32.0) mmol/L Anion Gap (3-11) mmol/L BUN (7-18) mg/dL Creatinine (0.55-1.02) mg/dL Estimated GFR/1.73 m2 (mL/min/1.73m2) Glucose (74-106) mg/dL Lactate (0.6-1.4) mmol/L 2.0 H Calcium (8.5-10.1) mg/dL Magnesium (1.8-2.4) mg/dL Total Bilirubin (0.2-1.0) mg/dL AST (15-37) U/L ALT (14-59) U/L Alkaline Phosphatase (46-116) U/L Troponin I (<0.06) ng/Ml < 0.05 NT-Pro-B Natriuret Pep (<300) pg/mL Total Protein (6.4-8.2) g/dL Albumin (3.4-5.0) g/dL TSH (0.36-3.74) uIU/mL Urine Color (Yellow) Yellow Urine Clarity (Clear) Clear Urine pH (5-8) 7.0 Ur Specific Sumner (1.005-1.025) 1.015 Urine Protein (Negative) mg/dL Negative Urine Ketones (Negative) mg/dL Negative Urine Blood (Negative) Trace-intact H Urine Nitrite (Negative) Negative Urine Bilirubin (Negative) Negative Urine Urobilinogen (Up TO 0.2) EU/dL 0.2 Ur Leukocyte Esterase (Negative) Trace H Urine RBC (0-2) HPF 3-5 H Urine WBC (0-5) HPF 3-5 Ur Epithelial Cells (Negative) HPF Rare Urine Crystals (Negative) HPF Negative Urine Bacteria (Negative) HPF Rare Urine Casts (Negative) LPF Negative Urine Mucus (Negative) Negative Ur Culture Indicated? Yes Urine Glucose (Negative) mg/dL Negative ECG Data Attestation: I personally reviewed and interpreted this ECG (s) as follows: Interpretation: EKG shows sinus rhythm at 77, left axis, widened QRS, poor R wa ve progression, no STEMI, unchanged from prior, nondiagnostic EKG HPI General Mode of arrival: ambulatory . Date/Time Provider Initiated Documentation: 01/28/19 10:01 . Limitations to Documentation: no limitations . Information obtained by: patient, RN notes reviewed and old records reviewed . HPI Narrative: Brunilda Herrera is a 73-year-old woman with history of insulin-dependent diabetes, atrial fibrillation on Eliquis, CHF, coronary artery disease presenting to the emergency department with possible syncopal episode and generalized weakness. Patient is accompanied by her who also provides a history. Patient and her report that patient has had generalized weakness and trouble walking since the beginning of October of this year. Patient reports 10-day hospitalization for weakness in October followed by 20 days in rehab facility. Patient states that as far she knows no diagnosis was made during her hospitalization to explain her symptoms. Patient reports that since being discharged home she has had ongoing trouble with walking with multiple falls. Record review shows the patient was admitted here 01/06 for UTI and discharged home. Patient states that she has been having the same difficulties since that admission without change. Patient reports that this morning she was walking and began to feel as if she would faint and gradually lowered herself to the ground. She denies hitting her head, and states that she remembers lowering herself to the ground and lying down. Patient thinks that she may have lost consciousness when she was on the ground very briefly but she is unsure. Patient's states that he was not present at the time but that she was with her home health worker. There was no incontinence or tongue biting, no shaking and no apparent postictal phase. Patient reports that she has been eating and drinking somewhat less than usual over the past few weeks. Patient's states that patient falls very frequently or lowered herself to the ground very frequently, and he is unable to care for her at home due to her overall health issues. Patient denies any pain, fevers, shortness of breath, cough, palpitations, vomiting, diarrhea, rash, focal weakness, numbness, dysuria. Related Data Home Medications Medication Instructions Recorded Confirmed fluoxetine 40 mg PO DAILY AM 04/15/13 01/28/19 Bi Pap 12/28/14 04/17/18 nitroglycerin [Nitrostat] 0.4 mg SUBLINGUAL ONCE PRN tab-cap 12/28/14 12/30/18 omega-3 fatty acids 1,000 mg PO BID 12/28/14 01/28/19 magnesium oxide 400 mg PO BID 05/28/16 01/28/19 Novolog Flexpen U-100 Insulin 10 units SUB-Q 0800,1200,1700 pen 05/31/16 12/30/18 Ocuvite Adult 50 Plus 1 cap PO HS 12/17/17 01/28/19 gabapentin 600 mg PO BID 12/17/17 01/28/19 carvedilol 25 mg tablet 25 mg PO BID #180 tab 01/23/18 01/28/19 colchicine 0.6 mg tablet 0.6 mg PO BID 04/17/18 01/28/19 Eliquis 5 mg PO BID 12/30/18 01/28/19 bupropion HCl 300 mg PO QAM 12/30/18 01/28/19 acetaminophen [Tylenol] 650 mg PO Q6H PRN PRN #0 tab 01/01/19 01/28/19 omeprazole 20 mg PO BID@ #60 cap 01/01/19 01/28/19 torsemide 20 mg PO DAILY #0 tab-cap 01/01/19 01/28/19 ergocalciferol (vitamin D2) 1,250 50,000 unit PO .QO week cap 01/14/19 01/28/19 mcg (50,000 unit) capsule Novolin 70/30 U-100 Insulin 40 ml SUBCUT BID 01/28/19 01/28/19 cephalexin 500 mg PO BID #5 cap 01/30/19 Previous Rx's Medication Instructions Recorded Novolog Flexpen U-100 Insulin 10 units SUB-Q 0800,1200,1700 pen 05/31/16 carvedilol 25 mg tablet 25 mg PO BID #180 tab 01/23/18 acetaminophen [Tylenol] 650 mg PO Q6H PRN PRN #0 tab 01/01/19 omeprazole 20 mg PO BID@729,1999 #60 cap 01/01/19 torsemide 20 mg PO DAILY #0 tab-cap 01/01/19 cephalexin 500 mg PO BID #5 cap 01/30/19 Allergies Allergy/AdvReac Type Severity Reaction Status Date / Time No Known Allergies Allergy Unverified 01/28/19 10:28 General Stated Complaint: Dizzy/Sync ISABELLE: 3 Review of Systems Narrative: Constitutional: denies fevers Eyes: denies eye pain ENT: denies facial pain, dental pain, sore throat Cardiovascular: denies chest pain, palpitations, reports lightheadedness Respiratory: denies SOB, cough GI: denies abdominal pain, vomiting, diarrhea : denies flank pain MSK: denies back pain, neck pain, arthralgias, myalgias Skin: denies rash Neuro: denies headaches, numbness, weakness [facility] Medical History Actinic keratosis (Acute) Acute joint pain (Acute) Acute pain of left hip (Acute) Acute pain of right shoulder (Acute) Adequate anticoagulation on anticoagulant therapy (Acute) Arthralgia (Acute) Atrial fibrillation Binge eating disorder (Acute) CHF (congestive heart failure) Dilated cardiomyopathy (Chronic) DM (diabetes mellitus) Dyschromia (Acute) Essential and other specified forms of tremor (Acute) Frequent falls (Acute) Leg edema (Acute) Macular degeneration (Acute) Menopause (Acute) Morbid obesity due to excess calories (Chronic) Nuclear sclerotic cataract of left eye (Resolved) Nuclear sclerotic cataract of right eye (Resolved) Obesity CALDERON (obstructive sleep apnea) (Chronic) Pain in left shoulder (Acute) Paroxysmal atrial flutter (Chronic) CASA (subconjunctival hemorrhage) (Acute) Surgical History section Status post cataract extraction and insertion of intraocular lens of left eye (Chronic 01/03/18) Status post cataract extraction and insertion of intraocular lens of right eye (Chronic 12/20/17) Family History Father Heart disease Social History Smoking/Tobacco Use Status: Never Alcohol Intake: never Drug use: Never Substance use type: does not use Household members: spouse Housing: house 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 [employer] What is your relationship status?: Panel score (0-1 are the most socially isolated patients): 1 Do you feel safe at home: Yes Do you feel safe in your relationship?: Yes Exam Narrative Exam Narrative: Constitutional: Chronically ill appearing but acutely non-toxic, pleasant, conversing normally HENT: head atraumatic/normocephalic/normal inspection, mucous membranes moist Eyes: conjunctiva normal, sclera normal, pupils 3mm b/l Neck: no stridor, normal ROM, trachea midline Chest: normal inspection Resp: normal work of breathing, LCTAB Cardio: normal rate, normal rhythm, no murmur appreciated GI: abdomen soft, non-tender, non-distended Back: normal inspection, no rash Skin: warm, dry, normal color, no rash Neuro: alert, not altered, grossly non-focal, normal tone Ext: 1-2+ pitting edema bilateral lower extremities patient reports is chronic and unchanged, no posterior calf tenderness to palpation Psych: normal mood, normal affect, normal behavior Course Vital Signs Vital signs: Vital Signs Temperature 36.7 C 01/28/19 09:55 Pulse 75 01/28/19 09:55 Respiratory Rate 15 01/28/19 09:55 Blood Pressure 99/52 L 01/28/19 09:55 Pulse Oximetry 94 L 01/28/19 09:55 Temperature 36.7 C 01/28/19 09:55 Temperature Source Skin 01/28/19 09:55 Pulse 75 01/28/19 09:55 Respiratory Rate 15 01/28/19 09:55 Blood Pressure 99/52 L 01/28/19 09:55 Blood Pressure Position Sitting 01/28/19 09:55 Pulse Oximetry 94 L 01/28/19 09:55 Oxygen Delivery Method Room Air 01/28/19 09:55 Oxygen Flow Rate 0 01/28/19 09:55 Pain Level 0 01/28/19 09:55
[2019-01-28 10:44] LABS: Abs Immature Grans 0.01 k/cumm (0.0-0.09); Absolute Basophil Count 0.03 k/cumm (0.0-0.2); Absolute Lymphocyte Count 1.07 k/cumm (1.2-3.4); Absolute Monocyte Count 0.56 k/cumm (0.11-0.7); Absolute Neutrophil Count 4.53 k/cumm (1.2-6.7); Basophils % 0.5; Eosinophils % 4.6; Immature Grans % 0.2; Lymphocytes % 16.5; Mean Corp. HGB Concentration 33.3 g/dL (32.0-36.0); Mean Corpuscular Hemoglobin 30.2 pg (27.0-33.0); Mean Corpuscular Volume 90.5 fL (80-95); Mean Platelet Volume 12.8 fL (8.0-11.0); Monocytes % 8.6; Neutrophils % 69.6; Platelet Count 166 x1000/uL (130-400); RBC 4.64 m/cumm (4.00-5.20); RBC Distribution Width 14.5 % (11.7-14.6)
[2019-01-28 10:57] LABS: INR 1.2 (0.9-1.1); PTT Activated 27.4 sec (21.0-31.4); Prothrombin Time 11.6 sec (9.3-11.0)
[2019-01-28 11:06] LABS: ALT 36 U/L (14-59); AST 28 U/L (15-37); Alkaline Phosphatase 134 U/L (46-116); Anion Gap 7.8 mmol/L (3-11); BUN 27 mg/dL (7-18); Bilirubin, Total 0.9 mg/dL (0.2-1.0); CO2 31.2 mmol/L (21.0-32.0); CREATININE 1.52 mg/dL (0.55-1.02); Calcium 9.1 mg/dL (8.5-10.1); Chloride 103 mmol/L (98-107); Estimated GFR 33.71 (mL/min/1.73m2); Glucose 228 mg/dL (74-106); Magnesium 1.9 mg/dL (1.8-2.4); NT-proBNP 221 pg/mL (<300); Potassium 3.6 mmol/L (3.5-5.1); Sodium 142 mmol/L (136-145); TSH 3.51 uIU/mL (0.36-3.74); Total Protein 6.6 g/dL (6.4-8.2)
[2019-01-28 11:19] LABS: Troponin I < 0.05 ng/Ml (<0.06)
[2019-01-28 11:38] LABS: Bilirubin Negative (Negative); Blood Trace-intact (Negative); Clarity Clear (Clear); Glucose Negative (Negative); Ketones Negative (Negative); Leukocyte Esterase Trace (Negative); Nitrite Negative (Negative); Specific Gravity 1.015 (1.005-1.025); Urobilinogen 0.2 EU/dL (Up TO 0.2)
[2019-01-28 11:52] LABS: Bacteria Rare HPF (Negative); C & S Indicated? Yes; Casts Negative LPF (Negative); Crystals Negative HPF (Negative); Epithelial Cells Rare HPF (Negative); Mucus Negative (Negative)
[2019-01-28] MEDS: Normal Saline 250 ML IV (12:58)
[2019-01-28 13:47] LABS: Troponin I < 0.05 ng/Ml (<0.06)
[2019-01-28] MEDS: Insulin Aspart 300 UNITS/3 ML PEN SC (17:05)
--- NOTE | 2019-01-28 17:38 | W.PM.HP.N ---
Date of service: 01/28/19 Time of Service: 17:44 Assessment and Plan Assessment and plan (1) UTI (urinary tract infection): Status: Acute Assessment and plan: Urine culture from 01/26/2019 growing Proteus species. Continue IV ceftriaxone. Continue to monitor urine culture. Hold off on IV fluids as she does not appear dehydrated at this time, she has a history of cardiomyopathy, and she received IV fluids in the emergency department. Lactate elevated to 2.0 on admission, repeat lactate pending. Blood culture pending. (2) Weakness: Status: Acute Assessment and plan: In the setting of urinary tract infection. Also with history of cardiomyopathy, it is unclear when her last echocardiogram was. Continue to treat urinary tract infection. Obtain most recent echocardiogram results, repeat if indicated. TSH normal. Question of near syncope at home, monitor on telemetry. PT consulted. (3) Gout: Status: Acute Assessment and plan: She has been on colchicine, she does not believe she has gout. She states she was started on treatment for gout when she reported foot pain. Hold colchicine and continue to monitor. (4) ICD (implantable cardioverter-defibrillator) in place: Status: Chronic Assessment and plan: History of cardiomyopathy with reportedly low ejection fraction. Status post AICD. No recent echocardiogram on file here. Obtain most recent echocardiogram results as above. (5) Diabetes mellitus: Status: Acute Assessment and plan: Her most recent hemoglobin A1c was on 12/02/2018, 7.8. Carb counting diet, monitor blood glucose at AC, cover with short acting insulin per sliding scale in addition to her home NPH. Adjust as needed. Qualifiers: Diabetes mellitus type: type 2 Diabetes mellitus usp insulin use: with intermodal dispatcher use Diabetes mellitus complication detail: with cataract (6) Dilated cardiomyopathy: Status: Chronic Assessment and plan: As above, status post AICD. Unclear what her ejection fraction is at this time. Will obtain echocardiogram results. Continue carvedilol and torsemide. BNP normal at 221. (7) Atrial fibrillation: Status: None Assessment and plan: Currently rate controlled, continue carvedilol per home dosing. Continue Eliquis for anticoagulation. (8) Depression: Status: Chronic Assessment and plan: Continue home regimen with Wellbutrin and fluoxetine. (9) CALDERON (obstructive sleep apnea): Status: Chronic Assessment and plan: Does not wear CPAP. (10) DVT prophylaxis: Status: Acute Assessment and plan: Continue apixaban. (11) Discharge planning issues: Status: Acute Assessment and plan: She is a full code. Discussed CODE STATUS, she would like to remain full code. Is unclear if she will be able to return home or if she will need rehab again, PT has been consulted. This case was discussed with Dr. Barros is in agreement. History of Present Illness History of Present Illness Chief Complaint: UTI, weakness, FTT Narrative: Brunilda Herrera is a pleasant 73 year old female with a past medical history significant for insulin dependent diabetes, obstructive sleep apnea, cardiomyopathy with pacemaker and AICD, atrial fibrillation on anticoagulation with apixaban, gout presented to the emergency department on 12/30/2018 with reports of generalized weakness and a fall at home. In the emergency department, review of her chart noted that she had a urine culture as an outpatient on 01/26/2019 which was growing a Proteus species. She was not on antibiotics at the time of her presentation. She had labs drawn, no leukocytosis, her INR was 1.2, her creatinine was elevated at 1.52, her anion gap was 7.8, troponin was negative x2. She received IV fluids. She was initiated on ceftriaxone for urinary tract infection. Her EKG showed normal sinus rhythm with a rate of 77, left axis, widened QRS, poor R wave progression, no STEMI, unchanged from prior. She was admitted to the [facility] floor for further treatment of her urinary tract infection and a physical therapy consult. At the time of her admission, she reports feeling mildly better. She reports she has had difficulty ambulating for over a month. She was recently at rehab at [facility]. Last night she was unable to get up the stairs to her room due to generalized weakness, so she slept on the couch. She reports that she got up this morning to get something to eat and as she was returning to the living room she collapsed. She does not believe she lost consciousness when she fell, she did not hit her head. She has shortness of breath only when climbing stairs, no shortness of breath at rest, no coughing, no wheezing. She denies chest pain/pressure, palpitations. She endorses chronic lower extremity edema. She has had home health physical therapy and occupational therapy and she states she has been doing some of the exercises independently. She reports that she was eating and drinking normally up until today when she had a poor appetite. She denies abdominal pain, nausea, vomiting or diarrhea. Her bowels have been moving normally. She denies dysuria or hematuria. Review of Systems All systems reviewed & are unremarkable except as noted in HPI and below PFSH Medical History Actinic keratosis (Acute) Acute joint pain (Acute) Acute pain of left hip (Acute) Acute pain of right shoulder (Acute) Adequate anticoagulation on anticoagulant therapy (Acute) Arthralgia (Acute) Atrial fibrillation Binge eating disorder (Acute) CHF (congestive heart failure) Dilated cardiomyopathy (Chronic) DM (diabetes mellitus) Dyschromia (Acute) Essential and other specified forms of tremor (Acute) Frequent falls (Acute) Leg edema (Acute) Macular degeneration (Acute) Menopause (Acute) Morbid obesity due to excess calories (Chronic) Nuclear sclerotic cataract of left eye (Resolved) Nuclear sclerotic cataract of right eye (Resolved) Obesity CALDERON (obstructive sleep apnea) (Chronic) Pain in left shoulder (Acute) Paroxysmal atrial flutter (Chronic) CASA (subconjunctival hemorrhage) (Acute) Surgical History section Status post cataract extraction and insertion of intraocular lens of left eye (Chronic 01/03/18) Status post cataract extraction and insertion of intraocular lens of right eye (Chronic 12/20/17) Family History Father Heart disease Social History Smoking/Tobacco Use Status: Never Alcohol Intake: never Drug use: Never Substance use type: does not use Household members: spouse Housing: house 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 What is your relationship status?: Panel score (0-1 are the most socially isolated patients): 1 Do you feel safe at home: Yes Do you feel safe in your relationship?: Yes Meds Home Medications and Allergies Home Medications Medication Instructions Recorded Confirmed Type fluoxetine 40 mg PO DAILY AM 04/15/13 01/28/19 History Bi Pap 12/28/14 04/17/18 History nitroglycerin [Nitrostat] 0.4 mg SUBLINGUAL ONCE PRN tab-cap 12/28/14 12/30/18 History omega-3 fatty acids 1,000 mg PO BID 12/28/14 01/28/19 History magnesium oxide 400 mg PO BID 05/28/16 01/28/19 History Novolog Flexpen U-100 Insulin 10 units SUB-Q 0800,1200,1700 pen 05/31/16 12/30/18 Rx Ocuvite Adult 50 Plus 1 cap PO HS 12/17/17 01/28/19 History gabapentin 600 mg PO BID 12/17/17 01/28/19 History carvedilol 25 mg tablet 25 mg PO BID #180 tab 01/23/18 01/28/19 Rx colchicine 0.6 mg tablet 0.6 mg PO BID 04/17/18 01/28/19 History Eliquis 5 mg PO BID 12/30/18 01/28/19 History bupropion HCl 300 mg PO QAM 12/30/18 01/28/19 History acetaminophen [Tylenol] 650 mg PO Q6H PRN PRN #0 tab 01/01/19 01/28/19 Rx omeprazole 20 mg PO BID@0730,2000 #60 cap 01/01/19 01/28/19 Rx torsemide 20 mg PO DAILY #0 tab-cap 01/01/19 01/28/19 Rx ergocalciferol (vitamin D2) 50,000 50,000 unit PO .QO week cap 01/14/19 01/28/19 History unit capsule insulin NPH and regular human 40 ml SUBCUT BID 01/28/19 01/28/19 History [Novolin 70/30 U-100 Insulin] Allergies Allergy/AdvReac Type Severity Reaction Status Date / Time No Known Allergies Allergy Unverified 01/28/19 10:28 Exam Narrative Exam Narrative: General: Overweight, elderly female, laying in bed with head elevated, in NAD. Pleasant and cooperative, alert and oriented. Answers questions appropriately. HEENT: normocephalic, atraumatic, pupils equal and round, EOMI, mucous membranes moist. Neck: supple. Cardiovascular: heart sounds irregularly irregular, nontacycardic, no murmur appreciated. Respiratory: respirations even and unlabored, lung sounds clear throughout. GI: normoactive bowel sounds, abdomen soft, nontender on palpation, nondistended. Extremities: +1 edema to bilateral lower extremities. No calf swelling or tenderness. pedal pulses palpable. Results Labs Result diagrams: 01/28/19 10:13 01/28/19 10:29 Labs: Laboratory Results - last 24 hr 01/28/19 01/28/19 01/28/19 10:13 10:29 10:29 WBC 6.50 RBC 4.64 Hgb 14.0 Hct 42.0 MCV 90.5 MCH 30.2 MCHC 33.3 RDW 14.5 Plt Count 166 MPV 12.8 H Immature Gran % 0.2 Neutrophils % 69.6 Lymphocytes % 16.5 Monocytes % 8.6 Eosinophils % 4.6 Basophils % 0.5 Absolute Neutrophils 4.53 Absolute Lymphocytes 1.07 L Absolute Monocytes 0.56 Absolute Eosinophils 0.30 Absolute Basophils 0.03 PT 11.6 H INR 1.2 H APTT 27.4 Sodium 142 Potassium 3.6 Chloride 103 Carbon Dioxide 31.2 Anion Gap 7.8 BUN 27 H Creatinine 1.52 H Estimated GFR/1.73 m2 33.71 Glucose 228 H Lactate Calcium 9.1 Magnesium 1.9 Total Bilirubin 0.9 AST 28 ALT 36 Alkaline Phosphatase 134 H Troponin I < 0.05 NT-Pro-B Natriuret Pep 221 Total Protein 6.6 Albumin 3.0 L TSH 3.51 Urine Color Urine Clarity Urine pH Ur Specific [place] Urine Protein Urine Ketones Urine Blood Urine Nitrite Urine Bilirubin Urine Urobilinogen Ur Leukocyte Esterase Urine RBC Urine WBC Ur Epithelial Cells Urine Crystals Urine Bacteria Urine Casts Urine Mucus Ur Culture Indicated? Urine Glucose 01/28/19 01/28/19 01/28/19 11:00 11:05 13:20 WBC RBC Hgb Hct MCV MCH MCHC RDW Plt Count MPV Immature Gran % Neutrophils % Lymphocytes % Monocytes % Eosinophils % Basophils % Absolute Neutrophils Absolute Lymphocytes Absolute Monocytes Absolute Eosinophils Absolute Basophils PT INR APTT Sodium Potassium Chloride Carbon Dioxide Anion Gap BUN Creatinine Estimated GFR/1.73 m2 Glucose Lactate 2.0 H Calcium Magnesium Total Bilirubin AST ALT Alkaline Phosphatase Troponin I < 0.05 NT-Pro-B Natriuret Pep Total Protein Albumin TSH Urine Color Yellow Urine Clarity Clear Urine pH 7.0 Ur Specific [place] 1.015 Urine Protein Negative Urine Ketones Negative Urine Blood Trace-intact H Urine Nitrite Negative Urine Bilirubin Negative Urine Urobilinogen 0.2 Ur Leukocyte Esterase Trace H Urine RBC 3-5 H Urine WBC 3-5 Ur Epithelial Cells Rare Urine Crystals Negative Urine Bacteria Rare Urine Casts Negative Urine Mucus Negative Ur Culture Indicated? Yes Urine Glucose Negative 01/28/19 14:50 WBC RBC Hgb Hct MCV MCH MCHC RDW Plt Count MPV Immature Gran % Neutrophils % Lymphocytes % Monocytes % Eosinophils % Basophils % Absolute Neutrophils Absolute Lymphocytes Absolute Monocytes Absolute Eosinophils Absolute Basophils PT INR APTT Sodium Potassium Chloride Carbon Dioxide Anion Gap BUN Creatinine Estimated GFR/1.73 m2 Glucose Lactate Calcium Magnesium Total Bilirubin AST ALT Alkaline Phosphatase Troponin I NT-Pro-B Natriuret Pep Total Protein Albumin TSH Cancelled Urine Color Urine Clarity Urine pH Ur Specific [place] Urine Protein Urine Ketones Urine Blood Urine Nitrite Urine Bilirubin Urine Urobilinogen Ur Leukocyte Esterase Urine RBC Urine WBC Ur Epithelial Cells Urine Crystals Urine Bacteria Urine Casts Urine Mucus Ur Culture Indicated? Urine Glucose Last Vital Signs Temp 36.9 C 01/28/19 16:32 Pulse 81 01/28/19 16:32 Resp 20 01/28/19 16:32 BP 111/70 01/28/19 16:32 Pulse Ox 97 01/28/19 16:32
[2019-01-28 18:12] LABS: Lactate 1.2 mmol/L (0.6-1.4)
[2019-01-28 18:34] LABS: Troponin I < 0.05 ng/Ml (<0.06)
[2019-01-28] MEDS: Carvedilol 25 MG TAB PO (22:18)
[2019-01-28] MEDS: Apixaban 5 MG TAB PO (22:18)
[2019-01-28] MEDS: Omeprazole 20 MG CAPCR PO (22:18)
[2019-01-28] MEDS: Magnesium Oxide 400 MG TAB PO (22:18)
[2019-01-28] MEDS: Gabapentin 300 MG CAP 600 MG PO (22:18)
[2019-01-28] MEDS: Omega-3 Fatty Acids 1000 MG CAP PO (22:18)
[2019-01-28] MEDS: cefTRIAXone 1 GM/50 ML BAG IVPB (23:46)
[2019-01-29] VITALS (9 sets, daily range): BP systolic 112–146; BP diastolic 71–80; PULSE 67–92; RESP 18–22; TEMP 36.5–37.2; O2SAT 93–97
[2019-01-29 07:12] LABS: Anion Gap 8.6 mmol/L (3-11); BUN 22 mg/dL (7-18); CO2 28.4 mmol/L (21.0-32.0); CREATININE 1.29 mg/dL (0.55-1.02); Calcium 8.6 mg/dL (8.5-10.1); Chloride 104 mmol/L (98-107); Estimated GFR 40.74 (mL/min/1.73m2); Glucose 227 mg/dL (74-106); Magnesium 1.8 mg/dL (1.8-2.4); Potassium 3.6 mmol/L (3.5-5.1); Sodium 141 mmol/L (136-145)
--- NOTE | 2019-01-29 08:09 | PHARADMIT ---
Admission Pharmacy Clinical Review Syncope, UTI Code Status Full Code Current Weight Wgt-125.1 kg Renally Cleared and Narrow Therapeutic Index Meds CrCl~37.4 mL/min Meds-OK QTc Value / Action Taken QTc-468 (Omeprazole) BP Control, Fever BP-136/72 Tmax-37.4C Electrolytes reviewed Na- 141 K+3.6 Mag-1.8 DVT Prophylaxis Eliquis Opiate Usage / Scheduled Bowel Regimen Ordered No Plt/SCr for Heparin / Enoxaparin Plts-166 SCr-1.29 INR for Warfarin inr-1.2 H/H stable, WBC/Bands H&H-14. WBC- 6.50 Antibiotic appropriateness Rocephin. Cultures and Sensitivities Blood, Urine-Pending Surgical ABX d/c within 24 hr NA DM control / Insulin Dosing BG-227 Aspart, 70/30, Heart Failure (Check EF%) (NANDO's, B-Block, Diuretics) Coreg, Torsemide IV to PO Switch No Home Meds Reviewed Yes Home Meds Not Ordered Colchicine, Comments PatOwn-Ocuvite+
[2019-01-29] MEDS: buPROPion-XL 150 MG TABCR 300 MG PO (08:55)
[2019-01-29] MEDS: Torsemide 20 MG TAB PO (08:55)
[2019-01-29] MEDS: Apixaban 5 MG TAB PO ×2 (08:55→20:28)
[2019-01-29] MEDS: Omeprazole 20 MG CAPCR PO ×2 (08:56→20:28)
[2019-01-29] MEDS: Insulin Aspart 300 UNITS/3 ML PEN SC ×3 (08:56→17:21)
[2019-01-29] MEDS: Carvedilol 25 MG TAB PO ×2 (08:56→20:28)
[2019-01-29] MEDS: Omega-3 Fatty Acids 1000 MG CAP PO ×2 (08:56→20:28)
[2019-01-29] MEDS: Gabapentin 300 MG CAP 600 MG PO ×2 (08:56→20:28)
[2019-01-29] MEDS: Normal Saline Flush 10 ML SYR IVP (08:59)
[2019-01-29] MEDS: FLUoxetine 20 MG CAP 40 MG PO (09:13)
--- NOTE | 2019-01-29 10:41 | IN_ITS ---
Date of service: 01/29/19 Time of Service: 09:45 PT Notes Visit Reasons: SYNCOPE, UTI Physical Therapy Inpatient Initial Evaluation Date: 01/29/19 Referring Doctor: Aide Garza NP PT Orders: PT CONSULT: Eval/treat. FTT, falls at home Precautions: Fall. Standard. Activity as tolerated. Patient Profile/Admitting Diagnosis: Patient is a 73-year-old female with past medical history significant for dilated cardiomyopathy, atrial fibrillation and congestive heart failure who presented to the ED on 01/28/2019 with chief complaints of urinary tract infection, weakness, and failure to thrive. Patient is diagnosed with urinary tract infection, gout, diabetes mellitus, and generalized weakness. PMHX: Medical History Actinic keratosis (Acute) Acute joint pain (Acute) Acute pain of left hip (Acute) Acute pain of right shoulder (Acute) Adequate anticoagulation on anticoagulant therapy (Acute) Arthralgia (Acute) Atrial fibrillation Binge eating disorder (Acute) CHF (congestive heart failure) Dilated cardiomyopathy (Chronic) DM (diabetes mellitus) Dyschromia (Acute) Essential and other specified forms of tremor (Acute) Frequent falls (Acute) Leg edema (Acute) Macular degeneration (Acute) Menopause (Acute) Morbid obesity due to excess calories (Chronic) Nuclear sclerotic cataract of left eye (Resolved) Nuclear sclerotic cataract of right eye (Resolved) Obesity CALDERON (obstructive sleep apnea) (Chronic) Pain in left shoulder (Acute) Paroxysmal atrial flutter (Chronic) CASA (subconjunctival hemorrhage) (Acute) Surgical History section Status post cataract extraction and insertion of intraocular lens of left eye (Chronic 01/03/18) Status post cataract extraction and insertion of intraocular lens of right eye (Chronic 12/20/17) Social History/Home Situation: Patient lives with in a 2-floor house with 3 steps to enter with rails on both sides. Another set of 14 steps with bilateral railings lead to the second floor of the house where patient's bedroom is. Patient has a private caregiver who comes daily for assistance with meal preparation, bathing, and dressing. Patient has been independent with all indoor ambulation using a front wheeled walker and has been able to negotiate steps to the second floor while holding onto bilateral railings. Patient states that she has had one fall since discharge from this hospital in October 2018. Equipment Owned/DME: [employer], [employer], [employer] Subjective: Patient is agreeable to a PT consult and treatment today. She states that the sole of her both feet are continue to be tender while ambulating with PT. Patient states that her is not fully able to physically assist as he is not well himself. She did report being fatigued after the walking act ivity. Objective: General Observation: Patient seen resting in recliner upon arrival of PT. IV access in the left UE still in place. Mental Status: Alert and oriented as to person, place, time, and purpose Pain: 10 pain on the sole of right foot. ROM: Right Upper Extremity: Shoulder Flexion WFL. Shoulder abduction WFL. Elbow flexion WFL. Wrist flexion WFL. Functional opening and closing of hand WFL. Left Upper Extremity: Shoulder Flexion WFL. Shoulder abduction WFL. Elbow flexion WFL. Wrist flexion WFL. Functional opening and closing of hand WFL. Right Lower Extremity: Hip flexion WFL. Hip abduction WFL. Knee flexion WFL. Ankle dorsiflexion WFL. Ankle plantarflexion WFL. Left Lower Extremity: Hip flexion WFL. Hip abduction WFL. Knee flexion WFL. Ankle dorsiflexion WFL. Ankle plantarflexion WFL. Strength: Right Upper Extremity: The and says that you Left Upper Extremity: Shoulder flexors 4/5. Shoulder abductors 4/5. Elbow flexors 4 to /5. Elbow extensors 4/5. Vehicle Monitor Technician strong. Right Lower Extremity: Hip flexors 4/5. Hip abductors 4/5. Knee flexors 4/5. Knee extensors 4/5. Ankle dorsiflexors 4/5. Ankle plantarflexors 4-/5. Left Lower Extremity: Hip flexors 4/5. Hip abductors 4/5. Knee flexors 4/5. Knee extensors 4/5. Ankle dorsiflexors 4/5. Ankle plantarflexors 4-/5. Sensation: Intact as to pain and pressure on bilateral lower extremities. Reported prickling sensation on the L index finger. Bed Mobility/Transfers: Rolling minimal assist Supine to sit minimal assist Sit to supine minimal assist Sit to stand CGA Stand to sit CGA Bed to chair CGA Chair to bed CGA Gait: Patient was able to tolerate level surface ambulation of up to 75 feet with CGA and wheelchair follow. Patient demonstrated decreased step height and length and a wide-based gait. Verbal cues provided for correct gait pattern, increased step height, and overall safety. Patient reported being tired after activity. Balance: Static Sitting: Normal Dynamic Sitting: Normal Static Standing: Fair Dynamic Standing: Fair Special Tests: Mobility Limitations Standardized Measure [facility] AM-PAC 6 clicks Basic Mobility Inpatient Short Form: Raw Score: 18 CMS Score: 47% deficit Informed Consent/Education: Patient instructed in purpose of PT consult and plan of care. Assessment: Patient is a 73-year-old female with past medical history significant for dilated cardiomyopathy, atrial fibrillation and congestive heart failure who presented to the ED on 01/28/2019 with chief complaints of urinary tract infection, weakness, and failure to thrive. Patient is diagnosed with urinary tract infection, gout, diabetes mellitus, and generalized weakness. Patient hopes to go back home as soon as she is able to. Her level of motivation is not high and considerable encouragement is needed for her to participate in therapy. Patient presents with clinical signs and symptoms consistent with current/admitting diagnoses that have resulted to mobility limitations, gait in stability, generalized weakness, and impairment of motor control as demonstrated by the following impairment level findings: 1. Decreased strength to B LE major muscle groups 2. Impaired standing balance 3. Impaired activity tolerance Impairments are contributing to the following functional limitations: 1. Dependent bed mobility skills 2. Increased dependence with transfers 3. Inability to safely ambulate without assistive device and physical assistance 4. Increase completion time for mobility ADL performance 5. Increased fall risk 6. Inability to negotiate steps alone safely Patient is assessed as a [id number] moderate complexity based on the following: History: Patient is a 73-year-old female with past medical history significant for dilated cardiomyopathy, atrial fibrillation and congestive heart failure who presented to the ED on 01/28/2019 with chief complaints of urinary tract infection, weakness, and failure to thrive. Patient is diagnosed with urinary tract infection, gout, diabetes mellitus, and generalized weakness. Examination: Demonstrable impairment in strength, balance, and range of motion with underlying impairments and functional limitations as documented above Presentation: Evolving Decision Makin moderate complexity Goals: Goals X1 week 1. Supine-Sit independent 2. Sit-Supine independent 3. Sit-Stand independent 4. Stand-Sit independent 5. Bed-Chair supervision 6. Chair-Bed supervision 7. Supervision gait on level surface with use of least restrictive device for at least 200 feet without report of pain nor dyspnea 8. Supervision stair negotiation while holding onto bilateral rails for at least 14 steps without report of pain nor dyspnea 9. Supervision with home exercise program 10. Good static and dynamic standing balance/tolerance Plan of Care/Treatment Plan: 1-2x/day, 7 days/week x 1 week. Plan of care has been reviewed with the CARTON FOLDER providing the service under Physical Therapy direction. Initiate Physical Therapy intervention for strengthening, bed mobility, transfers, gait, stairs, balance training, use of assistive device. DISCHARGE RECOMMENDATIONS: Patient will benefit from home health PT services in order to progress mobility level using least restrictive assistive ambulatory device, assess home safety, identify additional equipment needs, and establish a functional maintenance program that will increase ability of patient to remain at home. TREATMENT CODE/TIME: 41246 x 35 minutes beginning at 9:45 AM. Thank you very much for this referral. America Bey PT, DPT, CLT [facility]
--- NOTE | 2019-01-29 10:48 | NT_ITS ---
Date of service: 01/29/19 Time of Service: 09:20 Occupational Therapy Notes 01/29/19 OT consult received and pt's chart was reviewed. OT attempted to consult with pt x3 and was unable to get into pt's room for consult due to pt working with other providers. OT will plan to attempt consult tomorrow. Fina Chahal, OTR/[facility]
[2019-01-29] MEDS: Magnesium Oxide 400 MG TAB PO ×2 (10:55→22:00)
--- NOTE | 2019-01-29 12:28 | W.PM.PROGNOT ---
Date of Service Date of service: 01/29/19 Time of Service: 12:28 Assessment and Plan Assessment and plan (1) UTI (urinary tract infection): Status: Acute Assessment and plan: Urine culture from 01/26/2019 growing Proteus. Has been on IV ceftriaxone. Transition to oral Keflex. Blood cultures with no growth at 24 hours. Creatinine improved today. Continue PT. (2) Weakness: Status: Acute Assessment and plan: In the setting of urinary tract infection. Also with history of cardiomyopathy, it is unclear when her last echocardiogram was. Continue to treat urinary tract infection. TSH normal. Question of near syncope at home, monitor on telemetry. PT consulted. (3) Gout: Status: Acute Assessment and plan: She has been on colchicine, she does not believe she has gout. She states she was started on treatment for gout when she reported foot pain. Hold colchicine and continue to monitor. (4) ICD (implantable cardioverter-defibrillator) in place: Status: Chronic Assessment and plan: History of cardiomyopathy with reportedly low ejection fraction. Status post AICD. No recent echocardiogram on file here. Consider outpatient Echo to evaluate LV function. (5) Diabetes mellitus: Status: Acute Assessment and plan: Her most recent hemoglobin A1c was on 12/02/2018, 7.8. Blood glucose has ranged from 78-242. Continue carb counting diet, monitor blood glucose at AC, cover with short acting insulin per sliding scale in addition to her home NPH. Adjust as needed. 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 Unclear what her ejection fraction is at this time. Continue carvedilol and torsemide. BNP normal at 221. Recommend outpatient echo. (7) Atrial fibrillation: Status: None Assessment and plan: Currently rate controlled, continue carvedilol per home dosing. Continue Eliquis for anticoagulation. (8) Depression: Status: Chronic Assessment and plan: Continue home regimen with Wellbutrin and fluoxetine. (9) CALDERON (obstructive sleep apnea): Status: Chronic Assessment and plan: Does not wear CPAP. She is encouraged to use her CPAP at home. (10) DVT prophylaxis: Status: Acute Assessment and plan: Continue apixaban. (11) Discharge planning issues: Status: Acute Assessment and plan: She is a full code. Discussed CODE STATUS, she would like to remain full code. She is planning on returning home when she is ready. PT recommends home health. Care management is working on a safe disposition. This case was discussed with Dr. Barros is in agreement. Subjective Subjective Interval history since last seen: Brunilda Herrera reports feeling better today. She has been out of bed and ambulated with PT in the halls. PT recommends home PT. She feels that her weakness is improving. She denies dizziness or lightheaded feeling. No syncope. She is eating 100% of her meals, she is tolerating her diet without nausea, vomiting or diarrhea. She denies abdominal pain. She denies dysuria. She denies chest pain/pressure, palpitations, shortness of breath, coughing, wheezing. She is asking when she can go home. Care management is working with her and her family a safe discharge plan. Exam Narrative Exam Narrative: General: Overweight, elderly female, laying in bed with head elevated, in NAD. Pleasant and cooperative, alert and oriented. Answers questions appropriately. HEENT: normocephalic, atraumatic, pupils equal and round, EOMI, mucous membranes slightly dry. Neck: supple. Cardiovascular: heart sounds irregularly irregular, nontacycardic, no murmur appreciated. Respiratory: respirations even and unlabored, lung sounds clear throughout. GI: normoactive bowel sounds, abdomen soft, nontender on palpation, nondistended. Extremities: +1 edema to bilateral lower extremities, L>R. No calf swelling or tenderness. pedal pulses palpable. Objective Objective Clinical Data: Abnormal lab results 01/29/19 Range/Units 06:35 BUN 22 H (7-18) mg/dL Creatinine 1.29 H (0.55-1.02) mg/dL Glucose 227 H (74-106) mg/dL Vital Signs Temperature 36.9 C 01/29/19 03:51 Temperature Source Tympanic 01/29/19 03:51 Pulse 92 H 01/29/19 07:15 Pulse Rhythm Regular 01/29/19 09:05 Respiratory Rate 19 01/29/19 03:51 Respiratory Effort Non-Labored 01/29/19 09:05 Respiratory Depth Normal 01/29/19 09:05 Respiratory Pattern Normal 01/29/19 09:05 Blood Pressure 136/72 01/29/19 03:51 Blood Pressure Position Sitting 01/28/19 09:55 Pulse Oximetry 95 01/29/19 03:51 Oxygen Delivery Method Room Air 01/29/19 03:51 Oxygen Flow Rate 0 01/29/19 03:51 Pain Level 0 01/29/19 03:51 Intake & Output 01/28/19 01/29/19 01/29/19 23:59 11:59 23:59 Intake Total 494.167 / 494.167 470 / 470 Output Total 750 / 750 250 / 250 Balance -255.833 / -255.833 220 / 220 Weight 128.3 kg 125.1 kg Intake: IV 254.167 / 254.167 70 / 70 Oral 240 / 240 400 / 400 Output: Urine 750 / 750 250 / 250 Other: Urine Color Yellow Yellow Urine Appearance Clear Clear Urine Odor Normal Normal Comment pt was also incontinent Voiding Methods Bedside Commode Bedside Commode Laboratory Results WBC 6.50 k/cumm (4.4-10.8) 01/28/19 10:13 RBC 4.64 m/cumm (4.00-5.20) 01/28/19 10:13 Hgb 14.0 g/dL (12.0-15.5) 01/28/19 10:13 Hct 42.0 % (36.0-46.0) 01/28/19 10:13 MCV 90.5 fL (80-95) 01/28/19 10:13 MCH 30.2 pg (27.0-33.0) 01/28/19 10:13 MCHC 33.3 g/dL (32.0-36.0) 01/28/19 10:13 RDW 14.5 % (11.7-14.6) 01/28/19 10:13 Plt Count 166 x1000/uL (130-400) 01/28/19 10:13 MPV 12.8 fL (8.0-11.0) H 01/28/19 10:13 Immature Gran % 0.2 01/28/19 10:13 Neutrophils % 69.6 01/28/19 10:13 Lymphocytes % 16.5 01/28/19 10:13 Monocytes % 8.6 01/28/19 10:13 Eosinophils % 4.6 01/28/19 10:13 Basophils % 0.5 01/28/19 10:13 Absolute Neutrophils 4.53 k/cumm (1.2-6.7) 01/28/19 10:13 Absolute Lymphocytes 1.07 k/cumm (1.2-3.4) L 01/28/19 10:13 Absolute Monocytes 0.56 k/cumm (0.11-0.7) 01/28/19 10:13 Absolute Eosinophils 0.30 k/cumm (0.0-0.7) 01/28/19 10:13 Absolute Basophils 0.03 k/cumm (0.0-0.2) 01/28/19 10:13 PT 11.6 sec (9.3-11.0) H 01/28/19 10:29 INR 1.2 (0.9-1.1) H 01/28/19 10:29 APTT 27.4 sec (21.0-31.4) 01/28/19 10:29 Sodium 141 mmol/L (136-145) 01/29/19 06:35 Potassium 3.6 mmol/L (3.5-5.1) 01/29/19 06:35 Chloride 104 mmol/L (98-107) 01/29/19 06:35 Carbon Dioxide 28.4 mmol/L (21.0-32.0) 01/29/19 06:35 Anion Gap 8.6 mmol/L (3-11) 01/29/19 06:35 BUN 22 mg/dL (7-18) H 01/29/19 06:35 Creatinine 1.29 mg/dL (0.55-1.02) H 01/29/19 06:35 Estimated GFR/1.73 m2 40.74 (mL/min/1.73m2) 01/29/19 06:35 Glucose 227 mg/dL (74-106) H 01/29/19 06:35 Lactate 1.2 mmol/L (0.6-1.4) 01/28/19 18:00 Calcium 8.6 mg/dL (8.5-10.1) 01/29/19 06:35 Magnesium 1.8 mg/dL (1.8-2.4) 01/29/19 06:35 Total Bilirubin 0.9 mg/dL (0.2-1.0) 01/28/19 10:29 AST 28 U/L (15-37) 01/28/19 10:29 ALT 36 U/L (14-59) 01/28/19 10:29 Alkaline Phosphatase 134 U/L (46-116) H 01/28/19 10:29 Troponin I < 0.05 ng/Ml (<0.06) 01/28/19 18:00 NT-Pro-B Natriuret Pep 221 pg/mL (<300) 01/28/19 10:29 Total Protein 6.6 g/dL (6.4-8.2) 01/28/19 10:29 Albumin 3.0 g/dL (3.4-5.0) L 01/28/19 10:29 TSH Cancelled 01/28/19 14:50 Urine Color Yellow (Yellow) 01/28/19 11:05 Urine Clarity Clear (Clear) 01/28/19 11:05 Urine pH 7.0 (5-8) 01/28/19 11:05 Ur Specific [place] 1.015 (1.005-1.025) 01/28/19 11:05 Urine Protein Negative mg/dL (Negative) 01/28/19 11:05 Urine Ketones Negative mg/dL (Negative) 01/28/19 11:05 Urine Blood Trace-intact (Negative) H 01/28/19 11:05 Urine Nitrite Negative (Negative) 01/28/19 11:05 Urine Bilirubin Negative (Negative) 01/28/19 11:05 Urine Urobilinogen 0.2 EU/dL (Up TO 0.2) 01/28/19 11:05 Ur Leukocyte Esterase Trace (Negative) H 01/28/19 11:05 Urine RBC 3-5 HPF (0-2) H 01/28/19 11:05 Urine WBC 3-5 HPF (0-5) 01/28/19 11:05 Ur Epithelial Cells Rare HPF (Negative) 01/28/19 11:05 Urine Crystals Negative HPF (Negative) 01/28/19 11:05 Urine Bacteria Rare HPF (Negative) 01/28/19 11:05 Urine Casts Negative LPF (Negative) 01/28/19 11:05 Urine Mucus Negative (Negative) 01/28/19 11:05 Ur Culture Indicated? Yes 01/28/19 11:05 Urine Glucose Negative mg/dL (Negative) 01/28/19 11:05
--- NOTE | 2019-01-29 14:45 | PT.INTREAT ---
Date of service: 01/29/19 Time of Service: 14:46 PT Notes Visit Reasons: SYNCOPE, UTI Inpatient Physical Therapy Treatment Note [facility] Date: 01/29/2019 SUBJECTIVE: Brunilda states that she is feeling extremely tired this afternoon, although is agreeable to participating in PT. OBJECTIVE: Pain: Patient complains of pain in left foot with gait training TRANSFERS Sit to supine: I with HOB flat Sit to stand: Min A Stand to sit: CGA GAIT Device: FWW Weight bearing: Full Assist: CGA Distance: 10'+40' THEREX: Patient completed a LE strengthening program, in a supine position, as per flow sheet. TOILETING: Patient toileted with assist ASSESSMENT: Patient tolerated session with c/o L foot pain with gait training. She appeared limited due to fatigue, requiring CGA for limited ambulation. PLAN: Continue with PT's POC Treatment time: 30 minutes [id number], [id number]
--- NOTE | 2019-01-29 15:02 | INITIAL_ITS ---
- If Service Date Differs Date of service: 01/29/19 Time of Service: 15:02 Care Management Initial Assess REASON FOR HOSPITALIZATION:: UTI PAST MEDICAL HISTORY/PAST SURGICAL HISTORY:: Medical History . Actinic keratosis (Acute). Acute joint pain (Acute). Acute pain of left hip (Acute). Acute pain of right shoulder (Acute). Adequate anticoagulation on anticoagulant therapy (Acute). Arthralgia (Acute). Atrial fibrillation. Binge eating disorder (Acute). CHF (congestive heart failure). Dilated cardiomyopathy (Chronic). DM (diabetes mellitus). Dyschromia (Acute). Essential and other specified forms of tremor (Acute). Frequent falls (Acute). Leg edema (Acute). Macular degeneration (Acute). Menopause (Acute). Morbid obesity due to excess calories (Chronic). Nuclear sclerotic cataract of left eye (Resolved). Nuclear sclerotic cataract of right eye (Resolved). Obesity. CALDERON (obstructive sleep apnea) (Chronic). Pain in left shoulder (Acute). Paroxysmal atrial flutter (Chronic). CASA (subconjunctival hemorrhage) (Acute). Surgical History . section. Status post cataract extraction and insertion of intraocular lens of left eye (Chronic 01/03/18). Status post cataract extraction and insertion of intraocular lens of right eye (Chronic 12/20/17) PREVIOUS FUNCTIONAL STATUS/SOCIAL/FAMILY SUPPORTS:: Brunilda lives in a single family home in [facility]. with her . They have one son and one daughter and several grandchildren who are very supportive. 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 Brunilda helps out on occasion but has become too debilitated to work regularly. Brunilda states she has a walker, cane, wheelchair and commode but does not use them. She describes her ability to get around as very slow, as she is chronically in pain from an undiagnosed source. CURRENT FUNCTIONAL STATUS:: Brunilda was sitting up in the chair when CM met with he r. She was pleasant and willing to engage in conversation. She stated that she had felt a little lightheaded and ended up falling at home. Because her family was unable to list her, EMS was called and brought her to the hospital. Brunilda's family had indicated to the ED staff that they were finding it increasingley difficult to care for her at home and were disinclined to take her home. When asked if she was interested in rehab, Brunilda vehemently said No. I am not going to rehab. When I was there before, I felt like I was in fpc. ADVANCE DIRECTIVES:: None on file Has patient been provided with information about the portal?: No Did the patient sign up for the portal?: No CODE STATUS:: Full Code INSURANCE COVERAGE / FINANCIAL ISSUES:: Medicare. BS CURRENT HOME/COMMUNITY SERVICES/EQUIPMENT:: Brunilda uses a walker PRIMARY CARE PHYSICIAN:: Alyssa Turcios POTENTIAL DISCHARGE NEEDS:: follow up with PCP and discharge plan of care PATIENT/FAMILY EDUCATION NEEDS:: Discharge plan, limitations, follow up plan and Ask Me Three. ANTICIPATED BARRIERS TO DISCHARGE:: family is hesitant to take patiet home and resitant to providing additional support. TRANSPORTATION:: via private vehicle with family PLAN:: Brunilda declined SNF referral and will be discharged home when ready. PT is recommending home health PT. CM contacted the patient's daughter Chelita and reviewed the plan. Brunilda will follow up with her PCP and discharge plan of care.She will transport via private vehicle. CM will continue to support patient, family and discharge planning needs. Readmission - Within the Past 30 Days Yes or No: Y - Date of First Admission Date of 1st Admission: 12/30/18 - Date of this Admission Date of Admission: 01/28/19 This admission was: Through ED - Office Visit Since 1st Admission Have you seen your PCP in the office since discharge?: Yes Had an appointment Been Scheduled?: Yes - Speicalist Appointments Have you seen any other specialist since your 1st Admission?: No - I. Interview patient and/or Family Difficulty reaching your doctor or getting an office appt?: No Have you had trouble purchasing/ or taking medication?: No Have you had trouble with getting meals at home?: No Did you feel ready for discharge when you left the last time: Yes Were services received that you thought were set up on disch: Yes What services were received?: Home health nursing, OT and PT Did you call your physician beore you came to the ED?: No How do you think you became sick enough to come back?: I fell - If the patient had a VNA ordered Did the patient have a VNA order?: No - Ask the Care Team Members: What do you think caused the patient to be readmitted: She developed a UTI , became a bit lightheaded and fell - ED visits How many ED visits in the past 12 months: 4 - Assessment for Readmission Summary of readmission circumstances, based upon interviews: Brunilda has been hospitalized 3 times since October and has spent about 3 weeks in rehab. Most recently she has fallen at home and required transport to the hospital.She has had UTIs which contribute to her weakness and occasional lightheadedness.
[2019-01-29 15:09] LABS: HCT 38.5 % (36.0-46.0); HGB 12.6 g/dL (12.0-15.5); Mean Corp. HGB Concentration 32.7 g/dL (32.0-36.0); Mean Corpuscular Hemoglobin 30.1 pg (27.0-33.0); Mean Corpuscular Volume 91.9 fL (80-95); Mean Platelet Volume 12.9 fL (8.0-11.0); Platelet Count 147 x1000/uL (130-400); RBC 4.19 m/cumm (4.00-5.20); RBC Distribution Width 14.2 % (11.7-14.6); White Blood Cell Count 5.57 k/cumm (4.4-10.8)
[2019-01-29] MEDS: Cephalexin 500 MG CAP PO (20:29)
[2019-01-30 00:30] VITALS: BP 149/81; PULSE 81; RESP 16; TEMP 36.7; O2SAT 94
[2019-01-30] MEDS: Omeprazole 20 MG CAPCR PO (07:36)
[2019-01-30 07:37] LABS: HCT 38.9 % (36.0-46.0); HGB 12.8 g/dL (12.0-15.5); Mean Corp. HGB Concentration 32.9 g/dL (32.0-36.0); Mean Corpuscular Hemoglobin 29.8 pg (27.0-33.0); Mean Corpuscular Volume 90.7 fL (80-95); Mean Platelet Volume 12.4 fL (8.0-11.0); Platelet Count 173 x1000/uL (130-400); RBC 4.29 m/cumm (4.00-5.20); RBC Distribution Width 13.9 % (11.7-14.6); White Blood Cell Count 6.83 k/cumm (4.4-10.8)
[2019-01-30 07:40] VITALS: BP 110/70; PULSE 86; RESP 18; TEMP 36.6; O2SAT 94
[2019-01-30 07:45] LABS: Anion Gap 6.3 mmol/L (3-11); BUN 26 mg/dL (7-18); CO2 30.7 mmol/L (21.0-32.0); CREATININE 1.26 mg/dL (0.55-1.02); Calcium 8.9 mg/dL (8.5-10.1); Chloride 108 mmol/L (98-107); Estimated GFR 41.86 (mL/min/1.73m2); Glucose 115 mg/dL (74-106); Potassium 3.8 mmol/L (3.5-5.1); Sodium 145 mmol/L (136-145)
[2019-01-30] MEDS: Insulin Aspart 300 UNITS/3 ML PEN SC ×3 (08:24→17:17)
[2019-01-30] MEDS: Gabapentin 300 MG CAP 600 MG PO (08:51)
[2019-01-30] MEDS: Torsemide 20 MG TAB PO (08:51)
[2019-01-30] MEDS: buPROPion-XL 150 MG TABCR 300 MG PO (08:51)
[2019-01-30] MEDS: FLUoxetine 20 MG CAP 40 MG PO (08:52)
[2019-01-30] MEDS: Apixaban 5 MG TAB PO (08:52)
[2019-01-30] MEDS: Carvedilol 25 MG TAB PO (08:52)
[2019-01-30] MEDS: Omega-3 Fatty Acids 1000 MG CAP PO (08:53)
[2019-01-30] MEDS: Cephalexin 500 MG CAP PO (08:53)
[2019-01-30] MEDS: Magnesium Oxide 400 MG TAB PO (10:25)
--- NOTE | 2019-01-30 10:42 | OTIE_ITS ---
Occupational Therapy Notes Inpatient Occupational Therapy Evaluation Date: 01/30/19 Referring Doctor:Aide Garza NP OT Orders: Non-Urgent Precautions: Fall, Standard PATIENT PROFILE/ADMITTING DIAGNOSIS: Pt is a 73 year old female that was brought to the ER by EMS after a fall in her home. She states that her feet started to hurt and she fell down. Her and caregiver could not get her up and they had to call 911 for (A). 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) Atrial fibrillation Binge eating disorder (Acute) CHF (congestive heart failure) Dilated cardiomyopathy (Chronic) DM (diabetes mellitus) Dyschromia (Acute) Essential and other specified forms of tremor (Acute) Frequent falls (Acute) Leg edema (Acute) Macular degeneration (Acute) Menopause (Acute) Morbid obesity due to excess calories (Chronic) Nuclear sclerotic cataract of left eye (Resolved) Nuclear sclerotic cataract of right eye (Resolved) Obesity CALDERON (obstructive sleep apnea) (Chronic) Pain in left shoulder (Acute) Paroxysmal atrial flutter (Chronic) CASA (subconjunctival hemorrhage) (Acute) Surgical History section Status post cataract extraction and insertion of intraocular lens of left eye (Chronic 01/03/18) Status post cataract extraction and insertion of intraocular lens of right eye (Chronic 12/20/17) Social History/Home Situation: Pt lives in a 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 Pt reports that her bedroom is upstairs and she has a tub/shower bath with a shower bench. She has a FWW which she states she sometimes uses. To (A) her in the shower she has a caregiver that also helps run the store. She states that the caregiver helps her with washing her back in the shower but that she performs all of her dressing (I) at baseline. OT and pt discuss a typical routine that pt goes through during the day. Pt reports that she stays in the chair most of the day because of her feet and because her doesn't want her to over do it. OT and pt discuss the importance of performing her daily routines as (I) as possible. She has had HHOT/PT in which she reports that she was given exercises. Pt states that she performs her exercises minimally or not at all and feels that they do help but she doesn't always do them. Equipment owned/DME: FWW, cane, grab bars, shower bench SUBJECTIVE: Pt was lying in bed when OT arrived. She was agreeable to OT session and reports that she is tired but willing to participate. She is concerned that she is not getting better. She states that she feels that she keeps having to come back and no one can tell her whats wrong with her. OBJECTIVE: General Observation: Pleasant, able to answer questions Mental Status: A&Ox3 Pain: no c/o pain ROM: RUE AROM WFL L UE AROM WFL STRENGTH: RUE 4/5 throughout globally LUE 4/5 throughout globally FUNCTIONAL MOBILITY/ADLS: Transfers with FWW Supine-sit (I) Sit-supine (I) Sit-Stand SBA Stand-sit SBA BATHING Pt denies performance but is able to demonstrate functional ROM for performance (I) except her back and behind her legs. DRESSING Sitting on side of bed (I) with don and doffing (B) socks. She denies the need for sock aid but admits that she is willing to learn about adaptive equipment. GROOMING (I) sitting on side of bed with brushing hair TOILETING NT EATING (I) sitting on side of bed. BALANCE: Static sitting Normal Dynamic Sitting Normal Static Standing Good- OT can only state this based on less than 5 minutes in standing Dynamic Standing Good- OT can only state this based on less than 5 minutes in standing SPECIAL TESTS: Daily Activity Limitations Standardized Measure [facility] AM -PAC ?6 clicks? Daily Activity Inpatient Short Form: Raw score: 20 Standardized score: 42.03 CMS score: 38.32% INFORMED CONSENT/EDUCATION: Pt instructed in purpose of OT Consult and plan of care. ASSESSMENT: Patient is a 73-year-old female referred to occupational therapy services with diagnosis of dizziness/syncope. Patient presents with clinical signs and symptoms consistent with dx, as demonstrated by the following impairment level findings/ functional limitations: Decreased functional mobility, decreased performance of ADLs, decreased functional activity tolerance, decreased LE strength, pain in (B) feet with functional mobility. AMPAC score 20 Patient is assessed as a Moderate 94998 complexity based on the following: History: See above Examination: See functional limitations as noted above Presentation: Evolving Decision Making: AMPAC score 20 GOALS Goals x1 week 1. Transfers with FWW (S) 2. Dressing SItting in chair (I) UE/LE 3. Bathing- Standing at sink (I) washing face, sitting in chair (I) LE 4. Toileting- on toilet (I) 5. Eating- sitting in chair (I) 6. Pt will be able to stand at the sink and brush her teeth and hair (I) without (A). PLAN OF CARE/TREATMENT PLAN: 1x/day, 5 days/ week x 1week Initiate Occupational Therapy Services for bathing, dressing, grooming, toileting, eating, transfer training. DISCHARGE RECOMMENDATIONS Pt denies going to SNF at this time and states that she is not interested. OT recommends that pt have HHOT. TREATMENT TIME/MINUTES/CODES 16072, 10833, 25 minutes (09:00) Fina Chahal OTR/[facility]
[2019-01-30 11:45] VITALS: BP 131/81; PULSE 83; RESP 22; TEMP 36.6; O2SAT 93
--- NOTE | 2019-01-30 11:53 | PT.INTREAT ---
Date of service: 01/30/19 Time of Service: 11:53 PT Notes Visit Reasons: SYNCOPE, UTI Inpatient Physical Therapy Treatment Note [facility] Date: 01/30/2019 PRECAUTIONS:Fall. Standard. Activity as tolerated. SUBJECTIVE: Patient reports that she woke up tired this mornng and was trying to get some sleep when this PT arrived. She states that she is agreeable to work with PT as she hopes that she may go home today if no problem is seen with interrogation of her pacer this afternoon. She continues to complain of L foot pain which she has had chronically and which nursing is aware of. She added that who is picking up to go home is scheduled to have two teeth extracted early today. OBJECTIVE: Telemetry monitoring dsicharged. PAIN: reports mild pain on L foort with rest, moderate pain with weight-bearing. BED MOBILITY/TRANSFERS Rolling L/R: supervision Supine-sit: supervision Sit-supine: supervision Sit-stand: SBA Stand-sit: SBA Bed-Chair: SBA Chair-bed: SBA GAIT Assistive Device: FWW Weight bearing: FWB Assist: CGA Distance: 80-85 feet Deviation: Gait reciprocal. Decreased tomas. Decreased step height and length. VITALS: Showed VS WNL after ambulation activity as taken by LOAN EXPEDITOR ASSESSMENT: Patient has to walk about 45 feet from recliner to her kitchen and 50-60 feet to her bathroom at home. She also has a bedside commode that can be placed close to her recliner on days she gets tired or when her L foot acts up. Family may need to consider providing a makeshift bedroom for her on the first floor as she has 14 or so steps to the second floor where her bedroom is. With patient's body habitus, her varying levels of motivation/fatigue, and with her chronic L foot pain, her risk for falls with stair negotiation is high at this time. HH PT and OT are highly recommended. No equipment needs at this time. PLAN: Will D/C to home if pacer interrogation yields negative result per MD/TERRITORY SALES REPRESENTATIVE order. TREATMENT CODE/TIME: [11140 x 34 minutes beginning at 11:10 AM.
--- NOTE | 2019-01-30 12:50 | PDOC.CMDIS ---
LACE Index Scoring Tool - Questions: Length of Stay (in days): 2 Acuity (Admit via E.D.?): Yes Comorbidities: Diabetes w/o Complication, Congestive Heart Failure E.D. Visits: 4 - Answers: Total Score: 12 Risk of Readmission: High Risk Care Management Discharge Reason for Hospitalization: UTI Discharge Plan: Brunilda will return home when ready per MD. She will follow up with her PCP and plan of care as prescribed. CM met with Brunilda and her to review discharge plan. Brunilda will have new orders for home health PT/OT and transport via private vehicle with family. Patient/Family Education Needs: Review discharge instructions, discuss Ask Me Three. Services Needed at Discharge: Home Health Care Services (New PT/OT )
--- NOTE | 2019-01-30 15:22 | W.PM.DS.N ---
Date of service: 01/30/19 Time of Service: 15:23 DS: Diagnosis Discharge Diagnosis (1) UTI (urinary tract infection): Status: Acute (2) Weakness: Status: Acute (3) Gout: Status: Acute (4) ICD (implantable cardioverter-defibrillator) in place: Status: Chronic (5) Diabetes mellitus: Status: Acute (6) Dilated cardiomyopathy: Status: Chronic (7) Atrial fibrillation: Status: None (8) Depression: Status: Chronic (9) CALDERON (obstructive sleep apnea): Status: Chronic Discharge Plan Disposition Patient Disposition: HOME W/HOME HEALTH SERVICE Condition: Improving Discharge Details Chief Complaint: Dizzy/Sync Reason For Visit: SYNCOPE, UTI Admit Date/Time: 01/28/19 12:34 Admit Provider: Karlos Barros Attending Provider: Karlos Barros Primary Care Provider: Alyssa Turcios ED Provider: [facility] Hospital Course: Brunilda Herrera is a pleasant 73 year old female with a past medical history significant for insulin dependent diabetes, obstructive sleep apnea, cardiomyopathy with pacemaker and AICD, atrial fibrillation on anticoagulation with apixaban, gout presented to the emergency department on 12/30/2018 with reports of generalized weakness and a fall at home. In the emergency department, review of her chart noted that she had a urine culture as an outpatient on 01/26/2019 which was growing a Proteus species. She was not on antibiotics at the time of her presentation. She had labs drawn, no leukocytosis, her INR was 1.2, her creatinine was elevated at 1.52, her anion gap was 7.8, troponin was negative x2. She received IV fluids. She was initiated on ceftriaxone for urinary tract infection. Her EKG showed normal sinus rhythm with a rate of 77, left axis, widened QRS, poor R wave progression, no STEMI, unchanged from prior. She received IV fluids in the emergency department and was started on a ceftriaxone for Proteus UTI. she was admitted to the [facility] floor for further treatment of her urinary tract infection and a physical therapy consult. By the following day, her creatinine improved, she was feeling better. She was able to work with PT and ambulate in the hallway. PT recommended home health physical therapy. At the time of her presentation the question of some dizziness or possible presyncope. The patient denied losing consciousness when she fell at home. She stated she collapsed to the floor and remembered the event. She has been monitored on telemetry for this reason. On telemetry, she was noted to be in normal sinus rhythm with first-degree block, heart rates 70s to 90s. The telemetry was continued. The patient's daughter had concerns about her AICD in the setting of dizziness. This was discussed with cardiology, cardiology interrogated her pacemaker on 01/30/2018 and found it to be normal. Her antibiotics were transitioned to oral Keflex after the sensitivities were available from the urine culture. She will be discharged home to complete a course of Keflex. She is discharged home with follow-up in place with her primary care provider next week. She will have home health physical therapy and occupational therapy. Home Meds and New Rx's Prescriptions: New cephalexin 500 mg Capsule 500 mg PO BID Qty: 5 RF: 0 Continued colchicine 0.6 mg tablet 0.6 mg PO BID RF: 0 omega-3 fatty acids 1,000 MG capsule 1,000 mg PO BID RF: 0 nitroglycerin [Nitrostat] 0.4 MG tablet, sublingual 0.4 mg Sublingual ONCE PRNRF: 0 BI PAP RF: 0 carvedilol 25 mg tablet 25 mg PO BID Qty: 180 RF: 4 ergocalciferol (vitamin D2) 50,000 unit capsule 50,000 unit PO .QO week RF: 0 fluoxetine 40 MG capsule 40 mg PO DAILY AM RF: 0 Ocuvite Adult 50 Plus 250-5-1 mg Capsule 1 cap PO HS RF: 0 gabapentin 300 mg Capsule 600 mg PO BID RF: 0 Eliquis 5 mg Tablet 5 mg PO BID RF: 0 bupropion HCl 150 mg tablet extended release 24 hr 300 mg PO QAM RF: 0 acetaminophen [Tylenol] 325 mg Tablet 650 mg PO Q6H PRN PRNQty: 0 RF: 0 omeprazole 20 mg Capsule,Delayed Release(Dr/Ec) 20 mg PO BID@0730,2000 Qty: 60 RF: 0 torsemide 20 MG tablet 20 mg PO DAILY Qty: 0 RF: 0 magnesium oxide 400 MG capsule 400 mg PO BID RF: 0 Novolog Flexpen U-100 Insulin 300 UNITS/3 ML insulin pen 10 units Sub-Q 0800,1200,1700 RF: 0 Novolin 70/30 U-100 Insulin 100 unit/mL (70-30) Suspension 40 ml SUBCUT BID RF: 0 Discharge Instructions Instructions: Urinary Tract Infection in Women (DC) Additional Instructions: Take the antibiotics until they are gone. Your ICD was interrogated, cardiology reviewed the results, the interrogation was normal. You will have new home physical therapy and Occupational Therapy. Resume your other medications as usual. Follow-up with your primary care provider as scheduled. Stand Alone Forms: Nursing Discharge Form Referrals: Miko Gonzáles MD [ [facility] STAFF PHYSICIAN] - 02/05/19 2:00 pm Activity:: Activity as Tolerated Equipment/Supplies:: No Equipment Needed Diet:: Carb Counting Discharge Orders Discharge Orders: Discharge Order (Routine); Ordered 01/30/19 Ordered By: Aide Garza DS: Summary Status at Discharge Functional status at discharge: uses cane/walker Overall status at discharge: patient is progressing back to baseline Mental Status: mental status grossly normal Speech and Movement: speech and movement normal Mood: congruent mood Affect: normal affect Exam Narrative Exam Narrative: General: Overweight, elderly female, laying in bed with head elevated, in NAD. Pleasant and cooperative, alert and oriented. Answers questions appropriately. HEENT: normocephalic, atraumatic, pupils equal and round, EOMI, mucous membranes slightly dry. Neck: supple. Cardiovascular: heart sounds irregularly irregular, nontacycardic, no murmur appreciated. Respiratory: respirations even and unlabored, lung sounds clear throughout. GI: normoactive bowel sounds, abdomen soft, nontender on palpation, nondistended. Extremities: +1 edema to bilateral lower extremities, L>R. No calf swelling or tenderness. pedal pulses palpable. Psych Mental Status: mental status grossly normal Speech and Movement: speech and movement normal Mood: congruent mood Affect: normal affect DS: Data Vitals/I&O Vitals and I&O: Vital Signs Temperature 36.6 C 01/30/19 11:45 Temperature Source Tympanic 01/30/19 11:45 Pulse 83 01/30/19 11:45 Pulse Rhythm Regular 01/30/19 07:43 Respiratory Rate 22 01/30/19 11:45 Respiratory Effort Non-Labored 01/30/19 07:43 Respiratory Depth Normal 01/30/19 07:43 Respiratory Pattern Normal 01/30/19 07:43 Blood Pressure 131/81 01/30/19 11:45 Blood Pressure Position Sitting 01/28/19 09:55 Pulse Oximetry 93 L 01/30/19 11:45 Oxygen Delivery Method Room Air 01/30/19 11:45 Oxygen Flow Rate 0 01/30/19 11:45 Pain Level 0 01/30/19 11:45 Intake & Output 01/29/19 01/30/19 01/30/19 23:59 11:59 23:59 Intake Total 480 / 950 240 / 480 240 / 480 Output Total 1099 475 / 475 Balance -620 / -1075 240 / 5 -235 / 5 Weight 122.6 kg Intake: IV 0 / 0 Oral 480 / 880 240 / 480 240 / 480 Output: Urine 1099 475 / 475 Other: Urine Color Yellow Yellow Pale Yellow Urine Appearance Clear Clear Clear Urine Odor Normal Normal Comment Unknown amount in toilet. Patient missed the hat. Voiding Methods Toilet Toilet Toilet Incontinent Incontinent Diaper Incontinent Data Completed and Pending Labs on day of discharge: Labs from last 24 hours 01/30/19 01/30/19 06:35 06:35 WBC 6.83 RBC 4.29 Hgb 12.8 Hct 38.9 MCV 90.7 MCH 29.8 MCHC 32.9 RDW 13.9 Plt Count 173 MPV 12.4 H Sodium 145 Potassium 3.8 Chloride 108 H Carbon Dioxide 30.7 Anion Gap 6.3 BUN 26 H Creatinine 1.26 H Estimated GFR/1.73 m2 41.86 Glucose 115 H D Calcium 8.9 Preliminary micro results at discharge 01/28/19 11:00 Blood Culture - Preliminary Blood NO GROWTH 48 HOURS 01/28/19 11:00 Blood Culture - Preliminary Blood NO GROWTH 48 HOURS [facility] Medical History Actinic keratosis (Acute) Acute joint pain (Acute) Acute pain of left hip (Acute) Acute pain of right shoulder (Acute) Adequate anticoagulation on anticoagulant therapy (Acute) Arthralgia (Acute) Atrial fibrillation Binge eating disorder (Acute) CHF (congestive heart failure) Dilated cardiomyopathy (Chronic) DM (diabetes mellitus) Dyschromia (Acute) Essential and other specified forms of tremor (Acute) Frequent falls (Acute) Leg edema (Acute) Macular degeneration (Acute) Menopause (Acute) Morbid obesity due to excess calories (Chronic) Nuclear sclerotic cataract of left eye (Resolved) Nuclear sclerotic cataract of right eye (Resolved) Obesity CALDERON (obstructive sleep apnea) (Chronic) Pain in left shoulder (Acute) Paroxysmal atrial flutter (Chronic) CASA (subconjunctival hemorrhage) (Acute) Surgical History section Status post cataract extraction and insertion of intraocular lens of left eye (Chronic 01/03/18) Status post cataract extraction and insertion of intraocular lens of right eye (Chronic 12/20/17) Family History Father Heart disease Social History Smoking/Tobacco Use Status: Never Alcohol Intake: never Drug use: Never Substance use type: does not use Household members: spouse Housing: house 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
--- NOTE | 2019-01-30 16:02 | PDOC.HHF2F_ITS ---
Home Health Certification Home Health Certification: 1. Encounter Date and Reason I certify that BAILEE MARKS was seen by Aide Garza on 01/30/19 and that I had a [id number] encounter with this patient that meets the physician face to face encounter requirements. 2. Clinical Findings Supporting Skilled Need and Homebound Status I certify that home health services are medically necessary, include either intermittent detention and/or physical/speech therapy, and that this patient is homebound in that absences from the home require considerable and taxing effort and are infrequent or of short duration, or are attributable to the need to receive medical care. [X] (a) Attached documentation from encounter provides clinical findings supporting skilled need and homebound status (including what assistance patient requires to leave the home). The encounter with the patient was in whole, or in part, for the following medical condition, which is the primary reason for home health care: UTI, weakness, falls Group Home: Physical Therapy: Needed to continue to work on strength and endurance as well as fall precautions. OT: Needed to assess home situation and make recommendations for adaptive devices as needed. Speech Therapy: Homebound: Unable to leave home without assistance. 3. Certification and Authentication I certify that I composed the above information based on my clinical judgement relating to this patient's medical condition and, if applicable, clinical findings communicated to me by the NPP or inpatient physician who performed the Home Health Referral. All further orders will be obtained through ____Dr. Turcios (Community Based Physician - PCP)
[2019-01-30 16:03] VITALS: BP 145/86; PULSE 88; RESP 20; TEMP 36.4; O2SAT 98
--- NOTE | 2019-02-02 07:06 | OTDS_ITS ---
Date of service: 02/02/19 Time of Service: 07:06 Occupational Therapy Notes Occupational Therapy Inpatient Discharge Summary Date: 02/02/19 Dates of Service: 01/30/19 Referring Doctor:Aide Garza NP OT Orders: Non-Urgent Precautions: Fall, Standard PATIENT PROFILE/ADMITTING DIAGNOSIS: Pt is a 73 year old female that was brought to the ER by EMS after a fall in her home. She states that her feet started to hurt and she fell down. Her and caregiver could not get her up and they had to call 911 for (A). 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) Atrial fibrillation Binge eating disorder (Acute) CHF (congestive heart failure) Dilated cardiomyopathy (Chronic) DM (diabetes mellitus) Dyschromia (Acute) Essential and other specified forms of tremor (Acute) Frequent falls (Acute) Leg edema (Acute) Macular degeneration (Acute) Menopause (Acute) Morbid obesity due to excess calories (Chronic) Nuclear sclerotic cataract of left eye (Resolved) Nuclear sclerotic cataract of right eye (Resolved) Obesity CALDERON (obstructive sleep apnea) (Chronic) Pain in left shoulder (Acute) Paroxysmal atrial flutter (Chronic) CASA (subconjunctival hemorrhage) (Acute) Surgical History section Status post cataract extraction and insertion of intraocular lens of left eye (Chronic 01/03/18) Status post cataract extraction and insertion of intraocular lens of right eye (Chronic 12/20/17) Social History/Home Situation: Pt lives in a 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 Pt reports that her bedroom is upstairs and she has a tub/shower bath with a shower bench. She has a FWW which she states she sometimes uses. To (A) her in the shower she has a caregiver that also helps run the store. She states that the caregiver helps her with washing her back in the shower but that she performs all of her dressing (I) at baseline. OT and pt discuss a typical routine that pt goes through during the day. Pt reports that she stays in the chair most of the day because of her feet and because her doesn't want her to over do it. OT and pt discuss the importance of performing her daily routines as (I) as possible. She has had HHOT/PT in which she reports that she was given exercises. Pt states that she performs her exercises minimally or not at all and feels that they do help but she doesn't always do them. Equipment owned/DME: FWW, cane, grab bars, shower bench SUBJECTIVE: NT OBJECTIVE: *This document serves as a summary of care, no skilled OT services provided for this documentation. ROM: RUE AROM WFL L UE AROM WFL STRENGTH: RUE 4/5 throughout globally LUE 4/5 throughout globally FUNCTIONAL MOBILITY/ADLS: Transfers with FWW Supine-sit (I) Sit-supine (I) Sit-Stand SBA Stand-sit SBA BATHING Pt denied performance but is able to demonstrate functional ROM for performance (I) except her back and behind her legs. DRESSING Sitting on side of bed (I) with don and doffing (B) socks. She denied the need for sock aid GROOMING (I) sitting on side of bed with brushing hair TOILETING NT EATING (I) sitting on side of bed. BALANCE: Static sitting Normal Dynamic Sitting Normal Static Standing Good- OT can only state this based on less than 5 minutes in standing Dynamic Standing Good- OT can only state this based on less than 5 minutes in standing ASSESSMENT: Patient is a 73-year-old female referred to occupational therapy services with diagnosis of dizziness/syncope. Patient presents with clinical signs and symptoms consistent with dx, as demonstrated by the following impairment level findings/ functional limitations: Decreased functional mobility, decreased performance of ADLs, decreased functional activity tolerance, decreased LE strength, pain in (B) feet with functional mobility.Pt was seen for OT consult only, based on this pt was unable to assess pt's goals. GOALS- Pt was seen for OT consult only- unable to assess. 1. Transfers with FWW (S) 2. Dressing SItting in chair (I) UE/LE 3. Bathing- Standing at sink (I) washing face, sitting in chair (I) LE 4. Toileting- on toilet (I) 5. Eating- sitting in chair (I) 6. Pt will be able to stand at the sink and brush her teeth and hair (I) without (A). PLAN OF CARE/TREATMENT PLAN: Discharge from skilled OT services. DISCHARGE RECOMMENDATIONS Pt denies going to SNF at this time and states that sh e is not interested. OT recommends that pt have HHOT. TREATMENT TIME/MINUTES/CODES N/A Fina Chahal OTR/L [facility]
== END 2019-01-30 18:07 | disposition home health service (06) ==
LOC: ER 12:56 → MS 13:59
PROVIDERS: Nurse Practitioner; Admitting Provider Family Medicine; Emergency Provider Student in an Organized Health Care Education/Training Program; PCP Family Medicine; Visit Provider Internal Medicine
DX: N39.0 Urinary tract infection, site not specified (principal); R53.1 Weakness; B96.4 Proteus (mirabilis) (morganii) as the cause of diseases classified elsewhere; M10.9 Gout, unspecified; Z95.810 Presence of automatic (implantable) cardiac defibrillator; E11.9 Type 2 diabetes mellitus without complications; I42.0 Dilated cardiomyopathy; I48.91 Unspecified atrial fibrillation; F32.9 Major depressive disorder, single episode, unspecified; G47.33 Obstructive sleep apnea (adult) (pediatric); Z79.01 Long term (current) use of anticoagulants; Z79.4 Long term (current) use of insulin; E66.01 Morbid (severe) obesity due to excess calories; Z68.41 Body mass index [BMI] 40.0-44.9, adult
CPT/HCPCS: 36415; 80048; 80053; 85027; 87040; 87077; 93005; 96361; 96365; 97110; 97162; 97166; 97530; 97535; 99222; 99232; 99285; 81003; 81015; 83605; 83735; 83880; 84443; 84484; 85025; 85610; 85730; 87086; 87186; 93010; 99217; 99219; 99225; G0378; J0696